=== PATIENT | female | born 1930 | race Caucasian/White ===

== ENCOUNTER 2016-09-20 17:45 | Observation (INO) | payer MEDICARE, OTHER ==
[~2016-09-20 17:45] MED LIST: ATEN-102 PO; CHLO50TA PO; GLYB1TAB50 PO; NITR0.4S SL; PLAV75TA PO; PRAV40TA2 PO; SYNT125T PO
[2016-09-20 17:48] VITALS: BP 188/91; PULSE 93; RESP 20; TEMP 98.1; O2SAT 94
[2016-09-20] MEDS ORDERED: GLYB2.5T3 PO (17:54)
[2016-09-20] MEDS ORDERED: PLAV75TA29 PO (17:54)
[2016-09-20] MEDS ORDERED: SYNT25TA PO (17:54)
[2016-09-20] MEDS ORDERED: VITA400C28 (17:54)
[2016-09-20] MEDS ORDERED: ATEN25TA PO (17:54)
--- NOTE | 2016-09-20 17:56 | PD ---
HPI Chief Complaint: Headache Time Seen by Provider: 17:48 Travel History International Travel<30 days: No Contact w/Intl Traveler<30days: No Traveled to known affect area: No History of Present Illness HPI 86 year old female with history of CAD, 2 stents, brought in by ambulance from home for evaluation of dizziness. The patient states that after returning from [facility] today she felt dizzy/lightheaded, and as though she was going to pass out. She did not actually pass out. Patient lives alone and she became concerned that her symptoms were not improving, so she called 911. Upon arrival to the emergency department the patient is awake and alert and in no acute distress. She complains of generalized weakness/lightheadedness. No chest pain or dyspnea. No abdominal pain. No fevers, chills, cough, or recent illness. PFSH Past Medical History Hx Anticoagulant Therapy: Yes (PLAVIX) Arthritis: Yes Asthma: No Autoimmune Disease: No Blood Disorders: No Anxiety: Yes Depression: No Heart Rhythm Problems: No Cancer: No Cardiac Catheterization: Yes Cardiovascular Problems: Yes ([place], [place]) High Cholesterol: Yes Chemotherapy: No Chest Pain: Yes Congestive Heart Failure: No COPD: No Cerebrovascular Accident: No Coronary Artery Disease: Yes Diabetes: Yes Patient Takes Glucophage: No Diminished Hearing: Yes ([place]) Endocrine: Yes Gastrointestinal Disorders: Yes GERD: No Glaucoma: No Genitourinary: Yes (INCONTINENECE) Headaches: No Hepatitis: No Hiatal Hernia: Yes Hypertension: Yes Immune Disorder: No Implanted Vascular Access Dvce: Yes Kidney Stones: No Musculoskeletal: Yes (kiphosis/arthritis/joint pain/) Neurologic: No Psychiatric: Yes Reproductive: No Respiratory: Yes Immunizations Current: Yes Migraines: No Myocardial Infarction: Yes Radiation Therapy: No Renal Failure: No Seizures: No Sickle Cell Disease: No Sleep Apnea: No Thyroid Disease: Yes Ulcer: No PNEUMOCCOCAL Vaccine (Year): 1 Menopausal: Yes Past Surgical History Abdominal Surgery: Yes (APPENDECTOMY) AICD: No Appendectomy: Yes Arteriovenous Shunt: No Body Medical Devices: STENT 2011 Cardiac Surgery: Yes (STENTS) Cholecystectomy: No Coronary Stent: Yes () Ear Surgery: No Endocrine Surgery: No Eye Surgery: Yes (CATARACTS) Genitourinary Surgery: No Gynecologic Surgery: No Insulin Pump: No Joint Replacement: No Neurologic Surgery: No Oral Surgery: No Pacemaker: No Thoracic Surgery: No Other Surgery: Yes (THYROID) Social History Alcohol Use: No Tobacco Use: No Substance Use: No Allergies-Medications (Allergen,Severity, Reaction): Coded Allergies: Demerol (Verified Allergy, Mild, N/V, 09/20/16) Darvon (Verified Adverse Reaction, Mild, N/V, 09/20/16) *MDRO Multi-Drug Resistant Organism (Verified Adverse Reaction, Unknown, ) MRSA PCR Screen positive 03/21/15. Reported Meds & Prescriptions Reported Meds & Active Scripts Active Reported Vitamin D (Cholecalciferol) 400 Unit Cap Unknown Dose Synthroid (Levothyroxine Sodium) 25 Mcg Tab Unknown Dose PO DAILY Glyburide 2.5 Mg Tab Unknown Dose PO BID Take with meals at the same time each day Plavix (Clopidogrel Bisulfate) 75 Mg Tab Unknown Dose PO DAILY Atenolol 25 Mg Tab Unknown Dose PO BID Review of Systems Except as stated in HPI: all other systems reviewed are Neg Physical Exam Narrative GENERAL: Well-developed, well-nourished, awake, alert, no acute distress. SKIN: Warm and dry. No rash. No pallor. HEAD: Atraumatic. Normocephalic. EYES: Pupils equal, round, 2 mm, reactive to light. EOMI. No nystagmus. No scleral icterus. No injection or drainage. ENT: Mucous membranes pink and moist. Bilateral tympanic members and external auditory canals are normal. NECK: Trachea midline. No JVD. CARDIOVASCULAR: Regular rate and rhythm. No murmur appreciated. RESPIRATORY: No accessory muscle use. Clear to auscultation. Breath sounds equal bilaterally. GASTROINTESTINAL: Abdomen soft, non-tender, nondistended. MUSCULOSKELETAL: No obvious deformities. No clubbing. No cyanosis. No edema. NEUROLOGICAL: Awake and alert. No obvious cranial nerve deficits. Motor grossly within normal limits. Normal speech. No focal deficit. PSYCHIATRIC: Appropriate mood and affect; insight and judgment normal. Data Data Last Documented VS Vital Signs Date Time Temp Pulse Resp B/P Pulse Ox O2 Delivery O2 Flow Rate FiO2 09/20/16 21:15 68 18 185/75 97 Room Air 09/20/16 19:15 97.7 Orders Electrocardiogram (09/20/16 17:53) Complete Blood Count With Diff (09/20/16 17:53) Comprehensive Metabolic Panel (09/20/16 17:53) B-Type Natriuretic Peptide (09/20/16 17:53) Ckmb (Isoenzyme) Profile (09/20/16 17:53) Troponin I (09/20/16 17:53) Act Partial Throm Time (Ptt) (09/20/16 17:53) Prothrombin Time / Inr (Pt) (09/20/16 17:53) Urinalysis - C+S If Indicated (09/20/16 17:53) Chest, Single Ap (09/20/16 17:53) Ecg Monitoring (09/20/16 17:53) Iv Access Insert/Monitor (09/20/16 17:53) Oximetry (09/20/16 17:53) Sodium Chloride 0.9% Flush (Ns Flush) (09/20/16 18:00) Influenzae A/B Antigen (09/20/16 17:53) Cath For Specimen (09/20/16 18:54) Ct Brain W/O Iv Contrast(Rout) (09/20/16 ) Bedside Glucose [place].AC&HS (09/20/16 21:28) ^ Blood Glucose Goal (Criteria (09/20/16 21:28) ^ Hypoglycemia 51 - 69 Mg/Dl (09/20/16 21:28) ^ Hypoglycemia 50 Mg/Dl Or < (09/20/16 21:28) ^ Notify Dr: Other (09/20/16 21:28) Dextrose 50% In [place] (Vial) Inj (D50w (Vi (09/20/16 21:30) Glucagon Inj (Glucagon Inj) (09/20/16 21:30) Insulin Aspart Supplemtl Scale (Novolog (09/21/16 07:00) Atenolol (Tenormin) (09/21/16 09:00) Place In Observation (09/20/16 ) Vital Signs (Adult) Q4H (09/20/16 21:28) Activity Oob With Assistance (09/20/16 21:28) Diet 1800 Ada Cons Carb (09/21/16 Breakfast) Sodium Chlor 0.9% 1000 Ml Inj (Ns 1000 M (09/20/16 21:28) Sodium Chloride 0.9% Flush (Ns Flush) (09/20/16 21:30) Sodium Chloride 0.9% Flush (Ns Flush) (09/21/16 09:00) Ondansetron Inj (Zofran Inj) (09/20/16 21:30) Bisacodyl Supp (Dulcolax Supp) (09/20/16 21:30) Comprehensive Metabolic Panel (09/21/16 06:00) Complete Blood Count With Diff (09/21/16 06:00) Pt Request For Service (09/20/16 21:28) Scd Bilateral/Knee High MILTON.BID (09/20/16 21:28) Yordan Bilateral/Knee High MILTON.QSHIFT (09/20/16 21:28) Acetaminophen (Tylenol) (09/20/16 21:30) Acetamin-Hydrocod 325-5 Mg ([place] 5-325 (09/20/16 21:30) Acetamin-Hydrocod 325-10 Mg ([place] 10-32 (09/20/16 21:30) Labs Laboratory Tests Test 09/20/16 09/20/16 18:00 19:20 White Blood Count 7.2 TH/MM3 Red Blood Count 5.14 MIL/MM3 Hemoglobin 14.4 GM/DL Hematocrit 44.8 % Mean Corpuscular Volume 87.2 FL Mean Corpuscular Hemoglobin 28.1 PG Mean Corpuscular Hemoglobin 32.2 % Concent Red Cell Distribution Width 13.8 % Platelet Count 260 TH/MM3 Mean Platelet Volume 7.6 FL Neutrophils (%) (Auto) 71.3 % Lymphocytes (%) (Auto) 17.1 % Monocytes (%) (Auto) 8.4 % Eosinophils (%) (Auto) 2.2 % Basophils (%) (Auto) 1.0 % Neutrophils # (Auto) 5.1 TH/MM3 Lymphocytes # (Auto) 1.2 TH/MM3 Monocytes # (Auto) 0.6 TH/MM3 Eosinophils # (Auto) 0.2 TH/MM3 Basophils # (Auto) 0.1 TH/MM3 CBC Comment DIFF FINAL Differential Comment Prothrombin Time 11.2 SEC Prothromb Time International 1.0 RATIO Ratio Activated Partial 26.4 SEC Thromboplast Time Sodium Level 140 MEQ/L Potassium Level 3.8 MEQ/L Chloride Level 104 MEQ/L Carbon Dioxide Level 27.7 MEQ/L Anion Gap 8 MEQ/L Blood Urea Nitrogen 14 MG/DL Creatinine 0.80 MG/DL Estimat Glomerular Filtration 68 ML/MIN Rate Random Glucose 177 MG/DL Calcium Level 8.5 MG/DL Total Bilirubin 0.6 MG/DL Aspartate Amino Transf 11 U/L (AST/SGOT) Alanine Aminotransferase 16 U/L (ALT/SGPT) Alkaline Phosphatase 78 U/L Total Creatine Kinase 55 U/L Troponin I LESS THAN 0.02 NG/ML B-Type Natriuretic Peptide 50 PG/ML Total Protein 6.8 GM/DL Albumin 3.4 GM/DL Urine Collection Type CATH Urine Color YELLOW Urine Turbidity CLEAR Urine pH 5.5 Urine Specific [place] 1.028 Urine Protein NEG mg/dL Urine Glucose (UA) 500 mg/dL Urine Ketones NEG mg/dL Urine Occult Blood TRACE Urine Nitrite NEG Urine Bilirubin NEG Urine Leukocyte Esterase NEG Urine RBC 0-3 /hpf Urine Squamous Epithelial 0-5 /hpf Cells Urine Amorphous Sediment SMALL Urine Mucus OCC /lpf Microscopic Urinalysis Comment CULT NOT INDICATED MDM Medical Decision Making Medical Screen Exam Complete: Yes Emergency Medical Condition: Yes Medical Record Reviewed: Yes Interpretation(s) EKG: Sinus, rate 85, indeterminate axis, first-degree AV block, nonspecific anterolateral T-wave changes with T-wave inversions in I and aVL as well as V2, unchanged from prior. Differential Diagnosis Near syncope, dysrhythmia, UTI, intracranial abnormality, electrolyte abnormality Narrative Course Initial vital signs show heart rate 93, blood pressure 188/91, pulse ox 97% on room air, oral temp of 98.1F. CBC is unremarkable. CMP is remarkable for random glucose 177, otherwise unremarkable. BNP is 50. Cardiac enzymes are negative. UA is not suggestive of UTI. Chest x-ray: CONCLUSION: 1. Large herniation of bowel into the lower thorax similar to prior study, likely associated with basilar atelectasis bilaterally, left greater than right. No pneumothorax. 7:00 PM: Patient states she is feeling a lot better and is refusing her CT head. She believes that her symptoms were related to "nerves/stress" as she is upset about something regarding her house. 7:55 PM: After all labs are resulted, the patient was made aware of all findings. She tells me that she still feels lightheaded/dizzy when she sits up. She then tells me that while at [employer] today can fell off the shelf and struck her on the top for head. She did not tell me this upon initial assessment. She does have an area of ecchymosis on the top of her scalp at her hairline. She is on Plavix. I convinced her that she needs a CT of her head, and likely admission if her symptoms are persistent. She is now amenable to CT head. CT head: CONCLUSION: 1. No acute findings. Chronic white matter ischemic changes. Stable remote lacunar infarct right basal ganglia. Patient was made aware of all findings. I attempted to have the patient ambulate while in the emergency Department, however every time she sits up she becomes very symptomatic and lays back down. She tells me that she feels too weak to walk. Again the patient lives on her own. No local family to care for her. She is a fall risk and is not safe to be discharged home. She will be admitted for overnight observation. Case discussed with hospitalist Dr. Avalos who will admit the patient to her service. Diagnosis Primary Impression: Closed head injury Qualified Code: S09.90XA - Closed head injury, initial encounter Additional Impressions: Concussion Qualified Code: S06.0X0A - Concussion, without loss of consciousness, initial encounter Lightheadedness Risk for falls Admitting Information Admitting Physician Requests: Observation Chase Hernandes MD Sep 20, 2016 17:56
[2016-09-20] MEDS ORDERED: SODIUM CHLORIDE 0.9% FLUSH 5 ML FLUSH IVF PRN (18:00)
[2016-09-20 18:10] VITALS: O2SAT 97
[2016-09-20 18:20] LABS: AUTOMATED NEUTROPHIL # 5.1 TH/MM3 (1.8-7.7); BASOPHIL # 0.1 TH/MM3 (0-0.2); EOSINOPHIL # 0.2 TH/MM3 (0-0.4); EOSINOPHIL % 2.2 % (0.0-4.0); HEMATOCRIT 44.8 % (35.0-46.0); HEMO FLAGS DIFF FINAL; LYMPH % 17.1 % (9.0-44.0); LYMPHOCYTE # 1.2 TH/MM3 (1.0-4.8); MEAN CELL VOLUME 87.2 FL (80.0-100.0); MEAN CORPUSCULAR HEMOGLOBIN 28.1 PG (27.0-34.0); MEAN CORPUSCULAR HGB CONC 32.2 % (32.0-36.0); MONO % 8.4 % (0.0-8.0); NEUT % 71.3 % (16.0-70.0); PLATELET COUNT 260 TH/MM3 (150-450); RED BLOOD COUNT 5.14 MIL/MM3 (4.00-5.30); RED CELL DISTRIBUTION WIDTH 13.8 % (11.6-17.2); WHITE BLOOD COUNT 7.2 TH/MM3 (4.0-11.0)
[2016-09-20 18:39] LABS: CHLORIDE 104 MEQ/L (98-107); POTASSIUM 3.8 MEQ/L (3.5-5.1); SODIUM (NA) 140 MEQ/L (136-145)
[2016-09-20 18:44] LABS: BLOOD UREA NITROGEN 14 MG/DL (7-18)
[2016-09-20 18:45] LABS: ANION GAP 8 MEQ/L (5-15); APTT (PATIENT) 26.4 SEC (24.3-30.1); BICARBONATE 27.7 MEQ/L (21.0-32.0); PROTHROMBIN TIME - PATIENT 11.2 SEC (9.8-11.6)
[2016-09-20 18:47] LABS: ALT (GPT) 16 U/L (10-53); AST (GOT) 11 U/L (15-37); GLOMERULAR FILTRATION RATE 68 ML/MIN (>89)
[2016-09-20 18:49] LABS: TOTAL BILIRUBIN ADULT 0.6 MG/DL (0.2-1.0)
[2016-09-20 18:50] LABS: ALKALINE PHOSPHATASE 78 U/L (45-117)
[2016-09-20 18:54] LABS: CREATINE KINASE 55 U/L (26-192)
--- NOTE | 2016-09-20 19:03 | RADHPO ---
EXAM DATE/TIME: 09/20/2016 18:23 [facility] COMPARISON: CT ABDOMEN & PELVIS W CONTRAST, April 01, 2016, 14:39. INDICATIONS : Syncope, dizzy MEDICAL HISTORY : Hypertension. SURGICAL HISTORY : cardiac stents ENCOUNTER: Initial ACUITY: 1 day PAIN SCORE: 0/10 LOCATION: Bilateral chest FINDINGS: Again seen is a very large hiatal hernia containing multiple loops of bowel. Heart size mildly promin ent. There is basilar opacity in the lungs which may represent atelectasis. No significant effusion. No pneumothorax. CONCLUSION: 1. Large herniation of bowel into the lower thorax similar to prior study, likely associated with bas ilar atelectasis bilaterally, left greater than right. No pneumothorax. Charbel Ramírez MD on September 20, 2016 at 19:00 Board Certified Radiologist. This report was verified electronically.
[2016-09-20 19:15] VITALS: BP 183/90; PULSE 73; RESP 18; TEMP 97.7; O2SAT 95
[2016-09-20 19:35] LABS: BLOOD, URINE TRACE (NEG); GLUCOSE,URINE 500 mg/dL (NEG); KETONE, URINE NEG (NEG); NITRITE,URINE NEG (NEG); PH, URINE 5.5 (5.0-8.5)
[2016-09-20 19:44] LABS: METHOD OF COLLECTION CATH; URINE COLOR YELLOW (YELLW/STRAW)
[2016-09-20 19:45] LABS: MUCUS URINE OCC /lpf (OCC); SQUAMOUS EPITHELIAL CELL URINE 0-5 /hpf (0-5)
[2016-09-20 19:46] LABS: RBC, URINE 0-3 /hpf (0-3)
[2016-09-20 19:47] LABS: COMMENT (UR) CULT NOT INDICATED; CULTURE IF INDICATED CULT NOT INDICATED
[2016-09-20 20:15] VITALS: BP 183/92; PULSE 67; RESP 18; O2SAT 97
--- NOTE | 2016-09-20 21:09 | RADHPO ---
EXAM DATE/TIME: 09/20/2016 20:08 [facility] COMPARISON: CT BRAIN W/O CONTRAST, February 06, 2015, 17:30. INDICATIONS : Superior head trauma. RADIATION DOSE: 62.06 CTDIvol (mGy) MEDICAL HISTORY : Myocardial infarction. Hypertension. Diabetes. SURGICAL HISTORY : None. ENCOUNTER: Initial ACUITY: 1 day PAIN SCALE: 7/10 LOCATION: occipital TECHNIQUE: Multiple contiguous axial images were obtained of the head. Using automated exposure control and adj ustment of the mA and/or kV according to patient size, radiation dose was kept as low as reasonably a chievable to obtain optimal diagnostic quality images. FINDINGS: CEREBRUM: The ventricles are normal for age. No evidence of midline shift, mass lesion, hemorrhage or acute in farction. No extra-axial fluid collections are seen. POSTERIOR FOSSA: The cerebellum and brainstem are intact. The 4th ventricle is midline. The cerebellopontine angle i s unremarkable. EXTRACRANIAL: The visualized portion of the orbits is intact. SKULL: The calvaria is intact. No evidence of skull fracture. CONCLUSION: 1. No acute findings. Chronic white matter ischemic changes. Stable remote lacunar infarct right basa l ganglia. Charbel Ramírez MD on September 20, 2016 at 21:05 Board Certified Radiologist. This report was verified electronically.
[2016-09-20 21:15] VITALS: BP 185/75; PULSE 68; RESP 18; O2SAT 97
[2016-09-20] MEDS ORDERED: DEXTROSE 50% IN WATER 50 ML VIAL(D50) IV PUSH PRN (21:30)
[2016-09-20] MEDS ORDERED: ACETAMINOPHEN/HYDROcodone 325 MG/5 MG TAB PO PRN (21:30)
[2016-09-20] MEDS ORDERED: ACETAMINOPHEN/HYDROcodone 325 MG/10 MG TAB PO PRN (21:30)
[2016-09-20] MEDS ORDERED: ONDANSETRON HCL 4 MG/2 ML VIAL IVP PRN (21:30)
[2016-09-20] MEDS ORDERED: ACETAMINOPHEN 325 MG TAB PO PRN (21:30)
[2016-09-20] MEDS ORDERED: BISACODYL 10 MG SUPP PR PRN (21:30)
[2016-09-20] MEDS ORDERED: SODIUM CHLORIDE 0.9% FLUSH 5 ML FLUSH FLUSH PRN (21:30)
[2016-09-20] MEDS ORDERED: GLUCAGON 1 MG/ML VIAL OTHER PRN (21:30)
[2016-09-20] MEDS: SODIUM CHLOR 0.9% 1000 ML INJ 1,000 ML IV SCH (21:53)
[2016-09-20 22:15] VITALS: BP 172/80; PULSE 68; RESP 16; TEMP 97.6; O2SAT 97
[2016-09-21] VITALS: BP_SYST 185; BP_SYST 204; BP_DIAS 85; BP_DIAS 96; PULSE 67; PULSE 69; RESP 18; TEMP 96; TEMP 97.5; O2SAT 94; O2SAT 95
[2016-09-21] MEDS ORDERED: ENALAPRILAT 1.25 MG/ML VIAL IV PRN (01:15)
[2016-09-21] MEDS ORDERED: ENALAPRILAT 2.5 MG/2 ML VIAL IV PUSH ONE (01:30)
[2016-09-21 04:00] VITALS: BP 185/85; PULSE 67; RESP 18; TEMP 97.5; O2SAT 94
[2016-09-21] MEDS: SODIUM CHLOR 0.9% 1000 ML INJ 1,000 ML IV SCH (06:36)
[2016-09-21 06:47] LABS: AUTOMATED NEUTROPHIL # 4.3 TH/MM3 (1.8-7.7); BASOPHIL % 0.7 % (0.0-2.0); EOSINOPHIL # 0.1 TH/MM3 (0-0.4); EOSINOPHIL % 2.2 % (0.0-4.0); HEMATOCRIT 41.6 % (35.0-46.0); HEMO FLAGS DIFF FINAL; LYMPH % 19.2 % (9.0-44.0); LYMPHOCYTE # 1.2 TH/MM3 (1.0-4.8); MEAN CELL VOLUME 86.6 FL (80.0-100.0); MEAN CORPUSCULAR HEMOGLOBIN 28.8 PG (27.0-34.0); MEAN CORPUSCULAR HGB CONC 33.3 % (32.0-36.0); MONO % 8.7 % (0.0-8.0); NEUT % 69.2 % (16.0-70.0); PLATELET COUNT 212 TH/MM3 (150-450); RED CELL DISTRIBUTION WIDTH 13.1 % (11.6-17.2); WHITE BLOOD COUNT 6.1 TH/MM3 (4.0-11.0)
[2016-09-21 06:58] LABS: CHLORIDE 103 MEQ/L (98-107); POTASSIUM 3.7 MEQ/L (3.5-5.1); SODIUM (NA) 140 MEQ/L (136-145)
[2016-09-21] MEDS ORDERED: INSULIN ASPART SUPPLEMENTAL SCALE SQ SCH (07:00)
[2016-09-21 07:06] LABS: ANION GAP 7 MEQ/L (5-15); BICARBONATE 29.6 MEQ/L (21.0-32.0); BLOOD UREA NITROGEN 10 MG/DL (7-18)
[2016-09-21 07:09] LABS: ALT (GPT) 13 U/L (10-53); AST (GOT) 10 U/L (15-37); GLOMERULAR FILTRATION RATE 97 ML/MIN (>89)
[2016-09-21 07:12] LABS: ALKALINE PHOSPHATASE 68 U/L (45-117)
[2016-09-21 08:00] VITALS: BP 158/86; PULSE 69; RESP 18; TEMP 98.1; O2SAT 95
[2016-09-21] MEDS ORDERED: ATENOLOL 25 MG TAB PO SCH (09:00)
[2016-09-21] MEDS ORDERED: SODIUM CHLORIDE 0.9% FLUSH 5 ML FLUSH FLUSH SCH (09:00)
[2016-09-21] MEDS ORDERED: cloNIDine HCL 0.1 MG TAB PO ONE (10:15)
[2016-09-21] MEDS ORDERED: cloNIDine HCL 0.1 MG TAB PO PRN (10:15)
--- NOTE | 2016-09-21 11:18 | EKG ---
Date Performed: 09/20/2016 Time Performed: 18:00:54 PTAGE: 86 years EKG: Sinus rhythm with 1st degree A-V block Anterolateral T wave changes are nonspecific Compared to previous tracing of 04/01/2016, first degree AV block is now present. Abnormal ECG PREVIOUS TRACING : 04/01/2016 13.42 DOCTOR: Prabhu Johnson Interpretating Date/Time 09/21/2016 11:16:06
== END 2016-09-21 11:30 | disposition left against medical advice (07) ==
LOC: PHED 17:45 → PHEDA 21:43 → PH3B 23:46
PROVIDERS: ADMIT Family Medicine; ATTEND Family Medicine
DX: S06.0X0A Concussion without loss of consciousness, initial encounter (principal); R55 Syncope and collapse; I25.10 Atherosclerotic heart disease of native coronary artery without angina pectoris; I10 Essential (primary) hypertension; E11.9 Type 2 diabetes mellitus without complications; I25.2 Old myocardial infarction; E78.00 Pure hypercholesterolemia, unspecified; Z95.5 Presence of coronary angioplasty implant and graft; Z79.84 Long term (current) use of oral hypoglycemic drugs; Z91.81 History of falling
CPT/HCPCS: 70450; 71010; 80053; 81001; 82550; 82948; 83880; 84484; 85025; 85610; 85730; 87804; 93005; 97163; 99285; G0378; G8987; G8988; J7030; P9612

== ENCOUNTER 2016-09-23 16:53 | Emergency (ER) | payer MEDICARE, OTHER ==
[~2016-09-23] VITALS: Ht 160 cm; Wt 82.0 kg
[~2016-09-23 16:53] MED LIST changes: -ATEN-102 PO; +ATEN25TA PO; -CHLO50TA PO; -GLYB1TAB50 PO; +GLYB2.5T3 PO; -NITR0.4S SL; -PLAV75TA PO; +PLAV75TA29 PO; -PRAV40TA2 PO; -SYNT125T PO; +SYNT25TA PO; +VITA400C28
[2016-09-23 16:59] VITALS: BP 161/107; PULSE 108; RESP 18; TEMP 98; O2SAT 95
[2016-09-23 18:40] VITALS: BP 144/96; PULSE 93; RESP 16; O2SAT 95
[2016-09-23 21:00] VITALS: BP 205/93; PULSE 85; RESP 16; O2SAT 96
[2016-09-23] MEDS ORDERED: GLYB2.5T3 PO (21:22)
[2016-09-23] MEDS ORDERED: ISOS30TA3 PO (21:22)
[2016-09-23] MEDS ORDERED: PRAV40TA2 PO (21:22)
[2016-09-23] MEDS ORDERED: PLAV75TA29 PO (21:22)
[2016-09-23] MEDS ORDERED: LISI-519 PO (21:22)
--- NOTE | 2016-09-23 21:34 | PD ---
HPI Chief Complaint: Dizziness Time Seen by Provider: 21:15 Travel History International Travel<30 days: No Contact w/Intl Traveler<30days: No Traveled to known affect area: No History of Present Illness HPI The patient is an 86-year-old female who has a history of coronary artery disease, 2 stents, hypothyroidism who has been dizzy chronically. She does have vertigo. She came in with similar symptoms but didn't pass out completely on the 12th of this month. A workup was unremarkable as far as the blood is concern and the cardiac enzymes were normal. The chest x-ray showed a large herniation of bowel into the lower thorax that was similar to a prior study. The urine was normal and the CT head showed no acute findings. The patient comes in with vertigo but she is not compliant with her medications. She doesn' t know when she last took her atenolol and has not been taking her thyroid medication. PFSH Past Medical History Hx Anticoagulant Therapy: Yes (PLAVIX) Arthritis: Yes Asthma: No Autoimmune Disease: No Blood Disorders: No Anxiety: Yes Depression: No Heart Rhythm Problems: No Cancer: No Cardiac Catheterization: Yes Cardiovascular Problems: Yes ([place], [place]) High Cholesterol: Yes Chemotherapy: No Chest Pain: Yes Congestive Heart Failure: No COPD: No Cerebrovascular Accident: No Coronary Artery Disease: Yes Diabetes: Yes Diminished Hearing: Yes ([place]) Endocrine: Yes Gastrointestinal Disorders: Yes GERD: No Glaucoma: No Genitourinary: Yes (INCONTINENECE) Headaches: No Hepatitis: No Hiatal Hernia: Yes Hypertension: Yes Immune Disorder: No Implanted Vascular Access Dvce: Yes Kidney Stones: No Musculoskeletal: Yes (kiphosis/arthritis/joint pain/) Neurologic: No Psychiatric: Yes Reproductive: No Respiratory: Yes Immunizations Current: Yes Migraines: No Myocardial Infarction: Yes Radiation Therapy: No Renal Failure: No Seizures: No Sickle Cell Disease: No Sleep Apnea: No Thyroid Disease: Yes Ulcer: No PNEUMOCCOCAL Vaccine (Year): 1 Menopausal: Yes Past Surgical History Abdominal Surgery: Yes (APPENDECTOMY) AICD: No Appendectomy: Yes Arteriovenous Shunt: No Body Medical Devices: STENT 2011 Cardiac Surgery: Yes ([place]) Cholecystectomy: No Coronary Stent: Yes () Ear Surgery: No Endocrine Surgery: No Eye Surgery: Yes (CATARACTS) Genitourinary Surgery: No Gynecologic Surgery: No Insulin Pump: No Joint Replacement: No Neurologic Surgery: No Oral Surgery: No Pacemaker: No Thoracic Surgery: No Other Surgery: Yes (THYROID) Social History Alcohol Use: No Tobacco Use: No Substance Use: No Allergies-Medications (Allergen,Severity, Reaction): Coded Allergies: Demerol (Verified Allergy, Mild, N/V, 09/23/16) Darvon (Verified Adverse Reaction, Mild, N/V, 09/23/16) *MDRO Multi-Drug Resistant Organism (Verified Adverse Reaction, Unknown, ) MRSA PCR Screen POSITIVE - 03/21/15 Reported Meds & Prescriptions Reported Meds & Active Scripts Active Reported Lisinopril 5 Mg Tab 5 Mg PO DAILY Glyburide 2.5 Mg Tab 2.5 Mg PO DAILY Take with meals at the same time each day Pravastatin 40 Mg Tab 40 Mg PO DAILY Plavix (Clopidogrel Bisulfate) 75 Mg Tab 75 Mg PO DAILY Isosorbide Mononitrate ER (Isosorbide Mononitrate) 30 Mg Renetta 30 Mg PO DAILY Vitamin D (Cholecalciferol) 400 Unit Cap Unknown Dose Synthroid (Levothyroxine Sodium) 25 Mcg Tab Unknown Dose PO DAILY Atenolol 25 Mg Tab Unknown Dose PO BID Review of Systems Except as stated in HPI: all other systems reviewed are Neg Physical Exam Narrative GENERAL: The patient is alert, oriented 3 in no apparent distress. Her vital signs show blood pressure 161/107 but repeat is 144/96. Oximetry is 95%. Heart rate initially was 108 but repeat shows 93 heart rate. SKIN: Warm and dry. HEAD: Atraumatic. Normocephalic. EYES: Pupils equal and round. No scleral icterus. No injection or drainage. ENT: No nasal bleeding or discharge. Mucous membranes pink and moist. I cannot see any nystagmus when the patient moves about. She apparently has no dizziness at this time. NECK: Trachea midline. No JVD. CARDIOVASCULAR: Atrial fibrillation with slight rapid ventricular response. No murmur appreciated. RESPIRATORY: No accessory muscle use. Clear to auscultation. Breath sounds equal bilaterally. GASTROINTESTINAL: Abdomen soft, non-tender, nondistended. Hepatic and splenic margins not palpable. MUSCULOSKELETAL: No obvious deformities. No clubbing. No cyanosis. No edema. NEUROLOGICAL: Awake and alert. No obvious cranial nerve deficits. Motor grossly within normal limits. Normal speech. PSYCHIATRIC: Appropriate mood and affect; insight and judgment normal. Data Data Last Documented VS Vital Signs Date Time Temp Pulse Resp B/P Pulse Ox O2 Delivery O2 Flow Rate FiO2 09/23/16 18:40 93 16 144/96 95 09/23/16 16:59 98.0 [facility] Medical Decision Making Medical Screen Exam Complete: Yes Emergency Medical Condition: Yes Medical Record Reviewed: Yes Differential Diagnosis Noncompliance to medication, benign positional vertigo, chronic vertigo Narrative Course The patient was seen here on the and a fairly extensive workup revealed normal blood and CT scan. She is noncompliant on her atenolol thyroid medication. The patient needs to take her medications, she states that she will get little boxes where she can put the medicine and an take them on a daily basis. The patient is to follow-up with Dr. [place]. When she follows up with her primary care physician she should take her medications correctly so that he can accurately fine-tune her blood pressure medication. At this time the patient has not taken her medications and does not even know when the last time she took her atenolol was. Diagnosis Primary Impression: Noncompliance with medication regimen Additional Impression: Chronic vertigo Additional Instructions: As we discussed, it is extremely important to take her medications correctly. Your primary care physician cannot accurately fine-tuning your medications unless you are taking them correctly. Follow-up with Dr. [place] as soon as possible. Med/Other Pt SpecificInfo: No Change to Meds Disposition: 01 DISCHARGE HOME Condition: Stable Jaguar Morillo MD Sep 23, 2016 21:34
[2016-09-23 22:15] VITALS: BP 193/100; PULSE 94; RESP 16; O2SAT 97
== END 2016-09-23 22:38 | disposition home or self-care (01) ==
LOC: PHED 16:53
DX: R42 Dizziness and giddiness (principal); E03.9 Hypothyroidism, unspecified; Z91.14 Patient's other noncompliance with medication regimen
CPT/HCPCS: 99283

== ENCOUNTER 2016-09-27 17:25 | Emergency (ER) | payer MEDICARE, OTHER ==
[~2016-09-27] VITALS: Ht 160 cm; Wt 73.9 kg
[~2016-09-27 17:25] MED LIST changes: +ISOS30TA3 PO; +LISI-519 PO; +PRAV40TA2 PO
[2016-09-27 17:45] VITALS: BP 141/74; PULSE 71; RESP 16; TEMP 97.9; O2SAT 95
== END 2016-09-27 19:16 | disposition left against medical advice (07) ==
LOC: PHED 17:25
DX: R42 Dizziness and giddiness (principal)
CPT/HCPCS: 99281

== ENCOUNTER 2016-09-30 17:42 | Emergency (ER) | payer MEDICARE, OTHER ==
[~2016-09-30] VITALS: Ht 162.6 cm; Wt 74.1 kg
[2016-09-30 17:47] VITALS: BP 208/95; PULSE 74; RESP 20; TEMP 97.3; O2SAT 94
--- NOTE | 2016-09-30 18:39 | PD ---
HPI Chief Complaint: Dizziness Time Seen by Provider: 18:39 Travel History International Travel<30 days: No Contact w/Intl Traveler<30days: No Traveled to known affect area: No History of Present Illness HPI 86-year-old female with history of hypertension, diabetes, CAD, stent placement , presents to the emergency department for evaluation of dizziness. Patient states she was at her primary care provider's office this morning and saw the nurse practitioner there. She was told that she had vertigo. She has no history of vertigo. She states that she was told that she may be dehydrated and was advised to come to the emergency department. Patient states on September 19 she was t at the grocery store when a can fell and struck her on the front of her head. She did not lose consciousness but noted significant dizziness. She was seen and evaluated in the emergency department CT imaging was complete and negative. Patient states she has been having the dizziness since that incident. It did not exist prior to it. She states it is mostly with positional changes. Denies any nausea or vomiting. States that she has had mild shortness of breath. No chest pain. No other focal deficits or weakness. She has no other symptoms to report this time. Note patient was also the emergency department 3 days ago for evaluation of the dizziness but felt that it was due to her blood pressure. She states that she felt better and her blood pressure has decreased that she chose to leave. Pt is accompanied by a woman whom she met today. The woman's son cuts the pt's grass and called his mom concerned about the pt. PFSH Past Medical History Arthritis: Yes Asthma: No Autoimmune Disease: No Blood Disorders: No Anxiety: Yes Depression: No Heart Rhythm Problems: No Cancer: No Cardiac Catheterization: Yes Cardiovascular Problems: Yes (2 CARDIAC STENTS, [place] ) High Cholesterol: Yes Chemotherapy: No Chest Pain: Yes Congestive Heart Failure: No COPD: No Cerebrovascular Accident: No Coronary Artery Disease: Yes Diabetes: Yes (TYPE 2) Diminished Hearing: Yes (TRIBAL) Endocrine: Yes Gastrointestinal Disorders: Yes GERD: No Glaucoma: No Genitourinary: Yes (INCONTINENECE) Headaches: No Hepatitis: No Hiatal Hernia: Yes Hypertension: Yes Immune Disorder: No Implanted Vascular Access Dvce: Yes Kidney Stones: No Musculoskeletal: Yes (kiphosis/arthritis/joint pain/) Neurologic: Yes (HEAD INJURY 2016) Psychiatric: Yes Reproductive: No Respiratory: Yes Immunizations Current: Yes Migraines: No Myocardial Infarction: Yes Radiation Therapy: No Renal Failure: No Seizures: No Sickle Cell Disease: No Sleep Apnea: No Thyroid Disease: Yes Ulcer: No PNEUMOCCOCAL Vaccine (Year): 1 Menopausal: Yes : 0 Past Surgical History Abdominal Surgery: Yes (APPENDECTOMY) AICD: No Appendectomy: Yes Arteriovenous Shunt: No Body Medical Devices: STENT 2011 Cardiac Surgery: Yes (STENTS) Cholecystectomy: No Coronary Stent: Yes () Ear Surgery: No Endocrine Surgery: No Eye Surgery: Yes (CATARACTS) Genitourinary Surgery: No Gynecologic Surgery: No Insulin Pump: No Joint Replacement: No Neurologic Surgery: No Oral Surgery: No Pacemaker: No Thoracic Surgery: No Other Surgery: Yes (THYROID) Social History Alcohol Use: No Tobacco Use: No Substance Use: No Allergies-Medications (Allergen,Severity, Reaction): Coded Allergies: Demerol (Verified Allergy, Mild, N/V, 09/30/16) Darvon (Verified Adverse Reaction, Mild, N/V, 09/30/16) *MDRO Multi-Drug Resistant Organism (Verified Adverse Reaction, Unknown, ) MRSA PCR Screen POSITIVE - 03/21/15 Reported Meds & Prescriptions Reported Meds & Active Scripts Active Reported Lisinopril 5 Mg Tab 5 Mg PO DAILY Glyburide 2.5 Mg Tab 2.5 Mg PO DAILY Take with meals at the same time each day Pravastatin 40 Mg Tab 40 Mg PO DAILY Plavix (Clopidogrel Bisulfate) 75 Mg Tab 75 Mg PO DAILY Isosorbide Mononitrate ER (Isosorbide Mononitrate) 30 Mg Renetta 30 Mg PO DAILY Vitamin D (Cholecalciferol) 400 Unit Cap Unknown Dose Synthroid (Levothyroxine Sodium) 25 Mcg Tab Unknown Dose PO DAILY Atenolol 25 Mg Tab Unknown Dose PO BID Review of Systems Except as stated in HPI: all other systems reviewed are Neg Physical Exam Narrative GENERAL: Well-nourished elderly female patient, lying in bed in no acute distress SKIN: Warm and dry. HEAD: Palpable raised centimeter nodule on the superior frontal scalp area Normocephalic. EYES: Pupils equal and round. No scleral icterus. No injection or drainage. EOMI. ENT: No nasal bleeding or discharge. Mucous membranes pink and moist. NECK: Trachea midline. No JVD. CARDIOVASCULAR: Regular rate and rhythm. No murmur appreciated. RESPIRATORY: No accessory muscle use. Diminished to auscultation. Breath sounds equal bilaterally. GASTROINTESTINAL: Abdomen soft, non-tender, nondistended. Hepatic and splenic margins not palpable. MUSCULOSKELETAL: No obvious deformities. No clubbing. No cyanosis. 2+ lower extremity edema. NEUROLOGICAL: Awake and alert. No obvious cranial nerve deficits. Motor grossly within normal limits. Normal speech. Data Data Last Documented VS Vital Signs Date Time Temp Pulse Resp B/P Pulse Ox O2 Delivery O2 Flow Rate FiO2 09/30/16 19:15 75 18 97 Room Air 09/30/16 17:47 97.3 208/95 Orders Electrocardiogram (09/30/16 18:42) Basic Metabolic Panel (Bmp) (09/30/16 18:42) Complete Blood Count With Diff (09/30/16 18:42) Magnesium (Mg) (09/30/16 18:42) B-Type Natriuretic Peptide (09/30/16 18:42) Ckmb (Isoenzyme) Profile (09/30/16 18:42) Troponin I (09/30/16 18:42) Act Partial Throm Time (Ptt) (09/30/16 18:42) Prothrombin Time / Inr (Pt) (09/30/16 18:42) Urinalysis - C+S If Indicated (09/30/16 18:42) Chest, Single Ap (09/30/16 18:42) Ct Brain W/O Iv Contrast(Rout) (09/30/16 18:42) MDM Medical Decision Making Medical Screen Exam Complete: Yes Emergency Medical Condition: Yes Medical Record Reviewed: Yes Differential Diagnosis Electrolyte abnormality versus intracranial hemorrhage versus postconcussive syndrome versus vertigo versus cardiac etiology versus syncope versus near syncope Narrative Course 86-year-old female presents to the emergency department for evaluation. Workup was initiated in triage. Once a medical bed becomes available, patient will be transferred and care assumed by the provider. Condition: Stable Shaniqua Ramirez Sep 30, 2016 18:39
--- NOTE | 2016-09-30 19:12 | RADRPT ---
EXAM DATE/TIME: 09/30/2016 19:00 [facility] COMPARISON: CHEST SINGLE AP, September 20, 2016, 18:23. INDICATIONS : Dizziness for 1 week. MEDICAL HISTORY : Myocardial infarction. Hypertension. Diabetes. SURGICAL HISTORY : None. ENCOUNTER: Initial ACUITY: 1 week PAIN SCORE: 0/10 LOCATION: Bilateral chest FINDINGS: Patchy infiltrates in left mid and lower lung, modestly improved in the interim. Right lung is reason ably clear. No pneumothorax seen. Mild cardiomegaly is stable. There is a large hiatal hernia again noted. CONCLUSION: Left base and mid lung consolidation slightly improved. Sonny Singh MD on September 30, 2016 at 19:10 Board Certified Radiologist. This report was verified electronically.
--- NOTE | 2016-09-30 19:20 | RADRPT ---
EXAM DATE/TIME: 09/30/2016 19:01 [facility] COMPARISON: CT BRAIN W/O CONTRAST, September 20, 2016, 20:08. INDICATIONS : Vertigo RADIATION DOSE: 40.67 CTDIvol (mGy) MEDICAL HISTORY : Cardiovascular disease. Hypertension. Diabetes mellitus type 2. SURGICAL HISTORY : Appendectomy. ENCOUNTER: Initial ACUITY: 1 day PAIN SCALE: 0/10 LOCATION: Bilateral cranial TECHNIQUE: Multiple contiguous axial images were obtained of the head. Using automated exposure control and adj ustment of the mA and/or kV according to patient size, radiation dose was kept as low as reasonably a chievable to obtain optimal diagnostic quality images. FINDINGS: CEREBRUM: The ventricles are normal for age. No evidence of midline shift, mass lesion, hemorrhage or acute in farction. No extra-axial fluid collections are seen. Atrophy and chronic low-attenuation in the kristy ventricular white matter again noted. POSTERIOR FOSSA: The cerebellum and brainstem are intact. The 4th ventricle is midline. The cerebellopontine angle i s unremarkable. EXTRACRANIAL: The visualized portion of the orbits is intact. Visualized paranasal sinuses and mastoid air cells ar e clear. Incidentally seen torus palatini. SKULL: The calvaria is intact. No evidence of skull fracture. CONCLUSION: 1. No acute intracranial abnormality. 2. Atrophy and chronic white matter changes. Sonny Singh MD on September 30, 2016 at 19:17 Board Certified Radiologist. This report was verified electronically.
[2016-09-30 19:29] LABS: AUTOMATED NEUTROPHIL # 5.3 TH/MM3 (1.8-7.7); BASOPHIL # 0.1 TH/MM3 (0-0.2); BASOPHIL % 0.9 % (0.0-2.0); EOSINOPHIL # 0.1 TH/MM3 (0-0.4); EOSINOPHIL % 1.3 % (0.0-4.0); HEMATOCRIT 42.7 % (35.0-46.0); HEMO FLAGS DIFF FINAL; LYMPH % 20.4 % (9.0-44.0); LYMPHOCYTE # 1.6 TH/MM3 (1.0-4.8); MEAN CELL VOLUME 86.2 FL (80.0-100.0); MEAN CORPUSCULAR HEMOGLOBIN 29.8 PG (27.0-34.0); MEAN CORPUSCULAR HGB CONC 34.6 % (32.0-36.0); MONO % 9.4 % (0.0-8.0); PLATELET COUNT 245 TH/MM3 (150-450); RED BLOOD COUNT 4.96 MIL/MM3 (4.00-5.30); RED CELL DISTRIBUTION WIDTH 14.2 % (11.6-17.2); WHITE BLOOD COUNT 7.8 TH/MM3 (4.0-11.0)
[2016-09-30 19:35] VITALS: BP_SYST 216; BP_SYST 220; BP_SYST 231; BP_DIAS 93; BP_DIAS 95
--- NOTE | 2016-09-30 19:40 | PD ---
Physical Exam Date Seen by Provider: Sep 30, 2016 Time Seen by Provider: 19:38 Narrative The patient is a 86-year-old female who was initially evaluated by the mid- level provider, please refer to the history, physical, diagnostic evaluation, and treatment modality plan. Data Data Last Documented VS Vital Signs Date Time Temp Pulse Resp B/P Pulse Ox O2 Delivery O2 Flow Rate FiO2 09/30/16 20:36 195/85 09/30/16 19:15 75 18 97 Room Air 09/30/16 17:47 97.3 Orders Electrocardiogram (09/30/16 18:42) Basic Metabolic Panel (Bmp) (09/30/16 18:42) Complete Blood Count With Diff (09/30/16 18:42) Magnesium (Mg) (09/30/16 18:42) B-Type Natriuretic Peptide (09/30/16 18:42) Ckmb (Isoenzyme) Profile (09/30/16 18:42) Troponin I (09/30/16 18:42) Act Partial Throm Time (Ptt) (09/30/16 18:42) Prothrombin Time / Inr (Pt) (09/30/16 18:42) Urinalysis - C+S If Indicated (09/30/16 18:42) Chest, Single Ap (09/30/16 18:42) Ct Brain W/O Iv Contrast(Rout) (09/30/16 18:42) Orthostatic Vital Signs (09/30/16 19:37) Lisinopril (Prinivil) (09/30/16 20:15) Labs Laboratory Tests Test 09/30/16 19:15 White Blood Count 7.8 TH/MM3 Red Blood Count 4.96 MIL/MM3 Hemoglobin 14.8 GM/DL Hematocrit 42.7 % Mean Corpuscular Volume 86.2 FL Mean Corpuscular Hemoglobin 29.8 PG Mean Corpuscular Hemoglobin 34.6 % Concent Red Cell Distribution Width 14.2 % Platelet Count 245 TH/MM3 Mean Platelet Volume 7.5 FL Neutrophils (%) (Auto) 68.0 % Lymphocytes (%) (Auto) 20.4 % Monocytes (%) (Auto) 9.4 % Eosinophils (%) (Auto) 1.3 % Basophils (%) (Auto) 0.9 % Neutrophils # (Auto) 5.3 TH/MM3 Lymphocytes # (Auto) 1.6 TH/MM3 Monocytes # (Auto) 0.7 TH/MM3 Eosinophils # (Auto) 0.1 TH/MM3 Basophils # (Auto) 0.1 TH/MM3 CBC Comment DIFF FINAL Differential Comment Prothrombin Time 11.6 SEC Prothromb Time International 1.0 RATIO Ratio Activated Partial 26.1 SEC Thromboplast Time Sodium Level 136 MEQ/L Potassium Level 3.7 MEQ/L Chloride Level 100 MEQ/L Carbon Dioxide Level 29.5 MEQ/L Anion Gap 7 MEQ/L Blood Urea Nitrogen 17 MG/DL Creatinine 0.81 MG/DL Estimat Glomerular Filtration 67 ML/MIN Rate Random Glucose 131 MG/DL Calcium Level 9.3 MG/DL Magnesium Level 1.9 MG/DL Total Creatine Kinase 44 U/L Troponin I LESS THAN 0.02 NG/ML B-Type Natriuretic Peptide 185 PG/ML [facility] Medical Record Reviewed: Yes Supervised Visit with JUAN A: Yes Interpretation(s) Last Impressions Head CT 09/30/161841 Signed Impressions: Service Date/Time: Friday, September 30, 2016 19:01 - CONCLUSION: 1. No acute intracranial abnormality. 2. Atrophy and chronic white matter changes. Sonny Singh MD Chest X-Ray 09/30/161841 Signed Impressions: Service Date/Time: Friday, September 30, 2016 19:00 - CONCLUSION: Left base and mid lung consolidation slightly improved. Sonny Singh MD EKG reveals normal sinus rhythm with a rate of 66. First-degree AV block with MS 223 ms. Inverted T waves in lead 1 and aVL. Differential Diagnosis Differential diagnosis includes postconcussive syndrome, concussion, intracranial hemorrhage, cerebellar infarct, vertigo, benign proximal positional vertigo, labyrinthitis, Mnire's disease, orthostatic hypotension, hypertension. Narrative Course I, Dr. Godoy, have reviewed the advance practice practitioner's documentation and am in agreement, met with the patient face to face, made the diagnosis, and the medical decision making was done by me. *My assessment and Findings: The patient is a 86-year-old female who originally was evaluated by the mid-level provider. The patient does note a history of dizziness since can of [place] fell off a shelf at [facility] striking her in the frontal forehead. The patient notes occasional dizziness which she described as "room spinning", worse with positional changes, and intermittent. The patient states she is unable to drive secondary to the dizziness. The patient originally was seen in emergency department earlier this month where she had a CT the brain workup which was unremarkable. She does note her symptoms continue to be intermittent. The patient was evaluated by her primary physicians physician bindery library technical assistant earlier today, and refer to the emergency department for further evaluation. The patient denies any acute weakness or numbness of the upper or lower extremities. The patient's physical examination reveals a nonfocal exam, finger to nose and heel to banuelos are normal, patient is alert and oriented and follows commands without difficulty. CT the brain was repeated, there was no delayed intracranial hemorrhage noted, no acute changes. Laboratory evaluation was ordered by the mid-level provider. Orthostatic vital signs were obtained. The patient was asymptomatic when evaluated at 7:[address] of the brain reveals chronic changes, no acute findings to suggest infarct. The patient sodium level is normal. The patient's blood pressure started to reduce after her oral medication was administered. The patient is able to ambulate around the house and cooking clean for herself. The friend who brought the patient to the hospital, does state that her physician's office ordered home health care and a walker for the patient. We had a discussion regarding admission with PTT evaluation for possible placement in a detention facility or discharged home. The patient would prefer to be discharged home. She is currently asymptomatic. I will prescribe meclizine to see if else with her symptoms, however, patient is advised to follow-up with her primary physician. The friend also states that the physician's office ordered her the physical therapy for vertigo. Diagnosis Primary Impression: Dizziness Patient Instructions: General Instructions Additional Instruction: Medications as directed. Follow-up with physical therapy as prescribed by her doctor and home health care as prescribed by her doctor. Return if symptoms worsen or progress. No driving while symptomatic. Med/Other Pt SpecificInfo: Prescription(s) given Scripts Meclizine 25 Mg Tab25 Mg PO TID PRN (VERTIGO) #15 TAB Ref 0 Prov:Tanvir Godoy MD 09/30/16 Disposition: 01 DISCHARGE HOME Condition: Stable Tanvir Godoy MD Sep 30, 2016 19:40
[2016-09-30 19:45] LABS: APTT (PATIENT) 26.1 SEC (24.3-30.1); PROTHROMBIN TIME - PATIENT 11.6 SEC (9.8-11.6)
[2016-09-30 20:09] LABS: ANION GAP 7 MEQ/L (5-15); BICARBONATE 29.5 MEQ/L (21.0-32.0); BLOOD UREA NITROGEN 17 MG/DL (7-18); CHLORIDE 100 MEQ/L (98-107); GLOMERULAR FILTRATION RATE 67 ML/MIN (>89); MAGNESIUM 1.9 MG/DL (1.5-2.5); POTASSIUM 3.7 MEQ/L (3.5-5.1); SODIUM (NA) 136 MEQ/L (136-145)
[2016-09-30] MEDS ORDERED: LISINOPRIL 5 MG TAB PO ONE (20:15)
[2016-09-30 20:36] VITALS: BP 195/85
[2016-09-30 21:02] LABS: CREATINE KINASE 44 U/L (26-192)
[2016-09-30] MEDS ORDERED: MECL-62 PO (21:29)
[2016-09-30 21:40] LABS: BLOOD, URINE NEG (NEG); COMMENT (UR) CULT NOT INDICATED; CULTURE IF INDICATED CULT NOT INDICATED; GLUCOSE,URINE NEG (NEG); KETONE, URINE 10 mg/dL (NEG); MUCUS URINE FEW /lpf (OCC); NITRITE,URINE NEG (NEG); PH, URINE 5.5 (5.0-8.5); SQUAMOUS EPITHELIAL CELL URINE 2 /hpf (0-5); URINE COLOR YELLOW (YELLW/STRAW)
--- NOTE | 2016-09-30 22:28 | EKG ---
Date Performed: 09/30/2016 Time Performed: 19:41:48 PTAGE: 86 years EKG: Sinus rhythm WITH FIRST DEGREE AV BLOCK ST DEVIATION AND MODERATE T-WAVE ABNORMALITY, CONSIDER LATERAL ISCHEMIA A BNORMAL ECG PREVIOUS TRACING : 09/20/2016 18.00 Compared to prior tracing no significant change DOCTOR: Burak Malave Interpretating Date/Time 09/30/2016 22:27:30
== END 2016-09-30 22:18 | disposition home or self-care (01) ==
LOC: NEPE 17:42
DX: R42 Dizziness and giddiness (principal); I10 Essential (primary) hypertension; I44.0 Atrioventricular block, first degree; I25.10 Atherosclerotic heart disease of native coronary artery without angina pectoris; I25.2 Old myocardial infarction; E11.9 Type 2 diabetes mellitus without complications; R94.31 Abnormal electrocardiogram [ECG] [EKG]; Z79.02 Long term (current) use of antithrombotics/antiplatelets; Z79.84 Long term (current) use of oral hypoglycemic drugs; Z79.899 Other long term (current) drug therapy
CPT/HCPCS: 70450; 71010; 80048; 81001; 82550; 83735; 83880; 84484; 85025; 85610; 85730; 93005

== ENCOUNTER 2016-11-12 12:10 | Inpatient (IN) | payer MEDICARE, OTHER ==
[~2016-11-12] VITALS: Ht 160 cm; Wt 76.7 kg
[2016-11-12] VITALS (11 sets, daily range): BP systolic 134–220; BP diastolic 69–96; PULSE 62–75; RESP 16–20; TEMP 97.3–97.5; O2SAT 92–100
[~2016-11-12 12:10] MED LIST changes: +MECL-62 PO
--- NOTE | 2016-11-12 12:38 | PD ---
HPI Chief Complaint: Injury Time Seen by Provider: 12:37 Travel History International Travel<30 days: No Contact w/Intl Traveler<30days: No Traveled to known affect area: No History of Present Illness HPI 86-year-old female with PMH of CAD, HTN, CHF, DM, hx MRSA presents to the ED for evaluation of left foot pain. Onset yesterday. Patient states that she was walking with her cane, somehow twisted her foot walking on carpet. She complains of pain on the plantar aspect of the foot. She states that she has been very minimally ambulatory since the accident. She treated with 2 Tylenol with no improvement of the pain. PFSH Past Medical History Hx Anticoagulant Therapy: Yes Arthritis: Yes Asthma: No Autoimmune Disease: No Blood Disorders: No Anxiety: Yes Depression: No Heart Rhythm Problems: No Cancer: No Cardiac Catheterization: Yes Cardiovascular Problems: Yes (HTN, CHOL) High Cholesterol: Yes Chemotherapy: No Chest Pain: Yes Congestive Heart Failure: No COPD: No Cerebrovascular Accident: No Coronary Artery Disease: Yes Diabetes: Yes Diminished Hearing: Yes ([place]) Endocrine: Yes Gastrointestinal Disorders: Yes GERD: No Glaucoma: No Genitourinary: Yes (INCONTINENECE) Headaches: No Hepatitis: No Hiatal Hernia: Yes Hypertension: Yes Immune Disorder: No Implanted Vascular Access Dvce: Yes Kidney Stones: No Musculoskeletal: Yes (kiphosis/arthritis/joint pain/) Neurologic: Yes (HEAD INJURY 2016) Psychiatric: Yes Reproductive: No Respiratory: Yes Immunizations Current: Yes Migraines: No Myocardial Infarction: Yes Radiation Therapy: No Renal Failure: No Seizures: No Sickle Cell Disease: No Sleep Apnea: No Thyroid Disease: Yes Ulcer: No PNEUMOCCOCAL Vaccine (Year): 1 ?: Not Menopausal: Yes : 0 Past Surgical History Abdominal Surgery: Yes (APPENDECTOMY) AICD: No Appendectomy: Yes Arteriovenous Shunt: No Body Medical Devices: STENT 2011 Cardiac Surgery: Yes (STENTS) Cholecystectomy: No Coronary Stent: Yes () Ear Surgery: No Endocrine Surgery: No Eye Surgery: Yes (CATARACTS) Genitourinary Surgery: No Gynecologic Surgery: No Insulin Pump: No Joint Replacement: No Neurologic Surgery: No Oral Surgery: No Pacemaker: No Thoracic Surgery: No Other Surgery: Yes (THYROID) Social History Alcohol Use: No Tobacco Use: No Substance Use: No Allergies-Medications (Allergen,Severity, Reaction): Coded Allergies: Demerol (Verified Allergy, Mild, N/V, 11/12/16) Darvon (Verified Adverse Reaction, Mild, N/V, 11/12/16) *MDRO Multi-Drug Resistant Organism (Verified Adverse Reaction, Unknown, ) MRSA PCR Screen POSITIVE - 03/21/15 Reported Meds & Prescriptions Reported Meds & Active Scripts Active Meclizine (Meclizine HCl) 25 Mg Tab 25 Mg PO TID PRN Reported Lisinopril 2.5 Mg Tab 2.5 Mg PO DAILY Atenolol 50 Mg Tab 50 Mg PO BID Glyburide 2.5 Mg Tab 2.5 Mg PO DAILY Take with meals at the same time each day Pravastatin 40 Mg Tab 40 Mg PO DAILY Plavix (Clopidogrel Bisulfate) 75 Mg Tab 75 Mg PO DAILY Isosorbide Mononitrate ER (Isosorbide Mononitrate) 30 Mg Renetta 30 Mg PO DAILY Vitamin D (Cholecalciferol) 400 Unit Cap Unknown Dose Synthroid (Levothyroxine Sodium) 25 Mcg Tab Unknown Dose PO DAILY Review of Systems Except as stated in HPI: all other systems reviewed are Neg Physical Exam Narrative GENERAL: Well-nourished, well-developed hard of hearing white female in no acute distress. SKIN: Focused skin assessment warm/dry. Bruising and erythema of the proximal third of the foot. + visible puncture wound. HEAD: Normocephalic. EYES: No scleral icterus. No injection or drainage. NECK: Supple, trachea midline. No JVD or lymphadenopathy. CARDIOVASCULAR: Regular rate and rhythm without murmurs, gallops, or rubs. RESPIRATORY: Breath sounds equal bilaterally. No accessory muscle use. GASTROINTESTINAL: Abdomen soft, non-tender, nondistended. MUSCULOSKELETAL: No cyanosis, 2+ edema bilaterally. Bilaterally feet are insensate. Focused left lower extremity exam: 2+ radial pulse. Squeeze test negative. No tenderness to palpation of the malleoli, no navicular base of the fifth tenderness. The plantar aspect of the proximal third of the foot is erythematous, warm and tender to palpation. Patient is able to wiggle her toes and flex and extend the ankle. BACK: Nontender without obvious deformity. No CVA tenderness. Data Data Last Documented VS Vital Signs Date Time Temp Pulse Resp B/P Pulse Ox O2 Delivery O2 Flow Rate FiO2 11/12/16 15:07 63 18 196/90 92 Room Air 11/12/16 12:16 97.5 Orders Ankle, Complete ([id number]) (11/12/16 13:01) Foot, Complete ([id number]) (11/12/16 13:01) Ice/Cold Pack (11/12/16 13:01) Complete Blood Count With Diff (11/12/16 13:40) Comprehensive Metabolic Panel (11/12/16 13:40) Coag Profile (11/12/16 13:40) ^ Insert Iv (11/12/16 13:40) Vancomycin Inj (Vancomycin Inj) (11/12/16 14:00) Ciprofloxacin 400 Mg Premix (Cipro 400 M (11/12/16 14:00) Piperacil-Tazo 3.375 Gm Premix (Zosyn 3. (11/12/16 15:45) Admit To Inpatient (11/12/16 ) Vital Signs (Adult) Q4H (11/12/16 15:36) Activity Bed Rest (11/12/16 15:36) Bedside Glucose MILTON.AC&HS (11/12/16 15:36) Intake + Output [place]TON.QSHIFT (11/12/16 15:36) Diet Diabetic (11/12/16 Dinner) Sodium Chlor 0.45% 1000 Ml Inj (1/2 Ns 1 (11/12/16 15:36) Sodium Chloride 0.9% Flush (Ns Flush) (11/12/16 15:45) Sodium Chloride 0.9% Flush (Ns Flush) (11/12/16 21:00) Ondansetron Inj (Zofran Inj) (11/12/16 15:45) Bisacodyl Supp (Dulcolax Supp) (11/12/16 15:45) Docusate Sodium (Colace) (11/12/16 15:45) Magnesium Hydroxide Liq (Milk Of Magnesi (11/12/16 15:45) Sennosides (Senokot) (11/12/16 15:45) Basic Metabolic Panel (Bmp) (11/13/16 06:00) Complete Blood Count With Diff (11/13/16 06:00) Pt Request For Service (11/12/16 15:36) Case Management Consult (11/12/16 15:36) Scd Bilateral/Knee High MILTON.BID (11/12/16 15:36) Naloxone Inj (Narcan Inj) (11/12/16 15:45) Npo After Midnight W/ Po Meds (11/12/16 Dinner) Inpatient Certification (11/12/16 ) Labs Laboratory Tests Test 11/12/16 14:34 White Blood Count 8.4 TH/MM3 Red Blood Count 5.28 MIL/MM3 Hemoglobin 15.1 GM/DL Hematocrit 46.1 % Mean Corpuscular Volume 87.2 FL Mean Corpuscular Hemoglobin 28.5 PG Mean Corpuscular Hemoglobin 32.7 % Concent Red Cell Distribution Width 13.4 % Platelet Count 281 TH/MM3 Mean Platelet Volume 7.3 FL Neutrophils (%) (Auto) 73.8 % Lymphocytes (%) (Auto) 16.5 % Monocytes (%) (Auto) 7.2 % Eosinophils (%) (Auto) 2.0 % Basophils (%) (Auto) 0.5 % Neutrophils # (Auto) 6.2 TH/MM3 Lymphocytes # (Auto) 1.4 TH/MM3 Monocytes # (Auto) 0.6 TH/MM3 Eosinophils # (Auto) 0.2 TH/MM3 Basophils # (Auto) 0.0 TH/MM3 CBC Comment DIFF FINAL Differential Comment Prothrombin Time 11.1 SEC Prothromb Time International 1.0 RATIO Ratio Activated Partial 26.6 SEC Thromboplast Time Sodium Level 140 MEQ/L Potassium Level 4.0 MEQ/L Chloride Level 102 MEQ/L Carbon Dioxide Level 29.3 MEQ/L Anion Gap 9 MEQ/L Blood Urea Nitrogen 12 MG/DL Creatinine 0.72 MG/DL Estimat Glomerular Filtration 77 ML/MIN Rate Random Glucose 126 MG/DL Calcium Level 9.2 MG/DL Total Bilirubin 0.8 MG/DL Aspartate Amino Transf 12 U/L (AST/SGOT) Alanine Aminotransferase 18 U/L (ALT/SGPT) Alkaline Phosphatase 77 U/L Total Protein 7.0 GM/DL Albumin 3.5 GM/DL MDM Medical Decision Making Medical Screen Exam Complete: Yes Emergency Medical Condition: Yes Differential Diagnosis Fracture versus ligament injury versus foreign body versus other Narrative Course 86-year-old female with PMH of CAD, HTN, CHF, DM, hx MRSA presents to the ED for evaluation of left foot pain. Onset yesterday. Patient states that she was walking with her cane, somehow twisted her foot walking on carpet. She complains of pain on the plantar aspect of the foot. She states that she has been very minimally ambulatory since the accident. She states that she has never had a diabetic foot check. Vitals reviewed. Physical exam reveals a hard of hearing white female in no acute distress. Bilaterally feet are insensate. 2+ radial pulse and 2+ edema bilaterally. Left lower extremity exam : Squeeze test negative. No tenderness to palpation of the malleoli, no navicular base of the fifth tenderness. The plantar aspect of the proximal third of the foot is erythematous and tender to palpation. There is a single puncture [place]. Patient is able to wiggle her toes and flex and extend the ankle. X-rays reveal 3 foreign bodies per my read. There is a large sewing needle in the area of interest today. There is a second sewing needle that is broken into pieces in the distal aspect of the foot. Reexamination of the foot reveals no puncture degroot swelling, tenderness to palpation in the areas surrounding this foreign body. IV was established. Basic lab work ordered. Patient was administered IV vancomycin and Cipro. I spoke to the on-call pickers material handlers, Dr. Lema. She requests that the patient be admitted to the medicine service, made nothing by mouth at midnight, plans surgery tomorrow. Call placed to [facility]. I spoke with Dr. Warren who agrees to accept this patient to the medical service. Please see medicine notes for disposition. Diagnosis Primary Impression: Foreign body in left foot with infection Qualified Code: S90.852A - Foreign body in left foot with infection, initial encounter Avani Wu Nov 12, 2016 12:38
[2016-11-12] MEDS ORDERED: LISI2.5T3 PO (12:55)
[2016-11-12] MEDS ORDERED: ATEN50TA PO (12:55)
[2016-11-12] MEDS ORDERED: VANCOMYCIN INJ 1,000 MG in SODIUM CHLOR 0.9% 250 ML INJ 250 ML IV ONE (14:00)
[2016-11-12] MEDS ORDERED: CIPROFLOXACIN 400 MG PREMIX 200 ML IV ONE (14:00)
--- NOTE | 2016-11-12 14:15 | RADHPO ---
EXAM DATE/TIME: 11/12/2016 13:10 [facility] COMPARISON: No previous studies available for comparison. INDICATIONS : Left plantar foot pain while walking at home. Patient states she thinks she twisted it. MEDICAL HISTORY : Cardiovascular disease. Hypertension. Diabetes mellitus type 2. SURGICAL HISTORY : Appendectomy. Cardiac stents. ENCOUNTER: Initial ACUITY: 2 days PAIN SCORE: 9/10 LOCATION: Left plantar foot. FINDINGS: There are multiple radiopaque foreign bodies having appearance suggestive of fragments of the needles . The largest is projected over the dorsal hindfoot and measures 3.7 cm. Smaller metallic densities are seen in the dorsal distal forefoot (12 mm long tip of needle) and plantar distal 1st digit (4 mm proximal needle loop). There is moderate severity hallux valgus without significant degenerative ch anges. A 2nd digit is held in flexion and the middle phalanx of the 2nd digit is not well seen on an y of the 3 views. The remainder of the forefoot osseous structures appear intact. CONCLUSION: There are 3 metallic densities described above, all having appearance characteristic of needle fragme nts. No definite fracture seen, however, the middle phalanx of the 2nd digit is incompletely visuali zed. Jez Parikh MD on November 12, 2016 at 14:11 Board Certified Radiologist. This report was verified electronically.
--- NOTE | 2016-11-12 14:16 | RADHPO ---
EXAM DATE/TIME: 11/12/2016 13:12 [facility] COMPARISON: No previous studies available for comparison. INDICATIONS : Left ankle pain while walking yesterday in home. She thinks she may have twisted it. MEDICAL HISTORY : Cardiovascular disease. Hypertension. Diabetes mellitus type 2. SURGICAL HISTORY : Appendectomy. Cardiac stents. ENCOUNTER: Initial ACUITY: 2 days PAIN SCORE: 9/10 LOCATION: Left ankle FINDINGS: There is mild soft tissue swelling of the medial and lateral aspect of the ankle; lateral ankle swell ing is more prominent than medial. The osseous structures about the ankle are grossly intact. The m ortise is intact. Metallic foreign bodies in the hindfoot and midfoot are described in the foot x-ra y report. CONCLUSION: Osseous structures about the ankle are grossly intact. Diffuse soft tissue swelling, lateral greater than medial. Jez Parikh MD on November 12, 2016 at 14:14 Board Certified Radiologist. This report was verified electronically.
[2016-11-12 14:56] LABS: AUTOMATED NEUTROPHIL # 6.2 TH/MM3 (1.8-7.7); BASOPHIL % 0.5 % (0.0-2.0); EOSINOPHIL # 0.2 TH/MM3 (0-0.4); HEMATOCRIT 46.1 % (35.0-46.0); HEMO FLAGS DIFF FINAL; LYMPH % 16.5 % (9.0-44.0); LYMPHOCYTE # 1.4 TH/MM3 (1.0-4.8); MEAN CELL VOLUME 87.2 FL (80.0-100.0); MEAN CORPUSCULAR HEMOGLOBIN 28.5 PG (27.0-34.0); MEAN CORPUSCULAR HGB CONC 32.7 % (32.0-36.0); MONO % 7.2 % (0.0-8.0); NEUT % 73.8 % (16.0-70.0); PLATELET COUNT 281 TH/MM3 (150-450); RED BLOOD COUNT 5.28 MIL/MM3 (4.00-5.30); RED CELL DISTRIBUTION WIDTH 13.4 % (11.6-17.2); WHITE BLOOD COUNT 8.4 TH/MM3 (4.0-11.0)
[2016-11-12 15:06] LABS: CHLORIDE 102 MEQ/L (98-107); SODIUM (NA) 140 MEQ/L (136-145)
[2016-11-12 15:09] LABS: ANION GAP 9 MEQ/L (5-15); BICARBONATE 29.3 MEQ/L (21.0-32.0); BLOOD UREA NITROGEN 12 MG/DL (7-18)
[2016-11-12 15:11] LABS: APTT (PATIENT) 26.6 SEC (24.3-30.1); PROTHROMBIN TIME - PATIENT 11.1 SEC (9.8-11.6)
[2016-11-12 15:12] LABS: ALT (GPT) 18 U/L (10-53)
[2016-11-12 15:13] LABS: AST (GOT) 12 U/L (15-37); GLOMERULAR FILTRATION RATE 77 ML/MIN (>89)
[2016-11-12 15:14] LABS: TOTAL BILIRUBIN ADULT 0.8 MG/DL (0.2-1.0)
[2016-11-12 15:15] LABS: ALKALINE PHOSPHATASE 77 U/L (45-117)
[2016-11-12] MEDS ORDERED: ONDANSETRON HCL 4 MG/2 ML VIAL IVP PRN (15:45)
[2016-11-12] MEDS ORDERED: SODIUM CHLORIDE 0.9% FLUSH 10 ML FLUSH IV FLUSH PRN (15:45)
[2016-11-12] MEDS ORDERED: MAGNESIUM HYDROXIDE SUSP 30 ML CUP PO PRN (15:45)
[2016-11-12] MEDS ORDERED: SENNOSIDES 8.6 MG TAB PO PRN (15:45)
[2016-11-12] MEDS ORDERED: NALOXONE HCL 0.4 MG/ML AMP IV PRN (15:45)
[2016-11-12] MEDS ORDERED: BISACODYL 10 MG SUPP RECTAL PRN (15:45)
[2016-11-12] MEDS ORDERED: Vancomycin Consult Pharmacy 1 EA OTHER SCH (15:45)
[2016-11-12] MEDS ORDERED: PIPERACIL-TAZO 3.375 GM PREMIX 50 ML IV ONE (15:45)
[2016-11-12] MEDS: INSULIN ASPART SUPPLEMENTAL SCALE SQ SCH (16:12)
[2016-11-12] MEDS: ENALAPRILAT 1.25 MG/ML VIAL IV PUSH PRN (16:40)
[2016-11-12] MEDS: SODIUM CHLOR 0.45% 1000 ML INJ 1,000 ML IV SCH (17:23)
[2016-11-12] MEDS ORDERED: PHARMACY ORDERED LAB ONE (17:30)
[2016-11-12] MEDS ORDERED: QUEtiapine FUMARATE 25 MG TAB PO PRN (18:00)
[2016-11-12] MEDS ORDERED: cloNIDine HCL 0.1 MG TAB PO PRN (18:00)
[2016-11-12] MEDS: SODIUM CHLORIDE 0.9% FLUSH 10 ML FLUSH IV FLUSH SCH (21:00)
[2016-11-13] VITALS (10 sets, daily range): BP systolic 129–205; BP diastolic 65–95; PULSE 60–87; RESP 16–24; TEMP 96.7–97.8; O2SAT 93–97
--- NOTE | 2016-11-13 00:18 | HHI.HP ---
[facility] Service [place] [facility] Primary Care Physician Zayra Montana MD Admission Diagnosis infected foreign body of the left foot. Diagnoses: (1) Foreign body in left foot with infection (2) Diabetes mellitus Chief Complaint: stepped on needles at home/foot pain Travel History International Travel<30 Days: No Contact w/Intl Traveler <30 Da: No Traveled to Known Affected Are: No History of Present Illness Ms. Tee is an 86 year old female with a history of type 2 diabetes mellitus, coronary artery disease, hypothyroidism, and CHF who presented to the ER for evaluation of left foot pain since 11/11/16. She states she thought she had twisted her ankle at home because it hurt to bear weight on it. Upon evaluation in the ER, she was found to have 3 foreign bodies in her left foot: 1 over the dorsal hindfoot measuring 3.7 cm, one in the dorsal distal forefoot 12 mm and plantar distal first digit 4 mm. The plantar surface of the left foot is severely tender to palpation and has areas of erythema where needle fragments were located on x-ray. The patient has been admitted to the hospitalist service for management of her chronic medical condition with consultation with Dr. Lema of podiatry for surgery tomorrow. . Review of Systems Except as stated in HPI: all other systems reviewed are Neg Past Family Social History Past Medical History Coronary artery disease Type 2 diabetes mellitus Hypertension Anxiety Urinary incontinence Hypothyroidism Arthritis Vertigo . Past Surgical History Cardiac stents - 2 years ago - Dr. Kennedy placed stent x 2, Dr. Dawkins placed stent x 1 Appendectomy Cataract surgery . Reported Medications Reported Meds & Active Scripts Active Meclizine (Meclizine HCl) 25 Mg Tab 25 Mg PO TID PRN Reported Lisinopril 2.5 Mg Tab 2.5 Mg PO DAILY Atenolol 50 Mg Tab 50 Mg PO BID Glyburide 2.5 Mg Tab 2.5 Mg PO DAILY Take with meals at the same time each day Pravastatin 40 Mg Tab 40 Mg PO DAILY Plavix (Clopidogrel Bisulfate) 75 Mg Tab 75 Mg PO DAILY Isosorbide Mononitrate ER (Isosorbide Mononitrate) 30 Mg Renetta 30 Mg PO DAILY Vitamin D (Cholecalciferol) 400 Unit Cap Unknown Dose Synthroid (Levothyroxine Sodium) 25 Mcg Tab Unknown Dose PO DAILY . Allergies: Coded Allergies: Demerol (Verified Allergy, Mild, N/V, 11/12/16) Darvon (Verified Adverse Reaction, Mild, N/V, 11/12/16) *MDRO Multi-Drug Resistant Organism (Verified Adverse Reaction, Unknown, ) MRSA PCR Screen POSITIVE - 03/21/15 Active Ordered Medications Current Medications Vancomycin HCl 1000 mg/Sodium Chloride 250 ml @ 250 mls/hr ONCE ONCE IV Last administered on 11/12/16 15:54; Start 11/12/16 at 14:00; Stop 11/12/16 at 14:59; Status DC Ciprofloxacin/ Dextrose 200 ml @ 200 mls/hr ONCE ONCE IV Last administered on 11/12/16 14:54; Start 11/12/16 at 14:00; Stop 11/12/16 at 14:59; Status DC Piperacillin Sod/ Tazobactam Sod 50 ml @ 100 mls/hr ONCE ONCE IV Last administered on 11/12/16 17:23; Start 11/12/16 at 15:45; Stop 11/12/16 at 16:14; Status DC Sodium Chloride (1/2 NS 1000 ml Inj) 1,000 ml @ 75 mls/hr [id number] IV Last administered on 11/12/16 17:23; Start 11/12/16 at 15:36 Sodium Chloride (NS Flush) 2 ml UNSCH PRN IV FLUSH FLUSH AFTER USING IV ACCESS ; Start 11/12/16 at 15:45 Sodium Chloride (NS Flush) 2 ml BID IV FLUSH ; Start 11/12/16 at 21:00 Ondansetron HCl (Zofran Inj) 4 mg Q6H PRN IVP NAUSEA OR VOMITING; Start at 15:45 Bisacodyl (Dulcolax Supp) 10 mg DAILY PRN RECTAL CONSTIPATION; Start 11/12/16 at 15:45 Docusate Sodium (Colace) 100 mg Q12HR PO ; Start 11/12/16 at 21:00 Magnesium Hydroxide (Milk Of Magnesia Liq) 30 ml Q12H PRN PO CONSTIPATION; Start 11/12/16 at 15:45 Sennosides (Senokot) 17.2 mg Q12H PRN PO CONSTIPATION; Start 11/12/16 at 15:45 Naloxone HCl 0.4 mg 0.4 mg UNSCH PRN IV SEE LABEL COMMENTS; Start 11/12/16 at 15 :45 Pharmacy Profile Note 0 ml @ 0 mls/hr UNSCH OTHER ; Start 11/12/16 at 15:45 Piperacillin Sod/ Tazobactam Sod (Zosyn 3.375 Gm Premix) 50 ml @ 100 mls/hr Q6H IV ; Start 11/12/16 at 22:00 Insulin Aspart (NovoLOG SUPPLEMENTAL SCALE) 1 ACHS SLIDING SCALE SQ Last administered on 11/12/16 16:12; Start 11/12/16 at 16:00 Atenolol (Tenormin) 50 mg BID PO ; Start 11/12/16 at 21:00 Isosorbide Mononitrate (Imdur) 30 mg DAILY@07 PO ; Start 11/13/16 at 07:00 Pravastatin Sodium (Pravachol) 40 mg DAILY PO ; Start 11/13/16 at 09:00 Lisinopril (Prinivil) 2.5 mg DAILY PO ; Start 11/13/16 at 09:00 Enalaprilat 1.25 mg 1.25 mg Q6H PRN IV PUSH SBP> OR = 180, DBP> OR = 100 Last administered on 11/12/16 16:40; Start 11/12/16 at 15:45 Vancomycin HCl/ Sodium Chloride (Vancomycin Inj/ NS 250 ml Inj) 262.5 ml @ 250 mls/hr DAILY@11 IV ; Start 11/13/16 at 11:00 Miscellaneous Information SPECIFIC LAB TO BE DRAWN: VANCO TROUGH DATE TO... ONCE ONCE .XX ; Start 11/12/16 at 17:30; Stop 11/12/16 at 17:31; Status DC Clonidine (Catapres) 0.1 mg Q6H PRN PO SBP> OR = 180, DBP> OR = 100 Last administered on 11/12/16 17:59; Start 11/12/16 at 18:00 Quetiapine Fumarate (SEROquel) 50 mg HS PRN PO SLEEP; Start 11/12/16 at 18:00 . Family History Brother with CAD Father with CVA Mother with heart disease . Social History Tobacco: does not smoke . Physical Exam Vital Signs Vital Signs Date Time Temp Pulse Resp B/P Pulse Ox O2 Delivery O2 Flow Rate FiO2 11/12/16 21:37 97.3 64 20 167/80 94 11/12/16 21:09 62 18 97 11/12/16 21:08 62 18 141/74 97 Room Air 11/12/16 19:15 62 18 140/69 97 Room Air 11/12/16 18:36 168/88 11/12/16 17:46 70 200/92 11/12/16 17:34 69 202/95 11/12/16 16:57 75 197/90 11/12/16 16:44 62 Room Air 11/12/16 16:39 63 18 220/96 100 Room Air 11/12/16 15:07 63 18 196/90 92 Room Air 11/12/16 12:44 Room Air 11/12/16 12:16 97.5 63 16 134/80 94 Physical Exam GENERAL: This is an elderly female patient, in no apparent distress. SKIN: No rashes, ecchymoses or lesions. Cool and dry. Left foot with erythema on mid-medial plantar surface - tender to touch. HEAD: Atraumatic. Normocephalic. EYES: No scleral icterus. No injection or drainage. ENT: Nose without bleeding, purulent drainage. NECK: Trachea midline. No JVD or lymphadenopathy. CARDIOVASCULAR: Regular rate and rhythm without murmurs, gallops, or rubs. RESPIRATORY: Mild expiratory wheezing bilaterally. Breath sounds equal bilaterally. No rales or rhonchi. GASTROINTESTINAL: Abdomen soft, non-tender, nondistended. No guarding. MUSCULOSKELETAL: Extremities without clubbing, cyanosis, or edema. No calf tenderness. NEUROLOGICAL: Awake and alert. Motor and sensory grossly within normal limits. Normal speech. . Laboratory Laboratory Tests Test 11/12/16 14:34 White Blood Count 8.4 Red Blood Count 5.28 Hemoglobin 15.1 Hematocrit 46.1 Mean Corpuscular Volume 87.2 Mean Corpuscular Hemoglobin 28.5 Mean Corpuscular Hemoglobin 32.7 Concent Red Cell Distribution Width 13.4 Platelet Count 281 Mean Platelet Volume 7.3 Neutrophils (%) (Auto) 73.8 Lymphocytes (%) (Auto) 16.5 Monocytes (%) (Auto) 7.2 Eosinophils (%) (Auto) 2.0 Basophils (%) (Auto) 0.5 Neutrophils # (Auto) 6.2 Lymphocytes # (Auto) 1.4 Monocytes # (Auto) 0.6 Eosinophils # (Auto) 0.2 Basophils # (Auto) 0.0 CBC Comment DIFF FINAL Differential Comment Prothrombin Time 11.1 Prothromb Time International 1.0 Ratio Activated Partial 26.6 Thromboplast Time Sodium Level 140 Potassium Level 4.0 Chloride Level 102 Carbon Dioxide Level 29.3 Anion Gap 9 Blood Urea Nitrogen 12 Creatinine 0.72 Estimat Glomerular Filtration 77 Rate Random Glucose 126 Calcium Level 9.2 Total Bilirubin 0.8 Aspartate Amino Transf 12 (AST/SGOT) Alanine Aminotransferase 18 (ALT/SGPT) Alkaline Phosphatase 77 Total Protein 7.0 Albumin 3.5 Result Diagram: 11/12/16 1434 11/12/16 1434 Imaging Last Impressions Foot X-Ray 11/12/16 1301 Signed Impressions: Service Date/Time: November 13:10 - CONCLUSION: There are 3 metallic densities described above, all having appearance characteristic of needle fragments. No definite fracture seen, however, the middle phalanx of the 2nd digit is incompletely visualized. Jez Parikh MD Ankle X-Ray 11/12/16 1301 Signed Impressions: Service Date/Time: November 13:12 - CONCLUSION: Osseous structures about the ankle are grossly intact. Diffuse soft tissue swelling, lateral greater than medial. Jez Parikh MD . Assessment and Plan Problem List: (1) Foreign body in left foot with infection ICD Code: S90.852A Status: Acute (2) Diabetes mellitus ICD Code: E11.9 Status: Chronic Assessment and Plan Foreign body in left foot with infection - three metallic fragments seen on x-ray of left foot; one in heel, one in middle of foot, and one in great toe - Podiatry has been consulted - IV vancomycin with pharmacy consult for assistance with therapeutic dosing and monitoring - Zosyn 3.375 g IV every 6 hours - Narco 5/325 mg every 4 hours as needed for pain Type 2 diabetes mellitus - Accu-Cheks before meals and at bedtime with low-dose sliding scale NovoLog coverage - Hypoglycemia protocol - Monitor blood glucose trends and adjust treatment as needed DVT prophylaxis - SCDs Written by Rina Brown, acting as scribe for Dr. Diane on 11/13/16 at 00:22. patient was seen and examined today. 86 y/o female who presented to ER with left foot foreign body. continue antibiotics and pain control. podiatry consulted. . Discussed Condition With ER physician and patient . Physician Certification 2 Midnight Certification Type: Admission for Inpatient Services Order for Inpatient Services The services are ordered in accordance with Medicare regulations or non- Medicare payer requirements, as applicable. In the case of services not specified as inpatient-only, they are appropriately provided as inpatient services in accordance with the 2-midnight benchmark. Estimated LOS (days): 3 days is the estimated time the patient will need to remain in the hospital, assuming treatment plan goals are met and no additional complications. Post-Hospital Plan: Not yet determined Problem Qualifiers (1) Foreign body in left foot with infection: Qualified Code: S90.852A - Foreign body in left foot with infection, initial encounter Rina Brown Nov 13, 2016 00:18 Betina Diane MD Nov 13, 2016 01:11
[2016-11-13] MEDS ORDERED: ACETAMINOPHEN/HYDROcodone 325 MG/5 MG TAB PO PRN (00:30)
[2016-11-13] MEDS ORDERED: RESP: ALBUTEROL 1.25 MG/3 ML NEB (PRN) NEB (00:30)
[2016-11-13] MEDS: DOCUSATE SODIUM 100 MG CAP PO SCH ×3 (01:35→22:11)
[2016-11-13] MEDS: ENALAPRILAT 1.25 MG/ML VIAL IV PUSH PRN (01:35)
[2016-11-13] MEDS: ATENOLOL 50 MG TAB PO SCH ×3 (01:35→22:11)
[2016-11-13] MEDS: INSULIN ASPART SUPPLEMENTAL SCALE SQ SCH ×5 (01:36→21:00)
[2016-11-13] MEDS: PIPERACIL-TAZO 3.375 GM PREMIX 50 ML IV SCH ×5 (01:37→22:11)
[2016-11-13] MEDS: SODIUM CHLOR 0.45% 1000 ML INJ 1,000 ML IV SCH ×2 (01:38→18:16)
[2016-11-13] MEDS: ISOSORBIDE MONONITRATE 30 MG TAB PO SCH (05:33)
[2016-11-13] MEDS: PRAVASTATIN SOD 40 MG TAB PO SCH (08:30)
[2016-11-13] MEDS: SODIUM CHLORIDE 0.9% FLUSH 10 ML FLUSH IV FLUSH SCH ×2 (08:31→22:11)
[2016-11-13] MEDS: LISINOPRIL 5 MG TAB PO SCH (08:31)
[2016-11-13] MEDS ORDERED: GLUCAGON 1 MG/ML VIAL OTHER PRN (08:45)
[2016-11-13] MEDS ORDERED: DEXTROSE 50% IN WATER 50 ML VIAL(D50) IV PUSH PRN (08:45)
[2016-11-13] MEDS ORDERED: VANCOMYCIN INJ 1,250 MG in SODIUM CHLOR 0.9% 250 ML INJ 250 ML IV SCH (11:00)
[2016-11-13 11:25] LABS: AUTOMATED NEUTROPHIL # 5.5 TH/MM3 (1.8-7.7); BASOPHIL # 0.1 TH/MM3 (0-0.2); BASOPHIL % 1.1 % (0.0-2.0); EOSINOPHIL # 0.2 TH/MM3 (0-0.4); EOSINOPHIL % 2.6 % (0.0-4.0); HEMATOCRIT 40.8 % (35.0-46.0); HEMO FLAGS DIFF FINAL; LYMPH % 15.4 % (9.0-44.0); LYMPHOCYTE # 1.2 TH/MM3 (1.0-4.8); MEAN CELL VOLUME 86.1 FL (80.0-100.0); MEAN CORPUSCULAR HEMOGLOBIN 29.2 PG (27.0-34.0); MEAN CORPUSCULAR HGB CONC 33.9 % (32.0-36.0); MONO % 9.5 % (0.0-8.0); NEUT % 71.4 % (16.0-70.0); PLATELET COUNT 234 TH/MM3 (150-450); RED BLOOD COUNT 4.73 MIL/MM3 (4.00-5.30); RED CELL DISTRIBUTION WIDTH 14.2 % (11.6-17.2); WHITE BLOOD COUNT 7.7 TH/MM3 (4.0-11.0)
[2016-11-13 11:53] LABS: BICARBONATE 27.2 MEQ/L (21.0-32.0); POTASSIUM 3.8 MEQ/L (3.5-5.1)
[2016-11-13] MEDS ORDERED: ONDANSETRON HCL 4 MG/2 ML VIAL IV PUSH ONE (12:00)
[2016-11-13] MEDS ORDERED: PROPOFOL 200 MG/20 ML AMP IV ONE (12:00)
[2016-11-13] MEDS ORDERED: PHENYLEPH/NS 1000 MCG/10 ML SYR IV ONE (12:00)
[2016-11-13] MEDS ORDERED: ePHEDrine/NS 25 MG/5 ML SYR IV ONE (12:00)
--- NOTE | 2016-11-13 12:44 | HHI.PR ---
Addendum to Inpatient Note Addendum Reason: Additional Documentation Additional Information Patient is awake alert oriented 3. Nonacute distress. Denies any chest shots of breath, denies pain. Patient admitted for foreign object in the left foot. Patient will go for or later today. Johnnie Patel MD Nov 13, 2016 12:44
--- NOTE | 2016-11-13 13:07 | MB ---
cc: CHRISTY BRUNO DATE OF CONSULTATION: 11/13/2016 CHIEF COMPLAINT Left foot infection with foreign body. HISTORY OF PRESENT ILLNESS Ms. Tee is a 86-year-old female patient who came into the emergency department because she was having pain on the left foot and ankle. She thought perhaps she had twisted it however, upon evaluation in the ER she was noted to have the foreign body in the heel as well as two others in the forefoot and there was cellulitis stemming from the foreign body in the foot. The patient states she does not remember stepping on anything but pain first began on November 11 and she is an avid outsewer so it is not surprised that the foreign body appears to be a sewing needle. The patient states she only has pain with weightbearing. She denies any nausea, vomiting, fever, headaches or chills. PAST MEDICAL HISTORY 1. Diabetes type 2 2. Coronary artery disease 3. Hypothyroidism, 4. Congestive heart failure 5. Anxiety 6. Urinary incontinence. 7. Hypothyroidism 8. Arthritis 9. Vertigo PAST SURGICAL HISTORY: 1. Cardiac stents two the years ago. 2. Appendectomy 3. Cataract surgery. MEDICATIONS Please see list. ALLERGIES DEMEROL DARVON HISTORY OF MRSA. FAMILY HISTORY Noncontributory. SOCIAL HISTORY The patient lives in an assisted living facility, denies any nicotine, tobacco, or drug use. PHYSICAL EXAMINATION: VITAL SIGNS: Temperature is 97.38, pulse 61, respiratory rate 16, blood pressure 153/72, pulse ox 93% O2 on room air. LABORATORY DATA White count 8.4, hemoglobin 15.1, hematocrit 46.1, platelets 281, INR 1.0, sodium 140, potassium 4.0, chloride 102, carbon dioxide 29.3, BUN 12, glucose 126. X-RAYS Ankle x-rays are negative for any fracture dislocation or gross osseous abnormality other than joint space narrowing indicative of osteoarthritis. Foot x-rays show that through the foreign bodies one large medial directly into the calcaneus, One smaller foreign body in the second interspace and one very small foreign body in the plantar aspect of the hallux. No signs of cortical erosion or gas in the soft tissues. PHYSICAL EXAMINATION On physical exam the patient has palpable PT and DP pulses. Cap fill time less than 3 seconds. Gross sensation is diminished but intact. Active range of motion is within normal limits. The right foot is unremarkable other than some mild pitting edema. The left foot, we can see a small possible entry wound of the sewing needle at the plantar aspect of the heel where there is some dry skin and dried blood erythema just started this area and extend to the medial aspect of the distal ankle. There was no entry site wounds for the other two foreign bodies. ASSESSMENT/PLAN 1. Left foot foreign body with cellulitis 2. The patient is n.p.o. and scheduled for surgery today at 03:30 p.m. 3. consent signed. Procedure explained. No guarantees given. 4. The sewing needle in the heel appears acute and the source of infection. The other needle appears to be older in nature and will attempt to remove them in the operating room, but would like to keep surgery minimal so the patient can weight bear as early as possible and we will weigh the risks and benefits intraoperatively. 5. Avoid weightbearing on the left lower extremities the time being. 6. Continue IV antibiotics. 7. Thank you for this consultation. Christy BLUE/cesar /8:19 AM /12:54 PM
[2016-11-13] MEDS ORDERED: BUPIVACAINE HCL PF 0.25% 30 ML VIAL ONE (15:14)
--- NOTE | 2016-11-13 17:27 | RADRPT ---
EXAM DATE/TIME: 11/13/2016 17:02 [facility] COMPARISON: FOOT LEFT COMPLETE ([id number]), November 12, 2016, 13:10. INDICATIONS : Foreign body removal left foot. MEDICAL HISTORY : None. SURGICAL HISTORY : None. ENCOUNTER: Subsequent ACUITY: 1 day PAIN SCORE: Non-responsive. LOCATION: Left Foot FINDINGS: Single frontal view of the left foot reveals interval removal of needle fragments from the hindfoot a nd the forefoot the metatarsal region. I do not see the medial aspect of the distal great toe where a third small fragment is seen on the comparison radiographs. CONCLUSION: Foreign body removal as above Sonny Evans MD on November 13, 2016 at 17:23 Board Certified Radiologist. This report was verified electronically.
[2016-11-14] VITALS: BP 146/78; PULSE 67; RESP 16; TEMP 97.4; O2SAT 91
[2016-11-14 04:00] VITALS: BP 140/69; PULSE 73; RESP 18; TEMP 97.6; O2SAT 93
[2016-11-14] MEDS: PIPERACIL-TAZO 3.375 GM PREMIX 50 ML IV SCH ×2 (04:27→10:00)
[2016-11-14] MEDS: INSULIN ASPART SUPPLEMENTAL SCALE SQ SCH (06:01)
[2016-11-14] MEDS: ISOSORBIDE MONONITRATE 30 MG TAB PO SCH (06:01)
[2016-11-14] MEDS: SODIUM CHLOR 0.45% 1000 ML INJ 1,000 ML IV SCH (06:03)
[2016-11-14 08:00] VITALS: BP 185/89; PULSE 76; RESP 19; TEMP 97.6; O2SAT 95
[2016-11-14 08:08] VITALS: PULSE 75
[2016-11-14] MEDS: SODIUM CHLORIDE 0.9% FLUSH 10 ML FLUSH IV FLUSH SCH (09:00)
[2016-11-14] MEDS: LISINOPRIL 5 MG TAB PO SCH ×2 (09:00→10:10)
[2016-11-14] MEDS: DOCUSATE SODIUM 100 MG CAP PO SCH ×2 (09:00→10:09)
[2016-11-14] MEDS: PRAVASTATIN SOD 40 MG TAB PO SCH ×2 (09:00→10:09)
[2016-11-14] MEDS: ATENOLOL 50 MG TAB PO SCH ×2 (09:00→10:10)
[2016-11-14] MEDS ORDERED: cloNIDine HCL 0.1 MG TAB PO PRN (09:30)
[2016-11-14] MEDS ORDERED: LEVOTHYROXINE SODIUM 25 MCG TAB PO SCH (10:00)
[2016-11-14 10:04] VITALS: BP 162/82
[2016-11-14] MEDS ORDERED: WHEEMIS3 (10:13)
--- NOTE | 2016-11-14 10:17 | HHI.FF ---
Face to Face Verification Diagnosis: (1) Chronic vertigo (2) Foreign body in left foot with infection (3) Risk for falls (4) Coronary artery disease (5) Dizziness (6) Diabetes mellitus Physical Therapy Order: Improve ambulation Home Health Nursing Order: Medical education Nursing assessment with vital signs I have seen patient Cathleen Tee on 11/14/16. My clinical findings support the need for the requested home health care services because: Need for psychosocial assistance High risk of falls I certify that my clinical findings support that this patient is homebound because: Unsteady gait/balance Unsafe to leave home unassisted Unable to use public transportation Johnnie Patel MD Nov 14, 2016 10:16
[2016-11-14 10:50] VITALS: BP 142/82
[2016-11-14] MEDS ORDERED: CEPH500C PO (10:56)
--- NOTE | 2016-11-14 11:05 | HHI.DS ---
Discharge Summary Admission Date Nov 12, 2016 at 15:50 Discharge Date: Nov 14, 2016 Admitting Diagnosis infected foreign body of the left foot. (1) Foreign body in left foot with infection ICD Code: S90.852A Diagnosis: Principal (2) Diabetes mellitus ICD Code: E11.9 Diagnosis: Principal (3) Hypertension ICD Code: I10 Diagnosis: Principal Procedures sp foreign body removal of left foot. Brief History - From Admission Ms. Tee is an 86 year old female with a history of type 2 diabetes mellitus, coronary artery disease, hypothyroidism, and CHF who presented to the ER for evaluation of left foot pain since 11/11/16. She states she thought she had twisted her ankle at home because it hurt to bear weight on it. Upon evaluation in the ER, she was found to have 3 foreign bodies in her left foot: 1 over the dorsal hindfoot measuring 3.7 cm, one in the dorsal distal forefoot 12 mm and plantar distal first digit 4 mm. The plantar surface of the left foot is severely tender to palpation and has areas of erythema where needle fragments were located on x-ray. The patient has been admitted to the hospitalist service for management of her chronic medical condition with consultation with Dr. Lema of podiatry for surgery tomorrow. . CBC/BMP: 11/13/16 1112 11/13/16 1112 Significant Findings Laboratory Tests Test 11/12/16 11/13/16 14:34 11:12 Hematocrit 46.1 % (35.0-46.0) Neutrophils (%) (Auto) 73.8 % 71.4 % (16.0-70.0) (16.0-70.0) Estimat Glomerular Filtration 77 ML/MIN (>89) 68 ML/MIN (>89) Rate Random Glucose 126 MG/DL 141 MG/DL (74-106) (74-106) Aspartate Amino Transf 12 U/L (15-37) (AST/SGOT) Monocytes (%) (Auto) 9.5 % (0.0-8.0) Pt update on day of discharge Patient very agitated wants to leave the hospital. refused to take medications this am. After talking to her she agreed to take medications. BP this am elevated into 160's, repeat after medications systolic 140. Will DC home on 10 days of cephalexin. fu with podiatry. Hospital Course Foreign body in left foot with infection - three metallic fragments seen on x-ray of left foot; one in heel, one in middle of foot, and one in great toe - Podiatry consulted - IV vancomycin with pharmacy consult for assistance with therapeutic dosing and monitoring - Zosyn 3.375 g IV every 6 hours - Narco 5/325 mg every 4 hours as needed for pain Type 2 diabetes mellitus - Accu-Cheks before meals and at bedtime with low-dose sliding scale NovoLog coverage - Hypoglycemia protocol - Monitor blood glucose trends and adjust treatment as needed Uncontrolled HTN - Patient refused to take medications initially and bp very elevated. Bp became controlled after patient took medications. DVT prophylaxis - SCDs Pt Condition on Discharge: Stable Discharge Disposition: Disch w/ Home Health Serv Discharge Time: > 30 minutes Discharge Instructions DIET: Follow Instructions for: Diabetic Diet Activities you can perform: See Additionl Instruction Other Activity Instructions: use walkerfor ambulation Follow up Referrals: PCP Follow-up - 2-3 Days Podiatry with Christy Lema DPM [facility]/ with [facility] New Medications: Cephalexin (Cephalexin) 500 Mg Cap 500 MG PO Q6H Infection #40 Ref 0 CAP Wheelchair (Wheelchair) 1 Mis Mis 1 EA .ROUTE DIRECTED #1 Ref 0 EA Continued Medications: Atenolol (Atenolol) 50 Mg Tab 50 MG PO BID Blood Pressure Management #14 Ref 0 TAB Clopidogrel (Plavix) 75 Mg Tab 75 MG PO DAILY Blood Clot Prevention #30 Ref 0 TAB Glyburide (Glyburide) 2.5 Mg Tab 2.5 MG PO DAILY Take with meals at the same time each day Blood Sugar Management #30 Ref 0 TAB Isosorbide Mononitrate ER (Isosorbide Mononitrate ER) 30 Mg Renetta 30 MG PO DAILY Prevent Chest Pain #30 Ref 0 TAB Lisinopril (Lisinopril) 2.5 Mg Tab 2.5 MG PO DAILY #30 Ref 0 TAB Johnnie Patel MD Nov 14, 2016 11:05
[2016-11-16] MEDS ORDERED: PHARMACY ORDERED LAB ONE (10:45)
--- NOTE | 2016-11-16 13:07 | MP ---
cc: CHRISTY BRUNO DATE OF SURGERY: November 13, [address] Christy Bruno. 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 PREOPERATIVE DIAGNOSIS Left foot retained foreign bodies x3. POSTOPERATIVE DIAGNOSIS Left foot retained foreign bodies x3. PROCEDURES PERFORMED Left foot foreign body excision x3. PATHOLOGY SENT Foreign bodies. ANESTHESIA General. HEMOSTASIS Pneumatic ankle tourniquet at 250 mmHg for 42 minutes. ESTIMATED BLOOD LOSS Less than 5 mL. INJECTABLES 10 ccs of 0.25% Marcaine plain. MATERIALS USED 3-0 Prolene. COMPLICATIONS None. INDICATIONS Ms. Tee is a pleasant 86-year-old female patient who recently developed a cellulitis infection secondary to retained foreign body. She feels she may have stepped on this approximately two days ago. However, based on skin condition and other factors it appears that all three foreign bodies in her foot are chronic, however, the heel foreign body is acutely infected and given her comorbidities and age, felt that it was in her best interest to have it removed as an inpatient. The consent was signed and the procedure was explained. No guarantees were given. PROCEDURE Under mild sedation the patient was brought into the operating room and placed on the operating table in the supine position. Following IV sedation pneumatic ankle tourniquet was placed around the left ankle. The foot was then scrubbed, prepped and draped in the usual aseptic manner. Attention was directed to the plantar aspect of the left heel where using a C-arm triangulation the needle was located as a small incision was created through the skin less than 1 inch in length, deepened through skin and subcutaneous tissue with care being taken to identify and retract any vital neurovascular structures. Once I was through the fat layer the needle was identified and removed from the field in toto. It was intact and this was verified by fluoroscopy. The area was then flushed with copious amounts of sterile saline and closed with 3-0 Prolene. Attention was then directed to the dorsal aspect of the second interspace where fluoroscopy had shown the second piece of foreign body, a small incision was created over the dorsal second interspace, deepened through skin and subcutaneous tissue with care being taken to identify and retract any vital neurovascular structures. With the help of fluoroscopy the foreign body was located and removed. The same procedure was repeated on the medial aspect of the hallux, both sides were flushed with copious amounts of sterile saline. Skin was closed with 3-0 Prolene. 10 ccs of 0.25% Marcaine plain were injected around both incision sites. All incisions were closed with minimal tension. Pneumatic ankle tourniquet was released. There was a prompt hyperemic response to all digits of the left foot. A sterile dressing of Adaptic, 4x4s, cast padding, Joce bandage was applied. The patient tolerated the procedure and the anesthesia well. She will recover in the PACU for a period of time before being discharged back to her room with written and oral instructions. Christy BLUE/JESUS MANUELL /5:22 PM /12:52 PM
== END 2016-11-14 11:54 | disposition home health service (06) | DRG 603 ==
LOC: PHEFT 12:10 → PHEDA 15:50 → N04B 21:30
PROVIDERS: ADMIT Hospitalist; ATTEND Hospitalist
PROC: 0JCR3ZZ Extirpation of Matter from Left Foot Subcutaneous Tissue and Fascia, Percutaneous Approach (ICD-10-PCS; 2016-11-13)
PROC: 0JCR3ZZ Extirpation of Matter from Left Foot Subcutaneous Tissue and Fascia, Percutaneous Approach (ICD-10-PCS; principal; 2016-11-13 16:06)
DX: L03.116 Cellulitis of left lower limb (principal); E11.628 Type 2 diabetes mellitus with other skin complications; I50.9 Heart failure, unspecified; I11.0 Hypertensive heart disease with heart failure; S90.852A Superficial foreign body, left foot, initial encounter; I25.10 Atherosclerotic heart disease of native coronary artery without angina pectoris; E03.9 Hypothyroidism, unspecified; M19.90 Unspecified osteoarthritis, unspecified site; Z95.5 Presence of coronary angioplasty implant and graft; E78.00 Pure hypercholesterolemia, unspecified; I25.2 Old myocardial infarction; Z86.14 Personal history of Methicillin resistant Staphylococcus aureus infection; H91.90 Unspecified hearing loss, unspecified ear; K44.9 Diaphragmatic hernia without obstruction or gangrene; Z79.84 Long term (current) use of oral hypoglycemic drugs; Z79.4 Long term (current) use of insulin; E07.9 Disorder of thyroid, unspecified; F41.9 Anxiety disorder, unspecified; X58.XXXA Exposure to other specified factors, initial encounter; Y93.89 Activity, other specified; R32 Unspecified urinary incontinence; R42 Dizziness and giddiness
CPT/HCPCS: 73610; 73630; 76000; 80048; 80053; 82948; 85025; 85610; 85730; 88300; 88305; 96365; J0744; J1815; J2370; J2405; J2543; J3010; J3370; J7050; L3260

== ENCOUNTER 2017-04-19 07:24 | Inpatient (IN) | payer MEDICARE, OTHER ==
[~2017-04-19] VITALS: Ht 165.1 cm; Wt 70.0 kg
[~2017-04-19 07:24] MED LIST changes: -ATEN25TA PO; +ATEN50TA PO; +CEPH500C PO; -GLYB2.5T3 PO; -LISI-519 PO; +LISI2.5T3 PO; -MECL-62 PO; -PRAV40TA2 PO; -SYNT25TA PO; -VITA400C28; +WHEEMIS3
[2017-04-19 07:29] VITALS: BP 184/92; PULSE 107; RESP 20; TEMP 97.7; O2SAT 94
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
[2017-04-19] MEDS ORDERED: MORPHINE SULFATE 4 MG/ML INJ IV PUSH ONE (07:45)
[2017-04-19] MEDS ORDERED: METF1000 PO (07:47)
[2017-04-19 08:12] LABS: AUTOMATED NEUTROPHIL # 9.7 TH/MM3 (1.8-7.7); BASOPHIL % 0.1 % (0.0-2.0); HEMATOCRIT 47.7 % (35.0-46.0); HEMO FLAGS DIFF FINAL; LYMPH % 4.2 % (9.0-44.0); LYMPHOCYTE # 0.5 TH/MM3 (1.0-4.8); MEAN CELL VOLUME 88.6 FL (80.0-100.0); MEAN CORPUSCULAR HEMOGLOBIN 29.3 PG (27.0-34.0); MEAN CORPUSCULAR HGB CONC 33.1 % (32.0-36.0); MONO % 9.5 % (0.0-8.0); NEUT % 86.2 % (16.0-70.0); PLATELET COUNT 244 TH/MM3 (150-450); RED BLOOD COUNT 5.38 MIL/MM3 (4.00-5.30); RED CELL DISTRIBUTION WIDTH 13.5 % (11.6-17.2); WHITE BLOOD COUNT 11.3 TH/MM3 (4.0-11.0)
[2017-04-19 08:28] LABS: ALKALINE PHOSPHATASE 160 U/L (45-117); CREATINE KINASE 553 U/L (26-192)
[2017-04-19 08:44] LABS: ALT (GPT) 24 U/L (10-53); ANION GAP 10 MEQ/L (5-15); AST (GOT) 31 U/L (15-37); BICARBONATE 27.2 MEQ/L (21.0-32.0); BLOOD UREA NITROGEN 17 MG/DL (7-18); CHLORIDE 98 MEQ/L (98-107); GLOMERULAR FILTRATION RATE 63 ML/MIN (>89); POTASSIUM 3.8 MEQ/L (3.5-5.1); SODIUM (NA) 135 MEQ/L (136-145)
[2017-04-19 08:52] LABS: CKMB 8.2 NG/ML (0.5-3.6)
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
[2017-04-19] MEDS ORDERED: cefTRIAXone INJ 1,000 MG in SODIUM CHLORIDE 0.9% INJ 100 ML IV ONE (10:15)
[2017-04-19] MEDS ORDERED: SODIUM CHLOR 0.9% 1000 ML INJ 1,000 ML IV SCH (10:15)
[2017-04-19] MEDS ORDERED: ONDANSETRON HCL 4 MG/2 ML VIAL IVP PRN (10:45)
[2017-04-19] MEDS ORDERED: MAGNESIUM HYDROXIDE SUSP 30 ML CUP PO PRN (10:45)
[2017-04-19] MEDS: CLOPIDOGREL 75 MG TAB PO SCH (10:45)
[2017-04-19] MEDS ORDERED: GLUCAGON 1 MG/ML VIAL OTHER PRN (10:45)
[2017-04-19] MEDS ORDERED: DEXTROSE 50% IN WATER 50 ML VIAL(D50) IV PRN (10:45)
[2017-04-19] MEDS ORDERED: NALOXONE HCL 0.4 MG/ML AMP IV PRN (10:45)
[2017-04-19] MEDS ORDERED: SODIUM CHLORIDE 0.9% FLUSH 10 ML FLUSH IV FLUSH PRN (10:45)
--- NOTE | 2017-04-19 11:18 | RADRPT ---
EXAM DATE/TIME: 04/19/2017 10:57 [facility] COMPARISON: No previous studies available for comparison. INDICATIONS : Fall, right shoulder pain. MEDICAL HISTORY : None. SURGICAL HISTORY : None. ENCOUNTER: Subsequent ACUITY: 1 day PAIN SCORE: 10/10 LOCATION: Right shoulder FINDINGS: Two view examination of the right shoulder demonstrates a distracted fracture through the surgical ne ck. On the Y-view, the humeral head projects over the glenoid but the articulating surface may be per ched on the inferior aspect of the glenoid itself representing a partial dislocation. CONCLUSION: 1. Distracted fracture through the surgical neck of the humerus. 2. Possible partial dislocation of the humeral head which may be perched on the inferior aspect of th e glenoid. Santos Borrero MD on April 19, 2017 at 11:13 Board Certified Radiologist. This report was verified electronically.
[2017-04-19 11:33] VITALS: BP 176/85; PULSE 88; RESP 20; O2SAT 96
[2017-04-19] MEDS ORDERED: PILL SPLITTER OTHER PRN (11:45)
[2017-04-19 12:00] VITALS: BP 180/97; PULSE 86; RESP 19; TEMP 96.8; O2SAT 97
[2017-04-19] MEDS: ISOSORBIDE MONONITRATE 30 MG TAB PO SCH (12:19)
[2017-04-19] MEDS: ATENOLOL 50 MG TAB PO SCH ×2 (12:20→21:56)
[2017-04-19] MEDS: SODIUM CHLOR 0.9% 1000 ML INJ 1,000 ML IV SCH ×2 (12:20→21:57)
[2017-04-19] MEDS: INSULIN ASPART SUPPLEMENTAL SCALE SQ SCH ×3 (13:16→21:53)
--- NOTE | 2017-04-19 14:28 | RADRPT ---
EXAM DATE/TIME: 04/19/2017 13:56 [facility] COMPARISON: CHEST SINGLE AP, September 30, 2016, 19:00. INDICATIONS : Evaluate for pneumothorax, pneumonia and communicable disease. Pre-op for shoulder surgery. MEDICAL HISTORY : Myocardial infarction. Hypertension. Diabetes. SURGICAL HISTORY : None. ENCOUNTER: Subsequent ACUITY: 1 day PAIN SCORE: Non-responsive. LOCATION: Bilateral chest FINDINGS: Decreased lung volumes with bibasilar airspace disease and volume loss in the left lower lung zone. C ardiac silhouette is enlarged. Pulmonary vascularity is centrally indistinct. Redemonstration of righ t humeral neck fracture. CONCLUSION: 1. Mild bibasilar airspace disease and volume loss most pronounced in the left lower lung zone consis tent with atelectasis. 2. Cardiomegaly with slight positive fluid balance. Yuan Torres MD on April 19, 2017 at 14:24 Board Certified Radiologist. This report was verified electronically.
[2017-04-19] MEDS ORDERED: ENALAPRILAT 2.5 MG/2 ML VIAL IV PUSH PRN (15:15)
--- NOTE | 2017-04-19 15:27 | HHI.PR ---
Objective Objective Results - Vital Signs Date Time Temp Pulse Resp B/P (MAP) Pulse Ox O2 Delivery O2 Flow Rate FiO2 04/19/17 12:00 96.8 86 19 180/97 (124) 97 04/19/17 11:33 88 20 176/85 (115) 96 Room Air 04/19/17 07:29 97.7 107 20 184/92 (122) 94 I/O 04/18/17 04/18/17 04/18/17 04/19/17 04/19/17 04/19/17 07:00 15:00 23:00 07:00 15:00 23:00 Intake Total 1100 ml Balance 1100 ml Intake IV Total 1100 ml Result Diagram: 04/19/1746 04/19/1746 A/P Assessment and Plan [id number], rt. humerous fracture leukocytosis Large hiatal hernia DDD dm2, uncontrolled cardiomegaly D/W Ruth Keys Apr 19, 2017 15:27
[2017-04-19 16:00] VITALS: BP 151/74; PULSE 75; RESP 18; TEMP 97; O2SAT 92
[2017-04-19] MEDS: ACETAMINOPHEN 325 MG TAB PO PRN (18:12)
--- NOTE | 2017-04-19 19:44 | MB ---
cc: CESARIO SARAH M.D. DATE OF CONSULTATION: 04/19/2017 REASON FOR CONSULTATION: For preop clearance for shoulder. HISTORY OF PRESENT ILLNESS Cathleen Tee is a 87-year-old woman admitted with a right humerus fracture. She has known coronary artery disease. She had stent of the distal right coronary artery in 2011. She had stent of an LAD occlusion March 2015. The March 2015 procedure she had a 3.0 x 26 mm Resolute stent and a 3.0 x 12 mm Resolute stent, both postdilated with a 3.25 mm balloon with some residual distal LAD disease. EF at that time was 50%. She has multiple cardiac risk factors. She lives alone. Apparently she gets angina once in awhile, about once a month relieved with nitroglycerin. It has been at least a month since she has had any pain. She did not have any anginal pain with her injuries yesterday. MEDICATIONS Have included: 1. Atenolol 50 b.i.d. 2. Plavix. 3. Imdur 30 mg. 4. Lisinopril 2.5 mg. 5. Metformin. SOCIAL HISTORY She has never smoked in the past. PAST SURGICAL HISTORY Includes: 1. Her stents. 2. Appendectomy. 3. Cataract surgery. ALLERGIES Include: 1. DEMEROL. 2. DARVON. FAMILY HISTORY Family history is positive for heart disease in a brother and mother. SOCIAL HISTORY Nonsmoker. PHYSICAL EXAMINATION GENERAL: Elderly white female, a little bit [id number], able to respond normally in no acute distress. VITAL SIGNS: Blood pressures vary from 184/92 to 176/85. HEENT: Exam unremarkable. NECK: Reveals no JVD. No bruits. A chest x-ray was not checked; an EKG was not checked. LABORATORY FINDINGS laboratory work shows a normal prothrombin time, creatinine is 0.85. CPK MB fraction is normal. Hematocrit is 47.7, white count 11,300. IMPRESSION/PLAN History of known coronary disea. Her anginal symptoms are stable. There is no EKG or chest x-ray. I will order those and followup again tomorrow. However, she appears to be stable at this point for surgery. MD FRANCES Park/OFELIA /12:34 PM /7:02 PM
[2017-04-19 20:29] VITALS: BP 116/59; PULSE 75; RESP 16; TEMP 96.2; O2SAT 92
[2017-04-19] MEDS ORDERED: LISINOPRIL 5 MG TAB PO SCH (21:00)
[2017-04-19] MEDS ORDERED: SODIUM CHLORIDE 0.9% FLUSH 10 ML FLUSH IV FLUSH SCH (21:00)
[2017-04-19] MEDS: DOCUSATE SODIUM 50 MG/SENNA 8.6 MG TAB PO SCH (21:56)
[2017-04-20] VITALS (7 sets, daily range): BP systolic 129–149; BP diastolic 58–73; PULSE 67–82; RESP 16–20; TEMP 96.2–97.8; O2SAT 90–97
[2017-04-20 04:58] LABS: AUTOMATED NEUTROPHIL # 5.9 TH/MM3 (1.8-7.7); BASOPHIL % 0.2 % (0.0-2.0); EOSINOPHIL # 0.1 TH/MM3 (0-0.4); EOSINOPHIL % 0.8 % (0.0-4.0); HEMATOCRIT 37.1 % (35.0-46.0); HEMO FLAGS DIFF FINAL; LYMPH % 17.9 % (9.0-44.0); LYMPHOCYTE # 1.5 TH/MM3 (1.0-4.8); MEAN CELL VOLUME 89.3 FL (80.0-100.0); MEAN CORPUSCULAR HEMOGLOBIN 30.1 PG (27.0-34.0); MEAN CORPUSCULAR HGB CONC 33.7 % (32.0-36.0); MONO % 12.1 % (0.0-8.0); PLATELET COUNT 215 TH/MM3 (150-450); RED BLOOD COUNT 4.16 MIL/MM3 (4.00-5.30); RED CELL DISTRIBUTION WIDTH 13.6 % (11.6-17.2); WHITE BLOOD COUNT 8.5 TH/MM3 (4.0-11.0)
[2017-04-20 05:19] LABS: POTASSIUM 3.5 MEQ/L (3.5-5.1)
[2017-04-20] MEDS: INSULIN ASPART SUPPLEMENTAL SCALE SQ SCH ×4 (06:38→21:00)
[2017-04-20] MEDS: ISOSORBIDE MONONITRATE 30 MG TAB PO SCH (06:42)
[2017-04-20] MEDS ORDERED: SODIUM CHLORID 0.9% 500 ML IV PRN (07:00)
[2017-04-20] MEDS ORDERED: CHLORHEXIDINE GLUCONATE 2 % 1 PACK (2 CLOTHS) TOPICAL PRN (07:00)
[2017-04-20] MEDS ORDERED: POVIDONE IODINE 5% (ANTISEPSIS KIT) 4 APPLICATIONS EACH NARE PRN (07:00)
[2017-04-20] MEDS ORDERED: LACTATED RINGER'S 1000 ML IV PRN (07:00)
[2017-04-20] MEDS ORDERED: VANCOMYCIN 500 MG VIAL ONE (07:36)
[2017-04-20] MEDS ORDERED: ceFAZolin INJ 1,000 MG VIAL ONE (07:36)
[2017-04-20] MEDS ORDERED: GENTAMICIN SULFATE 80 MG/2 ML VIAL ONE (07:37)
--- NOTE | 2017-04-20 07:51 | HHI.PR ---
Addendum to Inpatient Note Addendum Reason: Additional Documentation Additional Information EKG done and is similar to old tracings. CXR no overt CHF. Came by by to see but already left for or. She is cleared by cardiology. I am signed off - please call if further assistance needed. Jacinto Puckett MD Apr 20, 2017 07:51
--- NOTE | 2017-04-20 07:59 | PD.ORT.PN ---
Subjective Subjective Remarks s/p fall at home right shoulder pain Objective Vitals Vital Signs Date Time Temp Pulse Resp B/P (MAP) Pulse Ox O2 Delivery O2 Flow Rate FiO2 04/20/17 04:13 96.2 67 16 131/60 (83) 93 04/20/17 02:53 78 04/20/17 00:45 96.7 70 16 133/63 (86) 92 04/19/17 20:29 96.2 75 16 116/59 (78) 92 04/19/17 16:00 97.0 75 18 151/74 (99) 92 04/19/17 12:00 96.8 86 19 180/97 (124) 97 04/19/17 11:33 88 20 176/85 (115) 96 Room Air I/O 04/19/17 04/19/17 04/19/17 04/20/17 04/20/17 04/20/17 07:00 15:00 23:00 07:00 15:00 23:00 Intake Total 1100 ml 1239 ml 345 ml Balance 1100 ml 1239 ml 345 ml Intake Oral 720 ml IV Total 1100 ml 519 ml 345 ml # Voids 6 3 # Bowel Movements 0 Result Diagram: 04/20/17 0425 04/20/17 0425 Objective Remarks RUE: +swelling and bruising. nvi distally. +sling Assessment & Plan Assessment and Plan 1) Right Proximal Humerus Fx -surgery today -sign consents Anshul Ladd Apr 20, 2017 07:59
[2017-04-20] MEDS: CLOPIDOGREL 75 MG TAB PO SCH (09:00)
[2017-04-20] MEDS ORDERED: HYDR-3288 PO (09:23)
--- NOTE | 2017-04-20 09:25 | PD.OP ---
cc: Andrey Rouse MD Operative Report Date of Surgery: Apr 20, 2017 Preoperative Diagnosis: Displaced right proximal humerus fracture Postoperative Diagnosis: Procedure: Open reduction internal fixation right proximal humerus Anesthesia: Gen. Surgeon: Andrey Rouse Commissioning Manager(s): JANN Basurto PA-C The surgical procedure was assisted by my physician casino assistant manager. My P.A. presence was necessary throughout this case for the manipulation and positioning of the surgical extremity. My P.A. was assisting me throughout the duration of this procedure. The skill set of a physician casino assistant manager was medically necessary to complete this procedure. During the surgical case the surgical services tech was working at the back table and the physician casino assistant manager was directly assisting me. Operation and Findings: Plan of activity : Nonweightbearing right arm, sling and swath at all times, start pendulum exercises in 2 weeks Patient was seen and evaluated preoperatively. Patient was found to have a displaced right proximal humerus fracture. The risks and benefits of surgical and nonsurgical options were discussed in detail and informed consent was obtained for surgery. Patient was brought to the operating room and placed on or table. IV sedation and GETA were administered by anesthesiologist. Antibiotics were given prior to incision. Operative arm and shoulder were prepped with alcohol followed by Hibiclens and draped usual sterile fashion. Timeout procedure was performed. Procedure began with a 5 inch incision over the anterior shoulder. Cephalic vein was identified. A deltopectoral approach was utilized. The fracture was now visualized. Soft tissue was retracted. A #5 FiberWire suture was placed into the rotator rotator cuff and greater tuberosity as well as in the subscapularis tendon.. Attention was now turned to reduction. Gentle traction was applied. The humeral shaft was reduced to the humeral head. Fracture was manipulated to achieve excellent reduction. Multiplanar fluoroscopy confirmed well aligned fracture. Multiple K wires were used to hold provisional fixation. A Synthes proximal humerus plate was selected. Plate was provisionally held in place K wires. 3.5 cortical screws were used to compress plate to bone. Fluoroscopy confirmed appropriate plate placement and fracture reduction. Multiple locking screws were now placed in the humeral head. Screws were predrilled and premeasured for appropriate length. Care was taken not to penetrate the articular surface. Additional screws were placed in the humeral shaft. The FiberWire sutures were passed through the holes of the plate and sutured to the plate for additional stability. Final fluoroscopy revealed well aligned fracture with well-placed hardware. Wound was thoroughly irrigated. Fascia was closed with #1 Vicryl, subcutaneous tissues closed with 3 -0 Vicryl, and skin was closed with iggy. Sterile dressings were applied. Patient was placed into a sling. Patient was awakened and transferred to recovery in stable condition. Needle and sponge counts were correct. Andrey Rouse MD Apr 20, 2017 09:25
[2017-04-20] MEDS ORDERED: diphenhydrAMINE HCL 25 MG CAP PO PRN (09:30)
[2017-04-20] MEDS ORDERED: ACETAMINOPHEN/HYDROcodone 325 MG/7.5 MG TAB PO PRN (09:30)
[2017-04-20] MEDS ORDERED: SODIUM CHLORIDE 0.9% FLUSH 5 ML FLUSH IVF PRN (09:30)
[2017-04-20] MEDS ORDERED: MORPHINE SULFATE 4 MG/ML INJ IV PUSH PRN (09:30)
[2017-04-20] MEDS ORDERED: DO NOT ADM ANY ANTICOAGULANT DRUGS PRN (09:45)
[2017-04-20] MEDS ORDERED: ERGO1CAP30 PO (09:47)
[2017-04-20] MEDS ORDERED: CALCTAB19 PO (09:47)
[2017-04-20] MEDS ORDERED: VITA2000 PO (09:47)
--- NOTE | 2017-04-20 09:47 | HHI.FF ---
Face to Face Verification Diagnosis: (1) Humerus fracture Occupational Therapy Right UE Weight Bearing: Non WB Right UE Range of Motion: No ROM Nursing Dressing Changes: Daily dressing change, 4x4s, Paper tape, Xeroform I have seen patient Cathleen Tee on 04/20/17. My clinical findings support the need for the requested home health care services because: Ltd mobility - disease progression I certify that my clinical findings support that this patient is homebound because: Post-op weakness Anshul Ladd Apr 20, 2017 09:47
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
[2017-04-20] MEDS ORDERED: ERGOCALCIFEROL (VIT D2) 50,000 UNIT CAP PO SCH (10:00)
[2017-04-20] MEDS ORDERED: PHENYLEPH/NS 1000 MCG/10 ML SYR IV ONE (10:04)
[2017-04-20] MEDS ORDERED: ePHEDrine/NS 25 MG/5 ML SYR IV ONE (10:04)
[2017-04-20] MEDS ORDERED: PROPOFOL 200 MG/20 ML AMP IV ONE (10:04)
[2017-04-20] MEDS ORDERED: NEOSTIGMINE 3 MG/3 ML SYR IV ONE (10:04)
[2017-04-20] MEDS ORDERED: ONDANSETRON HCL 4 MG/2 ML VIAL IV PUSH ONE (10:04)
[2017-04-20] MEDS: ATENOLOL 50 MG TAB PO SCH ×2 (11:06→21:00)
[2017-04-20] MEDS: DOCUSATE SODIUM 50 MG/SENNA 8.6 MG TAB PO SCH ×2 (11:06→21:00)
[2017-04-20] MEDS: LISINOPRIL 5 MG TAB PO SCH (11:06)
[2017-04-20] MEDS: POLYETHYLENE GLYCOL 17 GM PKG PO SCH (11:07)
[2017-04-20] MEDS ORDERED: SODIUM CHLOR 0.9% 250 ML INJ 250 ML IV ONE (12:00)
--- NOTE | 2017-04-20 12:47 | RADRPT ---
EXAM DATE/TIME: 04/20/2017 09:12 [facility] COMPARISON: FLUOROSCOPY PORTABLE UP TO 1HR, April 20, 2017, 0:00. INDICATIONS : Right shoulder open reduction internal fixation. MEDICAL HISTORY : Myocardial infarction. Hypertension. Diabetes. SURGICAL HISTORY : None. ENCOUNTER: Subsequent ACUITY: 1 day PAIN SCORE: Non-responsive. LOCATION: Right shoulder FINDINGS: Intraoperative examination demonstrates a side plate and multiple screws across the patient's humeral neck fracture. The fracture fragments are well aligned. CONCLUSION: 1. Good alignment of the patient's fracture post fixation. Mando Pan MD on April 20, 2017 at 12:45 Board Certified Radiologist. This report was verified electronically.
--- NOTE | 2017-04-20 14:01 | HHI.PR ---
Subjective Remarks in bed, agitated, restless, possible delirium rt. arm dressing bulky, clean, dry intact,. afebrile (Ruth Ewing) Objective Objective Results - Vital Signs Date Time Temp Pulse Resp B/P (MAP) Pulse Ox O2 Delivery O2 Flow Rate FiO2 04/20/17 11:03 96.8 82 18 149/73 (98) 90 04/20/17 10:15 97.4 78 16 155/70 (98) 92 Room Air 04/20/17 10:00 78 16 160/71 (100) 92 Room Air 04/20/17 09:49 97.7 91 15 155/71 (99) 94 Room Air 04/20/17 04:13 96.2 67 16 131/60 (83) 93 04/20/17 02:53 78 04/20/17 00:45 96.7 70 16 133/63 (86) 92 04/19/17 20:29 96.2 75 16 116/59 (78) 92 04/19/17 16:00 97.0 75 18 151/74 (99) 92 I/O 04/19/17 04/19/17 04/19/17 04/20/17 04/20/17 04/20/17 07:00 15:00 23:00 07:00 15:00 23:00 Intake Total 1100 ml 1239 ml 345 ml Balance 1100 ml 1239 ml 345 ml Intake Oral 720 ml IV Total 1100 ml 519 ml 345 ml # Voids 6 3 # Bowel Movements 0 (Ruth Ewing) Result Diagram: 04/20/1742404/20/17424 ROS General: Other (unable to obtain ROS) (Ruth Ewing) Physical Exam Physical Exam PHYSICAL EXAMINATION GENERAL: This is a obese elderly female in bed. Agitated HEAD: Normocephalic Facial features appear symmetric. OROPHARYNGEAL: Oropharynx clear NECK: Supple. CARDIAC: Regular rhythm, regular rate, S1 and S2 are heard LUNGS: Clear, No SOB ABDOMEN: round, Soft, nontender, no nausea and vomiting EXTREMITIES: no edema. extremities warm NEUROLOGICAL: Patientmood and affect restless, agitated, SKIN:Warm and moist (Ruth Ewing) A/P Assessment and Plan rt. humerous fracture repaired today,appreciate ortho consult and surgery repair. Cleared from ortho standpoint. Post op Delirium/confusion Mad at everyone and says she is leaving, Knows where she is, but wants to get up, pulled her gown off, anxious, restless, agitated. Discussed medical needs and her safety. leukocytosis monitor labs, post op today, normal range today Large hiatal hernia medical management, no c/p of GERD or reflux DDD chronic, monitor medical management dm2, uncontrolled accucheck AC and hs, meds continued cardiomegaly no acute pain, monitor for any SOB vitals afebrile, trends normal for her. monitor bowel regimen. D/W Dr. Dodge, seen on his behalf D/W nurse Attempted discussion with patient., DC planning, lives alone, concerned for her safety (Ruth Ewing) Assessment and Plan pt seen and examined as above labs reviewed meds reviewed dw pt dw rn dw french folder about plan of care (David Dodge MD) Ruth Ewing Apr 20, 2017 14:01 David Dodge MD Apr 20, 2017 21:20
--- NOTE | 2017-04-20 14:05 | EKG ---
Date Performed: 04/19/2017 Time Performed: 09:37:59 PTAGE: 87 years EKG: SINUS TACHYCARDIA VOLTAGE CRITERIA FOR LVH NONSPECIFIC T-WAVE ABNORMALITY ABNORMAL ECG Comp ared to prior tracing no significant change PREVIOUS TRACING : 09/30/16 DOCTOR: Catina Oneil Interpretating Date/Time 04/20/2017 13:59:27
[2017-04-20] MEDS: CALCIUM/VITAMIN D 250 MG/125 U TAB PO SCH ×2 (14:14→17:40)
[2017-04-20] MEDS: SODIUM CHLOR 0.9% 1000 ML INJ 1,000 ML IV SCH (17:39)
[2017-04-20] MEDS: ceFAZolin 2 GM PREMIX 50 ML IV SCH (17:40)
[2017-04-20] MEDS: ACETAMINOPHEN 325 MG TAB PO PRN (21:57)
[2017-04-20] MEDS: SODIUM CHLORIDE 0.9% FLUSH 5 ML FLUSH IVF SCH (22:00)
[2017-04-21] VITALS: BP 136/63; PULSE 74; RESP 18; TEMP 96.3; O2SAT 96
[2017-04-21] MEDS: ceFAZolin 2 GM PREMIX 50 ML IV SCH ×2 (00:17→09:17)
[2017-04-21 04:00] VITALS: BP 142/65; PULSE 92; RESP 18; TEMP 97.6; O2SAT 93
[2017-04-21] MEDS: ISOSORBIDE MONONITRATE 30 MG TAB PO SCH (05:58)
--- NOTE | 2017-04-21 07:24 | PD.ORT.PN ---
Subjective Subjective Remarks POD 1 s/p ORIF right proximal humerus doing well. pain controlled Objective Vitals Vital Signs Date Time Temp Pulse Resp B/P (MAP) Pulse Ox O2 Delivery O2 Flow Rate FiO2 04/21/17 04:00 97.6 92 18 142/65 (90) 93 04/21/17 00:00 96.3 74 18 136/63 (87) 96 04/20/17 20:00 96.6 79 20 135/65 (88) 97 04/20/17 20:00 96.6 79 20 135/65 (88) 97 04/20/17 16:00 97.8 77 18 129/58 (81) 97 04/20/17 14:28 92 Nasal Cannula 2.00 04/20/17 11:03 96.8 82 18 149/73 (98) 90 04/20/17 10:15 97.4 78 16 155/70 (98) 92 Room Air 04/20/17 10:00 78 16 160/71 (100) 92 Room Air 04/20/17 09:49 97.7 91 15 155/71 (99) 94 Room Air I/O 04/20/17 04/20/17 04/20/17 04/21/17 04/21/17 04/21/17 07:00 15:00 23:00 07:00 15:00 23:00 Intake Total 345 ml 1240 ml 60 ml Balance 345 ml 1240 ml 60 ml Intake Oral 240 ml 60 ml IV Total 345 ml 1000 ml # Voids 3 3 3 # Bowel Movements 0 Result Diagram: 04/20/17 0425 04/20/17 0425 Objective Remarks RUE: + sling. dressing has come off. no apparent drainage. no erythema. NVI distally Assessment & Plan Assessment and Plan 1) Right Proximal Humerus Fx s/p ORIF - POD 1 -NWB -daily dressing changes -sling/swathe at all times -no ROM or PT of right arm -Rx on chart -ortho cleared for DC home with HHC -f/u with Gabriela or [facility] in 2 weeks Anshul Ladd Apr 21, 2017 07:24
[2017-04-21 08:00] VITALS: BP_SYST 111; BP_SYST 146; BP_DIAS 55; BP_DIAS 73; PULSE 61; PULSE 89; RESP 16; RESP 18; TEMP 97.1; TEMP 97.2; O2SAT 93; O2SAT 97
[2017-04-21] MEDS ORDERED: CHOLECALCIFEROL (VIT D3) 1000 UNIT TAB PO SCH (09:00)
[2017-04-21] MEDS: POLYETHYLENE GLYCOL 17 GM PKG PO SCH (09:00)
[2017-04-21] MEDS: ATENOLOL 50 MG TAB PO SCH (09:18)
[2017-04-21] MEDS: LISINOPRIL 5 MG TAB PO SCH (09:18)
[2017-04-21] MEDS: CALCIUM/VITAMIN D 250 MG/125 U TAB PO SCH ×3 (09:18→12:17)
[2017-04-21] MEDS: CLOPIDOGREL 75 MG TAB PO SCH (09:19)
[2017-04-21] MEDS: SODIUM CHLORIDE 0.9% FLUSH 5 ML FLUSH IVF SCH (09:26)
[2017-04-21] MEDS: INSULIN ASPART SUPPLEMENTAL SCALE SQ SCH ×2 (09:31→12:15)
[2017-04-21] MEDS: DOCUSATE SODIUM 50 MG/SENNA 8.6 MG TAB PO SCH (09:32)
--- NOTE | 2017-04-21 10:38 | HHI.PR ---
Subjective Remarks Getting up in chair with assistance from staff Still having some restlessness and agitation. Wants to go home Afebrile Physical therapy eval pending (Ruth Ewing) Objective Objective Results - Vital Signs Date Time Temp Pulse Resp B/P (MAP) Pulse Ox O2 Delivery O2 Flow Rate FiO2 04/21/17 08:00 97.1 89 18 111/55 (73) 93 04/21/17 04:00 97.6 92 18 142/65 (90) 93 04/21/17 00:00 96.3 74 18 136/63 (87) 96 04/20/17 20:00 96.6 79 20 135/65 (88) 97 04/20/17 20:00 96.6 79 20 135/65 (88) 97 04/20/17 16:00 97.8 77 18 129/58 (81) 97 04/20/17 14:28 92 Nasal Cannula 2.00 04/20/17 11:03 96.8 82 18 149/73 (98) 90 I/O 04/20/17 04/20/17 04/20/17 04/21/17 04/21/17 04/21/17 07:00 15:00 23:00 07:00 15:00 23:00 Intake Total 345 ml 1240 ml 60 ml Balance 345 ml 1240 ml 60 ml Intake Oral 240 ml 60 ml IV Total 345 ml 1000 ml # Voids 3 3 3 # Bowel Movements 0 (Ruth Ewing) Result Diagram: 04/20/17 0425 04/20/17 0425 Medications and IVs Administered Medications Medications (Trade) Dose Ordered Sig/Elsy Route PRN Reason Start Time Stop Time Status Last Admin Dose Admin Sodium Chloride 1,000 ml @ 75 mls/hr [id number] IV 04/19/17 10:33 04/20/17 17:39 Acetaminophen (Tylenol) 650 mg Q4H PRN PO TEMP > 100.4 04/19/17 10:45 04/20/17 21:57 Ondansetron HCl (Zofran Inj) 4 mg Q6H PRN IVP NAUSEA OR VOMITING 04/19/17 10:45 04/20/17 11:07 Senna/Docusate Sodium (Alisson-Colace) 1 tab BID PO 04/19/17 21:00 04/21/17 09:32 Atenolol (Tenormin) 50 mg BID PO 04/19/17 10:45 04/21/17 09:18 Clopidogrel Bisulfate (Plavix) 75 mg DAILY PO 04/19/17 10:45 04/21/17 09:19 Isosorbide Mononitrate (Imdur) 30 mg DAILY@0700 PO 04/19/17 10:45 04/21/17 05:58 Lisinopril (Prinivil) 2.5 mg DAILY PO 04/20/17 09:00 04/21/17 09:18 Insulin Aspart (NovoLOG SUPPLEMENTAL SCALE) 1 ACHS SLIDING SCALE SQ 04/19/17 11:00 04/21/17 09:31 Polyethylene Glycol (Miralax) 17 gm DAILY PO 04/20/17 09:00 04/20/17 11:07 IV Flush (NS Flush) 2 ml BID IVF 04/20/17 21:00 04/21/17 09:26 Acetaminophen/ Hydrocodone Bitart (Torreon 7.5-325 Mg) 1 tab Q3H PRN PO PAIN 3<10 04/20/17 09:30 04/20/17 14:01 Calcium/Vitamin D (Oscal-D 250-125) 250 mg TID PO 04/20/17 13:00 04/21/17 09:18 Ergocalciferol (Drisdol) 50,000 units Q7D PO 04/20/17 10:00 04/20/17 11:06 Cholecalciferol (Vitamin D3) 1,000 units DAILY PO 04/21/17 09:00 04/21/17 09:19 (Ruth Ewing) ROS General: Other (questionable review of systems due to her anxiety and mild agitation) Neuro/MS: Other (anxiety mild agitation) (Ruth Ewing) Physical Exam Physical Exam PHYSICAL EXAMINATION GENERAL: This is an elderly female Currently sitting up in the chair, assistance from staff She is restless, anxious, once to go home HEAD: Normocephalic Facial features appear symmetric. OROPHARYNGEAL: Oropharynx clear NECK: Supple. Trachea midline without deviation. CARDIAC: Regular rhythm, regular rate, S1 and S2 are heard. LUNGS: Clear to auscultation bilaterally, no audible rhonchi or wheezing noted ABDOMEN: Round, Soft, nontender, sounds soft, active EXTREMITIES: Right shoulder edema, mild dressing over surgical repair clean dry and intact. Moves hand and fingers right and left arm on command NEUROLOGICAL: Patient mood and affect restless, mild agitation SKIN:Warm and dry (Ruth Ewing) A/P Assessment and Plan rt. humerous fracture repair 9-12,appreciate ortho consult and surgery repair. Cleared from ortho standpoint. Physical therapy eval for her safety and discharge planning Post op Delirium/confusion restlessness mildly improved, but insistent on going home. Questionable safety with her mobility. Physical therapy to evaluate and make recommendations , patient was able to stand alone holding on to chair and table, currently up in chair but does attempt to get up by herself without calling for help . questionable balance. leukocytosis Resolved Large hiatal hernia medical management, no c/p of GERD or reflux DDD chronic, monitor medical management , physical therapy to evaluate dm2, uncontrolled accucheck AC and hs, meds continued, currently blood sugar 142 this morning cardiomegaly no acute pain, monitor for any SOB vitals afebrile, trends normal for her. monitor bowel regimen. D/W Dr. Dodge, seen on his behalf D/W nurse Discussed with patient, questionable her understanding of the current situation and our concern for her safety. States she's going home no matter what Case management consult (Ruth Ewing) Assessment and Plan Patient seen and examined as above Labs reviewed Medications reviewed Discussed with patient about discharge planning. She is adamant to go home only. She doesn't want to go to rehabilitation or nursing facility. manager trade will discuss with her. As I discussed with family caseworker. Discussed with RN Plan of care discussed with GROCERY SPECIALIST Awaiting for PT recommendation (David Dodge MD) Ruth Ewing Apr 21, 2017 10:38 David Dodge MD Apr 21, 2017 13:14
[2017-04-21 12:00] VITALS: BP 110/55; PULSE 107; RESP 20; TEMP 98.7; O2SAT 94
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
--- NOTE | 2017-04-21 16:51 | HHI.FF ---
Face to Face Verification Diagnosis: (1) Risk for falls (2) Hypertension (3) Diabetes mellitus, type II (4) Fx humeral neck Home Health Nursing Order: Wound care and dressing changes Nursing assessment with vital signs I have seen patient Cathleen Tee on 04/21/17. My clinical findings support the need for the requested home health care services because: Limited ability to care for self High risk of falls I certify that my clinical findings support that this patient is homebound because: Post-op weakness Ruth Ewing Apr 21, 2017 16:51
--- NOTE | 2017-04-21 16:54 | PD.AMA ---
Against Medical Advice Note Diagnosis: (1) Fx humeral neck (2) Hypertension (3) Risk for falls (4) Diabetes mellitus, type II Discharge Disposition: Against Medical Advice Pt Condition on Discharge: Fair Recommended Treatment Course Recommended SNF rehab, pt. refused and walked off medical floor AMA Statement Patient Cathleen Tee has decided to leave the hospital against medical advice. This patient has the capacity to refuse care and understands the risks of leaving, including permanent disability and/or , and has had an opportunity to ask questions about her condition. The patient has been informed that she may return for care at any time, and follow up has been arranged/ advised. Recommended further care with rehab facility. Ruth Ewing Apr 21, 2017 16:54
== END 2017-04-21 13:56 | disposition left against medical advice (07) | DRG 494 ==
LOC: NEPC 07:24 → NEDA 10:05 → N07B 12:04
PROVIDERS: ADMIT Specialist; ATTEND Specialist
PROC: 0PSC04Z Reposition Right Humeral Head with Internal Fixation Device, Open Approach (ICD-10-PCS; principal; 2017-04-20 08:01)
DX: S42.211A Unspecified displaced fracture of surgical neck of right humerus, initial encounter for closed fracture (principal); E11.65 Type 2 diabetes mellitus with hyperglycemia; E86.0 Dehydration; M19.90 Unspecified osteoarthritis, unspecified site; M51.36 Other intervertebral disc degeneration, lumbar region; I25.119 Atherosclerotic heart disease of native coronary artery with unspecified angina pectoris; Z95.5 Presence of coronary angioplasty implant and graft; K21.9 Gastro-esophageal reflux disease without esophagitis; K44.9 Diaphragmatic hernia without obstruction or gangrene; R32 Unspecified urinary incontinence; I51.7 Cardiomegaly; I10 Essential (primary) hypertension; I25.2 Old myocardial infarction; E07.9 Disorder of thyroid, unspecified; E78.00 Pure hypercholesterolemia, unspecified; M41.9 Scoliosis, unspecified; M81.0 Age-related osteoporosis without current pathological fracture; W19.XXXA Unspecified fall, initial encounter; Z79.01 Long term (current) use of anticoagulants; Z91.81 History of falling; Y92.009 Unspecified place in unspecified non-institutional (private) residence as the place of occurrence of the external cause; H91.90 Unspecified hearing loss, unspecified ear
CPT/HCPCS: 70450; 71010; 72040; 72072; 72125; 73030; 73060; 73070; 76000; 76937; 80048; 80053; 82550; 82552; 82948; 83605; 85025; 87040; 93005; 96374; C1713; J0690; J0696; J1580; J1815; J2270; J2370; J2405; J2710; J3010; J3370; J7030; J7050

== ENCOUNTER 2017-04-23 20:12 | Inpatient (IN) | payer MEDICARE, OTHER ==
[~2017-04-23] VITALS: Ht 160 cm; Wt 76.1 kg
[~2017-04-23 20:12] MED LIST changes: -CEPH500C PO; +METF1000 PO
[2017-04-23] MEDS ORDERED: IOHEXOL 350 MG/ML 10 ML VIAL (for RAD DIAG) IVCONTRAST ONE (20:13)
[2017-04-23 20:15] VITALS: BP 127/68; PULSE 122; RESP 18; TEMP 98.1
--- NOTE | 2017-04-23 20:31 | PD ---
HPI Chief Complaint: Musculoskeletal Complaint Time Seen by Provider: 20:18 Travel History International Travel<30 days: No Contact w/Intl Traveler<30days: No Traveled to known affect area: No History of Present Illness HPI PATIENT CALLED 911 C/O RIGHT ARM PAIN AND REQUESTED TRANSFER TO REHAB, HOWEVER PATIENT WAS BROUGHT INTO ER FOR FURTHER EVAL, EVERYTHING HAD BEEN DONE AT [facility] [place] HOWEVER, PT REQUESTED EVAC TO BRING TO [facility]... PFSH Past Medical History Hx Anticoagulant Therapy: Yes Arthritis: Yes Asthma: No Autoimmune Disease: No Blood Disorders: No Anxiety: Yes Depression: No Heart Rhythm Problems: No Cancer: No Cardiac Catheterization: Yes Cardiovascular Problems: Yes High Cholesterol: Yes Chemotherapy: No Chest Pain: Yes Congestive Heart Failure: No COPD: No Cerebrovascular Accident: No Coronary Artery Disease: Yes Diabetes: Yes Diminished Hearing: Yes ([place] Endocrine: Yes Gastrointestinal Disorders: Yes GERD: No Glaucoma: No Genitourinary: No Headaches: No Hepatitis: No Hiatal Hernia: Yes (PRESENT HIATAL HERNIA) Hypertension: Yes Immune Disorder: No Implanted Vascular Access Dvce: Yes Kidney Stones: No Musculoskeletal: Yes (JOINT PAIN) Neurologic: Yes Psychiatric: Yes Reproductive: No Respiratory: Yes Immunizations Current: Yes Migraines: No Myocardial Infarction: Yes Radiation Therapy: No Renal Failure: No Seizures: No Sickle Cell Disease: No Sleep Apnea: No Thyroid Disease: Yes (HYPO) Ulcer: No PNEUMOCCOCAL Vaccine (Year): 1 ?: Not Menopausal: Yes : 0 Past Surgical History Abdominal Surgery: Yes (APPY) AICD: No Appendectomy: Yes Arteriovenous Shunt: No Body Medical Devices: STENT 2011 Cardiac Surgery: Yes (STENTS PLACED IN 05/2012) Cholecystectomy: No Coronary Stent: Yes (x1 -05/2012) Ear Surgery: No Endocrine Surgery: Yes (THYROID) Eye Surgery: No Genitourinary Surgery: No Gynecologic Surgery: No Insulin Pump: No Joint Replacement: No Neurologic Surgery: No Oral Surgery: No Pacemaker: No Thoracic Surgery: No Other Surgery: Yes (THYROID) Social History Alcohol Use: No Tobacco Use: No Substance Use: No Allergies-Medications (Allergen,Severity, Reaction): Coded Allergies: meperidine (Unverified Allergy, Mild, N/V, 04/23/17) propoxyphene (Unverified Adverse Reaction, Mild, N/V, 04/23/17) Reported Meds & Prescriptions Reported Meds & Active Scripts Active Reported Metformin (Metformin HCl) 1,000 Mg Tab 1,000 Mg PO DAILY With a meal Lisinopril 2.5 Mg Tab 2.5 Mg PO DAILY Atenolol 50 Mg Tab 50 Mg PO BID Plavix (Clopidogrel Bisulfate) 75 Mg Tab 75 Mg PO DAILY Isosorbide Mononitrate ER (Isosorbide Mononitrate) 30 Mg Renetta 30 Mg PO DAILY Physical Exam Narrative GENERAL: SKIN: Warm and dry. HEAD: Atraumatic. Normocephalic. EYES: Pupils equal and round. No scleral icterus. No injection or drainage. ENT: No nasal bleeding or discharge. Mucous membranes pink and moist. NECK: Trachea midline. No JVD. CARDIOVASCULAR: Regular rate and rhythm. RESPIRATORY: No accessory muscle use. Clear to auscultation. Breath sounds equal bilaterally. GASTROINTESTINAL: Abdomen soft, non-tender, nondistended. Hepatic and splenic margins not palpable. MUSCULOSKELETAL: Extremities without clubbing, cyanosis, or edema. No obvious deformities. UNEQUAL EDEMA TO RUE LIKELY POST SURGICAL FINDING, NVI NEUROLOGICAL: Awake and alert. No obvious cranial nerve deficits. Motor grossly within normal limits. Five out of 5 muscle strength in the arms and legs. Normal speech. PSYCHIATRIC: Appropriate mood and affect; insight and judgment normal. Data Data Last Documented VS Vital Signs Date Time Temp Pulse Resp B/P (MAP) Pulse Ox O2 Delivery O2 Flow Rate FiO2 04/23/17 20:15 122 18 04/23/17 20:15 98.1 127/68 (87) Orders Orders Electrocardiogram (04/23/17 20:18) Complete Blood Count With Diff (04/23/17 20:18) Basic Metabolic Panel (Bmp) (04/23/17 20:18) Troponin I (04/23/17 20:18) B-Type Natriuretic Peptide (04/23/17 20:18) Prothrombin Time / Inr (Pt) (04/23/17 20:18) Act Partial Throm Time (Ptt) (04/23/17 20:18) Arterial Blood Gas (Abg) (04/23/17 20:18) Lipase (04/23/17 20:18) Ct Pulmonary Angiogram (04/23/17 20:18) Us Arm Venous Doppler (04/23/17 20:18) Iohexol 350 Inj (Omnipaque 350 Inj) (04/23/17 20:13) Heparin-D5w 25,000 U/250 Ml (Heparin-D5w (04/23/17 23:00) Cbc No Diff, Includes Plts (04/26/17 06:00) Act Partial Throm Time (Ptt) (04/24/17 05:57) Occult Blood (Hemoccult) Stool (04/23/17 22:57) Labs Laboratory Tests Test 04/23/17 20:37 04/23/17 21:43 Blood Gas Puncture Site LT RADIAL Blood Gas Patient Temperature 98.6 Blood Gas HCO3 26 mmol/L Blood Gas Base Excess 2.7 mmol/L Blood Gas Oxygen Saturation 83 % Arterial Blood pH 7.48 Arterial Blood Partial Pressure CO2 35 mmHG Arterial Blood Partial Pressure O2 49 mmHG Arterial Blood Oxygen Content 14.2 Vol % Arterial Blood Carboxyhemoglobin 2.6 % Arterial Blood Methemoglobin 0.9 % Blood Gas Hemoglobin 12.2 G/DL Oxygen Delivery Device ROOM AIR Blood Gas Inspired Oxygen 21 % White Blood Count 12.0 TH/MM3 Red Blood Count 4.38 MIL/MM3 Hemoglobin 12.6 GM/DL Hematocrit 38.2 % Mean Corpuscular Volume 87.3 FL Mean Corpuscular Hemoglobin 28.8 PG Mean Corpuscular Hemoglobin Concent 33.0 % Red Cell Distribution Width 12.7 % Platelet Count 293 TH/MM3 Mean Platelet Volume 7.3 FL Neutrophils (%) (Auto) 74.5 % Lymphocytes (%) (Auto) 13.7 % Monocytes (%) (Auto) 8.4 % Eosinophils (%) (Auto) 1.0 % Basophils (%) (Auto) 2.4 % Neutrophils # (Auto) 9.0 TH/MM3 Lymphocytes # (Auto) 1.6 TH/MM3 Monocytes # (Auto) 1.0 TH/MM3 Eosinophils # (Auto) 0.1 TH/MM3 Basophils # (Auto) 0.3 TH/MM3 CBC Comment DIFF FINAL Differential Comment Prothrombin Time 11.4 SEC Prothromb Time International Ratio 1.0 RATIO Activated Partial Thromboplast Time 25.4 SEC Blood Urea Nitrogen 21 MG/DL Creatinine 0.77 MG/DL Random Glucose 169 MG/DL Calcium Level 8.8 MG/DL Sodium Level 132 MEQ/L Potassium Level 4.0 MEQ/L Chloride Level 99 MEQ/L Carbon Dioxide Level 25.0 MEQ/L Anion Gap 8 MEQ/L Estimat Glomerular Filtration Rate 71 ML/MIN Troponin I 0.06 NG/ML B-Type Natriuretic Peptide 86 PG/ML Lipase 114 U/L MDM Medical Decision Making Medical Screen Exam Complete: Yes Emergency Medical Condition: No Medical Record Reviewed: Yes Interpretation(s) AFLUTTER WITH MILD TACHY AT 116, NO STEMI PATTERN Differential Diagnosis R/O DVT V POST OP PAIN Narrative Course UPON REVIEW OF CHARTS, PT SIGNED OUT AMA AND PATIENT IS VERY RUDE AND YELLING AT STAFF...HOWEVER, ABLE TO DEESCALATE AND ADVISED PATIENT FOR NEED TO DO FURTHER WORKUP BECAUSE HER PULSE OX WAS LOW...ABG 7.479/35/48.5...PT EKG SHOWS AFLUTTER TYPE OF RHYTHM WITH MILD TACHYCARDIA...TROPONIN MILDLY ELEV .06, AND CT CHEST REVEALED BILATERAL PE, HEPARIN DRIP STARTED AND CALL TO [facility] FOR FURTHER CARE Critical Care Narrative CRITICAL CARE NOTE: With evaluation of the patient, labs, EKG, receipt of radiologic studies, administration of medications, reevaluation the patient and discussion of the patient with the admitting physicians, the total critical care time was [60] minutes. Time to perform other separately billable procedures was not included in the critical care time. Physician Communication Physician Communication D/W CONSTANCE FOR ADMISSION ADVISED ABOUT SOCIAL SERVICE/CASE MANAGEMENT INVOLVEMENT WELL FOR POSSIBLE REHAB PLACEMENT Diagnosis Primary Impression: Bilateral pulmonary embolism Additional Impression: HYPOXEMIA DUE TO PE Admitting Information Admitting Physician Requests: Admit Magdi Dallas MD Apr 23, 2017 20:30
[2017-04-23 20:48] LABS: BLOOD GAS BASE EXCESS 2.7 mmol/L (-2-2); BLOOD GAS CARBOXYHEMOGLOBIN 2.6 % (0-4); BLOOD GAS HCO3 26 mmol/L (22-26); BLOOD GAS METHEMOGLOBIN 0.9 % (0-2); BLOOD GAS O2 HGB SATURATION 83 % (90-100); BLOOD GAS OXYGEN CONTENT 14.2 Vol % (12.0-20.0); BLOOD GAS PCO2 35 mmHG (38-42); BLOOD GAS PO2 49 mmHG (61-120); BLOOD GAS TOTAL HGB 12.2 G/DL (12.0-16.0); CRITICAL VALUE YES; DRAW SITE LT RADIAL; FIO2 21 %; NUMBER OF ARTERIAL PUNCTURES 1; OXYGEN DEVICE ROOM AIR; STAT YES; TEMP CORR TO 98.6; ULNAR PULSE PRESENT
--- NOTE | 2017-04-23 21:30 | RADRPT ---
EXAM DATE/TIME: 04/23/2017 20:59 [facility] COMPARISON: No previous studies available for comparison. INDICATIONS : Right arm swelling. MEDICAL HISTORY : Hypothyroidism. Myocardial infarction. Hypercholesterolemia. Hard of hearing. Head trauma. Coronary a rtery disease. Anticoagulant therapy. Hypertension. Dyspnea. Hiatal hernia. Arthritis. Diabetes. Anx iety. SURGICAL HISTORY : Appendectomy. Cardiac catheterization. Coronary stent. Thyroid surgery. ENCOUNTER: Initial ACUITY: 1 day PAIN SCORE: 10/10 LOCATION: Right arm. FINDINGS: There is spontaneous flow documented in the brachial, basilic, cephalic, axillary, and subclavian vei ns. The vessels are compressible and augmentation response is documented. No filling defects are se en. The flow is phasic with respiration. Direction of flow in the jugular vein is caudal. CONCLUSION: No DVT seen of the right upper extremity. Sonny Singh MD on April 23, 2017 at 21:28 Board Certified Radiologist. This report was verified electronically.
[2017-04-23 21:53] LABS: BASOPHIL # 0.3 TH/MM3 (0-0.2); BASOPHIL % 2.4 % (0.0-2.0); EOSINOPHIL # 0.1 TH/MM3 (0-0.4); HEMATOCRIT 38.2 % (35.0-46.0); LYMPH % 13.7 % (9.0-44.0); LYMPHOCYTE # 1.6 TH/MM3 (1.0-4.8); MEAN CELL VOLUME 87.3 FL (80.0-100.0); MEAN CORPUSCULAR HEMOGLOBIN 28.8 PG (27.0-34.0); MONO % 8.4 % (0.0-8.0); NEUT % 74.5 % (16.0-70.0); PLATELET COUNT 293 TH/MM3 (150-450); RED BLOOD COUNT 4.38 MIL/MM3 (4.00-5.30); RED CELL DISTRIBUTION WIDTH 12.7 % (11.6-17.2)
[2017-04-23] MEDS ORDERED: METFORMIN HOLD POST IV CONTRAST SCH (22:00)
[2017-04-23 22:01] LABS: HEMO FLAGS DIFF FINAL
[2017-04-23 22:05] LABS: APTT (PATIENT) 25.4 SEC (24.3-30.1); PROTHROMBIN TIME - PATIENT 11.4 SEC (9.8-11.6)
--- NOTE | 2017-04-23 22:39 | RADRPT ---
EXAM DATE/TIME: 04/23/2017 22:02 [place] COMPARISON: CT ABDOMEN & PELVIS W/O CONTRAST, January 04, 2014, 18:40. INDICATIONS : Shorness of breath status post shoulder surgey. IV CONTRAST: 74 cc Omnipaque 350 (iohexol) IV RADIATION DOSE: 20.00 CTDIvol (mGy) ; Patient body habitus MEDICAL HISTORY : Hypertension. Diabetes mellitus type 2. Hernia, hiatal.CAD SURGICAL HISTORY : Coronary artery stent. Appendectomy.Right shoulder ENCOUNTER: Initial ACUITY: 1 day PAIN SCALE: Non-responsive LOCATION: chest TECHNIQUE: Volumetric scanning of the chest was performed using a pulmonary embolism protocol MIP images were re constructed. Using automated exposure control and adjustment of the mA and/or kV according to patien t size, radiation dose was kept as low as reasonably achievable to obtain optimal diagnostic quality images. DICOM format image data is available electronically for review and comparison. Follow-up recommendations for detected pulmonary nodules are based at a minimum on nodule size and pa tient risk factors according to Fleischner Society Guidelines. FINDINGS: PULMONARY ARTERIES: Moderate-sized pulmonary arteries involve all lobes of both lungs. No large/central pulmonary embolus . No evidence of right ventricular strain. LUNGS: There is mild atelectasis of the left lung base. PLEURAE: There is no pleural thickening or pleural effusion. MEDIASTINUM: No adenopathy. A very large hiatal hernia again noted containing loops of small and large bowel and m ost of the stomach as well as the pancreas. Coronary artery calcification is noted. MUSCULOSKELETAL: Patient is recently status post screw and plate fixation of a right humeral fracture. There is a flui d collection with small bubbles of gas noted in the right axillary and lateral pectoral region measur ing approximately 5.9 x 7.7 cm in size. CONCLUSION: 1. Bilateral pulmonary emboli. 2. Recent right shoulder surgery. Right axillary/lateral pectoral hematoma/seroma. 3. Large hiatal hernia with intrathoracic stomach, pancreas and loops of small and large bowel not ch anged from 2013. 4. Coronary artery calcification. Sonny Singh MD on April 23, 2017 at 22:32 Board Certified Radiologist. This report was verified electronically.
[2017-04-23] MEDS ORDERED: SODIUM CHLORIDE 0.9% FLUSH 10 ML FLUSH IV FLUSH PRN (23:45)
[2017-04-23] MEDS ORDERED: MAGNESIUM HYDROXIDE SUSP 30 ML CUP PO PRN (23:45)
[2017-04-23] MEDS ORDERED: LACTULOSE SYRUP 20 GM/30 ML CUP PO PRN (23:45)
[2017-04-23] MEDS ORDERED: SENNOSIDES 8.6 MG TAB PO PRN (23:45)
[2017-04-23] MEDS ORDERED: ONDANSETRON HCL 4 MG/2 ML VIAL IVP PRN (23:45)
[2017-04-23] MEDS ORDERED: NALOXONE HCL 0.4 MG/ML AMP IV PUSH PRN (23:45)
[2017-04-24] VITALS (32 sets, daily range): BP systolic 110–183; BP diastolic 54–93; PULSE 72–105; RESP 16–31; TEMP 98.1–99.6; O2SAT 93–97
[2017-04-24] MEDS: HEPARIN-D5W 25,000 U/250 ML 250 ML IV PRN (00:02)
[2017-04-24] MEDS ORDERED: CHLORHEXIDINE GLUCONATE 2 % 1 PACK (2 CLOTHS)(extra cloths) TOPICAL PRN (01:45)
[2017-04-24] MEDS: CHLORHEXIDINE GLUCONATE 2 % 1 PACK (2 CLOTHS)(taper/protocol) TOPICAL SCH (04:00)
[2017-04-24 04:13] LABS: CKMB 4.2 NG/ML (0.5-3.6)
[2017-04-24 05:58] LABS: AUTOMATED NEUTROPHIL # 6.9 TH/MM3 (1.8-7.7); BASOPHIL # 0.1 TH/MM3 (0-0.2); EOSINOPHIL # 0.1 TH/MM3 (0-0.4); EOSINOPHIL % 1.6 % (0.0-4.0); HEMATOCRIT 35.3 % (35.0-46.0); HEMO FLAGS DIFF FINAL; LYMPH % 14.1 % (9.0-44.0); LYMPHOCYTE # 1.3 TH/MM3 (1.0-4.8); MEAN CELL VOLUME 87.4 FL (80.0-100.0); MEAN CORPUSCULAR HEMOGLOBIN 29.2 PG (27.0-34.0); MEAN CORPUSCULAR HGB CONC 33.3 % (32.0-36.0); MONO % 9.7 % (0.0-8.0); NEUT % 73.6 % (16.0-70.0); PLATELET COUNT 286 TH/MM3 (150-450); RED BLOOD COUNT 4.04 MIL/MM3 (4.00-5.30); RED CELL DISTRIBUTION WIDTH 12.9 % (11.6-17.2); WHITE BLOOD COUNT 9.3 TH/MM3 (4.0-11.0)
--- NOTE | 2017-04-24 06:03 | EKG ---
Date Performed: 04/23/2017 Time Performed: 20:31:08 PTAGE: 87 years EKG: Sinus tachycardia LEFT VENTRICULAR HYPERTROPHY AND ST-T CHANGE ABNORMAL ECG Compared to jerad or electrocardiogram, rate has increased and Nonspecific ST and T wave abnormalities are now present PREVIOUS TRACING : 04/19/2017 09.37 DOCTOR: Aftab Resendiz Interpretating Date/Time 04/24/2017 06:01:29
[2017-04-24 06:17] LABS: BICARBONATE 27.1 MEQ/L (21.0-32.0)
[2017-04-24 06:18] LABS: APTT (PATIENT) 65.4 SEC (24.3-30.1)
[2017-04-24] MEDS: ISOSORBIDE MONONITRATE 30 MG TAB PO SCH (06:28)
[2017-04-24] MEDS: BISACODYL 10 MG SUPP RECTAL PRN (06:29)
[2017-04-24] MEDS: SODIUM CHLORIDE 0.9% FLUSH 10 ML FLUSH IV FLUSH SCH ×2 (08:08→21:36)
[2017-04-24] MEDS: ATENOLOL 50 MG TAB PO SCH ×2 (08:08→21:35)
[2017-04-24] MEDS: DOCUSATE SODIUM 50 MG/SENNA 8.6 MG TAB PO SCH ×2 (08:08→21:00)
[2017-04-24] MEDS: LISINOPRIL 5 MG TAB PO SCH (08:08)
[2017-04-24] MEDS ORDERED: metFORMIN HCL 500 MG TAB PO SCH (09:00)
--- NOTE | 2017-04-24 09:04 | EKG ---
Date Performed: 04/24/2017 Time Performed: 08:50:12 PTAGE: 87 years EKG: Sinus rhythm WITH FIRST DEGREE AV BLOCK NONSPECIFIC ST & T-WAVE ABNORMALITY ABNORMAL ECG No significant change fr om prior electrocardiogram. PREVIOUS TRACING : 04/24/2017 03.27 DOCTOR: Aftab Resendiz Interpretating Date/Time 04/24/2017 09:03:11
--- NOTE | 2017-04-24 09:10 | EKG ---
Date Performed: 04/24/2017 Time Performed: 03:27:52 PTAGE: 87 years EKG: Sinus rhythm LEFT VENTRICULAR HYPERTROPHY AND ST-T CHANGE ABNORMAL ECG Compared to prior electrocardiogram, rate has decreased PREVIOUS TRACING : 04/23/2017 20.31 DOCTOR: Aftab Resendiz Interpretating Date/Time 04/24/2017 09:08:00
[2017-04-24] MEDS ORDERED: GLUCAGON 1 MG/ML VIAL OTHER PRN (09:30)
[2017-04-24] MEDS ORDERED: DEXTROSE 50% IN WATER 50 ML VIAL(D50) IV PRN (09:30)
--- NOTE | 2017-04-24 10:04 | MH ---
cc: STEPHEN DODGE DATE OF ADMISSION: 04/23/2017 DATE OF : 1930 REASON FOR ADMISSION Musculoskeletal pain with some shortness of breath and weakness, generalized type. HISTORY OF PRESENT ILLNESS The patient is a 87-year-old female who is known to me from past admission in the [facility]. She was admitted April 18 and . The patient was admitted after a fall with right arm injury. The patient had a right humerus fracture and she had surgery done by Dr. Ochoa open reduction, internal fixation. The patient signed out against medical advice on April 21. She came last night with musculoskeletal pain and some shortness of breath and generalized weakness and no energy. As per patient she was having weakness and low energy and she is having some pain all over her body. She has no other associated symptoms. The patient denies any nausea or vomiting. Has no chest pain, no diaphoresis or palpitations. The patient denies any dizziness. She occasionally has some headaches. Which is usual for her. The patient denies any abdominal pain, diarrhea. The patient has some constipation from past couple of days. She has incontinence of urine which is usual for her. The patient denies any other associated symptoms. The patient came to the ER in [place]. Workup was started and CT angiography was done which shows the patient has bilateral pulmonary emboli. The patient was admitted for further management. Right upper extremity ultrasound was done which shows no DVT. PAST MEDICAL HISTORY 1. Significant for borderline diabetes 2. Coronary artery disease 3. Cardiac distance 4. Gastroesophageal reflux disease. 5. Urinary incontinence. 6. Hypertension. 7. Myocardial infarction in the past. 8. Thyroid disease 9. Arthritis. 10. Anxiety. 11. Degenerative disc disease. 12. Some hard of hearing. 13. Hiatal hernia. 14. Kyphosis PAST HISTORY History of cardiac stent. PAST SURGICAL HISTORY: 1. Appendectomy. 2. Thyroid surgery. ALLERGIES The patient has allergy to MACRODANTIN PROPOXYPHENE And also has a MULTIDRUG RESISTANT ORGANISM IN THE PAST. MEDICATIONS: As per records. 1. Metformin. 2. Atenolol. 3. Plavix 4. Isosorbide ER SOCIAL HISTORY The patient lives alone. As per patient she has a family and friend support and they do assist her. She does not drink, she does not smoke or use any drugs. FAMILY HISTORY Noncontributory. REVIEW OF SYSTEMS As described above otherwise negative for 10 systems. PHYSICAL EXAMINATION IN GENERAL: The patient is alert, oriented x3 well-built, well-nourished lying on bed without any apparent distress. VITAL SIGNS: Vitals show the patient is afebrile, pulse is 98. Respiratory rate 17, blood pressure 140/68, pulse ox of 95% on 3 liters. HEAD, EYES, EARS, NOSE, AND THROAT: Head is atraumatic, normocephalic. Negative conjunctival congestion or icterus. Mouth unremarkable. NECK: Supple. No increased jugular venous distention. Negative lymphadenopathy. Central trachea. CHEST: The chest is clear to auscultation. Good air entry. No adventitious sounds. CARDIOVASCULAR SYSTEM: S1, S2 audible. Unable to hear any S3, gallop. There is a soft systolic murmur. ABDOMEN: Soft, no organomegaly. Positive bowel sounds. MUSCULOSKELETAL/EXTREMITIES: No cyanosis noted. Right upper extremity has swelling and swelling on the right hand as well. Also the patient has right trace pedal edema. NEUROLOGY: Central nervous system, Alert and oriented. Normal facial features, normal speech. Normal power and tone of extremities, the right upper extremities power and tone appropriate after surgery. PSYCHIATRIC: At present appropriate, mood and affect. No anxiety noted at present. LABORATORY INVESTIGATIONS: CTA chest was done which shows bilateral pulmonary emboli Recent right shoulder surgery. Right axillary lateral pectoral hematoma / seroma. Large hiatal hernia with intrathoracic stomach, pancreas and loop of small and large intestine not changed from 2014. Coronary arteries, calcification. Right upper extremity ultrasound was done which showed no DVT seen of the right upper extremity. Labs were done; CBC within normal limits. WBC count was 20 yesterday. BMP is sodium was 132 yesterday and today it is 137, otherwise BUN 21, today it is 16, otherwise the BMP within normal limits. Random glucose 167. Total CK is 276, CK-MB 4.2, troponin first set 0.06, second 0.06. <<6:50>> peptide 86, lipase 114. PT/INR within normal limits. APTT status is 65.4. On April 19, 2010 blood culture was done which showed no growth for 4 days. The EKG today showing sinus rhythm at rate of 76 beats per minute without any acute ST-T wave changes. Previous EKG reviewed seems similar to recent EKG. ASSESSMENT 1. Generalized weakness with low energy. 2. Bilateral pulmonary embolus. 3. Recent fracture of the humerus, status post open reduction, internal fixation. 4. Diabetes mellitus type 2. 5. Degenerative disc disease. 6. History of coronary artery disease with increased troponin nonspecific EKG 7. Large hiatal hernia. 8. Hypertension. 9. A history of anxiety. PLAN 1. The patient has been admitted to the floor. He has been started on heparin. 2. We will get a cardiology consult. 3. Put the patient on Xarelto. 4. A second orthopedic consult. 5. Continue home medications. 6. Sliding scale insulin coverage. Monitor sugar closely. 7. Monitor blood pressure. 8. Discussed with the patient in detail about her condition and further management. 9. At this time she wants to go to rehab facility / shelter facility. 10. We will consult case management. Discussed with RN in detail. Condition guarded. Further recommendation to follow as per patient progress. Stephen Dodge MD JP/cesar /9:05 AM /9:29 AM
[2017-04-24 10:10] LABS: CKMB 3.8 NG/ML (0.5-3.6)
[2017-04-24 12:21] LABS: APTT (PATIENT) 92.3 SEC (24.3-30.1)
[2017-04-24] MEDS: INSULIN ASPART SUPPLEMENTAL SCALE SQ SCH ×3 (12:21→21:35)
--- NOTE | 2017-04-24 16:28 | PD.PSY.CON ---
Provisional Diagnosis Admission Date Apr 23, 2017 at 23:33 [place] I. Adjustment disorder with disturbance of conduct [place] II. Adjustment disorder with disturbance of conduct History of Present Illness Service Psychiatry Consult Requested By Reason for Consult Decision-making capacity Primary Care Physician Unknown HPI The patient is a 87-year-old woman, domiciled alone in [place], , without any previous psychiatric history, no previous psychiatric hospitalizations, no previous suicidal attempts, medical history hypertension, diabetes mellitus, CAD, hypothyroidism, rheumatoid arthritis, who is known to me from past admission in the [facility]. She was admitted April 18 and .The patient was admitted after a fall with right arm injury.The patient had a right humerus fracture and she had surgery done by Dr. Ochoa open reduction, internal fixation. The patient signed out against medical advice on April 21. She came last night with musculoskeletal pain and some shortness of breath and generalized weakness and no energy. As per patient she was having weakness and low energy and she is having some pain all over her body. She has no other associated symptoms. The patient came to the ER in [place]. Workup was started and CT angiography was done which shows the patient has bilateral pulmonary emboli.The patient was admitted for further management. She was consulted to psychiatry for capacity to leave AMA. On psychiatric evaluation patient is calm, cooperative and pleasant. Patient says that she has been feeling okay and she showed surprise of the psychiatric visit. Patient reports good mood, she denies depressive symptoms, she denies anhedonia, she denies hopelessness, she denies helplessness, she denies suicidal and homicidal ideation. She denies visual and auditory hallucinations. He is fully oriented 3, no attention deficit, no fluctuation of consciousness, patient has a conserved abstract thinking, language, repetition, executive function. Patient explained that she has requested to leave the hospital in the past, but not she is want to follow the recommendations. Patient is able to express a good understanding of the reason of her hospitalizations, medical conditions, a good appreciation of them and her choice is to follow medical recommendations at this moment. Patient denies the use of alcohol or illicit drugs. Review of Systems Constitutional: DENIES: Diaphoretic episodes, Fatigue, Fever, Weight gain, Weight loss, Chills, Dizziness, Change in appetite, Night Sweats Endocrine: DENIES: Abnorml menstrual pattern, Heat/cold intolerance, Polydipsia , Polyuria, Polyphagia Eyes: DENIES: Blurred vision, Diplopia, Eye inflammation, Eye pain, Vision loss , Photosensitivity, Double Vision Ears, nose, mouth, throat: DENIES: Tinnitus, Hearing loss, Vertigo, Nasal discharge, Oral lesions, Throat pain, Hoarseness, Ear Pain, Running Nose, Epistaxis, Sinus Pain, Toothache, Odynophagia Respiratory: DENIES: Apneas, Cough, Snoring, Wheezing, Hemoptysis, Sputum production, Shortness of breath Cardiovascular: DENIES: Chest pain, Palpitations, Syncope, Dyspnea on Exertion , PND, Lower Extremity Edema, Orthopnea, Claudication Gastrointestinal: DENIES: Abdominal pain, Black stools, Bloody stools, Constipation, Diarrhea, Nausea, Vomiting, Difficulty Swallowing, Anorexia Musculoskeletal: DENIES: Joint pain, Muscle aches, Stiffness, Joint Swelling, Back pain, Neck pain Integumentary: DENIES: Abnormal pigmentation, Pruritus, Rash, Nail changes, Breast masses, Breast skin changes, Nipple discharge Hematologic/lymphatic: DENIES: Bruising, Lymphadenopathy Immunologic/allergic: DENIES: Eczema, Urticaria Neurologic: DENIES: Abnormal gait, Headache, Localized weakness, Paresthesias, Seizures, Speech Problems, Tremor, Poor Balance Past Family Social History Coded Allergies: meperidine (Unverified Allergy, Mild, N/V, 04/23/17) propoxyphene (Unverified Adverse Reaction, Mild, N/V, 04/23/17) Reported Medications Metformin (Metformin) 1,000 Mg Tab, 1000 MG PO DAILY for Blood Sugar Management , #30 TAB 0 Refills With a meal 04/19/17 Lisinopril (Lisinopril) 2.5 Mg Tab, 2.5 MG PO DAILY, #30 TAB 0 Refills 11/12/16 Atenolol (Atenolol) 50 Mg Tab, 50 MG PO BID for Blood Pressure Management, #14 TAB 0 Refills 11/12/16 Clopidogrel (Plavix) 75 Mg Tab, 75 MG PO DAILY for Blood Clot Prevention, #30 TAB 0 Refills 09/23/16 Isosorbide Mononitrate ER (Isosorbide Mononitrate ER) 30 Mg Renetta, 30 MG PO DAILY for Prevent Chest Pain, #30 TAB 0 Refills 09/23/16 Discontinued Scripts Wheelchair (Wheelchair) 1 Mis Mis, 1 EA .ROUTE DIRECTED, #1 EA 0 Refills Prov:Johnnie Patel MD 11/14/16 Cephalexin (Cephalexin) 500 Mg Cap, 500 MG PO Q6H for Infection, #40 CAP 0 Refills Prov:Johnnie Patel MD 11/14/16 Current Medications Medications (Trade) Dose Ordered Sig/Elsy Route Start Time Stop Time Status Last Admin Heparin Sodium/ Dextrose 250 ml @ 14.76 mls/ hr TITRATE PRN IV 04/23/17 23:00 04/24/17 00:02 (NS Flush) 2 ml UNSCH PRN IV FLUSH 04/23/17 23:45 (NS Flush) 2 ml BID IV FLUSH 04/24/17 09:00 (Tylenol) 650 mg Q4H PRN PO 04/23/17 23:45 (Zofran Inj) 4 mg Q6H PRN IVP 04/23/17 23:45 (Narcan Inj) 0.4 mg UNSCH PRN IV PUSH 04/23/17 23:45 (Alisson-Colace) 1 tab BID PO 04/24/17 09:00 04/24/17 08:08 (Milk Of Magnesia Liq) 30 ml Q12H PRN PO 04/23/17 23:45 (Senokot) 17.2 mg Q12H PRN PO 04/23/17 23:45 (Dulcolax Supp) 10 mg DAILY PRN RECTAL 04/23/17 23:45 04/24/17 06:29 (Lactulose Liq) 30 ml DAILY PRN PO 04/23/17 23:45 04/24/17 01:54 (Tenormin) 50 mg BID PO 04/24/17 09:00 04/24/17 08:08 (Imdur) 30 mg DAILY@0700 PO 04/24/17 07:00 04/24/17 06:28 (Glucophage) 1,000 mg DAILY PO 04/24/17 09:00 Future hold (Prinivil) 2.5 mg DAILY PO 04/24/17 09:00 04/24/17 08:08 Miscellaneous Information Patient in critical care unit? Ass... Q361D .XX 04/24/17 01:45 04/24/17 01:45 (Chlorhexidine 2% Cloth) 3 pack DAILY@04 TOPICAL 04/24/17 04:00 04/28/17 04:01 (Chlorhexidine 2% Cloth) 3 pack UNSCH PRN TOPICAL 04/24/17 01:45 04/29/17 01:37 (D50w (Vial) Inj) 50 ml UNSCH PRN IV 04/24/17 09:30 (Glucagon Inj) 1 mg UNSCH PRN OTHER 04/24/17 09:30 (NovoLOG SUPPLEMENTAL SCALE) 1 ACHS SLIDING SCALE SQ 04/24/17 12:00 04/24/17 12:21 Miscellaneous Information HOLD METFORMIN FOR... Q24H .XX 04/23/17 22:00 04/26/17 21:59 Family History Patient denies family psychiatric history Social History Patient was born and raised in [facility], she has been living in [facility], she lives alone in [place], she is , her highest level of education is 11th grade Patient's Strengths (min. 2) Verbal communication Physical Exam No tremors, no EPS, no withdrawal, no stiffness, no skin abnormalities, Vital Signs Vital Signs Date Time Temp Pulse Resp B/P (MAP) Pulse Ox O2 Delivery O2 Flow Rate FiO2 04/24/17 15:01 84 31 147/71 (96) 96 04/24/17 12:00 98.1 04/24/17 08:46 Nasal Cannula 3.00 I/O 04/24/17 04/24/17 04/25/17 08:00 16:00 00:00 Intake Total 165 ml Balance 165 ml Lab Results Test 04/23/17 20:37 04/23/17 21:43 04/24/17 01:30 04/24/17 03:20 Blood Gas Puncture Site LT RADIAL Blood Gas Patient Temperature 98.6 Blood Gas HCO3 26 mmol/L Blood Gas Base Excess 2.7 mmol/L Blood Gas Oxygen Saturation 83 % Arterial Blood pH 7.48 Arterial Blood Partial Pressure CO2 35 mmHG Arterial Blood Partial Pressure O2 49 mmHG Arterial Blood Oxygen Content 14.2 Vol % Arterial Blood Carboxyhemoglobin 2.6 % Arterial Blood Methemoglobin 0.9 % Blood Gas Hemoglobin 12.2 G/DL Oxygen Delivery Device ROOM AIR Blood Gas Inspired Oxygen 21 % White Blood Count 12.0 TH/MM3 Red Blood Count 4.38 MIL/MM3 Hemoglobin 12.6 GM/DL Hematocrit 38.2 % Mean Corpuscular Volume 87.3 FL Mean Corpuscular Hemoglobin 28.8 PG Mean Corpuscular Hemoglobin Concent 33.0 % Red Cell Distribution Width 12.7 % Platelet Count 293 TH/MM3 Mean Platelet Volume 7.3 FL Neutrophils (%) (Auto) 74.5 % Lymphocytes (%) (Auto) 13.7 % Monocytes (%) (Auto) 8.4 % Eosinophils (%) (Auto) 1.0 % Basophils (%) (Auto) 2.4 % Neutrophils # (Auto) 9.0 TH/MM3 Lymphocytes # (Auto) 1.6 TH/MM3 Monocytes # (Auto) 1.0 TH/MM3 Eosinophils # (Auto) 0.1 TH/MM3 Basophils # (Auto) 0.3 TH/MM3 CBC Comment DIFF FINAL Differential Comment Prothrombin Time 11.4 SEC Prothromb Time International Ratio 1.0 RATIO Activated Partial Thromboplast Time 25.4 SEC Blood Urea Nitrogen 21 MG/DL Creatinine 0.77 MG/DL Random Glucose 169 MG/DL Calcium Level 8.8 MG/DL Sodium Level 132 MEQ/L Potassium Level 4.0 MEQ/L Chloride Level 99 MEQ/L Carbon Dioxide Level 25.0 MEQ/L Anion Gap 8 MEQ/L Estimat Glomerular Filtration Rate 71 ML/MIN Troponin I 0.06 NG/ML 0.06 NG/ML B-Type Natriuretic Peptide 86 PG/ML Lipase 114 U/L Nasal Screen MRSA (PCR) MRSA NOT DETECTED Total Creatine Kinase 276 U/L Creatine Kinase MB 4.2 NG/ML Creatine Kinase MB % 1.5 % Test 04/24/17 05:47 04/24/17 08:54 04/24/17 11:46 White Blood Count 9.3 TH/MM3 Red Blood Count 4.04 MIL/MM3 Hemoglobin 11.8 GM/DL Hematocrit 35.3 % Mean Corpuscular Volume 87.4 FL Mean Corpuscular Hemoglobin 29.2 PG Mean Corpuscular Hemoglobin Concent 33.3 % Red Cell Distribution Width 12.9 % Platelet Count 286 TH/MM3 Mean Platelet Volume 7.4 FL Neutrophils (%) (Auto) 73.6 % Lymphocytes (%) (Auto) 14.1 % Monocytes (%) (Auto) 9.7 % Eosinophils (%) (Auto) 1.6 % Basophils (%) (Auto) 1.0 % Neutrophils # (Auto) 6.9 TH/MM3 Lymphocytes # (Auto) 1.3 TH/MM3 Monocytes # (Auto) 0.9 TH/MM3 Eosinophils # (Auto) 0.1 TH/MM3 Basophils # (Auto) 0.1 TH/MM3 CBC Comment DIFF FINAL Differential Comment Activated Partial Thromboplast Time 65.4 SEC 92.3 SEC Blood Urea Nitrogen 16 MG/DL Creatinine 0.65 MG/DL Random Glucose 167 MG/DL Calcium Level 8.7 MG/DL Sodium Level 137 MEQ/L Potassium Level 4.0 MEQ/L Chloride Level 102 MEQ/L Carbon Dioxide Level 27.1 MEQ/L Anion Gap 8 MEQ/L Estimat Glomerular Filtration Rate 86 ML/MIN Total Creatine Kinase 210 U/L Creatine Kinase MB 3.8 NG/ML Creatine Kinase MB % 1.8 % Troponin I 0.04 NG/ML Mental Status Examination Appearance woman, age appearing, [facility], good hygiene, she is calm, cooperative and pleasant Speech: Unremarkable Orientation: x3 Memory: Unremarkable Thought Process: Logical Thought Content: Unremarkable Hallucination Type: None Suicidal Ideation: No Previous Suicide Attempts: No Homicidal Ideation: No Previous Homicide Attempts: No Judgment: WNL Affect: Good Motor Activity: Normal gait Assessment & Plan Problem List: (1) Adjustment disorder with disturbance of conduct ICD Codes: F43.24 - Adjustment disorder with disturbance of conduct Assessment & Plan: Patient was seen for psychiatric follow-up session today, patient is calm, cooperative and pleasant. Patient is logical, coherent and relevant. Oriented 3. No attention deficit, no fluctuation of consciousness, no gross cognitive impairment present. She denies depressive symptoms, she denies anxiety, she denies perceptual disturbances, she denies suicidal and homicidal ideation. Nurse in charge reports some episodes of hostility and irritability that seems to be part of patient's character. Patient is able to verbalize a very good understanding of the reason of her hospitalization, to list her medical conditions, expressed an appreciation of what medical conditions means in her life and the importance of following recommendations and be compliant with medications. Patient reports that she would like to continue the medical recommendation at this moment. She is not requesting to leave AMA at this moment. However, I do not see in this evaluation any psychiatric contraindication for the patient to take her medical decisions. Extensive support, motivation and psychoeducation provided. No psychotropics recommended at this moment. Consult appreciated. Assessment & Plan Estimated LOS: days Mikey Hodges MD Apr 24, 2017 16:28
[2017-04-24 20:14] LABS: APTT (PATIENT) 66.3 SEC (24.3-30.1)
[2017-04-25] VITALS (26 sets, daily range): BP systolic 92–183; BP diastolic 43–82; PULSE 64–78; RESP 17–33; TEMP 98.4–99.1; O2SAT 93–96
[2017-04-25] MEDS ORDERED: MORPHINE SULFATE 4 MG/ML INJ IV SCH (00:15)
[2017-04-25 02:48] LABS: APTT (PATIENT) 67.9 SEC (24.3-30.1)
[2017-04-25] MEDS: CHLORHEXIDINE GLUCONATE 2 % 1 PACK (2 CLOTHS)(taper/protocol) TOPICAL SCH (04:00)
[2017-04-25 05:58] LABS: MEAN CELL VOLUME 87.4 FL (80.0-100.0); MEAN CORPUSCULAR HEMOGLOBIN 28.5 PG (27.0-34.0); MEAN CORPUSCULAR HGB CONC 32.6 % (32.0-36.0); PLATELET COUNT 291 TH/MM3 (150-450); RED CELL DISTRIBUTION WIDTH 12.7 % (11.6-17.2); REVIEW FLAG FINAL; WHITE BLOOD COUNT 10.9 TH/MM3 (4.0-11.0)
[2017-04-25 06:05] LABS: POTASSIUM 3.9 MEQ/L (3.5-5.1)
[2017-04-25 06:09] LABS: APTT (PATIENT) 84.2 SEC (24.3-30.1); BICARBONATE 28.1 MEQ/L (21.0-32.0)
[2017-04-25] MEDS: ISOSORBIDE MONONITRATE 30 MG TAB PO SCH (07:23)
[2017-04-25] MEDS: INSULIN ASPART SUPPLEMENTAL SCALE SQ SCH ×4 (07:44→21:00)
[2017-04-25] MEDS ORDERED: PANTOPRAZOLE SODIUM 40 MG VIAL IV PUSH SCH (09:00)
[2017-04-25] MEDS: DOCUSATE SODIUM 50 MG/SENNA 8.6 MG TAB PO SCH ×2 (09:00→22:40)
[2017-04-25] MEDS: SODIUM CHLORIDE 0.9% FLUSH 10 ML FLUSH IV FLUSH SCH ×2 (09:00→22:42)
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
[2017-04-25] MEDS: ATENOLOL 50 MG TAB PO SCH ×2 (09:14→22:40)
[2017-04-25] MEDS: LISINOPRIL 5 MG TAB PO SCH (09:14)
[2017-04-25] MEDS: ASPIRIN EC 81 MG TABEC PO SCH (09:15)
[2017-04-25] MEDS ORDERED: PILL SPLITTER OTHER PRN (09:15)
--- NOTE | 2017-04-25 09:16 | RADRPT ---
EXAM DATE/TIME: 04/25/2017 08:29 [facility] COMPARISON: No previous studies available for comparison. INDICATIONS : Abdomen pain, distention MEDICAL HISTORY : Myocardial infarction. Hypertension SURGICAL HISTORY : Right shoulder ENCOUNTER: Subsequent ACUITY: 1 day PAIN SCORE: 9/10 LOCATION: Bilateral abdomen FINDINGS: Examination of the abdomen demonstrates a normal bowel gas pattern. No free air is identified. No o rganomegaly is evident. Contrast is seen within a distended urinary bladder. There is degenerative ch mark in the lower thoracic and lumbar spine. CONCLUSION: No evidence of obstruction. Sonny Tang MD on April 25, 2017 at 9:13 Board Certified Radiologist. This report was verified electronically.
[2017-04-25 13:17] LABS: APTT (PATIENT) 59.7 SEC (24.3-30.1)
[2017-04-25] MEDS: ACETAMINOPHEN 325 MG TAB PO PRN (16:32)
[2017-04-25] MEDS: HEPARIN-D5W 25,000 U/250 ML 250 ML IV PRN (16:34)
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
[2017-04-25 20:00] LABS: APTT (PATIENT) 53.2 SEC (24.3-30.1)
--- NOTE | 2017-04-25 20:30 | HHI.PR ---
Subjective Remarks Denies cp/sob Denies fevers/chills vital signs stable Objective Vitals Vital Signs Date Time Temp Pulse Resp B/P (MAP) Pulse Ox O2 Delivery O2 Flow Rate FiO2 04/25/17 18:00 66 21 106/57 (73) 04/25/17 18:00 66 04/25/17 17:00 72 24 143/79 (100) 04/25/17 16:00 98.4 68 24 135/64 (87) 93 04/25/17 16:00 68 04/25/17 15:00 74 23 127/59 (81) 04/25/17 14:30 92 Room Air 04/25/17 14:00 70 04/25/17 14:00 70 27 143/75 (97) 04/25/17 13:00 68 23 122/64 (83) 04/25/17 12:00 74 04/25/17 12:00 74 33 144/82 (102) 04/25/17 11:00 68 27 122/63 (82) 04/25/17 10:00 76 04/25/17 10:00 76 22 128/62 (84) 04/25/17 09:00 72 23 141/69 (93) 04/25/17 08:27 96 Nasal Cannula 3.00 04/25/17 08:00 77 04/25/17 08:00 99.1 68 18 147/71 (96) 96 04/25/17 08:00 94 Nasal Cannula 2.00 04/25/17 07:00 70 18 183/82 (115) 04/25/17 06:00 70 18 183/82 (115) 04/25/17 06:00 72 04/25/17 05:00 70 04/25/17 05:00 74 18 168/78 (108) 04/25/17 04:00 72 04/25/17 04:00 98.6 70 17 168/82 (110) 04/25/17 03:00 64 04/25/17 03:00 70 18 167/80 (109) 04/25/17 02:00 68 04/25/17 02:00 66 20 136/69 (91) 04/25/17 01:00 68 18 151/69 (96) 04/25/17 00:00 72 04/25/17 00:00 68 18 142/73 (96) 04/24/17 23:00 72 20 173/82 (112) 04/24/17 22:00 82 04/24/17 22:00 74 28 179/93 (121) 04/24/17 21:38 Nasal Cannula 3.00 04/24/17 21:00 84 23 168/91 (116) I/O 04/24/17 04/24/17 04/24/17 04/25/17 04/25/17 04/25/17 07:00 15:00 23:00 07:00 15:00 23:00 Intake Total 75 ml 90 ml 648 ml 50 ml 730 ml Balance 75 ml 90 ml 648 ml 50 ml 730 ml Intake Oral 60 ml 520 ml 50 ml 480 ml IV Total 15 ml 90 ml 128 ml 250 ml # Voids 1 6 2 2 # Bowel Movements 0 5 1 Result Diagram: 04/25/17 0549 04/25/17 0549 Imaging Last Impressions Abdomen X-Ray 04/25/17 0000 Signed Impressions: Service Date/Time: Tuesday, April 25, 2017 08:29 - CONCLUSION: No evidence of obstruction. Sonny Tang MD Upper Extremity Ultrasound 04/23/172017 Signed Impressions: Service Date/Time: Sunday, April 23, 2017 20:59 - CONCLUSION: No DVT seen of the right upper extremity. Sonny Singh MD CT Angiography 04/23/172017 Signed Impressions: Service Date/Time: Sunday, April 23, 2017 22:02 - CONCLUSION: 1. Bilateral pulmonary emboli. 2. Recent right shoulder surgery. Right axillary/lateral pectoral hematoma/seroma. 3. Large hiatal hernia with intrathoracic stomach, pancreas and loops of small and large bowel not changed from 2014. 4. Coronary artery calcification. Sonyn Singh MD Objective Remarks AAO 3 Clear lungs bilaterally S1-S2 present with regular rate and rhythm, no murmurs or gallops Abdomen is soft, nontender, nondistended. No edema in lower extremities Left upper extremity seems to be edematous Procedures None Medications and IVs Current Medications Medications (Trade) Dose Ordered Sig/Elsy Route Start Time Stop Time Status Last Admin Heparin Sodium/ Dextrose 250 ml @ 14.76 mls/ hr TITRATE PRN IV 04/23/17 23:00 04/25/17 16:34 (NS Flush) 2 ml UNSCH PRN IV FLUSH 04/23/17 23:45 (NS Flush) 2 ml BID IV FLUSH 04/24/17 09:00 04/24/17 21:36 (Tylenol) 650 mg Q4H PRN PO 04/23/17 23:45 04/25/17 16:32 (Zofran Inj) 4 mg Q6H PRN IVP 04/23/17 23:45 (Narcan Inj) 0.4 mg UNSCH PRN IV PUSH 04/23/17 23:45 (Alisson-Colace) 1 tab BID PO 04/24/17 09:00 04/24/17 08:08 (Milk Of Magnesia Liq) 30 ml Q12H PRN PO 04/23/17 23:45 (Senokot) 17.2 mg Q12H PRN PO 04/23/17 23:45 (Dulcolax Supp) 10 mg DAILY PRN RECTAL 04/23/17 23:45 04/24/17 06:29 (Lactulose Liq) 30 ml DAILY PRN PO 04/23/17 23:45 04/24/17 01:54 (Tenormin) 50 mg BID PO 04/24/17 09:00 04/25/17 09:14 (Imdur) 30 mg DAILY@0700 PO 04/24/17 07:00 04/25/17 07:23 (Glucophage) 1,000 mg DAILY PO 04/24/17 09:00 Future hold (Prinivil) 2.5 mg DAILY PO 04/24/17 09:00 04/25/17 09:14 Miscellaneous Information Patient in critical care unit? Ass... Q361D .XX 04/24/17 01:45 04/24/17 01:45 (Chlorhexidine 2% Cloth) 3 pack DAILY@04 TOPICAL 04/24/17 04:00 04/28/17 04:01 (Chlorhexidine 2% Cloth) 3 pack UNSCH PRN TOPICAL 04/24/17 01:45 04/29/17 01:37 (D50w (Vial) Inj) 50 ml UNSCH PRN IV 04/24/17 09:30 (Glucagon Inj) 1 mg UNSCH PRN OTHER 04/24/17 09:30 (NovoLOG SUPPLEMENTAL SCALE) 1 ACHS SLIDING SCALE SQ 04/24/17 12:00 04/25/17 16:41 Miscellaneous Information HOLD METFORMIN FOR... Q24H .XX 04/23/17 22:00 04/26/17 21:59 (Morphine Inj) 4 mg Q4H PRN IV 04/25/17 07:00 (Ecotrin Ec) 81 mg DAILY PO 04/25/17 09:00 04/25/17 09:15 (Pill Splitter) 1 ea UNSCH PRN OTHER 04/25/17 09:15 (Protonix) 40 mg DAILY PO 04/26/17 09:00 A/P Problem List: (1) Bilateral pulmonary embolism ICD Code: I26.99 - Other pulmonary embolism without acute cor pulmonale Plan: The patient was admitted to the intensive care unit and started on heparin drip. I will positioned the patient from heparin drip to Xarelto (2) Generalized weakness ICD Code: R53.1 - Weakness Plan: I will order a physical therapy evaluation. (3) Diabetes mellitus, type II ICD Code: E11.9 - Type 2 diabetes mellitus without complications Status: Chronic Plan: Blood sugars seem to be stable. Continue SSI with insulin NovoLog and continue to monitor Accu-Cheks. (4) CAD (coronary artery disease) ICD Code: I25.10 - Atherosclerotic heart disease of [place] coronary artery without angina pectoris Status: Chronic Plan: Procedure cardiology consultation. The patient had an elevated troponin which peaked at 8.2. The patient denies any chest pain Cardiology has been consulted and recommended discontinuation of Plavix and starting the patient on aspirin. I will transition the patient to Xarelto in a.m. Continue aspirin (5) Hypertension ICD Code: I10 - Hypertension Status: Chronic Plan: Blood pressure seems to be stable. The patient currently is on atenolol and lisinopril which I will continue. (6) Anxiety ICD Code: F41.9 - Anxiety disorder, unspecified Status: Chronic Plan: Seems to be stable at this moment. Continue to monitor (7) Adjustment disorder with disturbance of conduct ICD Code: F43.24 - Adjustment disorder with disturbance of conduct Status: Acute Plan: Patient evaluated by psychiatry and is able to take medical decisions as per the psychiatrist evaluation. No psychotropic medications indicated at this time. (8) Abdominal pain ICD Code: R10.9 - Unspecified abdominal pain Plan: GI consulted. The patient has improved substantially and is almost gone. Discharge neurology recommended to the patient to have an EGD or colonoscopy workup however the patient refused. Assessment and Plan DVT prophylaxis: On heparin drip. Discharge Planning Possible discharge in a.m. Pending transition to Xarelto and PT evaluation. Problem Qualifiers (1) Diabetes mellitus, type II: Qualified Codes: E11.9 - Type 2 diabetes mellitus without complications (2) CAD (coronary artery disease): Qualified Codes: I25.10 - Atherosclerotic heart disease of [place] coronary artery without angina pectoris (3) Hypertension: Qualified Codes: I10 - Essential (primary) hypertension Johnnie Patel MD Apr 25, 2017 20:30
[2017-04-26] VITALS (21 sets, daily range): BP systolic 111–168; BP diastolic 60–78; PULSE 60–77; RESP 16–28; TEMP 96.3–98.6; O2SAT 94–96
[2017-04-26] MEDS: CHLORHEXIDINE GLUCONATE 2 % 1 PACK (2 CLOTHS)(taper/protocol) TOPICAL SCH (04:00)
[2017-04-26] MEDS: ACETAMINOPHEN 325 MG TAB PO PRN (05:17)
[2017-04-26] MEDS: ISOSORBIDE MONONITRATE 30 MG TAB PO SCH (05:17)
[2017-04-26 05:59] LABS: APTT (PATIENT) 51.9 SEC (24.3-30.1)
[2017-04-26] MEDS ORDERED: DIATRIZOATE MEGLUM/DIATRIZOATE SOD 9 ML CUP PO ONE (06:15)
[2017-04-26] MEDS: INSULIN ASPART SUPPLEMENTAL SCALE SQ SCH ×4 (08:00→21:04)
[2017-04-26] MEDS: SODIUM CHLORIDE 0.9% FLUSH 10 ML FLUSH IV FLUSH SCH ×2 (08:42→21:03)
[2017-04-26] MEDS: LISINOPRIL 5 MG TAB PO SCH (08:42)
[2017-04-26] MEDS: ASPIRIN EC 81 MG TABEC PO SCH (08:42)
[2017-04-26] MEDS: metFORMIN HCL 500 MG TAB PO SCH (08:43)
[2017-04-26] MEDS: DOCUSATE SODIUM 50 MG/SENNA 8.6 MG TAB PO SCH ×2 (08:43→21:03)
[2017-04-26] MEDS: RIVAROXABAN 15 MG TAB PO SCH ×2 (08:43→21:03)
[2017-04-26] MEDS: PANTOPRAZOLE SOD 40 MG DELAYED RELEASE TAB PO SCH (08:43)
[2017-04-26] MEDS: ATENOLOL 50 MG TAB PO SCH ×2 (08:43→21:03)
[2017-04-26 09:32] LABS: HEMATOCRIT 34.3 % (35.0-46.0); MEAN CELL VOLUME 87.7 FL (80.0-100.0); MEAN CORPUSCULAR HEMOGLOBIN 29.3 PG (27.0-34.0); MEAN CORPUSCULAR HGB CONC 33.4 % (32.0-36.0); PLATELET COUNT 253 TH/MM3 (150-450); RED BLOOD COUNT 3.92 MIL/MM3 (4.00-5.30); RED CELL DISTRIBUTION WIDTH 13.3 % (11.6-17.2); REVIEW FLAG FINAL; WHITE BLOOD COUNT 13.5 TH/MM3 (4.0-11.0)
[2017-04-26] MEDS ORDERED: IOHEXOL 350 MG/ML 10 ML VIAL (for RAD DIAG) IVCONTRAST ONE (11:19)
--- NOTE | 2017-04-26 11:42 | RADRPT ---
EXAM DATE/TIME: 04/26/2017 11:01 [facility] COMPARISON: CT PULMONARY ANGIOGRAM, April 23, 2017, 22:02. CT ABDOMEN & PELVIS W CONTRAST, April 01, 2016, 14:39. INDICATIONS : Bilateral upper quadrant pain. IV CONTRAST: 75 cc Omnipaque 350 (iohexol) IV ORAL CONTRAST: Prescribed oral contrast ingested. RADIATION DOSE: 21.06 CTDIvol (mGy) MEDICAL HISTORY : Cardiovascular disease. Hypertension. Hernia, hiatal.Diabetes. SURGICAL HISTORY : Appendectomy. Coronary artery stent. ENCOUNTER: Initial ACUITY: 1 day PAIN SCALE: 7/10 LOCATION: Bilateral upper quadrant TECHNIQUE: Volumetric scanning of the abdomen and pelvis was performed. Using automated exposure control and ad justment of the mA and/or kV according to patient size, radiation dose was kept as low as reasonably achievable to obtain optimal diagnostic quality images. DICOM format image data is available electro nically for review and comparison. FINDINGS: Examination quality is degraded by respiratory motion artifact. LOWER LUNGS: There is trace pleural fluid bilaterally with compressive atelectasis in the left lower lobe secondar y to the large hernia. LIVER: Homogeneous density without lesion. There is no dilation of the biliary tree. No calcified gallston es. SPLEEN: Normal size without lesion. PANCREAS: No acute finding is identified. However, the pancreas extends into the large hiatal hernia. KIDNEYS: There is no mass, stone or hydronephrosis. ADRENAL GLANDS: Within normal limits. VASCULAR: There is no aortic aneurysm. There is severe atherosclerotic disease. BOWEL/MESENTERY: The stomach is completely located within the posterior mediastinum within the large hernia. The stoma ch is rotated on its axis. The large hernia also contains small bowel, transverse colon, and pancreas . There are no signs of obstruction. Mild sigmoid diverticulosis is present. ABDOMINAL WALL: Within normal limits. RETROPERITONEUM: There is no lymphadenopathy. BLADDER: The urinary bladder is very distended. No mass is seen. REPRODUCTIVE: There is a stable coarse calcification in the right uterine fundus. INGUINAL: There is no lymphadenopathy or hernia. MUSCULOSKELETAL: There are degenerative changes of the lumbar spine with a right lumbar scoliosis. Inflammatory change s are present in the right axilla and are only partially visualized. CONCLUSION: 1. Stable large hernia containing the entire stomach, portions of the small bowel, and transverse col on along with the pancreas. The stomach is rotated on its axis. There are no signs of obstruction. 2. Trace bilateral pleural effusions with chronic left lower lobe compressive atelectasis secondary t o the large hernia. 3. Persistent inflammatory changes and soft tissue air in the right axillary region. This area is onl y partially visualized and was better documented on the chest CT from 3 days ago. Sonny Flores MD on April 26, 2017 at 11:30 Board Certified Radiologist. This report was verified electronically.
[2017-04-26] MEDS: MORPHINE SULFATE 4 MG/ML INJ IV PRN (12:30)
[2017-04-26] MEDS: BISACODYL 10 MG SUPP RECTAL PRN (14:13)
--- NOTE | 2017-04-26 15:54 | HHI.PR ---
Subjective Remarks Patient c/o back pain denies cp/sob vital signs stable afebrile Objective Vitals Vital Signs Date Time Temp Pulse Resp B/P (MAP) Pulse Ox O2 Delivery O2 Flow Rate FiO2 04/26/17 15:00 60 19 150/75 (100) 95 04/26/17 14:00 64 04/26/17 14:00 64 22 155/76 (102) 96 04/26/17 13:00 64 22 96 04/26/17 12:00 97.9 64 20 149/78 (101) 95 04/26/17 12:00 63 04/26/17 11:00 64 22 134/67 (89) 04/26/17 10:00 62 20 134/67 (89) 04/26/17 10:00 77 04/26/17 09:00 62 24 146/73 (97) 04/26/17 08:00 64 22 148/74 (98) 04/26/17 08:00 64 04/26/17 07:00 92 Room Air 04/26/17 07:00 97.7 64 22 146/71 (96) 04/26/17 06:00 66 04/26/17 06:00 66 27 138/70 (92) 04/26/17 05:00 98.6 70 25 148/71 (96) 04/26/17 04:00 68 04/26/17 04:00 68 22 140/62 (88) 04/26/17 04:00 68 04/26/17 04:00 68 22 140/62 (88) 04/26/17 03:00 68 21 128/61 (83) 04/26/17 03:00 68 04/26/17 03:00 68 21 128/61 (83) 04/26/17 02:00 76 04/26/17 02:00 76 27 151/70 (97) 04/26/17 01:00 68 04/26/17 01:00 68 21 119/63 (81) 04/26/17 00:56 66 16 04/26/17 00:00 74 04/26/17 00:00 98.4 74 17 111/60 (77) 04/25/17 23:19 94 21 04/25/17 23:00 68 21 92/43 (59) 04/25/17 23:00 68 04/25/17 22:00 70 04/25/17 22:00 70 22 103/47 (65) 04/25/17 21:00 78 30 126/65 (85) 04/25/17 21:00 78 04/25/17 20:00 70 04/25/17 20:00 70 19 110/57 (74) 04/25/17 19:00 98.6 64 18 134/52 (79) 04/25/17 19:00 93 Nasal Cannula 2.00 04/25/17 18:00 66 21 106/57 (73) 04/25/17 18:00 66 04/25/17 17:00 72 24 143/79 (100) 04/25/17 16:00 98.4 68 24 135/64 (87) 93 04/25/17 16:00 68 I/O 04/25/17 04/25/17 04/25/17 04/26/17 04/26/17 04/26/17 07:00 15:00 23:00 07:00 15:00 23:00 Intake Total 50 ml 730 ml Balance 50 ml 730 ml Intake Oral 50 ml 480 ml IV Total 250 ml # Voids 2 2 1 # Bowel Movements 1 Result Diagram: 04/26/17 0900 04/25/17 0549 Imaging Last Impressions Abdomen/Pelvis CT 04/25/17 0000 Signed Impressions: Service Date/Time: Wednesday, April 26, 2017 11:01 - CONCLUSION: 1. Stable large hernia containing the entire stomach, portions of the small bowel, and transverse colon along with the pancreas. The stomach is rotated on its axis. There are no signs of obstruction. 2. Trace bilateral pleural effusions with chronic left lower lobe compressive atelectasis secondary to the large hernia. 3. Persistent inflammatory changes and soft tissue air in the right axillary region. This area is only partially visualized and was better documented on the chest CT from 3 days ago. Sonny Flores MD Abdomen X-Ray 04/25/17 0000 Signed Impressions: Service Date/Time: Tuesday, April 25, 2017 08:29 - CONCLUSION: No evidence of obstruction. Sonny Tang MD Upper Extremity Ultrasound 04/23/17 2018 Signed Impressions: Service Date/Time: Sunday, April 23, 2017 20:59 - CONCLUSION: No DVT seen of the right upper extremity. Sonny Singh MD CT Angiography 04/23/172017 Signed Impressions: Service Date/Time: Sunday, April 23, 2017 22:02 - CONCLUSION: 1. Bilateral pulmonary emboli. 2. Recent right shoulder surgery. Right axillary/lateral pectoral hematoma/seroma. 3. Large hiatal hernia with intrathoracic stomach, pancreas and loops of small and large bowel not changed from 2014. 4. Coronary artery calcification. Sonny Singh MD Objective Remarks AAO 3 Clear lungs bilaterally S1-S2 present with regular rate and rhythm, no murmurs or gallops Abdomen is soft, nontender, nondistended. No edema in lower extremities Left upper extremity seems to be edematous Procedures None Medications and IVs Current Medications Medications (Trade) Dose Ordered Sig/Elsy Route Start Time Stop Time Status Last Admin (NS Flush) 2 ml UNSCH PRN IV FLUSH 04/23/17 23:45 (NS Flush) 2 ml BID IV FLUSH 04/24/17 09:00 04/25/17 22:42 (Tylenol) 650 mg Q4H PRN PO 04/23/17 23:45 04/26/17 05:17 (Zofran Inj) 4 mg Q6H PRN IVP 04/23/17 23:45 (Narcan Inj) 0.4 mg UNSCH PRN IV PUSH 04/23/17 23:45 (Alisson-Colace) 1 tab BID PO 04/24/17 09:00 04/26/17 08:43 (Milk Of Magnesia Liq) 30 ml Q12H PRN PO 04/23/17 23:45 (Senokot) 17.2 mg Q12H PRN PO 04/23/17 23:45 (Dulcolax Supp) 10 mg DAILY PRN RECTAL 04/23/17 23:45 04/26/17 14:13 (Lactulose Liq) 30 ml DAILY PRN PO 04/23/17 23:45 04/24/17 01:54 (Tenormin) 50 mg BID PO 04/24/17 09:00 04/26/17 08:43 (Imdur) 30 mg DAILY@0700 PO 04/24/17 07:00 04/26/17 05:17 (Prinivil) 2.5 mg DAILY PO 04/24/17 09:00 04/26/17 08:42 Miscellaneous Information Patient in critical care unit? Ass... Q361D .XX 04/24/17 01:45 04/24/17 01:45 (Chlorhexidine 2% Cloth) 3 pack DAILY@04 TOPICAL 04/24/17 04:00 04/28/17 04:01 04/26/17 04:00 (Chlorhexidine 2% Cloth) 3 pack UNSCH PRN TOPICAL 04/24/17 01:45 04/29/17 01:37 (D50w (Vial) Inj) 50 ml UNSCH PRN IV 04/24/17 09:30 (Glucagon Inj) 1 mg UNSCH PRN OTHER 04/24/17 09:30 (NovoLOG SUPPLEMENTAL SCALE) 1 ACHS SLIDING SCALE SQ 04/24/17 12:00 04/25/17 21:00 Miscellaneous Information HOLD METFORMIN FOR... Q24H .XX 04/23/17 22:00 04/26/17 21:59 (Morphine Inj) 4 mg Q4H PRN IV 04/25/17 07:00 04/26/17 12:30 (Ecotrin Ec) 81 mg DAILY PO 04/25/17 09:00 04/26/17 08:42 (Pill Splitter) 1 ea UNSCH PRN OTHER 04/25/17 09:15 (Protonix) 40 mg DAILY PO 04/26/17 09:00 04/26/17 08:43 (Xarelto) 15 mg BID PO 04/26/17 09:00 04/26/17 08:43 (Glucophage) 1,000 mg DAILY PO 04/26/17 09:00 A/P Problem List: (1) Bilateral pulmonary embolism ICD Code: I26.99 - Other pulmonary embolism without acute cor pulmonale Plan: The patient was admitted to the intensive care unit and started on heparin drip. Initially treated with IV heparin, the patient remained hemodynamically stable, monitor on telemetry without events per Transition to oral Xarelto which has been started today. (2) Generalized weakness ICD Code: R53.1 - Weakness Plan: Physical therapy evaluation pending (3) Diabetes mellitus, type II ICD Code: E11.9 - Type 2 diabetes mellitus without complications Status: Chronic Plan: Blood sugars seem to be stable. Continue SSI with insulin NovoLog and continue to monitor Accu-Cheks. (4) CAD (coronary artery disease) ICD Code: I25.10 - Atherosclerotic heart disease of [place] coronary artery without angina pectoris Status: Chronic Plan: Appreciate cardiology consultation. The patient had an elevated troponin which peaked at 8.2. The patient denies any chest pain Cardiology has been consulted and recommended discontinuation of Plavix and starting the patient on aspirin. Continue Xarelto - heparin discontinued Continue aspirin (5) Hypertension ICD Code: I10 - Hypertension Status: Chronic Plan: Operation stable. Continue lisinopril and atenolol. (6) Anxiety ICD Code: F41.9 - Anxiety disorder, unspecified Status: Chronic Plan: Seems to be stable at this moment. Continue to monitor (7) Adjustment disorder with disturbance of conduct ICD Code: F43.24 - Adjustment disorder with disturbance of conduct Status: Acute Plan: Patient evaluated by psychiatry and is able to take medical decisions as per the psychiatrist evaluation. No psychotropic medications indicated at this time. (8) Abdominal pain ICD Code: R10.9 - Unspecified abdominal pain Plan: GI consulted. The patient has improved substantially and is almost gone. Discharge neurology recommended to the patient to have an EGD or colonoscopy workup however the patient refused. Assessment and Plan DVT prophylaxis: On heparin drip. Discharge Planning Dc pending PT evaluation. Problem Qualifiers (1) Diabetes mellitus, type II: Qualified Codes: E11.9 - Type 2 diabetes mellitus without complications (2) CAD (coronary artery disease): Qualified Codes: I25.10 - Atherosclerotic heart disease of [place] coronary artery without angina pectoris (3) Hypertension: Qualified Codes: I10 - Essential (primary) hypertension Johnnie Patel MD Apr 26, 2017 15:54
--- NOTE | 2017-04-26 18:45 | HHI.GIFU ---
Subjective Remarks patient is laying in bed, seems to be comfortable, but still having some abdominal discomfort, no nausea or vomiting Objective Vitals I&O Vital Signs Date Time Temp Pulse Resp B/P (MAP) Pulse Ox O2 Delivery O2 Flow Rate FiO2 04/26/17 18:00 68 28 95 04/26/17 18:00 64 04/26/17 17:00 66 25 154/69 (97) 95 04/26/17 16:00 62 04/26/17 16:00 64 24 168/78 (108) 96 04/26/17 15:00 60 19 150/75 (100) 95 04/26/17 14:00 64 04/26/17 14:00 64 22 155/76 (102) 96 04/26/17 13:00 64 22 96 04/26/17 12:00 97.9 64 20 149/78 (101) 95 04/26/17 12:00 63 04/26/17 11:00 64 22 134/67 (89) 04/26/17 10:00 62 20 134/67 (89) 04/26/17 10:00 77 04/26/17 09:00 62 24 146/73 (97) 04/26/17 08:00 64 22 148/74 (98) 04/26/17 08:00 64 04/26/17 08:00 94 21 04/26/17 07:00 92 Room Air 04/26/17 07:00 97.7 64 22 146/71 (96) 04/26/17 06:00 66 04/26/17 06:00 66 27 138/70 (92) 04/26/17 05:00 98.6 70 25 148/71 (96) 04/26/17 04:00 68 04/26/17 04:00 68 22 140/62 (88) 04/26/17 04:00 68 04/26/17 04:00 68 22 140/62 (88) 04/26/17 03:00 68 21 128/61 (83) 04/26/17 03:00 68 04/26/17 03:00 68 21 128/61 (83) 04/26/17 02:00 76 04/26/17 02:00 76 27 151/70 (97) 04/26/17 01:00 68 04/26/17 01:00 68 21 119/63 (81) 04/26/17 00:56 66 16 04/26/17 00:00 74 04/26/17 00:00 98.4 74 17 111/60 (77) 04/25/17 23:19 94 21 04/25/17 23:00 68 21 92/43 (59) 04/25/17 23:00 68 04/25/17 22:00 70 04/25/17 22:00 70 22 103/47 (65) 04/25/17 21:00 78 30 126/65 (85) 04/25/17 21:00 78 04/25/17 20:00 70 04/25/17 20:00 70 19 110/57 (74) 04/25/17 19:00 98.6 64 18 134/52 (79) 04/25/17 19:00 93 Nasal Cannula 2.00 I/O 04/25/17 04/25/17 04/25/17 04/26/17 04/26/17 04/26/17 07:00 15:00 23:00 07:00 15:00 23:00 Intake Total 50 ml 730 ml 500 ml Balance 50 ml 730 ml 500 ml Intake Oral 50 ml 480 ml 500 ml IV Total 250 ml # Voids 2 2 1 4 # Bowel Movements 1 0 Laboratory Laboratory Tests Test 04/25/17 19:15 04/26/17 04:50 04/26/17 09:00 Activated Partial Thromboplast Time 53.2 51.9 White Blood Count 13.5 Red Blood Count 3.92 Hemoglobin 11.4 Hematocrit 34.3 Mean Corpuscular Volume 87.7 Mean Corpuscular Hemoglobin 29.3 Mean Corpuscular Hemoglobin Concent 33.4 Red Cell Distribution Width 13.3 Platelet Count 253 Mean Platelet Volume 8.0 Physical Exam HEENT: Pupils round and reactive to light; normocephalic; atraumatic; no jaundice. Throat is clear. NECK: Neck is supple, no JVD, no lymphadenopathy. CHEST: Chest is clear to auscultation and percussion. CARDIAC: Regular rate and rhythm with no murmur gallop or rubs. ABDOMEN: Soft, nondistended, large abdominal wall hernia with moderate tenderness; no hepatosplenomegaly; bowel sounds are present in all four quadrants. EXTREMITIES: No clubbing, cyanosis, or edema. SKIN: Normal; no rash; no jaundice. 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 Assessment and Plan Plan ASSESSMENT: Abdominal pain, LUQ with mild abdominal distention. KUB today was negative for bowel obstruction. Has had multiple bowel movements over the past 2 days. Tolerating diet. No N/V. Does have hiatal hernia and chronic back pain. 04/26/2017 patient seems to be slightly better, CT scan showed very large hernia with multiple organisms inside the hernia sac and rotation in the stomach PLAN: We will ask for surgical opinion to see if the patient should be treated conservatively versus surgery especially with the rotation of the stomach that may induce some angina - NAYANA - PO PPI - Monitor labs - Supportive care - Patient declines EGD or Colonoscopy workup Akua Lobo MD Apr 26, 2017 18:45
[2017-04-27] VITALS: BP 117/67; PULSE 64; RESP 18; TEMP 96.6; O2SAT 97
[2017-04-27] MEDS: CHLORHEXIDINE GLUCONATE 2 % 1 PACK (2 CLOTHS)(taper/protocol) TOPICAL SCH (03:47)
[2017-04-27 04:00] VITALS: BP 129/68; PULSE 67; RESP 18; TEMP 97.9; O2SAT 97
[2017-04-27] MEDS: ISOSORBIDE MONONITRATE 30 MG TAB PO SCH (06:03)
[2017-04-27] MEDS: MORPHINE SULFATE 4 MG/ML INJ IV PRN (06:12)
[2017-04-27 07:12] LABS: APTT (PATIENT) 32.1 SEC (24.3-30.1)
--- NOTE | 2017-04-27 07:52 | HHI.GIFU ---
Subjective Remarks Patient was transferred from the ICU, doing well, laying in bed comfortably, no abdominal pain Objective Vitals I&O Vital Signs Date Time Temp Pulse Resp B/P (MAP) Pulse Ox O2 Delivery O2 Flow Rate FiO2 04/27/17 04:00 97.9 67 18 129/68 (88) 97 04/27/17 00:00 96.6 64 18 117/67 (84) 97 04/26/17 20:00 96.3 69 18 121/69 (86) 95 04/26/17 20:00 95 Nasal Cannula 2.00 04/26/17 20:00 65 04/26/17 19:00 95 Nasal Cannula 2.00 04/26/17 18:00 68 28 95 04/26/17 18:00 64 04/26/17 17:00 66 25 154/69 (97) 95 04/26/17 16:00 62 04/26/17 16:00 64 24 168/78 (108) 96 04/26/17 15:00 60 19 150/75 (100) 95 04/26/17 14:00 64 04/26/17 14:00 64 22 155/76 (102) 96 04/26/17 13:00 64 22 96 04/26/17 12:00 97.9 64 20 149/78 (101) 95 04/26/17 12:00 63 04/26/17 11:00 64 22 134/67 (89) 04/26/17 10:00 62 20 134/67 (89) 04/26/17 10:00 77 04/26/17 09:00 62 24 146/73 (97) 04/26/17 08:00 64 22 148/74 (98) 04/26/17 08:00 64 04/26/17 08:00 94 21 I/O 04/26/17 04/26/17 04/26/17 04/27/17 04/27/17 04/27/17 07:00 15:00 23:00 07:00 15:00 23:00 Intake Total 500 ml Balance 500 ml Intake Oral 500 ml # Voids 1 4 1 # Bowel Movements 0 1 Laboratory Laboratory Tests Test 04/26/17 09:00 04/27/17 06:25 White Blood Count 13.5 Red Blood Count 3.92 Hemoglobin 11.4 Hematocrit 34.3 Mean Corpuscular Volume 87.7 Mean Corpuscular Hemoglobin 29.3 Mean Corpuscular Hemoglobin Concent 33.4 Red Cell Distribution Width 13.3 Platelet Count 253 Mean Platelet Volume 8.0 Activated Partial Thromboplast Time 32.1 Physical Exam HEENT: Pupils round and reactive to light; normocephalic; atraumatic; no jaundice. Throat is clear. NECK: Neck is supple, no JVD, no lymphadenopathy. CHEST: Chest is clear to auscultation and percussion. CARDIAC: Regular rate and rhythm with no murmur gallop or rubs. ABDOMEN: Soft, nondistended, large abdominal wall hernia with no tenderness; no hepatosplenomegaly; bowel sounds are present in all four quadrants. EXTREMITIES: No clubbing, cyanosis, or edema. SKIN: Normal; no rash; no jaundice. 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 Assessment and Plan Plan ASSESSMENT: Abdominal pain, LUQ with mild abdominal distention. KUB today was negative for bowel obstruction. Has had multiple bowel movements over the past 2 days. Tolerating diet. No N/V. Does have hiatal hernia and chronic back pain. 04/26/2017 patient seems to be slightly better, CT scan showed very large hernia with multiple organisms inside the hernia sac and rotation in the stomach 04/26/2017 doing better today, no abdominal pain, tolerating diet PLAN: We will ask for surgical opinion to see if the patient should be treated conservatively versus surgery especially with the rotation of the stomach that may induce some angina - NAYANA - PO PPI - Monitor labs - Supportive care - Patient declines EGD or Colonoscopy workup We will follow up as needed Akua Lobo MD Apr 27, 2017 07:52
[2017-04-27 08:00] VITALS: O2SAT 97
[2017-04-27] MEDS: LISINOPRIL 5 MG TAB PO SCH (08:56)
[2017-04-27] MEDS: PANTOPRAZOLE SOD 40 MG DELAYED RELEASE TAB PO SCH (08:59)
[2017-04-27] MEDS: RIVAROXABAN 15 MG TAB PO SCH (08:59)
[2017-04-27] MEDS: ATENOLOL 50 MG TAB PO SCH (08:59)
[2017-04-27] MEDS: ASPIRIN EC 81 MG TABEC PO SCH (08:59)
[2017-04-27] MEDS: metFORMIN HCL 500 MG TAB PO SCH (08:59)
[2017-04-27] MEDS: DOCUSATE SODIUM 50 MG/SENNA 8.6 MG TAB PO SCH (08:59)
[2017-04-27] MEDS: SODIUM CHLORIDE 0.9% FLUSH 10 ML FLUSH IV FLUSH SCH (09:00)
[2017-04-27 09:23] VITALS: BP 103/64; PULSE 64; RESP 16; TEMP 96.6; O2SAT 97
--- NOTE | 2017-04-27 09:40 | MB ---
cc: NATALIO LOBO,VIOLET Rogers M.D. DATE OF CONSULTATION 04/26/2017 REASON FOR CONSULTATION Large hiatal hernia. There are some typos or misunderstanding in some notes that say abdominal wall hernia, she has no abdominal wall hernia, but she does have a very large hiatal hernia. BRIEF HISTORY This is a very pleasant 87-year-old woman with multiple medical issues, cardiac stents, recent fall with humerus fracture and surgery. She has got a huge chronic hiatal hernia. She has got severe osteoarthritis. She has constipation, chronic recurrent back and abdominal discomfort related to her arthritis and constipation. She suffered from now a pulmonary emboli after a recent fall and humerus surgery. A CT scan does demonstrate severe osteoarthritis in her spine, as well as a chronic long-term large hiatal hernia containing her stomach, small bowel and pancreas. The patient is able to eat and drink although her appetite is not great. She does not have any history of acid reflux type symptoms or regurgitation of undigested foods. She does have chronic constipation, but moved her bowels yesterday which gave her some relief from her abdominal discomfort. She has no upper GI study that has been performed, but again she does not have a history suggestive of gastric outlet obstruction or gastric volvulus. Dr. Lobo's note indicated that she is not interested in pursuing upper endoscopy or colonoscopy and she comments to me that she is not interested in surgical treatment of her hiatal hernia. Documentation in chart for her history as I am obtaining it because although she is a very nice lady who appears oriented, she just tells stories and goes on and on and really does not answer direct questions well at all. 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 PREVIOUS MEDICAL PROBLEMS 1. Borderline diabetes 2. Coronary artery disease 3. Heart stent placement 4. Hiatal hernia 5. Urinary incontinence 6. Hypertension 7. Thyroid disease 8. Arthritis 9. Anxiety 10. Severe degenerative disk disease 11. Loss of hearing 12. Hiatal hernia 13. Kyphosis PAST SURGICAL HISTORY Previous surgeries include: 1. Appendectomy 1. Thyroid surgery ROUTINE MEDICATIONS Include: 1. Metformin 2. Atenolol 3. Plavix and Isosorbide. Her Plavix has been stopped. She is now on Xarelto and baby aspirin. SOCIAL HISTORY She lives alone. Her brother is a retired builder, Robert Pierre, [place]. She has been more than once in the past. She is now , believe twice. She denies alcohol or tobacco abuse and denies any drug use. REVIEW OF SYSTEMS As per HPI. PHYSICAL EXAM Her physical exam shows an elderly woman sitting up in her bed pleasant and cooperative with the exam. VITAL SIGNS: Temperature 97.9, pulse 67, respiratory rate 18, blood pressure 129/68, O2 sat 97% on two liters nasal cannula. She was in an isolation type room where I had to wear a gown and gloves. There was no stethoscope available in the room to do auscultation. HEAD, EYES, EARS, NOSE, AND THROAT: Her dentition appeared intact. Her pupils appeared round. Her sclerae were anicteric. NECK: Her neck was thin and supple without adenopathy. SHOULDER: She has a dressing over her right anterior shoulder presumably from recent humerus fracture surgery. She had a fair amount of bruising in a postoperative swelling. Her right upper extremity was swollen all way down into her hand. ABDOMEN: Her abdomen was soft and nondistended. She has a healed right lower quadrant paramedian scar from appendectomy. There were no hernias were palpable. She had some mild discomfort in the lower abdomen consistent with her history of constipation. EXTREMITIES: Her extremities again had some chronic sun exposure changes, mild edema except for the significant edema in the right upper extremity. NEUROLOGIC: She had equal strong bilateral morning show host strength though and other than being [id number], no gross motor or sensory deficits. LABORATORY DATA White count was 13.5, hemoglobin was 11.4, her PTT is 32.1. Potassium is 3.9, creatinine 0.6. A urinalysis has not been obtained. IMAGING STUDIES CT scan does demonstrate a large hiatal hernia. She had a very distended bladder on the CT scan. Plane film of the abdomen was negative. CT angio demonstrated bilateral pulmonary emboli, the recent right shoulder surgery with right axillary pectoral hematoma and seroma again and coronary artery calcification. Again, the large hiatal hernia was present. There was no DVT in the right upper extremity. ASSESSMENT This is an 87-year-old woman with a large chronic hiatal hernia that I have been asked to see in consideration for surgical treatment. I do not believe her hiatal hernia is contributing to any of her complaints. Her back pain is easily explained by her severe osteoarthritis and degenerative disk disease in her spine. Her abdominal discomfort is easily explained by her constipation problems. She may also have some urinary tract infection. I believe the primary care doctors are looking into that. She is a high operative risk certainly in the face of recent pulmonary emboli. I would advise against any surgical treatment. She should manage this large hiatal hernia with frequent smaller meals, grazing with small amounts of food and liquid at a time to stay hydrated and have adequate nutrition. I will sign off of this case at this time. Should anything change that would require repeat surgical intervention, please call me [phone]. MD YEFRI Schaefer/AFUA /8:50 AM /9:23 AM JIM
[2017-04-27] MEDS: INSULIN ASPART SUPPLEMENTAL SCALE SQ SCH ×3 (09:43→17:00)
[2017-04-27 11:37] LABS: AUTOMATED NEUTROPHIL # 11.6 TH/MM3 (1.8-7.7); BASOPHIL # 0.1 TH/MM3 (0-0.2); BASOPHIL % 0.6 % (0.0-2.0); EOSINOPHIL # 0.3 TH/MM3 (0-0.4); EOSINOPHIL % 2.3 % (0.0-4.0); HEMATOCRIT 32.4 % (35.0-46.0); LYMPH % 8.5 % (9.0-44.0); LYMPHOCYTE # 1.2 TH/MM3 (1.0-4.8); MEAN CELL VOLUME 88.4 FL (80.0-100.0); MEAN CORPUSCULAR HEMOGLOBIN 29.8 PG (27.0-34.0); MEAN CORPUSCULAR HGB CONC 33.7 % (32.0-36.0); MONO % 9.2 % (0.0-8.0); NEUT % 79.4 % (16.0-70.0); PLATELET COUNT 288 TH/MM3 (150-450); RED BLOOD COUNT 3.66 MIL/MM3 (4.00-5.30); RED CELL DISTRIBUTION WIDTH 13.1 % (11.6-17.2); WHITE BLOOD COUNT 14.5 TH/MM3 (4.0-11.0)
[2017-04-27 11:38] LABS: HEMO FLAGS DIFF FINAL
[2017-04-27 15:05] VITALS: BP 102/51; PULSE 63; RESP 15; TEMP 98; O2SAT 97
[2017-04-27 15:28] VITALS: PULSE 61
--- NOTE | 2017-04-27 17:15 | HHI.PR ---
Subjective Remarks deferred entry - patient seen at 18:10 Patient is very upset threatning to leave AMA denies cp/sob denies fevers or chills Objective Vitals Vital Signs Date Time Temp Pulse Resp B/P (MAP) Pulse Ox O2 Delivery O2 Flow Rate FiO2 04/27/17 15:30 97 Nasal Cannula 2.00 04/27/17 15:28 61 04/27/17 15:05 98.0 63 15 102/51 (68) 97 04/27/17 09:23 96.6 64 16 103/64 (77) 97 04/27/17 04:00 97.9 67 18 129/68 (88) 97 04/27/17 00:00 96.6 64 18 117/67 (84) 97 04/26/17 20:00 96.3 69 18 121/69 (86) 95 04/26/17 20:00 95 Nasal Cannula 2.00 04/26/17 20:00 65 04/26/17 19:00 95 Nasal Cannula 2.00 04/26/17 18:00 68 28 95 04/26/17 18:00 64 I/O 04/26/17 04/26/17 04/26/17 04/27/17 04/27/17 04/27/17 07:00 15:00 23:00 07:00 15:00 23:00 Intake Total 500 ml 100 ml Balance 500 ml 100 ml Intake Oral 500 ml 100 ml # Voids 1 4 1 # Bowel Movements 0 1 Result Diagram: 04/27/17 1130 04/25/17 0549 Imaging Last Impressions Abdomen/Pelvis CT 04/25/17 0000 Signed Impressions: Service Date/Time: Wednesday, April 26, 2017 11:01 - CONCLUSION: 1. Stable large hernia containing the entire stomach, portions of the small bowel, and transverse colon along with the pancreas. The stomach is rotated on its axis. There are no signs of obstruction. 2. Trace bilateral pleural effusions with chronic left lower lobe compressive atelectasis secondary to the large hernia. 3. Persistent inflammatory changes and soft tissue air in the right axillary region. This area is only partially visualized and was better documented on the chest CT from 3 days ago. Sonny Flores MD Abdomen X-Ray 04/25/17 0000 Signed Impressions: Service Date/Time: Tuesday, April 25, 2017 08:29 - CONCLUSION: No evidence of obstruction. Sonny Tang MD Upper Extremity Ultrasound 04/23/172017 Signed Impressions: Service Date/Time: Sunday, April 23, 2017 20:59 - CONCLUSION: No DVT seen of the right upper extremity. Sonny Singh MD CT Angiography 04/23/172017 Signed Impressions: Service Date/Time: Sunday, April 23, 2017 22:02 - CONCLUSION: 1. Bilateral pulmonary emboli. 2. Recent right shoulder surgery. Right axillary/lateral pectoral hematoma/seroma. 3. Large hiatal hernia with intrathoracic stomach, pancreas and loops of small and large bowel not changed from 2014. 4. Coronary artery calcification. Sonny Singh MD Objective Remarks AAO 3 Clear lungs bilaterally S1-S2 present with regular rate and rhythm, no murmurs or gallops Abdomen is soft, nontender, nondistended. No edema in lower extremities Left upper extremity seems to be edematous Procedures None Medications and IVs Current Medications Medications (Trade) Dose Ordered Sig/Elsy Route Start Time Stop Time Status Last Admin (NS Flush) 2 ml UNSCH PRN IV FLUSH 04/23/17 23:45 (NS Flush) 2 ml BID IV FLUSH 04/24/17 09:00 04/27/17 09:00 (Tylenol) 650 mg Q4H PRN PO 04/23/17 23:45 04/26/17 05:17 (Zofran Inj) 4 mg Q6H PRN IVP 04/23/17 23:45 (Narcan Inj) 0.4 mg UNSCH PRN IV PUSH 04/23/17 23:45 (Alisson-Colace) 1 tab BID PO 04/24/17 09:00 04/27/17 08:59 (Milk Of Magnesia Liq) 30 ml Q12H PRN PO 04/23/17 23:45 (Senokot) 17.2 mg Q12H PRN PO 04/23/17 23:45 (Dulcolax Supp) 10 mg DAILY PRN RECTAL 04/23/17 23:45 04/26/17 14:13 (Lactulose Liq) 30 ml DAILY PRN PO 04/23/17 23:45 04/24/17 01:54 (Tenormin) 50 mg BID PO 04/24/17 09:00 04/27/17 08:59 (Imdur) 30 mg DAILY@0700 PO 04/24/17 07:00 04/27/17 06:03 (Prinivil) 2.5 mg DAILY PO 04/24/17 09:00 04/26/17 08:42 Miscellaneous Information Patient in critical care unit? Ass... Q361D .XX 04/24/17 01:45 04/24/17 01:45 (Chlorhexidine 2% Cloth) 3 pack DAILY@04 TOPICAL 04/24/17 04:00 04/28/17 04:01 04/26/17 04:00 (Chlorhexidine 2% Cloth) 3 pack UNSCH PRN TOPICAL 04/24/17 01:45 04/29/17 01:37 (D50w (Vial) Inj) 50 ml UNSCH PRN IV 04/24/17 09:30 (Glucagon Inj) 1 mg UNSCH PRN OTHER 04/24/17 09:30 (NovoLOG SUPPLEMENTAL SCALE) 1 ACHS SLIDING SCALE SQ 04/24/17 12:00 04/27/17 13:11 (Morphine Inj) 4 mg Q4H PRN IV 04/25/17 07:00 04/27/17 06:12 (Ecotrin Ec) 81 mg DAILY PO 04/25/17 09:00 04/27/17 08:59 (Pill Splitter) 1 ea UNSCH PRN OTHER 04/25/17 09:15 (Protonix) 40 mg DAILY PO 04/26/17 09:00 04/27/17 08:59 (Xarelto) 15 mg BID PO 04/26/17 09:00 04/27/17 08:59 (Glucophage) 1,000 mg DAILY PO 04/26/17 09:00 04/27/17 08:59 A/P Problem List: (1) Bilateral pulmonary embolism ICD Code: I26.99 - Other pulmonary embolism without acute cor pulmonale Plan: The patient was admitted to the intensive care unit and started on heparin drip. Initially treated with IV heparin, the patient remained hemodynamically stable, monitor on telemetry without events per 04/27 continue Xarelto (2) Generalized weakness ICD Code: R53.1 - Weakness Plan: Physical therapy evaluation appreciated (3) Diabetes mellitus, type II ICD Code: E11.9 - Type 2 diabetes mellitus without complications Status: Chronic Plan: Blood sugars seem to be stable. Continue SSI with insulin NovoLog and continue to monitor Accu-Cheks. (4) CAD (coronary artery disease) ICD Code: I25.10 - Atherosclerotic heart disease of [place] coronary artery without angina pectoris Status: Chronic Plan: Appreciate cardiology consultation. The patient had an elevated troponin which peaked at 8.2. The patient denies any chest pain Cardiology has been consulted and recommended discontinuation of Plavix and starting the patient on aspirin. Continue Xarelto - heparin discontinued Continue aspirin (5) Hypertension ICD Code: I10 - Hypertension Status: Chronic Plan: Blood pressure stable. Continue lisinopril and atenolol. (6) Anxiety ICD Code: F41.9 - Anxiety disorder, unspecified Status: Chronic Plan: Seems to be stable at this moment. Continue to monitor (7) Adjustment disorder with disturbance of conduct ICD Code: F43.24 - Adjustment disorder with disturbance of conduct Status: Acute Plan: Patient evaluated by psychiatry and is able to make medical decisions as per the psychiatrist evaluation. No psychotropic medications indicated at this time. (8) Abdominal pain ICD Code: R10.9 - Unspecified abdominal pain Plan: GI consulted. The patient has improved substantially and is almost gone. Discharge neurology recommended to the patient to have an EGD or colonoscopy workup however the patient refused. (9) Leukocytosis ICD Code: D72.829 - Elevated white blood cell count, unspecified Plan: WBC trending up, urinalysis ordered however patient unwilling to be catheterized and she's not providing a urine sample. Assessment and Plan DVT prophylaxis: On heparin drip. Discharge Planning Dc pending PT evaluation. Problem Qualifiers (1) Diabetes mellitus, type II: Qualified Codes: E11.9 - Type 2 diabetes mellitus without complications (2) CAD (coronary artery disease): Qualified Codes: I25.10 - Atherosclerotic heart disease of [place] coronary artery without angina pectoris (3) Hypertension: Qualified Codes: I10 - Essential (primary) hypertension (4) Leukocytosis: Qualified Codes: D72.829 - Elevated white blood cell count, unspecified Johnnie Patel MD Apr 27, 2017 17:15
--- NOTE | 2017-04-27 19:15 | HHI.DS ---
Discharge Summary Admission Date Apr 23, 2017 at 23:49 Discharge Date: Apr 27, 2017 Admitting Diagnosis HYPOXEMIA DUE TO BILATERAL PE, ELEVATED TROPONIN (1) Bilateral pulmonary embolism ICD Code: I26.99 - Other pulmonary embolism without acute cor pulmonale (2) Generalized weakness ICD Code: R53.1 - Weakness (3) Diabetes mellitus, type II ICD Code: E11.9 - Type 2 diabetes mellitus without complications Status: Chronic (4) CAD (coronary artery disease) ICD Code: I25.10 - Atherosclerotic heart disease of [place] coronary artery without angina pectoris Status: Chronic (5) Hypertension ICD Code: I10 - Hypertension Status: Chronic (6) Anxiety ICD Code: F41.9 - Anxiety disorder, unspecified Status: Chronic (7) Adjustment disorder with disturbance of conduct ICD Code: F43.24 - Adjustment disorder with disturbance of conduct Status: Acute (8) Abdominal pain ICD Code: R10.9 - Unspecified abdominal pain (9) Leukocytosis ICD Code: D72.829 - Elevated white blood cell count, unspecified Procedures None CBC/BMP: 04/27/17 1130 04/25/17 0549 Significant Findings Laboratory Tests Test 04/24/17 19:47 04/25/17 02:15 04/25/17 05:49 04/25/17 12:55 Activated Partial Thromboplast Time 66.3 SEC (24.3-30.1) 67.9 SEC (24.3-30.1) 84.2 SEC (24.3-30.1) 59.7 SEC (24.3-30.1) Hemoglobin 11.4 GM/DL (11.6-15.3) Random Glucose 166 MG/DL (74-106) Test 04/25/17 19:15 04/26/17 04:50 04/26/17 09:00 04/27/17 06:25 Activated Partial Thromboplast Time 53.2 SEC (24.3-30.1) 51.9 SEC (24.3-30.1) 32.1 SEC (24.3-30.1) White Blood Count 13.5 TH/MM3 (4.0-11.0) Red Blood Count 3.92 MIL/MM3 (4.00-5.30) Hemoglobin 11.4 GM/DL (11.6-15.3) Hematocrit 34.3 % (35.0-46.0) Test 04/27/17 11:30 White Blood Count 14.5 TH/MM3 (4.0-11.0) Red Blood Count 3.66 MIL/MM3 (4.00-5.30) Hemoglobin 10.9 GM/DL (11.6-15.3) Hematocrit 32.4 % (35.0-46.0) Neutrophils (%) (Auto) 79.4 % (16.0-70.0) Lymphocytes (%) (Auto) 8.5 % (9.0-44.0) Monocytes (%) (Auto) 9.2 % (0.0-8.0) Neutrophils # (Auto) 11.6 TH/MM3 (1.8-7.7) Monocytes # (Auto) 1.3 TH/MM3 (0-0.9) PE at Discharge AAO 3 Clear lungs bilaterally S1-S2 present with regular rate and rhythm, no murmurs or gallops Abdomen is soft, nontender, nondistended. No edema in lower extremities Left upper extremity seems to be edematous Discharge Disposition: Discharge Home (Left Against Medical Advise) Discharge Instructions DIET: Follow Instructions for: As Tolerated, No Restrictions Other Activity Instructions: oob with assistance Johnnie Patel MD Apr 27, 2017 19:15
--- NOTE | 2017-04-27 19:21 | PD.AMA ---
Against Medical Advice Note Discharge Disposition: Against Medical Advice Pt Condition on Discharge: Guarded Recommended Treatment Course The patient was admitted with a diagnosis of bilateral pulmonary embolism to the intensive care unit. This started on a heparin drip which was later transitioned Xarelto which she seemed to be tolerating well. However WBC started trending up. Urinalysis ordered. Recommended discharge plan was to SNF. The patient was recommended to stay, however she left even before I I could write her prescriptions. AMA Statement Patient Cathleen Tee has decided to leave the hospital against medical advice. This patient has the capacity to refuse care and understands the risks of leaving, including permanent disability and/or , and has had an opportunity to ask questions about her condition. The patient has been informed that she may return for care at any time, and follow up has been advised. Johnnie Patel MD Apr 27, 2017 19:21
[2017-04-28] MEDS ORDERED: LIPI10TA PO (19:14)
[2017-04-28] MEDS ORDERED: ASPI-99 PO (19:17)
== END 2017-04-27 18:30 | disposition left against medical advice (07) | DRG 176 ==
LOC: PHEFT 20:12 → PHEDA 23:33 → OBSVTOIN 23:49 → PHICU 04-24 01:00 → PH5A 04-26 20:35
PROVIDERS: ADMIT Hospitalist; ATTEND Hospitalist
DX: I26.99 Other pulmonary embolism without acute cor pulmonale (principal); N17.9 Acute kidney failure, unspecified; E11.9 Type 2 diabetes mellitus without complications; N39.0 Urinary tract infection, site not specified; I10 Essential (primary) hypertension; D72.829 Elevated white blood cell count, unspecified; J98.11 Atelectasis; M96.842 Postprocedural seroma of a musculoskeletal structure following a musculoskeletal system procedure; F41.9 Anxiety disorder, unspecified; R09.02 Hypoxemia; E78.00 Pure hypercholesterolemia, unspecified; I25.10 Atherosclerotic heart disease of native coronary artery without angina pectoris; H91.90 Unspecified hearing loss, unspecified ear; K44.9 Diaphragmatic hernia without obstruction or gangrene; I25.2 Old myocardial infarction; E03.9 Hypothyroidism, unspecified; Z95.5 Presence of coronary angioplasty implant and graft; R32 Unspecified urinary incontinence; M40.209 Unspecified kyphosis, site unspecified; S42.301D Unspecified fracture of shaft of humerus, right arm, subsequent encounter for fracture with routine healing; Z91.19 Patient's noncompliance with other medical treatment and regimen; R51 Headache; K59.09 Other constipation; M54.5 Low back pain; R10.12 Left upper quadrant pain; G89.29 Other chronic pain; M47.9 Spondylosis, unspecified; Y83.9 Surgical procedure, unspecified as the cause of abnormal reaction of the patient, or of later complication, without mention of misadventure at the time of the procedure; Y92.009 Unspecified place in unspecified non-institutional (private) residence as the place of occurrence of the external cause; R53.1 Weakness; R74.8 Abnormal levels of other serum enzymes; F43.24 Adjustment disorder with disturbance of conduct; Z53.20 Procedure and treatment not carried out because of patient's decision for unspecified reasons; M19.90 Unspecified osteoarthritis, unspecified site; K21.9 Gastro-esophageal reflux disease without esophagitis; R62.7 Adult failure to thrive; R33.9 Retention of urine, unspecified; Z91.14 Patient's other noncompliance with medication regimen
CPT/HCPCS: 36600; 71275; 74000; 74177; 80048; 82550; 82552; 82805; 82948; 83690; 83880; 84484; 85025; 85027; 85610; 85730; 87641; 93005; 93971; C9113; J1644; J1815; J2270; Q9963; Q9967

== ENCOUNTER 2017-04-27 21:28 | Inpatient (IN) | payer MEDICARE, OTHER ==
[~2017-04-27] VITALS: Ht 172.7 cm; Wt 75.0 kg
[~2017-04-27 21:28] MED LIST changes: -WHEEMIS3
[2017-04-27 21:38] VITALS: BP 126/65; PULSE 74; RESP 24; TEMP 98.1; O2SAT 94
[2017-04-27] MEDS ORDERED: SODIUM CHLORIDE 0.9% FLUSH 10 ML FLUSH IV FLUSH PRN ×2 (22:00→23:45)
[2017-04-27 22:05] VITALS: BP 126/65; PULSE 70; RESP 20; O2SAT 96
[2017-04-27 22:05] LABS: AUTOMATED NEUTROPHIL # 11.6 TH/MM3 (1.8-7.7); BASOPHIL % 0.3 % (0.0-2.0); EOSINOPHIL # 0.3 TH/MM3 (0-0.4); EOSINOPHIL % 2.1 % (0.0-4.0); HEMATOCRIT 36.4 % (35.0-46.0); LYMPH % 8.2 % (9.0-44.0); LYMPHOCYTE # 1.2 TH/MM3 (1.0-4.8); MEAN CELL VOLUME 89.5 FL (80.0-100.0); MEAN CORPUSCULAR HEMOGLOBIN 29.6 PG (27.0-34.0); MEAN CORPUSCULAR HGB CONC 33.1 % (32.0-36.0); MONO % 8.6 % (0.0-8.0); NEUT % 80.8 % (16.0-70.0); PLATELET COUNT 310 TH/MM3 (150-450); RED BLOOD COUNT 4.06 MIL/MM3 (4.00-5.30); WHITE BLOOD COUNT 14.3 TH/MM3 (4.0-11.0)
[2017-04-27 22:14] LABS: APTT (PATIENT) 38.4 SEC (24.3-30.1); INTERNATIONAL NORMALIZED RATIO 1.4 RATIO; PROTHROMBIN TIME - PATIENT 15.5 SEC (9.8-11.6)
[2017-04-27 22:19] LABS: HEMO FLAGS AUTO DIFF
[2017-04-27 22:32] LABS: ALT (GPT) 29 U/L (10-53); ANION GAP 9 MEQ/L (5-15); AST (GOT) 51 U/L (15-37); BLOOD UREA NITROGEN 44 MG/DL (7-18); CHLORIDE 93 MEQ/L (98-107); GLOMERULAR FILTRATION RATE 28 ML/MIN (>89); SODIUM (NA) 129 MEQ/L (136-145)
[2017-04-27 22:33] LABS: POTASSIUM 4.9 MEQ/L (3.5-5.1)
[2017-04-27 22:44] LABS: ALKALINE PHOSPHATASE 106 U/L (45-117); CREATINE KINASE 232 U/L (26-192); TOTAL BILIRUBIN ADULT 1.5 MG/DL (0.2-1.0)
--- NOTE | 2017-04-27 22:48 | PD ---
HPI Chief Complaint: Psychiatric Symptoms Time Seen by Provider: 21:50 Travel History International Travel<30 days: No Contact w/Intl Traveler<30days: No Traveled to known affect area: No History of Present Illness HPI 87-year-old female brought in under [place] act after her neighbor called police and they found her home in poor living conditions. The patient lives alone. She was seen on 04/19/17 in the emergency department after sustaining a proximal humerus fracture from a fall. This was operated on by Dr. Ochoa. She return to the emergency department on 02/20/17 and was admitted to the medical service for hypoxemia due to bilateral pulmonary embolisms. Patient was started on heparin, then started on Xarelto. She apparently left AMA because she no longer wanted to stay in the hospital. She tells me she has been compliant with all of her medications. She denies any physical complaints other than persistent pain in her right arm. No chest pain or dyspnea. PFSH Past Medical History Hx Anticoagulant Therapy: Yes Arthritis: Yes Asthma: No Autoimmune Disease: No Blood Disorders: No Anxiety: Yes Depression: No Heart Rhythm Problems: No Cancer: No Cardiac Catheterization: Yes Cardiovascular Problems: Yes (stents 2011) High Cholesterol: Yes Chemotherapy: No Chest Pain: Yes Congestive Heart Failure: No COPD: No Cerebrovascular Accident: No Coronary Artery Disease: Yes Diabetes: Yes Patient Takes Glucophage: Yes Diminished Hearing: Yes (BIG SANDY) Endocrine: Yes Gastrointestinal Disorders: Yes GERD: No Glaucoma: No Genitourinary: No Headaches: No Hepatitis: No Hiatal Hernia: Yes (PRESENT HIATAL HERNIA) Hypertension: Yes Immune Disorder: No Implanted Vascular Access Dvce: Yes Kidney Stones: No Musculoskeletal: Yes (JOINT PAIN) Neurologic: Yes Psychiatric: Yes Reproductive: No Respiratory: Yes Immunizations Current: Yes Migraines: No Myocardial Infarction: Yes Radiation Therapy: No Renal Failure: No Seizures: No Sickle Cell Disease: No Sleep Apnea: No Thyroid Disease: Yes (HYPO) Ulcer: No Tetanus Vaccination: < 5 Years Influenza Vaccination: Yes PNEUMOCCOCAL Vaccine (Year): 1 Menopausal: Yes : 0 Past Surgical History Abdominal Surgery: Yes (APPY) AICD: No Appendectomy: Yes Arteriovenous Shunt: No Body Medical Devices: STENT 2011. R shoulder pins? Cardiac Surgery: Yes (STENTS PLACED IN 05/2012) Cholecystectomy: No Coronary Stent: Yes (x1 -05/2012) Ear Surgery: No Endocrine Surgery: Yes (THYROID) Eye Surgery: No Genitourinary Surgery: No Gynecologic Surgery: No Insulin Pump: No Joint Replacement: No Neurologic Surgery: No Oral Surgery: Yes (implants) Pacemaker: No Thoracic Surgery: No Other Surgery: Yes (THYROID) Social History Alcohol Use: No Tobacco Use: No Substance Use: No Allergies-Medications (Allergen,Severity, Reaction): Coded Allergies: meperidine (Unverified Allergy, Mild, N/V, 04/27/17) propoxyphene (Unverified Adverse Reaction, Mild, N/V, 04/27/17) Reported Meds & Prescriptions Reported Meds & Active Scripts Active Reported Metformin (Metformin HCl) 1,000 Mg Tab 1,000 Mg PO DAILY With a meal Lisinopril 2.5 Mg Tab 2.5 Mg PO DAILY Atenolol 50 Mg Tab 50 Mg PO BID Plavix (Clopidogrel Bisulfate) 75 Mg Tab 75 Mg PO DAILY Isosorbide Mononitrate ER (Isosorbide Mononitrate) 30 Mg Renetta 30 Mg PO DAILY Review of Systems Except as stated in HPI: all other systems reviewed are Neg Physical Exam Narrative GENERAL: Well-developed, well-nourished, awake, alert, no apparent distress. SKIN: Focused skin assessment warm/dry. Diffuse ecchymosis to right upper extremity with diffuse edema, all compartments in the right upper extremity are supple. Right lateral/proximal shoulder/arm with surgical wound with iggy in place without warmth or erythema, no purulent drainage. HEAD: Atraumatic. Normocephalic. EYES: Pupils equal and round. No scleral icterus. No injection or drainage. ENT: Mucous membranes pink and moist. NECK: Trachea midline. No JVD. CARDIOVASCULAR: Regular rate and rhythm. Bilateral distal radial pulses are brisk and equal. RESPIRATORY: No accessory muscle use. Clear to auscultation. Breath sounds equal bilaterally. GASTROINTESTINAL: Abdomen soft, non-tender, nondistended. Hepatic and splenic margins not palpable. MUSCULOSKELETAL: Significant edema to the right upper extremity with skin exam as above. All compartments in the right upper extremity are supple. NEUROLOGICAL: Awake and alert. No obvious cranial nerve deficits. Motor grossly within normal limits. Normal speech. PSYCHIATRIC: Appropriate mood and affect; insight and judgment normal. Data Data Last Documented VS Vital Signs Date Time Temp Pulse Resp B/P (MAP) Pulse Ox O2 Delivery O2 Flow Rate FiO2 04/27/17 22:05 70 20 126/65 (85) 96 Nasal Cannula 2.00 04/27/17 21:38 98.1 Orders Orders Complete Blood Count With Diff (04/27/17 21:54) Comprehensive Metabolic Panel (04/27/17 21:54) Prothrombin Time / Inr (Pt) (04/27/17 21:54) Act Partial Throm Time (Ptt) (04/27/17 21:54) Urinalysis - C+S If Indicated (04/27/17 21:54) Iv Access Insert/Monitor (04/27/17 21:54) Ecg Monitoring (04/27/17 21:54) Oximetry (04/27/17 21:54) Sodium Chloride 0.9% Flush (Ns Flush) (04/27/17 22:00) Creatine Kinase (Cpk) (04/27/17 21:54) Cath For Specimen (04/27/17 21:54) CKMB (04/27/17 21:50) CKMB% (04/27/17 21:50) Sodium Chlor 0.9% 1000 Ml Inj (Ns 1000 M (04/27/17 22:50) Admit Order (Ed Use Only) (04/27/17 22:55) Labs Laboratory Tests Test 04/27/17 21:50 White Blood Count 14.3 TH/MM3 Red Blood Count 4.06 MIL/MM3 Hemoglobin 12.0 GM/DL Hematocrit 36.4 % Mean Corpuscular Volume 89.5 FL Mean Corpuscular Hemoglobin 29.6 PG Mean Corpuscular Hemoglobin Concent 33.1 % Red Cell Distribution Width 14.0 % Platelet Count 310 TH/MM3 Mean Platelet Volume 7.3 FL Neutrophils (%) (Auto) 80.8 % Lymphocytes (%) (Auto) 8.2 % Monocytes (%) (Auto) 8.6 % Eosinophils (%) (Auto) 2.1 % Basophils (%) (Auto) 0.3 % Neutrophils # (Auto) 11.6 TH/MM3 Lymphocytes # (Auto) 1.2 TH/MM3 Monocytes # (Auto) 1.2 TH/MM3 Eosinophils # (Auto) 0.3 TH/MM3 Basophils # (Auto) 0.0 TH/MM3 CBC Comment AUTO DIFF Differential Comment AUTO DIFF CONFIRMED Prothrombin Time 15.5 SEC Prothromb Time International Ratio 1.4 RATIO Activated Partial Thromboplast Time 38.4 SEC Blood Urea Nitrogen 44 MG/DL Creatinine 1.73 MG/DL Random Glucose 170 MG/DL Total Protein 6.8 GM/DL Albumin 2.8 GM/DL Calcium Level 9.0 MG/DL Alkaline Phosphatase 106 U/L Aspartate Amino Transf (AST/SGOT) 51 U/L Alanine Aminotransferase (ALT/SGPT) 29 U/L Total Bilirubin 1.5 MG/DL Sodium Level 129 MEQ/L Potassium Level 4.9 MEQ/L Chloride Level 93 MEQ/L Carbon Dioxide Level 27.0 MEQ/L Anion Gap 9 MEQ/L Estimat Glomerular Filtration Rate 28 ML/MIN Total Creatine Kinase 232 U/L Creatine Kinase MB 5.2 NG/ML Creatine Kinase MB % 2.2 % MDM Medical Decision Making Medical Screen Exam Complete: Yes Emergency Medical Condition: Yes Medical Record Reviewed: Yes Differential Diagnosis Failure to thrive, inability to care for self, metabolic abnormality Narrative Course Vital signs reviewed. CBC shows WBC 14.3, hemoglobin 12, hematocrit 36.4, platelets 310, neutrophils 80.8%. CMP is remarkable for sodium 129, chloride 93, BUN 44, creatinine 1.7, GFR 28 which is worse than her baseline. INR is 1.4. Patient has acute renal insufficiency likely secondary to poor oral intake. Apparently her home is a mess and is uninhabitable. Patient will be admitted to the medical service for further treatment of her acute renal sufficiency with IV fluids as well as case management/psychiatry evaluation. Case discussed with [facility] hospitalist RAHEEM High. The patient will be admitted to their service under Dr. Miller. UA pending at time of admission. UA is suggestive of UTI. The patient was given a dose of IV Rocephin. Diagnosis Primary Impression: Failure to thrive in adult Additional Impressions: Acute renal insufficiency Alteration in self-care ability UTI (urinary tract infection) Qualified Codes: N39.0 - Urinary tract infection, site not specified; R31.9 - Hematuria, unspecified Chase Hernandes MD Apr 27, 2017 22:48
[2017-04-27] MEDS ORDERED: SODIUM CHLOR 0.9% 1000 ML INJ 1,000 ML IV SCH (22:50)
[2017-04-27 23:00] VITALS: BP 112/62; PULSE 72; RESP 20; O2SAT 100
[2017-04-27 23:03] LABS: CKMB 5.2 NG/ML (0.5-3.6)
[2017-04-27 23:04] LABS: SCAN/DIFF AUTO DIFF CONFIRMED
[2017-04-27 23:34] LABS: BACTERIA, URINE OCC /hpf; BLOOD, URINE MOD (NEG); COMMENT (UR) CULTURE INDICATED; CULTURE IF INDICATED CULTURE INDICATED; GLUCOSE,URINE TRACE mg/dL (NEG); KETONE, URINE NEG (NEG); NITRITE,URINE NEG (NEG); SQUAMOUS EPITHELIAL CELL URINE 6 /hpf (0-5); TRANSITIONAL EPI CELLS, URINE 4 /hpf; URINE COLOR RED (YELLW/STRAW)
[2017-04-27] MEDS: SODIUM CHLOR 0.9% 1000 ML INJ 1,000 ML IV SCH (23:39)
[2017-04-27] MEDS ORDERED: BISACODYL 10 MG SUPP RECTAL PRN (23:45)
[2017-04-27] MEDS ORDERED: NYSTATIN 100,000 U/GM PWD 15 GM BTL TOPICAL ONE (23:45)
[2017-04-27] MEDS ORDERED: ONDANSETRON HCL 4 MG/2 ML VIAL IVP PRN (23:45)
[2017-04-27] MEDS ORDERED: GLUCAGON 1 MG/ML VIAL OTHER PRN (23:45)
[2017-04-27] MEDS ORDERED: ACETAMINOPHEN/HYDROcodone 325 MG/7.5 MG TAB PO PRN (23:45)
[2017-04-27] MEDS ORDERED: MAGNESIUM HYDROXIDE SUSP 30 ML CUP PO PRN (23:45)
[2017-04-27] MEDS ORDERED: DEXTROSE 50% IN WATER 50 ML VIAL(D50) IV PUSH PRN (23:45)
[2017-04-27] MEDS ORDERED: ACETAMINOPHEN 325 MG TAB PO PRN (23:45)
[2017-04-27] MEDS ORDERED: LACTULOSE SYRUP 20 GM/30 ML CUP PO PRN (23:45)
[2017-04-27] MEDS ORDERED: SENNOSIDES 8.6 MG TAB PO PRN (23:45)
[2017-04-27] MEDS ORDERED: NALOXONE HCL 0.4 MG/ML AMP IV PUSH PRN (23:45)
[2017-04-28] VITALS (8 sets, daily range): BP systolic 106–135; BP diastolic 53–69; PULSE 62–81; RESP 17–20; TEMP 95.7–98.1; O2SAT 95–100
[2017-04-28] MEDS ORDERED: cefTRIAXone INJ 1,000 MG in SODIUM CHLORIDE 0.9% INJ 100 ML IV ONE ×2
[2017-04-28] MEDS: ACETAMINOPHEN/HYDROcodone 325 MG/5 MG TAB PO PRN (00:02)
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
[2017-04-28] MEDS: ISOSORBIDE MONONITRATE 30 MG TAB PO SCH ×2 (06:20→07:07)
[2017-04-28 07:32] LABS: BICARBONATE 26.9 MEQ/L (21.0-32.0); POTASSIUM 4.4 MEQ/L (3.5-5.1)
[2017-04-28 07:51] LABS: AUTOMATED NEUTROPHIL # 6.6 TH/MM3 (1.8-7.7); BASOPHIL % 0.4 % (0.0-2.0); EOSINOPHIL # 0.4 TH/MM3 (0-0.4); HEMATOCRIT 28.4 % (35.0-46.0); HEMO FLAGS DIFF FINAL; LYMPH % 15.8 % (9.0-44.0); LYMPHOCYTE # 1.5 TH/MM3 (1.0-4.8); MEAN CELL VOLUME 90.1 FL (80.0-100.0); MEAN CORPUSCULAR HEMOGLOBIN 30.7 PG (27.0-34.0); MEAN CORPUSCULAR HGB CONC 34.1 % (32.0-36.0); MONO % 11.5 % (0.0-8.0); NEUT % 68.3 % (16.0-70.0); PLATELET COUNT 233 TH/MM3 (150-450); RED BLOOD COUNT 3.15 MIL/MM3 (4.00-5.30); RED CELL DISTRIBUTION WIDTH 13.8 % (11.6-17.2); WHITE BLOOD COUNT 9.7 TH/MM3 (4.0-11.0)
[2017-04-28] MEDS: INSULIN ASPART SUPPLEMENTAL SCALE SQ SCH ×4 (08:00→23:03)
[2017-04-28] MEDS: ATENOLOL 50 MG TAB PO SCH ×2 (09:00→21:43)
[2017-04-28] MEDS: SODIUM CHLORIDE 0.9% FLUSH 10 ML FLUSH IV FLUSH SCH ×2 (09:00→21:50)
[2017-04-28] MEDS: ASPIRIN EC 81 MG TABEC PO SCH (09:34)
[2017-04-28] MEDS: RIVAROXABAN 15 MG TAB PO SCH (09:34)
[2017-04-28] MEDS: cefTRIAXone INJ 1,000 MG in SODIUM CHLORIDE 0.9% INJ 100 ML IV SCH (09:34)
[2017-04-28] MEDS: ATORVASTATIN 10 MG TAB PO SCH (09:34)
[2017-04-28] MEDS: SODIUM CHLOR 0.9% 1000 ML INJ 1,000 ML IV SCH ×2 (09:35→21:51)
--- NOTE | 2017-04-28 09:48 | HHI.PR ---
Subjective Subjective Remarks Hard of hearing Asking how is she going to be able to take care for herself at home. Has a sister who is 89 years old and a brother who is in the [place] area who is not able to help her out. Has no other family. Discussed with patient about going to rehabilitation facility, states that she is willing to do it but only for a week Patient then stated that we cannot make her stay in the hospital if she doesn't want to stay Complaining of right shoulder pain and difficulty moving No other complaints Review of Systems Constitutional Constitutional Remarks 12 point review of systems difficult to obtain Vitals/Results Intake & Output 04/28/17 04/28/17 04/29/17 15:00 23:00 07:00 Intake Total 120 ml Balance 120 ml Intake Oral 120 ml Vital Signs Vital Signs Date Time Temp Pulse Resp B/P (MAP) Pulse Ox O2 Delivery O2 Flow Rate FiO2 04/28/17 07:53 97.8 71 17 106/53 (70) 96 04/28/17 01:30 96.0 79 17 115/55 (75) 95 04/28/17 01:20 95 Nasal Cannula 2.00 04/28/17 00:37 62 20 100 Nasal Cannula 2.00 04/27/17 23:00 72 20 112/62 (79) 100 Nasal Cannula 2.00 04/27/17 22:05 70 20 126/65 (85) 96 Nasal Cannula 2.00 04/27/17 21:41 73 22 04/27/17 21:38 98.1 74 24 126/65 (85) 94 CBC/BMP: 04/28/17 0620 04/28/17 0620 Lab Results Laboratory Tests Test 04/27/17 21:50 04/27/17 23:15 04/28/17 06:20 White Blood Count 14.3 TH/MM3 9.7 TH/MM3 Red Blood Count 4.06 MIL/MM3 3.15 MIL/MM3 Hemoglobin 12.0 GM/DL 9.7 GM/DL Hematocrit 36.4 % 28.4 % Mean Corpuscular Volume 89.5 FL 90.1 FL Mean Corpuscular Hemoglobin 29.6 PG 30.7 PG Mean Corpuscular Hemoglobin Concent 33.1 % 34.1 % Red Cell Distribution Width 14.0 % 13.8 % Platelet Count 310 TH/MM3 233 TH/MM3 Mean Platelet Volume 7.3 FL 7.7 FL Neutrophils (%) (Auto) 80.8 % 68.3 % Lymphocytes (%) (Auto) 8.2 % 15.8 % Monocytes (%) (Auto) 8.6 % 11.5 % Eosinophils (%) (Auto) 2.1 % 4.0 % Basophils (%) (Auto) 0.3 % 0.4 % Neutrophils # (Auto) 11.6 TH/MM3 6.6 TH/MM3 Lymphocytes # (Auto) 1.2 TH/MM3 1.5 TH/MM3 Monocytes # (Auto) 1.2 TH/MM3 1.1 TH/MM3 Eosinophils # (Auto) 0.3 TH/MM3 0.4 TH/MM3 Basophils # (Auto) 0.0 TH/MM3 0.0 TH/MM3 CBC Comment AUTO DIFF DIFF FINAL Differential Comment AUTO DIFF CONFIRMED Prothrombin Time 15.5 SEC Prothromb Time International Ratio 1.4 RATIO Activated Partial Thromboplast Time 38.4 SEC Blood Urea Nitrogen 44 MG/DL 41 MG/DL Creatinine 1.73 MG/DL 1.20 MG/DL Random Glucose 170 MG/DL 140 MG/DL Total Protein 6.8 GM/DL Albumin 2.8 GM/DL Calcium Level 9.0 MG/DL 8.0 MG/DL Alkaline Phosphatase 106 U/L Aspartate Amino Transf (AST/SGOT) 51 U/L Alanine Aminotransferase (ALT/SGPT) 29 U/L Total Bilirubin 1.5 MG/DL Sodium Level 129 MEQ/L 136 MEQ/L Potassium Level 4.9 MEQ/L 4.4 MEQ/L Chloride Level 93 MEQ/L 101 MEQ/L Carbon Dioxide Level 27.0 MEQ/L 26.9 MEQ/L Anion Gap 9 MEQ/L 8 MEQ/L Estimat Glomerular Filtration Rate 28 ML/MIN 42 ML/MIN Total Creatine Kinase 232 U/L Creatine Kinase MB 5.2 NG/ML Creatine Kinase MB % 2.2 % Urine Color RED Urine Turbidity CLOUDY Urine pH 5.0 Urine Specific [place] 1.024 Urine Protein 30 mg/dL Urine Glucose (UA) TRACE mg/dL Urine Ketones NEG mg/dL Urine Occult Blood MOD Urine Nitrite NEG Urine Bilirubin NEG Urine Urobilinogen LESS THAN 2.0 MG/DL Urine Leukocyte Esterase LARGE Urine RBC /hpf Urine WBC /hpf Urine WBC Clumps FEW Urine Squamous Epithelial Cells 6 /hpf Urine Transitional Epithelial Cells 4 /hpf Urine Amorphous Sediment RARE Urine Bacteria OCC /hpf Microscopic Urinalysis Comment CULTURE INDICATED Microbiology Microbiology 04/27/17 Urine Culture, Received Pending Physical Exam General General Appearance: Well Developed, No Acute Distress, Comfortable Eyes Eye Exam: Pupils Equal, Pupils Reactive Ears & Nose Ears & Nose Exam: Nasal Mucosa [place] Throat Throat Exam: Oral Mucosa [place] & Moist Neck Neck Exam: Neck Supple, Trachea Midline Pulmonary Resp Exam: Breath Sounds Equal, Decreased Bases Cardiology CV Exam: Regular Gastrointestinal/Abdomen GI Exam: Soft, Non-Tender, Bowel Sounds Present, Non-Distended Musculoskeletal MS Remarks Right shoulder with dressing intact, difficulty with range of motion. Has increased pain with movement Right arm swelling Dependent edema Integumentary Skin Exam: Warm, Intact Extremeties Extremities Exam: Pedal Pulses Palpable Extremeties Remarks Right arm edema, 2+ Bilateral lower extremity edema, trace Neurologic Neuro Exam: Alert, Awake, Speech Clear, Bowling Ball Molder Equal Neuro Remarks Very hard of hearing VTE Prophylaxis VTE Remarks Xarelto Assessment/Plan Problem List: (1) AMNA (acute kidney injury) ICD Codes: N17.9 - Acute kidney failure, unspecified Status: Acute (2) Urinary retention ICD Codes: R33.9 - Retention of urine, unspecified Status: Acute (3) UTI (urinary tract infection) ICD Codes: N39.0 - Urinary tract infection, site not specified Status: Acute (4) Bilateral pulmonary embolism ICD Codes: I26.99 - Other pulmonary embolism without acute cor pulmonale Status: Chronic (5) CAD (coronary artery disease) ICD Codes: I25.10 - Atherosclerotic heart disease of [place] coronary artery without angina pectoris Status: Chronic (6) Generalized weakness ICD Codes: R53.1 - Weakness Status: Acute (7) Failure to thrive in adult ICD Codes: R62.7 - Adult failure to thrive Status: Acute (8) Alteration in self-care ability ICD Codes: R53.81 - Other malaise Status: Acute (9) Hypothyroid ICD Codes: E03.9 - Hypothyroidism, unspecified Status: Acute (10) Diabetes mellitus, type II ICD Codes: E11.9 - Type 2 diabetes mellitus without complications Status: Chronic (11) Fx humeral neck ICD Codes: S42.213A - Unspecified displaced fracture of surgical neck of unspecified humerus, initial encounter for closed fracture Status: Resolved (12) Hypertension ICD Codes: I10 - Hypertension Status: Chronic Assessment/Plan Continue with Luna catheter Continue with antibiotics and follow cultures Continue with cautious hydration Renal function has improved Case management consultation for discharge planning, patient needs rehabilitation placement. She is agreeable at this time however she has signed out AMA at least 3 times in the last month. States that she's willing to go for only 1 month Patient was evaluated for psychiatry during prior admission and felt to be competent to make healthcare decisions She has poor social support Patient would likely benefit from assisted living after rehabilitation placement Continue with home medications, baby aspirin, statin, Atenolol Continue with Xarelto for DVT prophylaxis Continue with Accu-Cheks before meals and at bedtime and insulin therapy as needed Possible discharge in 1-2 days Discussed with RN Discussed with Dr. Chu Discussed with case management Discussed with patient This patient was seen by myself and Dr. Dr. Chu, this note is written on his behalf Problem Qualifiers (1) UTI (urinary tract infection): Qualified Codes: N39.0 - Urinary tract infection, site not specified; R31.9 - Hematuria, unspecified (2) CAD (coronary artery disease): Qualified Codes: I25.10 - Atherosclerotic heart disease of [place] coronary artery without angina pectoris (3) Diabetes mellitus, type II: Qualified Codes: E11.8 - Type 2 diabetes mellitus with unspecified complications (4) Fx humeral neck: (5) Hypertension: Qualified Codes: I10 - Essential (primary) hypertension Ruby Philip Apr 28, 2017 09:48
[2017-04-28] MEDS ORDERED: LIPI10TA PO (19:14)
[2017-04-28] MEDS ORDERED: ASPI-99 PO (19:17)
--- NOTE | 2017-04-28 19:17 | HHI.DCPOC ---
Discharge Care Plan Diagnosis: (1) AMNA (acute kidney injury) (2) Urinary retention (3) Alteration in self-care ability Your Health Problems Are: Anxiety Difficulty with ADL Goals to Promote Your Health * To prevent worsening of your condition and complications * To maintain your health at the optimal level Directions to Meet Your Goals Take your medications as prescribed Follow your dietary instruction Follow activity as directed Keep your appointments as scheduled Take your immunizations and boosters as scheduled If your symptoms worsen call your PCP, if no PCP go to Urgent Care Center or Emergency Room Smoking is Dangerous to Your Health. Avoid second hand smoke Call the 24-hour hour crisis hotline for domestic abuse at Ruby Philip. ROOM SERVICE CLERK Apr 28, 2017 19:17
[2017-04-29 02:02] VITALS: BP 136/63; PULSE 67; RESP 18; TEMP 96.7; O2SAT 96
[2017-04-29] MEDS: ACETAMINOPHEN/HYDROcodone 325 MG/5 MG TAB PO PRN (05:09)
[2017-04-29] MEDS: ISOSORBIDE MONONITRATE 30 MG TAB PO SCH (05:10)
[2017-04-29] MEDS: INSULIN ASPART SUPPLEMENTAL SCALE SQ SCH ×3 (05:14→17:00)
[2017-04-29 05:35] LABS: AUTOMATED NEUTROPHIL # 7.2 TH/MM3 (1.8-7.7); BASOPHIL # 0.1 TH/MM3 (0-0.2); BASOPHIL % 0.8 % (0.0-2.0); EOSINOPHIL # 0.4 TH/MM3 (0-0.4); EOSINOPHIL % 4.4 % (0.0-4.0); HEMATOCRIT 31.4 % (35.0-46.0); LYMPH % 11.6 % (9.0-44.0); LYMPHOCYTE # 1.1 TH/MM3 (1.0-4.8); MEAN CELL VOLUME 91.2 FL (80.0-100.0); MEAN CORPUSCULAR HEMOGLOBIN 30.5 PG (27.0-34.0); MEAN CORPUSCULAR HGB CONC 33.4 % (32.0-36.0); MONO % 9.9 % (0.0-8.0); NEUT % 73.3 % (16.0-70.0); PLATELET COUNT 264 TH/MM3 (150-450); RED BLOOD COUNT 3.44 MIL/MM3 (4.00-5.30); RED CELL DISTRIBUTION WIDTH 14.2 % (11.6-17.2); WHITE BLOOD COUNT 9.9 TH/MM3 (4.0-11.0)
[2017-04-29 05:41] LABS: HEMO FLAGS AUTO DIFF
[2017-04-29 06:23] LABS: BICARBONATE 24.8 MEQ/L (21.0-32.0); POTASSIUM 4.5 MEQ/L (3.5-5.1)
[2017-04-29 07:39] LABS: BANDS 4 % (0-6); BASOPHILS 1 % (0-2); MYELOCYTES 2 % (0-0); NEUTROPHIL # MANUAL DIFF 8.5 TH/MM3 (1.8-7.7); OVALOCYTES 1+ (NORMAL); PLATELET ESTIMATE SMEAR NORMAL (NORMAL); PLATELET MORPHOLOGY NORMAL (NORMAL); POLYS (SEG NEUTROPHILS) 80 % (16-70); SCAN/DIFF FINAL DIFF MANUAL; WBC DIFF SAMPLE 100
[2017-04-29 08:00] VITALS: BP 138/66; PULSE 75; RESP 17; TEMP 99.8; O2SAT 91
[2017-04-29] MEDS: SODIUM CHLORIDE 0.9% FLUSH 10 ML FLUSH IV FLUSH SCH (08:21)
[2017-04-29] MEDS: RIVAROXABAN 15 MG TAB PO SCH (08:21)
[2017-04-29] MEDS: cefTRIAXone INJ 1,000 MG in SODIUM CHLORIDE 0.9% INJ 100 ML IV SCH (08:21)
[2017-04-29] MEDS: ATORVASTATIN 10 MG TAB PO SCH (08:21)
[2017-04-29] MEDS: ASPIRIN EC 81 MG TABEC PO SCH (08:21)
[2017-04-29] MEDS: ATENOLOL 50 MG TAB PO SCH (08:23)
[2017-04-29 10:13] VITALS: O2SAT 93
--- NOTE | 2017-04-29 11:26 | HHI.PR ---
Subjective Subjective Remarks sitting up in chair argumentative Initially fighting when I tried to explain my role again discussed need for rehab, after discussion, she is agreeable states she can't use right arm no cp no sob Review of Systems Constitutional Constitutional Remarks 12 point review of systems difficult to obtain Vitals/Results Vital Signs Vital Signs Date Time Temp Pulse Resp B/P (MAP) Pulse Ox O2 Delivery O2 Flow Rate FiO2 04/29/17 10:13 93 Nasal Cannula 21 04/29/17 08:15 Nasal Cannula 2.00 04/29/17 08:00 99.8 75 17 138/66 (90) 91 04/29/17 02:02 96.7 67 18 136/63 (87) 96 04/28/17 21:17 97 Nasal Cannula 2.00 04/28/17 20:30 77 04/28/17 20:00 95.7 75 18 135/63 (87) 97 04/28/17 16:00 98.1 74 20 111/55 (73) 96 04/28/17 12:00 97.5 81 20 124/69 (87) 95 CBC/BMP: 04/29/17 0519 04/29/17 0519 Lab Results Laboratory Tests Test 04/29/17 05:19 White Blood Count 9.9 TH/MM3 Red Blood Count 3.44 MIL/MM3 Hemoglobin 10.5 GM/DL Hematocrit 31.4 % Mean Corpuscular Volume 91.2 FL Mean Corpuscular Hemoglobin 30.5 PG Mean Corpuscular Hemoglobin Concent 33.4 % Red Cell Distribution Width 14.2 % Platelet Count 264 TH/MM3 Mean Platelet Volume 7.1 FL Neutrophils (%) (Auto) 73.3 % Lymphocytes (%) (Auto) 11.6 % Monocytes (%) (Auto) 9.9 % Eosinophils (%) (Auto) 4.4 % Basophils (%) (Auto) 0.8 % Neutrophils # (Auto) 7.2 TH/MM3 Lymphocytes # (Auto) 1.1 TH/MM3 Monocytes # (Auto) 1.0 TH/MM3 Eosinophils # (Auto) 0.4 TH/MM3 Basophils # (Auto) 0.1 TH/MM3 CBC Comment AUTO DIFF Differential Total Cells Counted 100 Neutrophils % (Manual) 80 % Band Neutrophils % 4 % Lymphocytes % 8 % Monocytes % 5 % Basophils % 1 % Neutrophils # (Manual) 8.5 TH/MM3 Myelocytes 2 % Differential Comment FINAL DIFF MANUAL Platelet Estimate NORMAL Platelet Morphology Comment NORMAL Ovalocytes 1+ Blood Urea Nitrogen 24 MG/DL Creatinine 0.71 MG/DL Random Glucose 124 MG/DL Calcium Level 8.0 MG/DL Sodium Level 136 MEQ/L Potassium Level 4.5 MEQ/L Chloride Level 106 MEQ/L Carbon Dioxide Level 24.8 MEQ/L Anion Gap 5 MEQ/L Estimat Glomerular Filtration Rate 78 ML/MIN Physical Exam General General Appearance: Well Developed, No Acute Distress, Comfortable Eyes Eye Exam: Pupils Equal, Pupils Reactive Ears & Nose Ears & Nose Exam: Nasal Mucosa [place] Throat Throat Exam: Oral Mucosa [place] & Moist Neck Neck Exam: Neck Supple, Trachea Midline Pulmonary Resp Exam: Breath Sounds Equal, Decreased Bases Cardiology CV Exam: Regular Gastrointestinal/Abdomen GI Exam: Soft, Non-Tender, Bowel Sounds Present, Non-Distended Genitourinary Remarks ROLDAN Musculoskeletal MS Remarks Right shoulder with dressing intact, difficulty with range of motion. Has increased pain with movement Right arm swelling Dependent edema Integumentary Skin Exam: Warm, Intact Extremeties Extremities Exam: Pedal Pulses Palpable Extremeties Remarks Right arm edema, 2+ Bilateral lower extremity edema, trace Neurologic Neuro Exam: Alert, Awake, Speech Clear, Duplicator Punch Operator Equal Neuro Remarks Very hard of hearing VTE Prophylaxis VTE Remarks Xarelto Assessment/Plan Problem List: (1) AMNA (acute kidney injury) ICD Codes: N17.9 - Acute kidney failure, unspecified Status: Acute (2) Urinary retention ICD Codes: R33.9 - Retention of urine, unspecified Status: Acute (3) UTI (urinary tract infection) ICD Codes: N39.0 - Urinary tract infection, site not specified Status: Acute (4) Bilateral pulmonary embolism ICD Codes: I26.99 - Other pulmonary embolism without acute cor pulmonale Status: Chronic (5) CAD (coronary artery disease) ICD Codes: I25.10 - Atherosclerotic heart disease of [place] coronary artery without angina pectoris Status: Chronic (6) Generalized weakness ICD Codes: R53.1 - Weakness Status: Acute (7) Failure to thrive in adult ICD Codes: R62.7 - Adult failure to thrive Status: Acute (8) Alteration in self-care ability ICD Codes: R53.81 - Other malaise Status: Chronic (9) Hypothyroid ICD Codes: E03.9 - Hypothyroidism, unspecified Status: Acute (10) Diabetes mellitus, type II ICD Codes: E11.9 - Type 2 diabetes mellitus without complications Status: Chronic (11) Fx humeral neck ICD Codes: S42.213A - Unspecified displaced fracture of surgical neck of unspecified humerus, initial encounter for closed fracture Status: Resolved (12) Hypertension ICD Codes: I10 - Hypertension Status: Chronic Assessment/Plan Continue with [place] catheter, can do bladder training at SNF Continue with antibiotics and follow cultures-+ GNR, sens. pending Continue with cautious hydration Renal function has improved, back to normal. Case management consultation for discharge planning, patient needs rehabilitation placement. She is agreeable at this time however she has signed out AMA at least 3 times in the last month. States that she's willing to go for only 1 week Patient was evaluated for psychiatry during prior admission and felt to be competent to make healthcare decisions She has poor social support Patient would likely benefit from assisted living after rehabilitation placement Continue with home medications, baby aspirin, statin, Atenolol Continue with Xarelto for PE---will increase to 15 mg po bid as her renal function is back to normal. Needs to continue on this dosage x 21 until then jul. to 20 mg PO daily x 3 months Continue with Xarelto for DVT prophylaxis Continue with Accu-Cheks before meals and at bedtime and insulin therapy as needed Per CM accepted at SNF Plan to dc to SNF today F/U ortho next week F/U cardiology F/U PCP Diet-heart healthy Activity-as tolerated Discussed with RN Discussed with Dr. Chu Discussed with case management Discussed with patient This patient was seen by myself and Dr. Dr. Chu, this note is written on his behalf Problem Qualifiers (1) UTI (urinary tract infection): Qualified Codes: N39.0 - Urinary tract infection, site not specified; R31.9 - Hematuria, unspecified (2) CAD (coronary artery disease): Qualified Codes: I25.10 - Atherosclerotic heart disease of [place] coronary artery without angina pectoris (3) Diabetes mellitus, type II: Qualified Codes: E11.8 - Type 2 diabetes mellitus with unspecified complications (4) Fx humeral neck: (5) Hypertension: Qualified Codes: I10 - Essential (primary) hypertension Ruby Philip Apr 29, 2017 11:26
[2017-04-29] MEDS ORDERED: XARE20TA PO (11:34)
[2017-04-29] MEDS ORDERED: XARE15TA PO (11:34)
[2017-04-29] MEDS ORDERED: CEFU1TAB20 PO (11:35)
[2017-04-29 12:00] VITALS: BP 128/63; PULSE 63; RESP 14; TEMP 96; O2SAT 97
[2017-04-29] MEDS ORDERED: HYDR-3516 PO (12:14)
[2017-04-29 16:00] VITALS: BP 146/66; PULSE 66; RESP 15; TEMP 95.4; O2SAT 94
[2017-04-29] MEDS: SODIUM CHLOR 0.9% 1000 ML INJ 1,000 ML IV SCH (16:08)
[2017-04-29] MEDS ORDERED: HYDR-3580 PO (17:12)
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
[2017-04-29] MEDS ORDERED: RIVAROXABAN 15 MG TAB PO SCH (21:00)
== END 2017-04-29 17:51 | DRG 682 ==
LOC: NEPD 21:28 → NEDA 22:56 → N07A 04-28 01:20
PROVIDERS: ADMIT Specialist; ATTEND Specialist
DX: N17.9 Acute kidney failure, unspecified (principal); I26.99 Other pulmonary embolism without acute cor pulmonale; N39.0 Urinary tract infection, site not specified; S42.213A Unspecified displaced fracture of surgical neck of unspecified humerus, initial encounter for closed fracture; E11.9 Type 2 diabetes mellitus without complications; M19.90 Unspecified osteoarthritis, unspecified site; K44.9 Diaphragmatic hernia without obstruction or gangrene; K21.9 Gastro-esophageal reflux disease without esophagitis; I25.10 Atherosclerotic heart disease of native coronary artery without angina pectoris; I10 Essential (primary) hypertension; H91.90 Unspecified hearing loss, unspecified ear; E03.9 Hypothyroidism, unspecified; W19.XXXA Unspecified fall, initial encounter; Y92.9 Unspecified place or not applicable; I25.2 Old myocardial infarction; R62.7 Adult failure to thrive; M40.209 Unspecified kyphosis, site unspecified; R33.9 Retention of urine, unspecified; R53.1 Weakness; F41.9 Anxiety disorder, unspecified; Z91.14 Patient's other noncompliance with medication regimen; Z95.5 Presence of coronary angioplasty implant and graft
CPT/HCPCS: 80048; 80053; 81001; 82550; 82552; 82948; 85007; 85025; 85027; 85610; 85730; 87077; 87086; 87186; J0696; J1815; J2405; J7030

== ENCOUNTER 2017-05-07 10:51 | Emergency (ER) | payer MEDICARE, OTHER ==
[~2017-05-07] VITALS: Ht 162.6 cm; Wt 78.0 kg
[~2017-05-07 10:51] MED LIST changes: +ASPI-99 PO; +CEFU1TAB20 PO; +HYDR-3516 PO; +HYDR-3580 PO; +LIPI10TA PO; -PLAV75TA29 PO; +XARE15TA PO; +XARE20TA PO
[2017-05-07 11:41] VITALS: BP 139/67; PULSE 91; RESP 20; TEMP 98; O2SAT 94
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
[2017-05-07 11:46] VITALS: BP 139/67; PULSE 89; RESP 20; TEMP 98; O2SAT 97
--- NOTE | 2017-05-07 12:09 | RADRPT ---
EXAM DATE/TIME: 05/07/2017 11:42 [facility] COMPARISON: US ARM RIGHT VENOUS DOPPLER, April 23, 2017, 20:59. INDICATIONS : Right arm edema. MEDICAL HISTORY : Hypothyroidism. Myocardial infarction. Hypercholesterolemia. Macular degenerative disease. Head traum a. Coronary artery disease. HTN. Chest pain. Dyspnea. Hiatal hernia. Arthritis. Osteoporosis. Kyphosi s. Diabetes. Anxiety. Anticoagulant therapy, Plavix. MRSA. SURGICAL HISTORY : Coronary artery stent. Appendectomy. Cardiac cath. Right shoulder. Thyroid surgery. ENCOUNTER: Subsequent ACUITY: 3 weeks PAIN SCORE: 7/10 LOCATION: Right arm. FINDINGS: There is spontaneous flow documented in the brachial, basilic, cephalic, axillary, and subclavian vei ns. The vessels are compressible and augmentation response is documented. No filling defects are se en. The flow is phasic with respiration. Direction of flow in the jugular vein is caudal. CONCLUSION: Negative for deep venous thrombosis. Jose Pan MD FACR on May 07, 2017 at 12:07 Board Certified Radiologist. This report was verified electronically.
[2017-05-07 12:31] LABS: AUTOMATED NEUTROPHIL # 10.1 TH/MM3 (1.8-7.7); BASOPHIL % 0.3 % (0.0-2.0); EOSINOPHIL % 0.3 % (0.0-4.0); HEMATOCRIT 35.8 % (35.0-46.0); HEMO FLAGS DIFF FINAL; LYMPHOCYTE # 0.8 TH/MM3 (1.0-4.8); MEAN CELL VOLUME 90.5 FL (80.0-100.0); MEAN CORPUSCULAR HEMOGLOBIN 29.6 PG (27.0-34.0); MEAN CORPUSCULAR HGB CONC 32.7 % (32.0-36.0); MONO % 8.4 % (0.0-8.0); PLATELET COUNT 359 TH/MM3 (150-450); RED BLOOD COUNT 3.96 MIL/MM3 (4.00-5.30)
[2017-05-07 12:40] LABS: BACTERIA, URINE MOD /hpf; BLOOD, URINE MOD (NEG); GLUCOSE,URINE NEG (NEG); KETONE, URINE NEG (NEG); NITRITE,URINE NEG (NEG); SQUAMOUS EPITHELIAL CELL URINE 1 /hpf (0-5); TRANSITIONAL EPI CELLS, URINE <1 /hpf; URINE COLOR YELLOW (YELLW/STRAW)
[2017-05-07 12:41] LABS: COMMENT (UR) CULTURE INDICATED; CULTURE IF INDICATED CULTURE INDICATED
[2017-05-07 12:52] LABS: ALKALINE PHOSPHATASE 184 U/L (45-117); ALT (GPT) 18 U/L (10-53); TOTAL BILIRUBIN ADULT 1.2 MG/DL (0.2-1.0)
[2017-05-07] MEDS ORDERED: cefTRIAXone INJ 1,000 MG in SODIUM CHLORIDE 0.9% INJ 100 ML IV ONE (13:00)
--- NOTE | 2017-05-07 13:00 | PD ---
History of Present Illness Chief Complaint: Psychiatric Symptoms Time Seen by Provider: 13:00 Travel History International Travel<30 Days: No Contact w/Intl Traveler<30days: No Known affected area: No Legal Status Legal Status: Kalyn Act History of Present Illness: 87-year-old female Kalyn acted by law enforcement for unclear reasons. Patient does not want further workup on her shoulder after a minor fall. She is interested in receiving treatment for urinary tract infection. She has no suicidal or homicidal ideation, plan or intent. Her cognition is intact and she has no psychotic symptoms. She would like to go home and this physician does not feel she is incompetent or in need of psychiatric treatment at this time. PFSH Past Medical History Hx Anticoagulant Therapy: Yes Arthritis: Yes Asthma: No Autoimmune Disease: No Blood Disorders: No Anxiety: Yes Depression: No Heart Rhythm Problems: No Cancer: No Cardiac Catheterization: Yes Cardiovascular Problems: Yes (cad, anticoagulant therapy) High Cholesterol: Yes Chemotherapy: No Chest Pain: Yes Congestive Heart Failure: No COPD: No Cerebrovascular Accident: No Coronary Artery Disease: Yes Diabetes: Yes Diminished Hearing: Yes [place]) Endocrine: Yes Gastrointestinal Disorders: Yes GERD: No Glaucoma: No Genitourinary: Yes (urinary frequency) Headaches: No Hepatitis: No Hiatal Hernia: Yes Hypertension: Yes Immune Disorder: No Implanted Vascular Access Dvce: Yes Kidney Stones: No Musculoskeletal: Yes (joint pain) Neurologic: Yes Psychiatric: Yes Reproductive: No Respiratory: Yes Immunizations Current: Yes Migraines: No Myocardial Infarction: Yes Radiation Therapy: No Renal Failure: No Seizures: No Sickle Cell Disease: No Sleep Apnea: No Thyroid Disease: Yes (hypothyroidism) Ulcer: No PNEUMOCCOCAL Vaccine (Year): 1 ?: Not Menopausal: Yes : 0 Past Surgical History Abdominal Surgery: Yes (appendectomy) AICD: No Appendectomy: Yes Arteriovenous Shunt: No Body Medical Devices: STENT 2011. R shoulder pins? Cardiac Surgery: Yes (stent 05/2012, cardiac catheterization) Cholecystectomy: No Coronary Stent: Yes (x1 -05/2012) Ear Surgery: No Endocrine Surgery: Yes (thyroid) Eye Surgery: No Genitourinary Surgery: No Gynecologic Surgery: No Insulin Pump: No Joint Replacement: No Neurologic Surgery: No Oral Surgery: Yes (implants) Pacemaker: No Thoracic Surgery: No Other Surgery: Yes (THYROID) Psychiatric History Psychiatric History Hx Psychiatric Treatment: NO History of Inpatient Treatment: No Guns or firearms in home: No Social History Hx Alcohol Use: No Hx Tobacco Use: No Hx Substance Use: No Hx of Substance Use Treatment: No Allergies-Medications (Allergen,Severity, Reaction): Coded Allergies: meperidine (Unverified Allergy, Mild, N/V, 05/07/17) propoxyphene (Unverified Adverse Reaction, Mild, N/V, 05/07/17) Reported Meds & Prescriptions Reported Meds & Active Scripts Active Hydrocodone-Acetaminophen 7.5-325 mg Tab 1 Tab PO Q4H PRN MDD 4 30 Days Hydrocodone-Acetaminophen 5-325 mg Tab 1 Tab PO Q4H PRN Cefuroxime (Cefuroxime Axetil) 500 Mg Tab 500 Mg PO BID 5 Days Xarelto (Rivaroxaban) 20 Mg Tab 20 Mg PO DAILY 30 Days START MAY 19, 2017 Xarelto (Rivaroxaban) 15 Mg Tab 15 Mg PO BID CONTINUE ON XARELTO 15 MG PO BID UNTIL MAY 18 Adult Aspirin EC Low Strength (Aspirin) 81 Mg Tabec 81 Mg PO DAILY Lipitor (Atorvastatin Calcium) 10 Mg Tab 10 Mg PO DAILY Reported Metformin (Metformin HCl) 1,000 Mg Tab 1,000 Mg PO DAILY With a meal Lisinopril 2.5 Mg Tab 2.5 Mg PO DAILY Atenolol 50 Mg Tab 50 Mg PO BID Isosorbide Mononitrate ER (Isosorbide Mononitrate) 30 Mg Renetta 30 Mg PO DAILY Review of Systems Except as stated in HPI: all other systems reviewed are Neg Exam Alert: Yes [place]: Person, Place, Date, Situation Mood: Calm Affect: Appropriate Speech: Clear, Logical Eye Contact: Normal Memory Intact: Immediate, Recent, Remote Insight/Judgement Adequate MDM Medical Decision Making Medical Record Reviewed: Yes Assessment/Plan Patient interviewed at bedside and medical record reviewed. Case discussed with nurse, Bhumika. In this physician's opinion, the patient is not Mccain act able and she certainly does not have suicidal or homicidal ideation, plan or intent. Her cognition is intact and she presents with no psychotic symptoms. She would like to be going home and she can receive whatever treatment she needs on an outpatient basis. Orders Orders Complete Blood Count With Diff (05/07/17 11:28) Comprehensive Metabolic Panel (05/07/17 11:28) Urinalysis - C+S If Indicated (05/07/17 11:28) Cath For Specimen (05/07/17 11:28) Psych Screen (05/07/17 11:28) Drug Screen, Random Urine (05/07/17 11:28) Us Arm Venous Doppler (05/07/17 11:28) Urine Culture (05/07/17 12:10) Ceftriaxone Inj (Rocephin Inj) (05/07/17 13:00) Results Vital Signs Date Time Temp Pulse Resp B/P (MAP) Pulse Ox O2 Delivery O2 Flow Rate FiO2 05/07/17 11:46 98.0 89 20 139/67 (91) 97 05/07/17 11:41 98.0 91 20 139/67 (91) 94 Room Air Laboratory Tests Test 05/07/17 12:10 White Blood Count 12.0 Red Blood Count 3.96 Hemoglobin 11.7 Hematocrit 35.8 Mean Corpuscular Volume 90.5 Mean Corpuscular Hemoglobin 29.6 Mean Corpuscular Hemoglobin Concent 32.7 Red Cell Distribution Width 15.0 Platelet Count 359 Mean Platelet Volume 7.4 Neutrophils (%) (Auto) 84.0 Lymphocytes (%) (Auto) 7.0 Monocytes (%) (Auto) 8.4 Eosinophils (%) (Auto) 0.3 Basophils (%) (Auto) 0.3 Neutrophils # (Auto) 10.1 Lymphocytes # (Auto) 0.8 Monocytes # (Auto) 1.0 Eosinophils # (Auto) 0.0 Basophils # (Auto) 0.0 CBC Comment DIFF FINAL Differential Comment Urine Color YELLOW Urine Turbidity CLOUDY Urine pH 6.0 Urine Specific [place] 1.015 Urine Protein 30 Urine Glucose (UA) NEG Urine Ketones NEG Urine Occult Blood MOD Urine Nitrite NEG Urine Bilirubin NEG Urine Urobilinogen LESS THAN 2.0 Urine Leukocyte Esterase LARGE Urine RBC 27 Urine WBC Urine WBC Clumps MANY Urine Squamous Epithelial Cells 1 Urine Transitional Epithelial Cells <1 Urine Bacteria MOD Microscopic Urinalysis Comment CULTURE INDICATED Total Protein 6.3 Alkaline Phosphatase 184 Alanine Aminotransferase (ALT/SGPT) 18 Total Bilirubin 1.2 Urine Opiates Screen NEG Urine Barbiturates Screen NEG Urine Amphetamines Screen NEG Urine Benzodiazepines Screen NEG Urine Cocaine Screen NEG Urine Cannabinoids Screen NEG Date/Time Source Procedure Growth Status 05/07/17 12:10 Urine Clean Catch Urine Culture Pending Received Diagnosis Primary Impression: Adjustment disorder with mixed disturbance of emotions and conduct Mick Jackson MD May 07, 2017 13:00
[2017-05-07 13:02] LABS: ANION GAP 5 MEQ/L (5-15); AST (GOT) 27 U/L (15-37); BICARBONATE 28.7 MEQ/L (21.0-32.0); BLOOD UREA NITROGEN 17 MG/DL (7-18); CHLORIDE 100 MEQ/L (98-107); GLOMERULAR FILTRATION RATE 66 ML/MIN (>89); SODIUM (NA) 134 MEQ/L (136-145)
[2017-05-07 13:09] LABS: POTASSIUM 4.3 MEQ/L (3.5-5.1)
[2017-05-07] MEDS ORDERED: CEPH-460 PO (13:22)
[2017-05-07] MEDS ORDERED: LISI10TA3 PO (14:27)
[2017-05-07] MEDS ORDERED: METF500T PO (14:27)
--- NOTE | 2017-05-07 18:08 | HHI.FF ---
Face to Face Verification Diagnosis: (1) Fall Home Health Nursing Order: Medical education I have seen patient Cathleen Tee on 05/07/17. My clinical findings support the need for the requested home health care services because: Ltd mobility - disease progression Limited ability to care for self I certify that my clinical findings support that this patient is homebound because: Unsteady gait/balance Debo Fletcher MD May 07, 2017 18:08
[2017-05-07 18:47] VITALS: BP 157/70; PULSE 88; RESP 16; TEMP 98; O2SAT 96
[2017-05-07 20:45] VITALS: BP 145/68
== END 2017-05-07 20:40 | disposition home or self-care (01) ==
LOC: NEPE 10:51
DX: N39.0 Urinary tract infection, site not specified (principal); B96.5 Pseudomonas (aeruginosa) (mallei) (pseudomallei) as the cause of diseases classified elsewhere; B95.2 Enterococcus as the cause of diseases classified elsewhere; M79.89 Other specified soft tissue disorders; M19.90 Unspecified osteoarthritis, unspecified site; F43.25 Adjustment disorder with mixed disturbance of emotions and conduct; W19.XXXA Unspecified fall, initial encounter; I25.10 Atherosclerotic heart disease of native coronary artery without angina pectoris; I10 Essential (primary) hypertension; E78.00 Pure hypercholesterolemia, unspecified; E11.9 Type 2 diabetes mellitus without complications; I25.2 Old myocardial infarction; E03.9 Hypothyroidism, unspecified; Z95.5 Presence of coronary angioplasty implant and graft; Z79.01 Long term (current) use of anticoagulants; Z79.84 Long term (current) use of oral hypoglycemic drugs; Z91.81 History of falling; R62.7 Adult failure to thrive; Z79.82 Long term (current) use of aspirin; Z79.899 Other long term (current) drug therapy
CPT/HCPCS: 80053; 80307; 81001; 85025; 87077; 87086; 87186; 93971; 96365; 99285; J0696; P9612

== ENCOUNTER 2017-05-07 21:23 | Emergency (ER) | payer MEDICARE, OTHER ==
[~2017-05-07 21:23] MED LIST changes: +CEPH-460 PO; +LISI10TA3 PO; +METF500T PO
[2017-05-08 00:35] VITALS: BP 175/80; PULSE 90; RESP 20; TEMP 97.9; O2SAT 96
--- NOTE | 2017-05-08 03:03 | PD ---
HPI Chief Complaint: Medical Clearance Time Seen by Provider: 23:35 Travel History International Travel<30 days: No Contact w/Intl Traveler<30days: No Traveled to known affect area: No History of Present Illness HPI The 87 year-old woman, multiple medical problems, and in the hospital with failure to thrive falls, on warfarin, was just seen for bizarre behavior after she left AMA from a senior living. She was seen by psychiatry several times in the past couple weeks. The Mccain act was lifted. We arranged for transport back home. Her son was supposed to come over and unlocked the door. He apparently did not. Per protocol she was brought back to the emergency department. They also considered sending her back to the senior living because she left AMA today apparently would not take her back. History Past Medical History Narrative Medical Diabetes CAD GERD Urinary incontinence hypertension HI Hypothyroidism Arthritis Anxiety Degenerative disc disease Heart of hearing Kyphosis Large hiatal hernia Recent right humeral fractures were PE afterwards PNEUMOCCOCAL Vaccine (Year): 1 Menopausal: Yes : 0 Social History Alcohol Use: No Tobacco Use: No Allergies-Medications (Allergen,Severity, Reaction): Coded Allergies: meperidine (Verified Allergy, Mild, N/V, 05/07/17) propoxyphene (Verified Adverse Reaction, Mild, N/V, 05/07/17) Reported Meds & Prescriptions Reported Meds & Active Scripts Active Keflex (Cephalexin) 500 Mg Cap 500 Mg PO Q12H 10 Days Hydrocodone-Acetaminophen 7.5-325 mg Tab 1 Tab PO Q4H PRN MDD 4 30 Days Xarelto (Rivaroxaban) 20 Mg Tab 20 Mg PO DAILY 30 Days START MAY 19, 2017 Xarelto (Rivaroxaban) 15 Mg Tab 15 Mg PO BID CONTINUE ON XARELTO 15 MG PO BID UNTIL MAY 18 Adult Aspirin EC Low Strength (Aspirin) 81 Mg Tabec 81 Mg PO DAILY Lipitor (Atorvastatin Calcium) 10 Mg Tab 10 Mg PO DAILY Reported Metformin (Metformin HCl) 500 Mg Tab 500 Mg PO DAILY With a meal Lisinopril 10 Mg Tab 10 Mg PO BID Atenolol 50 Mg Tab 50 Mg PO DAILY Review of Systems Except as stated in HPI: all other systems reviewed are Neg Physical Exam Narrative GENERAL: 87 year-old woman, lying in bed, no acute distress. SKIN: Warm and dry. CARDIOVASCULAR: Warm and well perfused. RESPIRATORY: Normal rate and effort. MUSCULOSKELETAL: No gross deformities. NEUROLOGICAL: Awake and alert. No gross deficits. Data Data Last Documented VS Vital Signs Date Time Temp Pulse Resp B/P (MAP) Pulse Ox O2 Delivery O2 Flow Rate FiO2 05/08/17 00:35 97.9 90 20 175/80 (111) 96 Room Air MDM Medical Decision Making Medical Screen Exam Complete: Yes Emergency Medical Condition: Yes Differential Diagnosis Generalized weakness, debility, dementia, other Narrative Course Medical decision making This 87 year-old woman who brought back to the ED after discharge to home fell through his bit as her son never unlocked the door apparently. She seems unsafe at home however she seems to have capacity and refuses to stay in the hospital or nursing facility. This complicates or discharge. It sounds like her son does not want her to be at home either from my discussion with the nurse who had her earlier. There is no case management right now. What case management try to place her back into a residential facility in the a.. Jeronimo Lazar MD May 08, 2017 03:03
== END 2017-05-08 11:03 | disposition home or self-care (01) ==
LOC: NEDAMB 21:23 → NEPD 05-08 11:03
DX: Z02.89 Encounter for other administrative examinations (principal); R62.7 Adult failure to thrive; Z91.81 History of falling; E11.9 Type 2 diabetes mellitus without complications; I25.10 Atherosclerotic heart disease of native coronary artery without angina pectoris; I10 Essential (primary) hypertension; E03.9 Hypothyroidism, unspecified; M19.90 Unspecified osteoarthritis, unspecified site; Z79.84 Long term (current) use of oral hypoglycemic drugs; Z79.82 Long term (current) use of aspirin; Z79.01 Long term (current) use of anticoagulants; Z79.899 Other long term (current) drug therapy
CPT/HCPCS: 99283

== ENCOUNTER 2017-05-17 23:01 | Inpatient (IN) | payer MEDICARE, OTHER ==
[~2017-05-17] VITALS: Ht 160 cm; Wt 77.0 kg
[~2017-05-17 23:01] MED LIST changes: -CEFU1TAB20 PO; -HYDR-3516 PO; -ISOS30TA3 PO; -LISI2.5T3 PO; -METF1000 PO
[2017-05-17 23:16] VITALS: BP 209/95; PULSE 113; RESP 18; TEMP 99.3; O2SAT 96
[2017-05-18] VITALS (9 sets, daily range): BP systolic 113–147; BP diastolic 54–65; PULSE 77–101; RESP 16–24; TEMP 97.8–98.5; O2SAT 91–96
[2017-05-18] MEDS ORDERED: SODIUM CHLOR 0.9% 1000 ML INJ 1,000 ML IV SCH (02:10)
[2017-05-18] MEDS ORDERED: SODIUM CHLORIDE 0.9% FLUSH 5 ML FLUSH IV FLUSH PRN (02:15)
--- NOTE | 2017-05-18 02:46 | RADRPT ---
EXAM DATE/TIME: 05/18/2017 02:15 [facility] COMPARISON: CT PULMONARY ANGIOGRAM, April 23, 2017, 22:02. CHEST SINGLE AP, April 19, 2017, 13:56. INDICATIONS : Syncopal episode. MEDICAL HISTORY : Myocardial infarction. Hypertension Diabetes mellitus type II. SURGICAL HISTORY : Coronary artery stent. ENCOUNTER: Initial ACUITY: 1 day PAIN SCORE: 0/10 LOCATION: Bilateral chest FINDINGS: Massive hiatal hernia and diaphragmatic eventration account for abnormal cardiomediastinal contours. Vascular congestion and interstitial prominence is similar to prior. CONCLUSION: No significant change Sonny Evans MD on May 18, 2017 at 2:30 Board Certified Radiologist. This report was verified electronically.
[2017-05-18 02:50] LABS: BASOPHIL # 0.2 TH/MM3 (0-0.2); BASOPHIL % 1.3 % (0.0-2.0); EOSINOPHIL % 0.2 % (0.0-4.0); HEMATOCRIT 42.6 % (35.0-46.0); HEMO FLAGS DIFF FINAL; LYMPH % 1.7 % (9.0-44.0); LYMPHOCYTE # 0.2 TH/MM3 (1.0-4.8); MEAN CELL VOLUME 89.2 FL (80.0-100.0); MEAN CORPUSCULAR HEMOGLOBIN 28.5 PG (27.0-34.0); MEAN CORPUSCULAR HGB CONC 31.9 % (32.0-36.0); NEUT % 93.8 % (16.0-70.0); PLATELET COUNT 285 TH/MM3 (150-450); RED BLOOD COUNT 4.77 MIL/MM3 (4.00-5.30); RED CELL DISTRIBUTION WIDTH 15.1 % (11.6-17.2); WHITE BLOOD COUNT 13.9 TH/MM3 (4.0-11.0)
[2017-05-18 03:02] LABS: APTT (PATIENT) 24.2 SEC (24.3-30.1); INTERNATIONAL NORMALIZED RATIO 1.1 RATIO; PROTHROMBIN TIME - PATIENT 12.2 SEC (9.8-11.6)
[2017-05-18 03:19] LABS: ALKALINE PHOSPHATASE 170 U/L (45-117); ALT (GPT) 15 U/L (10-53); TOTAL BILIRUBIN ADULT 0.9 MG/DL (0.2-1.0)
[2017-05-18 03:23] LABS: ANION GAP 12 MEQ/L (5-15); AST (GOT) 15 U/L (15-37); BICARBONATE 24.8 MEQ/L (21.0-32.0); BLOOD UREA NITROGEN 15 MG/DL (7-18); CHLORIDE 101 MEQ/L (98-107); CREATINE KINASE 35 U/L (26-192); GLOMERULAR FILTRATION RATE 68 ML/MIN (>89); POTASSIUM 3.6 MEQ/L (3.5-5.1); SODIUM (NA) 138 MEQ/L (136-145)
[2017-05-18] MEDS ORDERED: MAGNESIUM HYDROXIDE SUSP 30 ML CUP PO PRN (04:15)
[2017-05-18] MEDS ORDERED: LACTULOSE SYRUP 20 GM/30 ML CUP PO PRN (04:15)
[2017-05-18] MEDS ORDERED: SENNOSIDES 8.6 MG TAB PO PRN (04:15)
[2017-05-18] MEDS ORDERED: SODIUM CHLORIDE 0.9% FLUSH 10 ML FLUSH IV FLUSH PRN (04:15)
[2017-05-18] MEDS ORDERED: ONDANSETRON HCL 4 MG/2 ML VIAL IVP PRN (04:15)
[2017-05-18] MEDS ORDERED: NALOXONE HCL 0.4 MG/ML AMP IV PUSH PRN (04:15)
[2017-05-18] MEDS ORDERED: ACETAMINOPHEN 325 MG TAB PO PRN (04:15)
[2017-05-18] MEDS ORDERED: BISACODYL 10 MG SUPP RECTAL PRN (04:15)
[2017-05-18] MEDS ORDERED: CIPROFLOXACIN 400 MG PREMIX 200 ML IV ONE (04:30)
[2017-05-18] MEDS ORDERED: SODIUM CHLORIDE 0.9% FLUSH 10 ML FLUSH IVF PRN (04:30)
[2017-05-18 04:38] LABS: BACTERIA, URINE MOD /hpf; BLOOD, URINE SMALL (NEG); COMMENT (UR) CATH-CULTURE IND; CULTURE IF INDICATED CATH CULTURE IND; GLUCOSE,URINE 150 mg/dL (NEG); KETONE, URINE 10 mg/dL (NEG); NITRITE,URINE POS (NEG); PH, URINE 5.5 (5.0-8.5); SQUAMOUS EPITHELIAL CELL URINE <1 /hpf (0-5); URINE COLOR YELLOW (YELLW/STRAW)
[2017-05-18] MEDS: CIPROFLOXACIN 500 MG TAB PO SCH ×3 (05:01→20:39)
[2017-05-18] MEDS: SODIUM CHLOR 0.9% 1000 ML INJ 1,000 ML IV SCH ×2 (05:01→19:49)
--- NOTE | 2017-05-18 05:05 | PD ---
HPI Chief Complaint: Back/ Neck Pain or Injury Time Seen by Provider: 02:10 Travel History International Travel<30 days: No Contact w/Intl Traveler<30days: No Traveled to known affect area: No History of Present Illness HPI 87-year-old female presents to the emergency department for generalized weakness back pain intermittent urinary retention and incontinence no recent injury or fall since the initial fall 04/13/17 with shoulder fracture. Patient has been admitted several times (04/19/17, 04/23/17, 04/27/17) and seen in the emergency department several times(05/07/17, 05/07/17) for generalized weakness acute kidney injury inability to care for self and failure to thrive. 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 Patient complains of back pain flank pain denies pelvic pain or lower extremity pain other than chronic pretibial erythema she states is related to chronic anticoagulation. Patient states this is not a new finding. Patient denies fever chills. Patient denies chest pain or shortness of breath. Recent history /diagnosis of ulnar embolism for which patient is prescribed Xarelto. Patient reportedly been taking medication as prescribed. Patient is unable to identify exacerbating or alleviating factors other than pain with attempted range of motion of lower back. PFSH Past Medical History Narrative Medical PE, Xarelto, CAD, [place], cardiac catheterization with stent, vasculitis, hypertension, high cholesterol, diabetes, hypothyroidism, appendectomy thyroidectomy; no alcohol use no substance use tobacco use; nursing notes reviewed Hx Anticoagulant Therapy: Yes Arthritis: Yes Asthma: No Autoimmune Disease: No Blood Disorders: No Anxiety: Yes Depression: No Heart Rhythm Problems: No Cancer: No Cardiac Catheterization: Yes (stent 05/2012, cardiac catheterization) Cardiovascular Problems: Yes (cad, anticoagulant therapy) High Cholesterol: Yes Chemotherapy: No Chest Pain: Yes Congestive Heart Failure: No COPD: No Cerebrovascular Accident: No Coronary Artery Disease: Yes Diabetes: Yes Patient Takes Glucophage: No Diminished Hearing: Yes ([place]) Endocrine: Yes Gastrointestinal Disorders: Yes GERD: No Glaucoma: No Genitourinary: Yes (urinary frequency) Headaches: No Hepatitis: No Hiatal Hernia: Yes Heparin Induced Thrombocytopen: No Hypertension: Yes Immune Disorder: No Implanted Vascular Access Dvce: Yes Kidney Stones: No Musculoskeletal: Yes (joint pain) Neurologic: Yes Psychiatric: Yes Reproductive: No Respiratory: Yes Immunizations Current: Yes Migraines: No Myocardial Infarction: Yes Radiation Therapy: No Renal Failure: No Seizures: No Sickle Cell Disease: No Sleep Apnea: No Thyroid Disease: Yes (hypothyroidism) Ulcer: No PNEUMOCCOCAL Vaccine (Year): 1 Menopausal: Yes : 0 Past Surgical History Abdominal Surgery: Yes AICD: No Appendectomy: Yes Arteriovenous Shunt: No Body Medical Devices: STENT 2011. R shoulder pins? Cardiac Surgery: Yes (stent 05/2012, cardiac catheterization) Cholecystectomy: No Coronary Stent: Yes (x1 -05/2012) Ear Surgery: No Endocrine Surgery: Yes (thyroid) Eye Surgery: No Genitourinary Surgery: No Gynecologic Surgery: No Insulin Pump: No Joint Replacement: No Neurologic Surgery: No Oral Surgery: Yes (implants) Pacemaker: No Thoracic Surgery: No Other Surgery: Yes (THYROID) Social History Alcohol Use: No Tobacco Use: No Substance Use: No Allergies-Medications (Allergen,Severity, Reaction): Coded Allergies: meperidine (Verified Allergy, Mild, N/V, 05/17/17) propoxyphene (Verified Adverse Reaction, Mild, N/V, 05/17/17) Reported Meds & Prescriptions Reported Meds & Active Scripts Active Xarelto (Rivaroxaban) 20 Mg Tab 20 Mg PO DAILY 30 Days START MAY 19, 2017 Xarelto (Rivaroxaban) 15 Mg Tab 15 Mg PO BID CONTINUE ON XARELTO 15 MG PO BID UNTIL MAY 18 Adult Aspirin EC Low Strength (Aspirin) 81 Mg Tabec 81 Mg PO DAILY Lipitor (Atorvastatin Calcium) 10 Mg Tab 10 Mg PO DAILY Reported Metformin (Metformin HCl) 500 Mg Tab 500 Mg PO DAILY With a meal Lisinopril 10 Mg Tab 10 Mg PO BID Atenolol 50 Mg Tab 50 Mg PO DAILY Review of Systems Except as stated in HPI: all other systems reviewed are Neg General / Constitutional: No: Fever, Chills Eyes: No: Visual changes HENT: No: Headaches, Congestion Cardiovascular: No: Chest Pain or Discomfort, Palpitations, Diaphoresis Respiratory: No: Shortness of Breath Gastrointestinal: Positive: Diarrhea, No: Nausea, Vomiting, Abdominal Pain Genitourinary: Positive: Urgency, Frequency, Dysuria, Incontinence Musculoskeletal: Positive: Myalgias, Arthralgias, Limited ROM (low back pain), Pain (low back pain), No: Weakness Skin: Positive Other (pretibial dermatitis), No Rash Neurologic: Positive: Weakness Psychiatric: No: Anxiety Hematologic/Lymphatic: No: Easy Bruising Physical Exam Narrative GENERAL: Well-developed well-nourished female that intermittently tells the staff to leave her alone and tell her why she has back pain and why she has a UTI SKIN: Warm and dry. Bilateral lower extremity pretibial erythema with intact vesicles without petechia HEAD: Normocephalic. EYES: No scleral icterus. No injection or drainage. NECK: Supple, trachea midline. No JVD or lymphadenopathy. CARDIOVASCULAR: Regular rate and rhythm without murmurs, gallops, or rubs. RESPIRATORY: Breath sounds equal bilaterally. No accessory muscle use. GASTROINTESTINAL: Abdomen soft, non-tender, nondistended. MUSCULOSKELETAL: No cyanosis, or edema. BACK: Nontender to direct palpation along the cervical and thoracic and lumbar spine without obvious deformity. No CVA tenderness. Data Data Last Documented VS Vital Signs Date Time Temp Pulse Resp B/P (MAP) Pulse Ox O2 Delivery O2 Flow Rate FiO2 05/17/17 23:16 99.3 113 18 209/95 (133) 96 Orders Orders Electrocardiogram (05/18/17 02:10) Ammonia (05/18/17 02:10) Complete Blood Count With Diff (05/18/17 02:10) Comprehensive Metabolic Panel (05/18/17 02:10) Creatine Kinase (Cpk) (05/18/17 02:10) Prothrombin Time / Inr (Pt) (05/18/17 02:10) Act Partial Throm Time (Ptt) (05/18/17 02:10) Troponin I (05/18/17 02:10) Thyroid Stimulating Hormone (05/18/17 02:10) Urinalysis - C+S If Indicated (05/18/17 02:10) Blood Culture (05/18/17 02:10) Chest, Single Ap (05/18/17 02:10) Blood Glucose (05/18/17 02:10) Ecg Monitoring (05/18/17 02:10) Iv Access Insert/Monitor (05/18/17 02:10) Oximetry (05/18/17 02:10) Sodium Chloride 0.9% Flush (Ns Flush) (05/18/17 02:15) Sodium Chlor 0.9% 1000 Ml Inj (Ns 1000 M (05/18/17 02:10) Cath For Specimen (05/18/17 02:10) Ct Abd/Pel W Iv Contrast(Rout) (05/18/17 ) Lactic Acid (05/18/17 04:05) Place In Observation (05/18/17 ) Vital Signs (Adult) Q4H (05/18/17 04:09) Activity Oob With Assistance (05/18/17 04:09) Diet 1800 Ada Cons Carb (05/18/17 Breakfast) Sodium Chlor 0.9% 1000 Ml Inj (Ns 1000 M (05/18/17 04:09) Sodium Chloride 0.9% Flush (Ns Flush) (05/18/17 04:15) Sodium Chloride 0.9% Flush (Ns Flush) (05/18/17 09:00) Acetaminophen (Tylenol) (05/18/17 04:15) Ondansetron Inj (Zofran Inj) (05/18/17 04:15) Resp Oxygen Siddhartha C Titrat 1-4 L (05/18/17 ) Pt Request For Service (05/18/17 04:09) Case Management Consult (05/18/17 04:09) Scd Bilateral/Knee High [place].BID (05/18/17 04:09) Naloxone Inj (Narcan Inj) (05/18/17 04:15) Magnesium Hydroxide Liq (Milk Of Magnesi (05/18/17 04:15) Sennosides (Senokot) (05/18/17 04:15) Bisacodyl Supp (Dulcolax Supp) (05/18/17 04:15) Lactulose Liq (Lactulose Liq) (05/18/17 04:15) Ciprofloxacin (Cipro) (05/18/17 04:15) Admit Order (Ed Use Only) (05/18/17 ) ^ Saline Lock (05/18/17 04:16) Resp Oxygen Siddhartha C Titrat 1-4 L (05/18/17 ) Notify Dr: Other (05/18/17 04:16) Sodium Chloride 0.9% Flush (Ns Flush) (05/18/17 09:00) Sodium Chloride 0.9% Flush (Ns Flush) (05/18/17 04:30) Ciprofloxacin 400 Mg Premix (Cipro 400 M (05/18/17 04:30) Labs Laboratory Tests Test 05/18/17 02:30 05/18/17 02:35 White Blood Count 13.9 TH/MM3 Red Blood Count 4.77 MIL/MM3 Hemoglobin 13.6 GM/DL Hematocrit 42.6 % Mean Corpuscular Volume 89.2 FL Mean Corpuscular Hemoglobin 28.5 PG Mean Corpuscular Hemoglobin Concent 31.9 % Red Cell Distribution Width 15.1 % Platelet Count 285 TH/MM3 Mean Platelet Volume 7.7 FL Neutrophils (%) (Auto) 93.8 % Lymphocytes (%) (Auto) 1.7 % Monocytes (%) (Auto) 3.0 % Eosinophils (%) (Auto) 0.2 % Basophils (%) (Auto) 1.3 % Neutrophils # (Auto) 13.0 TH/MM3 Lymphocytes # (Auto) 0.2 TH/MM3 Monocytes # (Auto) 0.4 TH/MM3 Eosinophils # (Auto) 0.0 TH/MM3 Basophils # (Auto) 0.2 TH/MM3 CBC Comment DIFF FINAL Differential Comment Prothrombin Time 12.2 SEC Prothromb Time International Ratio 1.1 RATIO Activated Partial Thromboplast Time 24.2 SEC Blood Urea Nitrogen 15 MG/DL Creatinine 0.80 MG/DL Random Glucose 186 MG/DL Total Protein 6.6 GM/DL Albumin 3.2 GM/DL Calcium Level 8.7 MG/DL Alkaline Phosphatase 170 U/L Aspartate Amino Transf (AST/SGOT) 15 U/L Alanine Aminotransferase (ALT/SGPT) 15 U/L Total Bilirubin 0.9 MG/DL Sodium Level 138 MEQ/L Potassium Level 3.6 MEQ/L Chloride Level 101 MEQ/L Carbon Dioxide Level 24.8 MEQ/L Anion Gap 12 MEQ/L Estimat Glomerular Filtration Rate 68 ML/MIN Ammonia 16 MCMOL/L Total Creatine Kinase 35 U/L Troponin I LESS THAN 0.02 NG/ML Thyroid Stimulating Hormone 3rd Gen 1.640 uIU/ML MDM Medical Decision Making Medical Screen Exam Complete: Yes Emergency Medical Condition: Yes Interpretation(s) CBC & BMP Diagram 05/18/17 02:30 05/18/17 02:35 Total Protein 6.6, Albumin 3.2 L, Calcium Level 8.7, Alkaline Phosphatase 170 H , Aspartate Amino Transf (AST/SGOT) 15, Alanine Aminotransferase (ALT/SGPT) 15, Total Bilirubin 0.9 Vital Signs Date Time Temp Pulse Resp B/P (MAP) Pulse Ox O2 Delivery O2 Flow Rate FiO2 05/17/17 23:16 99.3 113 18 209/95 (133) 96 CT abd/pel w/ contarst: CONCLUSION: Stable exam appearance. No acute abdominal or pelvic CT findings. Sonny Evans MD on May 18, 2017 at 6:27 Board Certified Radiologist. This report was verified electronically. Differential Diagnosis Generalized weakness, failure to thrive, kidney failure, electronic disturbance , UTI, sepsis, pneumonia, medication noncompliance, anemia Narrative Course Patient delivered to the emergency department by EMS transport; placed on cardiac rehabilitation program director and pulse oximetry; specimens collected and sent for resulting Urinalysis ordered; mini catheter ordered CBC with automated differential shows leukocytosis 13,000 with left shift 91% neutrophils; lactic acid was not elevated at 1.5 Metabolic panel values are grossly within normal range Troponin I is less than 0.02, not elevated total CK is within normal range @ 4:45 AM 1500 ml uop; urinary catheter inserted; specimen sent for UA w/ C&S Urinalysis is abnormal with positive nitrites positive leukocyte Estrace many wbc's and clumped WBCs and bacteria specimen sent for culture and sensitivity review of medical records indicates that urinalysis 04/27 and 05/07 pseudomonas and VRE enterococcus As well as treating patient with ciprofloxacin patient ordered x 1 dose zyvox Sepsis Criteria SIRS Criteria (2 or more): Heart rate over 90, WBC > 79789, < 4000 or > 10% bands Sepsis Criteria (SIRS+source): Infect source susp/known (urine) Physician Communication Physician Communication discussed with Lino High --admit OBS to [facility] service Diagnosis Primary Impression: Generalized weakness Additional Impressions: SIRS (systemic inflammatory response syndrome) UTI (urinary tract infection) Sepsis Admitting Information Admitting Physician Requests: Observation Estephania Parker MD May 18, 2017 05:05
[2017-05-18] MEDS ORDERED: LINEZOLID 600 MG PREMIX 300 ML IV ONE (05:15)
[2017-05-18] MEDS ORDERED: IOHEXOL 350 MG/ML 10 ML VIAL (for RAD DIAG) IVCONTRAST ONE (06:27)
--- NOTE | 2017-05-18 06:37 | RADRPT ---
EXAM DATE/TIME: 05/18/2017 06:11 [place] COMPARISON: CT ABDOMEN & PELVIS W CONTRAST, April 26, 2017, 11:01. INDICATIONS : Back pain. IV CONTRAST: 95 cc Omnipaque 350 (iohexol) IV ORAL CONTRAST: No oral contrast ingested. RADIATION DOSE: 11.64 CTDIvol (mGy) MEDICAL HISTORY : Cardiovascular disease. Hypertension. Hernia, hiatal.Diabetes. Coronary artery disease. SURGICAL HISTORY : Appendectomy. ENCOUNTER: Initial ACUITY: 1 day PAIN SCALE: 4/10 LOCATION: Bilateral flank TECHNIQUE: Volumetric scanning of the abdomen and pelvis was performed. Using automated exposure control and ad justment of the mA and/or kV according to patient size, radiation dose was kept as low as reasonably achievable to obtain optimal diagnostic quality images. DICOM format image data is available electro nically for review and comparison. FINDINGS: LOWER LUNGS: Massive hiatal and left posterior diaphragmatic hernia again noted containing the entire stomach, tra nsverse colon and splenic flexure as well as multiple small bowel loops. LIVER: Homogeneous density without lesion. There is no dilation of the biliary tree. No calcified gallston es. SPLEEN: Normal size without lesion. PANCREAS: Within normal limits. KIDNEYS: Normal in size and shape. There is no mass, stone or hydronephrosis. ADRENAL GLANDS: Within normal limits. VASCULAR: There is no aortic aneurysm. BOWEL/MESENTERY: See above. No dilated bowel loops. No abnormal wall thickening or focal inflammatory changes. ABDOMINAL WALL: Within normal limits. RETROPERITONEUM: There is no lymphadenopathy. BLADDER: Decompressed with Luna catheter. REPRODUCTIVE: Calcifications within uterine fibroids. No pelvic mass or free fluid. INGUINAL: There is no lymphadenopathy or hernia. MUSCULOSKELETAL: Stable CONCLUSION: Stable exam appearance. No acute abdominal or pelvic CT findings. Sonny Evans MD on May 18, 2017 at 6:27 Board Certified Radiologist. This report was verified electronically.
--- NOTE | 2017-05-18 08:31 | HHI.FF ---
Face to Face Verification Diagnosis: (1) Generalized weakness (2) UTI (urinary tract infection) Physical Therapy Order: Evaluate and Treat Home Health Nursing Order: Medical education Signs/symptoms of disease process Nursing assessment with vital signs Sports Equipment Racker Order: To Evaluate: Living conditions/environment, Support services Order: To Provide: Long range planning, Community services I have seen patient Cathleen Tee on 05/18/17. My clinical findings support the need for the requested home health care services because: Ltd mobility - disease progression Deconditioned w/ increased weakness Need for psychosocial assistance I certify that my clinical findings support that this patient is homebound because: Unsteady gait/balance Unsafe to leave home unassisted Need for psychosocial assistance Ruby Philip May 18, 2017 08:31
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
[2017-05-18] MEDS: SODIUM CHLORIDE 0.9% FLUSH 10 ML FLUSH IV FLUSH SCH ×2 (09:00→20:33)
[2017-05-18] MEDS ORDERED: SODIUM CHLORIDE 0.9% FLUSH 10 ML FLUSH IV FLUSH SCH (09:00)
--- NOTE | 2017-05-18 10:07 | EKG ---
Date Performed: 05/17/2017 Time Performed: 23:15:46 PTAGE: 87 years EKG: SINUS TACHYCARDIA LEFT VENTRICULAR HYPERTROPHY AND ST-T CHANGE ABNORMAL ECG PREVIOUS TRACING : 04/24/2017 08.50 Compared to prior tracing no significant change DOCTOR: Prabhu Johnson Interpretating Date/Time 05/18/2017 10:05:38
[2017-05-18] MEDS ORDERED: GLUCAGON 1 MG/ML VIAL OTHER PRN (10:45)
[2017-05-18] MEDS ORDERED: DEXTROSE 50% IN WATER 50 ML VIAL(D50) IV PUSH PRN (10:45)
[2017-05-18] MEDS: metFORMIN HCL 500 MG TAB PO SCH (10:56)
[2017-05-18] MEDS: ASPIRIN EC 81 MG TABEC PO SCH (10:56)
[2017-05-18] MEDS: ATENOLOL 50 MG TAB PO SCH (10:56)
[2017-05-18] MEDS: LISINOPRIL 10 MG TAB PO SCH ×2 (10:57→20:39)
[2017-05-18] MEDS: ATORVASTATIN 10 MG TAB PO SCH (10:58)
[2017-05-18] MEDS: RIVAROXABAN 15 MG TAB PO SCH ×2 (12:39→20:39)
[2017-05-18] MEDS: INSULIN ASPART SUPPLEMENTAL SCALE SQ SCH ×3 (12:39→20:50)
[2017-05-19 03:37] VITALS: BP 113/57; PULSE 81; RESP 18; TEMP 98.7; O2SAT 92
[2017-05-19 07:39] VITALS: BP 126/60; PULSE 80; RESP 21; TEMP 97.9; O2SAT 94
[2017-05-19] MEDS: INSULIN ASPART SUPPLEMENTAL SCALE SQ SCH ×4 (08:00→21:00)
[2017-05-19] MEDS ORDERED: FUROSEMIDE 20 MG/2 ML VIAL IV PUSH ONE (08:00)
[2017-05-19] MEDS: SODIUM CHLORIDE 0.9% FLUSH 10 ML FLUSH IV FLUSH SCH ×2 (09:00→21:00)
[2017-05-19] MEDS: ASPIRIN EC 81 MG TABEC PO SCH (09:55)
[2017-05-19] MEDS: metFORMIN HCL 500 MG TAB PO SCH (09:55)
[2017-05-19] MEDS: ATORVASTATIN 10 MG TAB PO SCH (09:55)
[2017-05-19] MEDS: CIPROFLOXACIN 500 MG TAB PO SCH ×2 (09:56→21:37)
[2017-05-19] MEDS: LISINOPRIL 10 MG TAB PO SCH ×2 (09:56→21:37)
[2017-05-19] MEDS: RIVAROXABAN 20 MG TAB PO SCH (09:56)
[2017-05-19] MEDS: ATENOLOL 50 MG TAB PO SCH (09:56)
[2017-05-19] MEDS ORDERED: INFLUENZA VIRUS VACCINE (QUADRIVALENT) 0.5 ML SYR IM ONE (10:00)
[2017-05-19 12:00] VITALS: BP 109/55; PULSE 77; RESP 18; TEMP 99.1; O2SAT 96
--- NOTE | 2017-05-19 15:44 | HHI.PR ---
Subjective Remarks History patient she has a diarrhea a few times No other complaint Review of system for 10 point system otherwise unremarkable Objective Objective Results - Vital Signs Date Time Temp Pulse Resp B/P (MAP) Pulse Ox O2 Delivery O2 Flow Rate FiO2 05/19/17 12:00 99.1 77 18 109/55 (73) 96 05/19/17 07:39 97.9 80 21 126/60 (82) 94 05/19/17 03:37 98.7 81 18 113/57 (75) 92 05/18/17 23:13 97.8 78 18 113/54 (73) 94 05/18/17 20:13 94 05/18/17 20:08 98.0 86 18 118/56 (76) 91 05/18/17 15:55 98.0 77 24 116/58 (77) 94 I/O 05/18/17 05/18/17 05/18/17 05/19/17 05/19/17 05/19/17 06:59 14:59 22:59 06:59 14:59 22:59 Intake Total 200 ml 450 ml Output Total 600 ml Balance 200 ml 450 ml -600 ml Intake Oral 150 ml IV Total 200 ml 300 ml Output Urine Total 600 ml Result Diagram: 05/18/17 0230 05/18/17 0235 Imaging Last Impressions Chest X-Ray 05/18/17 0210 Signed Impressions: Service Date/Time: Thursday, May 18, 2017 02:15 - CONCLUSION: No significant change Sonny Evans MD Abdomen/Pelvis CT 05/18/17 0000 Signed Impressions: Service Date/Time: Thursday, May 18, 2017 06:11 - CONCLUSION: Stable exam appearance. No acute abdominal or pelvic CT findings. Sonny Evans MD Other Results Date/Time Source Procedure Growth Status 05/18/17 02:35 Blood Peripheral Aerobic Blood Culture - Preliminary NO GROWTH IN 1 DAY Resulted 05/18/17 02:35 Blood Peripheral Anaerobic Blood Culture - Preliminary NO GROWTH IN 1 DAY Resulted 05/18/17 04:20 Urine Catheterized Urine Urine Culture - Preliminary Pseudomonas Species Resulted Physical Exam Physical Exam GENERAL: This is a well-nourished, well-developed patient, in no apparent distress. SKIN: Skin fragile, bruises legs. Skin to legs erythematous, bruised. HEAD: Atraumatic. Normocephalic. No temporal or scalp tenderness. EYES: Pupils equal round and reactive. Extraocular motions intact. No scleral icterus. No injection or drainage. ENT: Airway patent. NECK: Trachea midline. No JVD or lymphadenopathy. Supple, nontender, no meningeal signs. CARDIOVASCULAR: Regular rate and rhythm without murmurs, gallops, or rubs. RESPIRATORY: Diminished at bases GASTROINTESTINAL: Abdomen soft, non-tender, nondistended. No hepato-splenomegaly , or palpable masses. No guarding. MUSCULOSKELETAL: Right shoulder with limited ROM, able to lift forearm 20-30 degrees. No other joint abnormality. Bilat legs with 2+ edema, weeping, pedal pulses 2+. NEUROLOGICAL: Awake, oriented x 3. No focal deficits. [facility] A/P Assessment and Plan (1) UTI (urinary tract infection) ICD Codes: N39.0 - Urinary tract infection, site not specified Status: Acute (2) Generalized weakness ICD Codes: R53.1 - Weakness Status: Chronic (3) Back pain ICD Codes: M54.9 - Dorsalgia, unspecified Status: Chronic (4) Noncompliance with medication regimen ICD Codes: Z91.14 - Patient's other noncompliance with medication regimen Status: Chronic (5) Coronary artery disease ICD Codes: I25.10 - Atherosclerosis of coronary artery Status: Chronic (6) Hypothyroid ICD Codes: E03.9 - Hypothyroidism, unspecified Status: Chronic (7) Diabetes mellitus, type II ICD Codes: E11.9 - Type 2 diabetes mellitus without complications Status: Chronic (8) Hypertension ICD Codes: I10 - Hypertension Status: Chronic (9) Urinary retention ICD Codes: R33.9 - Retention of urine, unspecified Status: Acute (10) Anxiety ICD Codes: F41.9 - Anxiety disorder, unspecified Status: Chronic (11) CHF (congestive heart failure) ICD Codes: I50.9 - CHF (congestive heart failure) Status: Chronic (12) Bilateral pulmonary embolism ICD Codes: I26.99 - Other pulmonary embolism without acute cor pulmonale Status: Chronic (13) Peripheral edema ICD Codes: R60.9 - Edema, unspecified Status: Chronic (14) SIRS (systemic inflammatory response syndrome) ICD Codes: R65.10 - Systemic inflammatory response syndrome (SIRS) of non- infectious origin without acute organ dysfunction Status: Acute Plan 87-year-old elderly female with multiple admissions, noncompliant behavior. Presented to the emergency room complaining of back pain and generalized weakness. History of recurrent UTI, urinary retention. Urinary retention, recurrent UTI. Culture from May 07, 2017 positive for VRE and pseudomonas aeruginosa SIRS, low grade fever, tachycardia, presence of UTI -Culture reviewed. Blood culture showing Acinetobacter species and urine culture showing Pseudomonas species. -Continue with Cipro, start Zosyn plan for ID consult -Continue to follow urine culture -Continue with Luna catheter, keep for now Generalized weakness, back pain Physical debility Recent fall with right humeral fracture underwent ORIF. -Physical therapy evaluation -Case management consultation for discharge planning Coronary artery disease Chronic congestive heart failure Hypertension-initially uncontrolled, now improved -Continue with medical management Recent diagnosis of bilateral pulmonary emboli -Continue with Xarelto 15 mg by mouth twice a day, and tomorrow patient to start 20 mg daily. Needs to continue for at least the next 3 months. Peripheral edema -Elevate legs as needed Type 2 diabetes -Accu-Cheks before meals and at bedtime with insulin therapy Noncompliance, patient adamant that she doesn't want to go to rehabilitation facility. Patient is debilitated, is not able to care for herself at home and has limited social support. Patient is competent to make healthcare decisions -Consult case management for home health snf medications reviewed, initiated as indicated Continue with Xarelto for DVT prophylaxis Plan of care has been discussed with the patient and registered nurse. Further management of the patient will be dependent on the hospital course Patient admitted with Sirs and has positive blood culture and urine culture warrants inpatient admission for further management. To prevent sepsis and shock. Likely be here 3-6 days David Dodge MD May 19, 2017 15:44
[2017-05-19] MEDS: SODIUM CHLOR 0.9% 1000 ML INJ 1,000 ML IV SCH (15:49)
[2017-05-19] MEDS: CEFEPIME INJ 1,000 MG in SODIUM CHLORIDE 0.9% INJ 100 ML IV SCH (18:11)
[2017-05-19 20:02] VITALS: BP 139/61; PULSE 80; RESP 19; TEMP 98.3; O2SAT 95
[2017-05-20 00:04] VITALS: BP 146/66; PULSE 76; RESP 18; TEMP 96.6; O2SAT 96
[2017-05-20] MEDS: CEFEPIME INJ 1,000 MG in SODIUM CHLORIDE 0.9% INJ 100 ML IV SCH ×2 (04:44→17:31)
[2017-05-20] MEDS: CIPROFLOXACIN 500 MG TAB PO SCH ×2 (07:34→21:00)
[2017-05-20] MEDS: ATORVASTATIN 10 MG TAB PO SCH (07:34)
[2017-05-20] MEDS: LISINOPRIL 10 MG TAB PO SCH ×2 (07:34→21:00)
[2017-05-20] MEDS: metFORMIN HCL 500 MG TAB PO SCH (07:34)
[2017-05-20 07:35] LABS: HEMATOCRIT 34.1 % (35.0-46.0); MEAN CELL VOLUME 87.5 FL (80.0-100.0); MEAN CORPUSCULAR HEMOGLOBIN 29.1 PG (27.0-34.0); MEAN CORPUSCULAR HGB CONC 33.3 % (32.0-36.0); PLATELET COUNT 199 TH/MM3 (150-450); REVIEW FLAG FINAL; WHITE BLOOD COUNT 10.2 TH/MM3 (4.0-11.0)
[2017-05-20] MEDS: ATENOLOL 50 MG TAB PO SCH (07:35)
[2017-05-20] MEDS: SODIUM CHLORIDE 0.9% FLUSH 10 ML FLUSH IV FLUSH SCH ×2 (07:35→23:01)
[2017-05-20] MEDS: INSULIN ASPART SUPPLEMENTAL SCALE SQ SCH ×4 (07:35→23:12)
[2017-05-20] MEDS: ASPIRIN EC 81 MG TABEC PO SCH (07:35)
[2017-05-20] MEDS: RIVAROXABAN 20 MG TAB PO SCH (07:35)
[2017-05-20 08:00] VITALS: BP 115/64; PULSE 82; RESP 16; TEMP 97.8; O2SAT 95
[2017-05-20 08:04] LABS: POTASSIUM 3.2 MEQ/L (3.5-5.1)
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
[2017-05-20] MEDS: SODIUM CHLOR 0.9% 1000 ML INJ 1,000 ML IV SCH (11:42)
[2017-05-20 12:00] VITALS: BP 124/61; PULSE 78; RESP 16; TEMP 97.4; O2SAT 96
[2017-05-20 16:00] VITALS: BP 123/60; PULSE 86; RESP 16; TEMP 98.5; O2SAT 95
[2017-05-20 20:00] VITALS: BP 129/59; PULSE 98; RESP 19; TEMP 97.6; O2SAT 94
[2017-05-20 20:49] VITALS: O2SAT 95
[2017-05-20] MEDS ORDERED: POTASSIUM CHLORIDE 20 MEQ CONTROLLED RELEASE TAB PO ONE (21:45)
--- NOTE | 2017-05-20 21:46 | HHI.PR ---
Subjective Remarks no diarhoea askinng when she can go home offering no complaint Review of system for 10 point system otherwise unremarkable Objective Objective Results - Vital Signs Date Time Temp Pulse Resp B/P (MAP) Pulse Ox O2 Delivery O2 Flow Rate FiO2 05/20/17 20:49 95 05/20/17 16:00 98.5 86 16 123/60 (81) 95 05/20/17 12:00 97.4 78 16 124/61 (82) 96 05/20/17 08:00 97.8 82 16 115/64 (81) 95 05/20/17 00:04 96.6 76 18 146/66 (92) 96 I/O 05/19/17 05/19/17 05/19/17 05/20/17 05/20/17 05/20/17 07:00 15:00 23:00 07:00 15:00 23:00 Intake Total 1300 ml 580 ml 600 ml Output Total 700 ml 280 ml 600 ml Balance 600 ml 300 ml 0 ml Intake Oral 700 ml 480 ml 600 ml IV Total 600 ml 100 ml Output Urine Total 700 ml 280 ml 600 ml # Bowel Movements 3 1 3 Result Diagram: 05/20/17 0704 05/20/17 0704 Imaging Last Impressions Chest X-Ray 05/18/17 0210 Signed Impressions: Service Date/Time: Thursday, May 18, 2017 02:15 - CONCLUSION: No significant change Sonny Evans MD Abdomen/Pelvis CT 05/18/17 0000 Signed Impressions: Service Date/Time: Thursday, May 18, 2017 06:11 - CONCLUSION: Stable exam appearance. No acute abdominal or pelvic CT findings. Sonny Evans MD Other Results Laboratory Tests Test 05/20/17 07:04 White Blood Count 10.2 Red Blood Count 3.90 Hemoglobin 11.4 Hematocrit 34.1 Mean Corpuscular Volume 87.5 Mean Corpuscular Hemoglobin 29.1 Mean Corpuscular Hemoglobin Concent 33.3 Red Cell Distribution Width 15.0 Platelet Count 199 Mean Platelet Volume 7.7 Blood Urea Nitrogen 18 Creatinine 0.49 Random Glucose 149 Calcium Level 8.1 Sodium Level 137 Potassium Level 3.2 Chloride Level 103 Carbon Dioxide Level 27.0 Anion Gap 7 Estimat Glomerular Filtration Rate 119 Date/Time Source Procedure Growth Status 05/18/17 02:35 Blood Peripheral Aerobic Blood Culture - Preliminary NO GROWTH IN 2 DAYS Resulted 05/18/17 02:35 Blood Peripheral Anaerobic Blood Culture - Preliminary NO GROWTH IN 2 DAYS Resulted 05/18/17 04:20 Urine Catheterized Urine Urine Culture - Final Pseudomonas Aeruginosa Complete Physical Exam Physical Exam GENERAL: This is a well-nourished, well-developed patient, in no apparent distress. SKIN: Skin fragile, bruises legs. Skin to legs erythematous, bruised. HEAD: Atraumatic. Normocephalic. No temporal or scalp tenderness. EYES: Pupils equal round and reactive. Extraocular motions intact. No scleral icterus. No injection or drainage. ENT: Airway patent. NECK: Trachea midline. No JVD or lymphadenopathy. Supple, nontender, no meningeal signs. CARDIOVASCULAR: Regular rate and rhythm without murmurs, gallops, or rubs. RESPIRATORY: Diminished at bases GASTROINTESTINAL: Abdomen soft, non-tender, nondistended. No hepato-splenomegaly , or palpable masses. No guarding. MUSCULOSKELETAL: Right shoulder with limited ROM, able to lift forearm 20-30 degrees. No other joint abnormality. Bilat legs with 2+ edema, weeping, pedal pulses 2+. NEUROLOGICAL: Awake, oriented x 3. No focal deficits. [place]. A/P Assessment and Plan (1) UTI (urinary tract infection) ICD Codes: N39.0 - Urinary tract infection, site not specified Status: Acute (2) Generalized weakness ICD Codes: R53.1 - Weakness Status: Chronic (3) Back pain ICD Codes: M54.9 - Dorsalgia, unspecified Status: Chronic (4) Noncompliance with medication regimen ICD Codes: Z91.14 - Patient's other noncompliance with medication regimen Status: Chronic (5) Coronary artery disease ICD Codes: I25.10 - Atherosclerosis of coronary artery Status: Chronic (6) Hypothyroid ICD Codes: E03.9 - Hypothyroidism, unspecified Status: Chronic (7) Diabetes mellitus, type II ICD Codes: E11.9 - Type 2 diabetes mellitus without complications Status: Chronic (8) Hypertension ICD Codes: I10 - Hypertension Status: Chronic (9) Urinary retention ICD Codes: R33.9 - Retention of urine, unspecified Status: Acute (10) Anxiety ICD Codes: F41.9 - Anxiety disorder, unspecified Status: Chronic (11) CHF (congestive heart failure) ICD Codes: I50.9 - CHF (congestive heart failure) Status: Chronic (12) Bilateral pulmonary embolism ICD Codes: I26.99 - Other pulmonary embolism without acute cor pulmonale Status: Chronic (13) Peripheral edema ICD Codes: R60.9 - Edema, unspecified Status: Chronic (14) SIRS (systemic inflammatory response syndrome) ICD Codes: R65.10 - Systemic inflammatory response syndrome (SIRS) of non- infectious origin without acute organ dysfunction Status: Acute Plan 87-year-old elderly female with multiple admissions, noncompliant behavior. Presented to the emergency room complaining of back pain and generalized weakness. History of recurrent UTI, urinary retention. Urinary retention, recurrent UTI. Culture from May 07, 2017 positive for VRE and pseudomonas aeruginosa SIRS, low grade fever, tachycardia, presence of UTI -Culture reviewed. Blood culture showing Acinetobacter species and urine culture showing Pseudomonas species. -Continue per ID ,sreekanth consult -Continue to follow urine culture -Continue with Luna catheter, keep for now Generalized weakness, back pain Physical debility Recent fall with right humeral fracture underwent ORIF. -Physical therapy evaluation -Case management consultation for discharge planning Coronary artery disease Chronic congestive heart failure Hypertension-initially uncontrolled, now improved -Continue with medical management Recent diagnosis of bilateral pulmonary emboli -Continue with Xarelto 15 mg by mouth twice a day, and tomorrow patient to start 20 mg daily. Needs to continue for at least the next 3 months. Peripheral edema -Elevate legs as needed Type 2 diabetes -Accu-Cheks before meals and at bedtime with insulin therapy Noncompliance, patient adamant that she doesn't want to go to rehabilitation facility. Patient is debilitated, is not able to care for herself at home and has limited social support. Patient is competent to make healthcare decisions -Consult case management for home health snf medications reviewed, initiated as indicated Continue with Xarelto for DVT prophylaxis Plan of care has been discussed with the patient and registered nurse. Further management of the patient will be dependent on the hospital course David Dodge MD May 20, 2017 21:46
[2017-05-20] MEDS ORDERED: POTASSIUM CHLOR 20 MEQ PREMIX 100 ML IV ONE (23:30)
[2017-05-21] VITALS: BP 121/60; PULSE 81; RESP 17; TEMP 97.2; O2SAT 94
[2017-05-21] MEDS: CEFEPIME INJ 1,000 MG in SODIUM CHLORIDE 0.9% INJ 100 ML IV SCH (06:30)
[2017-05-21 07:38] LABS: HEMATOCRIT 34.2 % (35.0-46.0); MEAN CELL VOLUME 87.3 FL (80.0-100.0); MEAN CORPUSCULAR HEMOGLOBIN 28.6 PG (27.0-34.0); MEAN CORPUSCULAR HGB CONC 32.8 % (32.0-36.0); PLATELET COUNT 227 TH/MM3 (150-450); RED BLOOD COUNT 3.91 MIL/MM3 (4.00-5.30); RED CELL DISTRIBUTION WIDTH 14.7 % (11.6-17.2); REVIEW FLAG FINAL; WHITE BLOOD COUNT 5.9 TH/MM3 (4.0-11.0)
[2017-05-21] MEDS: INSULIN ASPART SUPPLEMENTAL SCALE SQ SCH ×4 (07:39→21:00)
[2017-05-21] MEDS: SODIUM CHLORIDE 0.9% FLUSH 10 ML FLUSH IV FLUSH SCH ×2 (07:40→21:40)
[2017-05-21] MEDS: metFORMIN HCL 500 MG TAB PO SCH (07:42)
[2017-05-21] MEDS: ATORVASTATIN 10 MG TAB PO SCH (07:42)
[2017-05-21] MEDS: ASPIRIN EC 81 MG TABEC PO SCH (07:42)
[2017-05-21] MEDS: RIVAROXABAN 20 MG TAB PO SCH (07:42)
[2017-05-21] MEDS: CIPROFLOXACIN 500 MG TAB PO SCH (07:42)
[2017-05-21] MEDS: ATENOLOL 50 MG TAB PO SCH (07:43)
[2017-05-21] MEDS: LISINOPRIL 10 MG TAB PO SCH ×2 (07:43→21:00)
[2017-05-21] MEDS: SODIUM CHLOR 0.9% 1000 ML INJ 1,000 ML IV SCH (07:43)
[2017-05-21 08:00] VITALS: BP 132/80; PULSE 89; RESP 18; TEMP 98.9; O2SAT 92
[2017-05-21 08:38] LABS: BICARBONATE 24.3 MEQ/L (21.0-32.0); POTASSIUM 3.8 MEQ/L (3.5-5.1)
[2017-05-21 12:00] VITALS: BP 124/60; PULSE 73; RESP 16; TEMP 97.9; O2SAT 93
[2017-05-21 14:17] VITALS: O2SAT 94
--- NOTE | 2017-05-21 14:43 | HHI.IDPN ---
Subjective Subjective Remarks doing good afebrile c/o new RLE swelling, pain Antibiotics cefepime Allergies: Coded Allergies: meperidine (Verified Allergy, Mild, N/V, 05/17/17) propoxyphene (Verified Adverse Reaction, Mild, N/V, 05/17/17) Objective . Vital Signs Date Time Temp Pulse Resp B/P (MAP) Pulse Ox O2 Delivery O2 Flow Rate FiO2 05/21/17 14:17 94 21 05/21/17 12:00 97.9 73 16 124/60 (81) 93 05/21/17 08:00 98.9 89 18 132/80 (97) 92 05/21/17 00:00 97.2 81 17 121/60 (80) 94 05/20/17 20:49 95 05/20/17 20:00 97.6 98 19 129/59 (82) 94 05/20/17 16:00 98.5 86 16 123/60 (81) 95 . Laboratory Tests Test 05/20/17 07:04 05/21/17 07:03 White Blood Count 10.2 TH/MM3 5.9 TH/MM3 Red Blood Count 3.90 MIL/MM3 3.91 MIL/MM3 Hemoglobin 11.4 GM/DL 11.2 GM/DL Hematocrit 34.1 % 34.2 % Mean Corpuscular Volume 87.5 FL 87.3 FL Mean Corpuscular Hemoglobin 29.1 PG 28.6 PG Mean Corpuscular Hemoglobin Concent 33.3 % 32.8 % Red Cell Distribution Width 15.0 % 14.7 % Platelet Count 199 TH/MM3 227 TH/MM3 Mean Platelet Volume 7.7 FL 7.5 FL Laboratory Tests Test 05/20/17 07:04 05/21/17 07:03 Blood Urea Nitrogen 18 MG/DL 12 MG/DL Creatinine 0.49 MG/DL 0.43 MG/DL Random Glucose 149 MG/DL 135 MG/DL Calcium Level 8.1 MG/DL 8.2 MG/DL Sodium Level 137 MEQ/L 137 MEQ/L Potassium Level 3.2 MEQ/L 3.8 MEQ/L Chloride Level 103 MEQ/L 105 MEQ/L Carbon Dioxide Level 27.0 MEQ/L 24.3 MEQ/L Anion Gap 7 MEQ/L 8 MEQ/L Estimat Glomerular Filtration Rate 119 ML/MIN 139 ML/MIN Imaging Last Impressions Chest X-Ray 05/18/17 0210 Signed Impressions: Service Date/Time: Thursday, May 18, 2017 02:15 - CONCLUSION: No significant change Sonny Evans MD Abdomen/Pelvis CT 05/18/17 0000 Signed Impressions: Service Date/Time: Thursday, May 18, 2017 06:11 - CONCLUSION: Stable exam appearance. No acute abdominal or pelvic CT findings. Sonny Evans MD Physical Exam CONSTITUTIONAL/GENERAL: This is an adequately nourished patient, in no apparent distress. TUBES/LINES/DRAINS: SKIN: No jaundice, rashes, or lesions. Not diaphoretic. CARDIOVASCULAR: Regular rate and rhythm without murmurs, gallops, or rubs. No JVD. Peripheral pulses symmetric. RESPIRATORY/CHEST: Symmetric, unlabored respirations. Clear to auscultation. Breath sounds equal bilaterally. No wheezes, rales, or rhonchi. GASTROINTESTINAL: Abdomen soft, non-tender, nondistended. No hepato-splenomegaly , or palpable masses. No guarding. Bowel sounds present. GENITOURINARY: Without palpable bladder distension. Luna catheter in place with clear yellow urine MUSCULOSKELETAL: Extremities without clubbing, cyanosis, + chronic appearing LLE edema. RLE is swollent, red and tender today LYMPHATICS: No palpable cervical or supraclavicular adenopathy. NEUROLOGICAL: Awake and alert. Motor and sensory grossly within normal limits. Follows commands. Clear speech. Moves all extremities. PSYCHIATRIC: Calm and cooperative. More pleasant today Assessment & Plan Remarks Acinetobacter bactermeia - source? - most likely urinary, though her BLE excoriations can be a source as well UTI, PSAE in acute urinary retention settings Pt is non compiant , hostile to staff, habitually leaves AMA dc cefepime cont cipro, increasse dosing to 750 bid - anticipate d/c on oral cipro or levaqiuine cancell 2 D echo unless more + blood clx U/S of RLE to r/o DVT dw Dr Dar Mayberry,Ciarra Hernandez MD May 21, 2017 14:43
--- NOTE | 2017-05-21 15:48 | HHI.PR ---
Subjective Remarks Patient did walk some with nurse as per patient no diarhoea asking when she can go home offering no complaint Review of system for 10 point system otherwise unremarkable Objective Objective Results - Vital Signs Date Time Temp Pulse Resp B/P (MAP) Pulse Ox O2 Delivery O2 Flow Rate FiO2 05/21/17 14:17 94 21 05/21/17 12:00 97.9 73 16 124/60 (81) 93 05/21/17 08:00 98.9 89 18 132/80 (97) 92 05/21/17 00:00 97.2 81 17 121/60 (80) 94 05/20/17 20:49 95 05/20/17 20:00 97.6 98 19 129/59 (82) 94 05/20/17 16:00 98.5 86 16 123/60 (81) 95 I/O 05/20/17 05/20/17 05/20/17 05/21/17 05/21/17 05/21/17 06:59 14:59 22:59 06:59 14:59 22:59 Intake Total 580 ml 600 ml 440 ml Output Total 280 ml 600 ml Balance 300 ml 0 ml 440 ml Intake Oral 480 ml 600 ml 240 ml IV Total 100 ml 200 ml Output Urine Total 280 ml 600 ml # Voids 2 # Bowel Movements 1 3 Result Diagram: 05/21/17 0703 05/21/17 0703 Imaging Last Impressions Chest X-Ray 05/18/17 0210 Signed Impressions: Service Date/Time: Thursday, May 18, 2017 02:15 - CONCLUSION: No significant change Sonny Evans MD Abdomen/Pelvis CT 05/18/17 0000 Signed Impressions: Service Date/Time: Thursday, May 18, 2017 06:11 - CONCLUSION: Stable exam appearance. No acute abdominal or pelvic CT findings. Sonny Evans MD Other Results Laboratory Tests Test 05/21/17 07:03 White Blood Count 5.9 Red Blood Count 3.91 Hemoglobin 11.2 Hematocrit 34.2 Mean Corpuscular Volume 87.3 Mean Corpuscular Hemoglobin 28.6 Mean Corpuscular Hemoglobin Concent 32.8 Red Cell Distribution Width 14.7 Platelet Count 227 Mean Platelet Volume 7.5 Blood Urea Nitrogen 12 Creatinine 0.43 Random Glucose 135 Calcium Level 8.2 Sodium Level 137 Potassium Level 3.8 Chloride Level 105 Carbon Dioxide Level 24.3 Anion Gap 8 Estimat Glomerular Filtration Rate 139 Date/Time Source Procedure Growth Status 05/18/17 02:35 Blood Peripheral Aerobic Blood Culture - Preliminary NO GROWTH IN 3 DAYS Resulted 05/18/17 02:35 Blood Peripheral Anaerobic Blood Culture - Preliminary NO GROWTH IN 3 DAYS Resulted 05/18/17 04:20 Urine Catheterized Urine Urine Culture - Final Pseudomonas Aeruginosa Complete Physical Exam Physical Exam GENERAL: This is a well-nourished, well-developed patient, in no apparent distress. SKIN: Skin fragile, bruises legs. Skin to legs erythematous, bruised. HEAD: Atraumatic. Normocephalic. No temporal or scalp tenderness. EYES: Pupils equal round and reactive. Extraocular motions intact. No scleral icterus. No injection or drainage. ENT: Airway patent. NECK: Trachea midline. No JVD or lymphadenopathy. Supple, nontender, no meningeal signs. CARDIOVASCULAR: Regular rate and rhythm without murmurs, gallops, or rubs. RESPIRATORY: Diminished at bases GASTROINTESTINAL: Abdomen soft, non-tender, nondistended. No hepato-splenomegaly , or palpable masses. No guarding. MUSCULOSKELETAL: Right shoulder with limited ROM, able to lift forearm 20-30 degrees. No other joint abnormality. Bilat legs with 2+ edema, weeping, pedal pulses 2+. NEUROLOGICAL: Awake, oriented x 3. No focal deficits. [place]. A/P Assessment and Plan (1) UTI (urinary tract infection) ICD Codes: N39.0 - Urinary tract infection, site not specified Status: Acute (2) Generalized weakness ICD Codes: R53.1 - Weakness Status: Chronic (3) Back pain ICD Codes: M54.9 - Dorsalgia, unspecified Status: Chronic (4) Noncompliance with medication regimen ICD Codes: Z91.14 - Patient's other noncompliance with medication regimen Status: Chronic (5) Coronary artery disease ICD Codes: I25.10 - Atherosclerosis of coronary artery Status: Chronic (6) Hypothyroid ICD Codes: E03.9 - Hypothyroidism, unspecified Status: Chronic (7) Diabetes mellitus, type II ICD Codes: E11.9 - Type 2 diabetes mellitus without complications Status: Chronic (8) Hypertension ICD Codes: I10 - Hypertension Status: Chronic (9) Urinary retention ICD Codes: R33.9 - Retention of urine, unspecified Status: Acute (10) Anxiety ICD Codes: F41.9 - Anxiety disorder, unspecified Status: Chronic (11) CHF (congestive heart failure) ICD Codes: I50.9 - CHF (congestive heart failure) Status: Chronic (12) Bilateral pulmonary embolism ICD Codes: I26.99 - Other pulmonary embolism without acute cor pulmonale Status: Chronic (13) Peripheral edema ICD Codes: R60.9 - Edema, unspecified Status: Chronic (14) SIRS (systemic inflammatory response syndrome) ICD Codes: R65.10 - Systemic inflammatory response syndrome (SIRS) of non- infectious origin without acute organ dysfunction Status: Acute Plan 87-year-old elderly female with multiple admissions, noncompliant behavior. Presented to the emergency room complaining of back pain and generalized weakness. History of recurrent UTI, urinary retention. Urinary retention, recurrent UTI. Culture from May 07, 2017 positive for VRE and pseudomonas aeruginosa SIRS, low grade fever, tachycardia, presence of UTI -Culture reviewed. Blood culture showing Acinetobacter species and urine culture showing Pseudomonas species. Sensitivity reviewed -Continue per ID ,sreekanth consult and input. Discussed with her on phone. Antibiotic changed to by mouth -Continue with Luna catheter, keep for now Generalized weakness, back pain Physical debility Recent fall with right humeral fracture underwent ORIF. -Physical therapy evaluation -Case management consultation for discharge planning Coronary artery disease Chronic congestive heart failure Hypertension-initially uncontrolled, now improved -Continue with medical management Recent diagnosis of bilateral pulmonary emboli -Continue with Xarelto 15 mg by mouth twice a day, and tomorrow patient to start 20 mg daily. Needs to continue for at least the next 3 months. Peripheral edema -Elevate legs as needed. Ultrasound Type 2 diabetes -Accu-Cheks before meals and at bedtime with insulin therapy Noncompliance, patient adamant that she doesn't want to go to rehabilitation facility. Patient is debilitated, is not able to care for herself at home and has limited social support. Patient is competent to make healthcare decisions -Consult case management for home health custodial medications reviewed, initiated as indicated Continue with Xarelto for DVT prophylaxis Plan of care has been discussed with the patient and registered nurse. Further management of the patient will be dependent on the hospital course David Dodge MD May 21, 2017 15:48
[2017-05-21 16:00] VITALS: BP 130/65; PULSE 78; RESP 16; TEMP 98.1; O2SAT 95
[2017-05-21 20:00] VITALS: BP 138/78; PULSE 72; RESP 18; TEMP 96.5; O2SAT 95
--- NOTE | 2017-05-21 20:13 | RADRPT ---
EXAM DATE/TIME: 05/21/2017 19:10 [facility] COMPARISON: No previous studies available for comparison. INDICATIONS : Right leg swelling. MEDICAL HISTORY : Hypothyroidism. Hypercholesterolemia. Macular degenerative disease. Head trauma. Anticoagulant th erapy. Coronary artery disease. Chest pain. Dyspnea. Hiatal hernia. Incontinence. Arthritis. Osteopor osis. Anxiety. Diabetes. MRSA. SURGICAL HISTORY : Appendectomy. Teeth implants. Cardiac stents. Cardiac catheterization. Right shoulder surgery. Rig ht cataract surgery. ENCOUNTER: Initial ACUITY: 1 day PAIN SCORE: 3/10 LOCATION: Right leg. TECHNIQUE: Venous ultrasound of the leg was performed from the inguinal ligament to the proximal calf. Real-angel e, color Doppler and spectral tracing, compression and augmentation techniques were used. FINDINGS: There is normal compressibility of the deep venous system from the inguinal region to the proximal ca lf. No echogenic clot is seen in the lumen of the common femoral, femoral, popliteal, and posterior tibial veins. There is a normal response of the venous system to proximal and distal augmentation an d respiration. CONCLUSION: No DVT. Sonny Tang MD on May 21, 2017 at 20:11 Board Certified Radiologist. This report was verified electronically.
[2017-05-21] MEDS: CIPROFLOXACIN 750 MG TAB PO SCH (21:00)
[2017-05-22] VITALS: BP 124/76; PULSE 71; RESP 17; TEMP 96.8; O2SAT 96
[2017-05-22] MEDS: SODIUM CHLOR 0.9% 1000 ML INJ 1,000 ML IV SCH ×2 (01:16→04:30)
--- NOTE | 2017-05-22 07:55 | HHI.PR ---
Addendum to Inpatient Note Additional Information US neg for DVT Pt's symptoms likely 2/2 cellulitis' will start vancomycin when ready to dc will switch to clinda or Keflex+ doxy dw Ciarra Brock MD May 22, 2017 07:55
[2017-05-22 08:00] VITALS: BP 197/79; PULSE 84; RESP 17; TEMP 97.4; O2SAT 93
[2017-05-22] MEDS ORDERED: Vancomycin Consult Pharmacy 1 EA OTHER SCH (08:00)
[2017-05-22] MEDS: LISINOPRIL 10 MG TAB PO SCH ×2 (08:12→21:26)
[2017-05-22] MEDS: CIPROFLOXACIN 750 MG TAB PO SCH ×2 (08:12→21:26)
[2017-05-22] MEDS: ASPIRIN EC 81 MG TABEC PO SCH (08:12)
[2017-05-22] MEDS: metFORMIN HCL 500 MG TAB PO SCH (08:12)
[2017-05-22] MEDS: ATENOLOL 50 MG TAB PO SCH (08:12)
[2017-05-22] MEDS: RIVAROXABAN 20 MG TAB PO SCH (08:13)
[2017-05-22] MEDS: ATORVASTATIN 10 MG TAB PO SCH (08:13)
[2017-05-22] MEDS: INSULIN ASPART SUPPLEMENTAL SCALE SQ SCH ×4 (08:23→21:26)
[2017-05-22] MEDS: SODIUM CHLORIDE 0.9% FLUSH 10 ML FLUSH IV FLUSH SCH ×2 (09:00→21:00)
[2017-05-22 09:24] VITALS: O2SAT 96
--- NOTE | 2017-05-22 09:31 | HHI.PR ---
Subjective Remarks Patient did walk some with nurse as per patient no diarhoea asking when she can go home. She wants to go home tomorrow offering no complaint Review of system for 10 point system otherwise unremarkable Objective Objective Results - Vital Signs Date Time Temp Pulse Resp B/P (MAP) Pulse Ox O2 Delivery O2 Flow Rate FiO2 05/22/17 08:00 97.4 84 17 197/79 (118) 93 05/22/17 00:00 96.8 71 17 124/76 (92) 96 05/21/17 20:00 96.5 72 18 138/78 (98) 95 05/21/17 16:00 98.1 78 16 130/65 (86) 95 05/21/17 14: 94 21 05/21/17 12:00 97.9 73 16 124/60 (81) 93 I/O 05/21/17 05/21/17 05/21/17 05/22/17 05/22/17 05/22/17 07:00 15:00 23:00 07:00 15:00 23:00 Intake Total 440 ml 1000 ml 840 ml Output Total 1300 ml 400 ml Balance 440 ml -300 ml 440 ml Intake Oral 240 ml 600 ml 240 ml IV Total 200 ml 400 ml 600 ml Output Urine Total 1300 ml 400 ml # Voids 2 # Bowel Movements 0 Result Diagram: 05/21/1703 05/21/17 0703 Imaging Last Impressions Chest X-Ray 05/18/17 0210 Signed Impressions: Service Date/Time: Thursday, May 18, 2017 02:15 - CONCLUSION: No significant change Sonny Evans MD Abdomen/Pelvis CT 05/18/17 0000 Signed Impressions: Service Date/Time: Thursday, May 18, 2017 06:11 - CONCLUSION: Stable exam appearance. No acute abdominal or pelvic CT findings. Sonny Evans MD Other Results Date/Time Source Procedure Growth Status 05/18/17 02:35 Blood Peripheral Aerobic Blood Culture - Preliminary NO GROWTH IN 3 DAYS Resulted 05/18/17 02:35 Blood Peripheral Anaerobic Blood Culture - Preliminary NO GROWTH IN 3 DAYS Resulted 05/18/17 04:20 Urine Catheterized Urine Urine Culture - Final Pseudomonas Aeruginosa Complete Physical Exam Physical Exam GENERAL: This is a well-nourished, well-developed patient, in no apparent distress. SKIN: Skin fragile, bruises legs. Skin to legs erythematous, bruised. HEAD: Atraumatic. Normocephalic. No temporal or scalp tenderness. EYES: Pupils equal round and reactive. Extraocular motions intact. No scleral icterus. No injection or drainage. ENT: Airway patent. NECK: Trachea midline. No JVD or lymphadenopathy. Supple, nontender, no meningeal signs. CARDIOVASCULAR: Regular rate and rhythm without murmurs, gallops, or rubs. RESPIRATORY: Diminished at bases GASTROINTESTINAL: Abdomen soft, non-tender, nondistended. No hepato-splenomegaly , or palpable masses. No guarding. MUSCULOSKELETAL: Right shoulder with limited ROM, able to lift forearm 20-30 degrees. No other joint abnormality. Bilat legs with 2+ edema, weeping, pedal pulses 2+. NEUROLOGICAL: Awake, oriented x 3. No focal deficits. [place]. A/P Assessment and Plan (1) UTI (urinary tract infection) ICD Codes: N39.0 - Urinary tract infection, site not specified Status: Acute (2) Generalized weakness ICD Codes: R53.1 - Weakness Status: Chronic (3) Back pain ICD Codes: M54.9 - Dorsalgia, unspecified Status: Chronic (4) Noncompliance with medication regimen ICD Codes: Z91.14 - Patient's other noncompliance with medication regimen Status: Chronic (5) Coronary artery disease ICD Codes: I25.10 - Atherosclerosis of coronary artery Status: Chronic (6) Hypothyroid ICD Codes: E03.9 - Hypothyroidism, unspecified Status: Chronic (7) Diabetes mellitus, type II ICD Codes: E11.9 - Type 2 diabetes mellitus without complications Status: Chronic (8) Hypertension ICD Codes: I10 - Hypertension Status: Chronic (9) Urinary retention ICD Codes: R33.9 - Retention of urine, unspecified Status: Acute (10) Anxiety ICD Codes: F41.9 - Anxiety disorder, unspecified Status: Chronic (11) CHF (congestive heart failure) ICD Codes: I50.9 - CHF (congestive heart failure) Status: Chronic (12) Bilateral pulmonary embolism ICD Codes: I26.99 - Other pulmonary embolism without acute cor pulmonale Status: Chronic (13) Peripheral edema ICD Codes: R60.9 - Edema, unspecified Status: Chronic (14) SIRS (systemic inflammatory response syndrome) ICD Codes: R65.10 - Systemic inflammatory response syndrome (SIRS) of non- infectious origin without acute organ dysfunction Status: Acute Plan 87-year-old elderly female with multiple admissions, noncompliant behavior. Presented to the emergency room complaining of back pain and generalized weakness. History of recurrent UTI, urinary retention. Urinary retention, recurrent UTI. Culture from May 07, 2017 positive for VRE and pseudomonas aeruginosa SIRS, low grade fever, tachycardia, presence of UTI -Culture reviewed. Blood culture showing Acinetobacter species and urine culture showing Pseudomonas species. Sensitivity reviewed -Continue per ID ,sreekanth consult and input. Discussed with her on phone. Antibiotic changed to by mouth -Continue with Luna catheter, keep for now. Patient don't like it at all -Cellulitis of lower extremity. Vanco has been started. Discussed with ID if patient will go home and give her clindamycin. Generalized weakness, back pain Physical debility Recent fall with right humeral fracture underwent ORIF. -Physical therapy evaluation -Case management consultation for discharge planning Coronary artery disease Chronic congestive heart failure Hypertension-initially uncontrolled, now improved -Continue with medical management Recent diagnosis of bilateral pulmonary emboli -Continue with Xarelto 15 mg by mouth twice a day, and tomorrow patient to start 20 mg daily. Needs to continue for at least the next 3 months. Peripheral edema -Elevate legs as needed. Ultrasound Type 2 diabetes -Accu-Cheks before meals and at bedtime with insulin therapy Noncompliance, patient adamant that she doesn't want to go to rehabilitation facility. Patient is debilitated, is not able to care for herself at home and has limited social support. Patient is competent to make healthcare decisions -Consult case management for home health care discussed with patient again about need for hospitalization. As per patient she will go home today tomorrow anyway. Home medications reviewed, initiated as indicated Continue with Xarelto for DVT prophylaxis Plan of care has been discussed with the patient and registered nurse. Further management of the patient will be dependent on the hospital course David Dodge MD May 22, 2017 09:31
[2017-05-22 12:00] VITALS: BP 184/77; PULSE 63; RESP 17; TEMP 97.5; O2SAT 97
[2017-05-22] MEDS: VANCOMYCIN 1,000 MG/NS 250 ML IV SCH ×2 (12:11)
[2017-05-22 16:00] VITALS: BP 184/80; PULSE 73; RESP 17; TEMP 96.9; O2SAT 95
[2017-05-22 20:00] VITALS: BP 188/79; PULSE 84; RESP 24; TEMP 97.7; O2SAT 94
[2017-05-23] VITALS: BP 192/88; PULSE 67; RESP 22; TEMP 97.8; O2SAT 95
[2017-05-23] MEDS: SODIUM CHLOR 0.9% 1000 ML INJ 1,000 ML IV SCH ×2 (01:30→21:01)
[2017-05-23 04:00] VITALS: BP 190/86; PULSE 82; RESP 22; TEMP 97.3; O2SAT 93
[2017-05-23] MEDS ORDERED: PHARMACY ORDERED LAB ONE (05:45)
[2017-05-23] MEDS: ENALAPRILAT 1.25 MG/ML VIAL IV PUSH PRN ×2 (05:47→16:48)
[2017-05-23] MEDS: VANCOMYCIN 1,000 MG/NS 250 ML IV SCH ×2 (05:48)
[2017-05-23 08:00] VITALS: BP 190/91; PULSE 79; RESP 18; TEMP 95.3; O2SAT 95
[2017-05-23] MEDS: INSULIN ASPART SUPPLEMENTAL SCALE SQ SCH ×4 (08:00→21:00)
[2017-05-23] MEDS: LISINOPRIL 10 MG TAB PO SCH ×2 (08:07→21:01)
[2017-05-23] MEDS: ATENOLOL 50 MG TAB PO SCH (08:07)
[2017-05-23] MEDS: RIVAROXABAN 20 MG TAB PO SCH (08:08)
[2017-05-23] MEDS: metFORMIN HCL 500 MG TAB PO SCH (08:09)
[2017-05-23] MEDS: CIPROFLOXACIN 750 MG TAB PO SCH ×2 (08:10→21:01)
[2017-05-23] MEDS: ASPIRIN EC 81 MG TABEC PO SCH (08:10)
[2017-05-23] MEDS: ATORVASTATIN 10 MG TAB PO SCH (08:10)
[2017-05-23] MEDS: SODIUM CHLORIDE 0.9% FLUSH 10 ML FLUSH IV FLUSH SCH ×2 (09:00→21:01)
[2017-05-23 12:00] VITALS: BP 141/66; PULSE 60; RESP 18; TEMP 96.8; O2SAT 96
--- NOTE | 2017-05-23 13:24 | HHI.PR ---
Subjective Remarks Patient is feeling weak and tired no energy at present did walk some with nurse as per patient no diarhoea no nausea wants to rest offering no complaint Review of system for 10 point system otherwise unremarkable Objective Objective Results - Vital Signs Date Time Temp Pulse Resp B/P (MAP) Pulse Ox O2 Delivery O2 Flow Rate FiO2 05/23/17 12:00 96.8 60 18 141/66 (91) 96 05/23/17 08:00 95.3 79 18 190/91 (124) 95 05/23/17 04:00 97.3 82 22 190/86 (120) 93 05/23/17 00:00 97.8 67 22 192/88 (122) 95 05/22/17 20:00 97.7 84 24 188/79 (115) 94 05/22/17 18:37 21 05/22/17 16:00 96.9 73 17 184/80 (114) 95 I/O 05/22/17 05/22/17 05/22/17 05/23/17 05/23/17 05/23/17 07:00 15:00 23:00 07:00 15:00 23:00 Intake Total 840 ml 480 ml 1240 ml 250 ml Output Total 400 ml 1525 ml 2800 ml Balance 440 ml -1045 ml -1560 ml 250 ml Intake Oral 240 ml 480 ml 240 ml IV Total 600 ml 1000 ml 250 ml Output Urine Total 400 ml 1525 ml 2800 ml # Bowel Movements 1 1 Result Diagram: 05/21/17 0703 05/21/17 0703 Imaging Last Impressions Chest X-Ray 05/18/17 0210 Signed Impressions: Service Date/Time: Thursday, May 18, 2017 02:15 - CONCLUSION: No significant change Sonny Evans MD Abdomen/Pelvis CT 05/18/17 0000 Signed Impressions: Service Date/Time: Thursday, May 18, 2017 06:11 - CONCLUSION: Stable exam appearance. No acute abdominal or pelvic CT findings. Sonny Evans MD Other Results Laboratory Tests Test 05/23/17 05:40 Random Vancomycin Level 4.0 Date/Time Source Procedure Growth Status 05/18/17 02:35 Blood Peripheral Aerobic Blood Culture - Final NO GROWTH IN 5 DAYS Complete 05/18/17 02:35 Blood Peripheral Anaerobic Blood Culture - Final NO GROWTH IN 5 DAYS Complete 05/18/17 04:20 Urine Catheterized Urine Urine Culture - Final Pseudomonas Aeruginosa Complete Physical Exam Physical Exam GENERAL: This is a well-nourished, well-developed patient, in no apparent distress. weak looking SKIN: Skin fragile, bruises legs. Skin to legs erythematous, bruised. HEAD: Atraumatic. Normocephalic. No temporal or scalp tenderness. EYES: Pupils equal round and reactive. Extraocular motions intact. No scleral icterus. No injection or drainage. ENT: Airway patent. NECK: Trachea midline. No JVD or lymphadenopathy. Supple, nontender, no meningeal signs. CARDIOVASCULAR: Regular rate and rhythm without murmurs, gallops, or rubs. RESPIRATORY: Diminished at bases GASTROINTESTINAL: Abdomen soft, non-tender, nondistended. No hepato-splenomegaly , or palpable masses. No guarding. MUSCULOSKELETAL: Right shoulder with limited ROM, able to lift forearm 20-30 degrees. No other joint abnormality. Bilat legs with 2+ edema, weeping, pedal pulses 2+. NEUROLOGICAL: Awake, oriented x 3. No focal deficits. [place]. A/P Assessment and Plan (1) UTI (urinary tract infection) ICD Codes: N39.0 - Urinary tract infection, site not specified Status: Acute (2) Generalized weakness ICD Codes: R53.1 - Weakness Status: Chronic (3) Back pain ICD Codes: M54.9 - Dorsalgia, unspecified Status: Chronic (4) Noncompliance with medication regimen ICD Codes: Z91.14 - Patient's other noncompliance with medication regimen Status: Chronic (5) Coronary artery disease ICD Codes: I25.10 - Atherosclerosis of coronary artery Status: Chronic (6) Hypothyroid ICD Codes: E03.9 - Hypothyroidism, unspecified Status: Chronic (7) Diabetes mellitus, type II ICD Codes: E11.9 - Type 2 diabetes mellitus without complications Status: Chronic (8) Hypertension ICD Codes: I10 - Hypertension Status: Chronic (9) Urinary retention ICD Codes: R33.9 - Retention of urine, unspecified Status: Acute (10) Anxiety ICD Codes: F41.9 - Anxiety disorder, unspecified Status: Chronic (11) CHF (congestive heart failure) ICD Codes: I50.9 - CHF (congestive heart failure) Status: Chronic (12) Bilateral pulmonary embolism ICD Codes: I26.99 - Other pulmonary embolism without acute cor pulmonale Status: Chronic (13) Peripheral edema ICD Codes: R60.9 - Edema, unspecified Status: Chronic (14) SIRS (systemic inflammatory response syndrome) ICD Codes: R65.10 - Systemic inflammatory response syndrome (SIRS) of non- infectious origin without acute organ dysfunction Status: Acute Plan 87-year-old elderly female with multiple admissions, noncompliant behavior. Presented to the emergency room complaining of back pain and generalized weakness. History of recurrent UTI, urinary retention. Urinary retention, recurrent UTI. Culture from May 07, 2017 positive for VRE and pseudomonas aeruginosa SIRS, low grade fever, tachycardia, presence of UTI -Culture reviewed. Blood culture showing Acinetobacter species and urine culture showing Pseudomonas species. Sensitivity reviewed -Continue per ID ,sreekanth consult and input. Antibiotic changed to by mouth -Continue with Luna catheter, keep for now. Patient don't like it at all -Cellulitis of lower extremity. Clement has been now on clindamycin. will monitor in clindamycin if stable will dc home tomorrow Generalized weakness, back pain Physical debility Recent fall with right humeral fracture underwent ORIF. -Physical therapy evaluation -Case management consultation for discharge planning Coronary artery disease Chronic congestive heart failure Hypertension-initially uncontrolled, now improved -Continue with medical management Recent diagnosis of bilateral pulmonary emboli -Continue with Xarelto 15 mg by mouth twice a day, and tomorrow patient to start 20 mg daily. Needs to continue for at least the next 3 months. Peripheral edema -Elevate legs as needed. Ultrasound Type 2 diabetes -Accu-Cheks before meals and at bedtime with insulin therapy Noncompliance, patient adamant that she doesn't want to go to rehabilitation facility. Patient is debilitated, is not able to care for herself at home and has limited social support. Patient is competent to make healthcare decisions -Consult case management for home health care discussed with patient again about need for hospitalization. As per patient she will go home today tomorrow anyway. Home medications reviewed, initiated as indicated Continue with Xarelto for DVT prophylaxis Plan of care has been discussed with the patient and registered nurse. Further management of the patient will be dependent on the hospital course dw David Condon MD May 23, 2017 13:24
[2017-05-23] MEDS: CLINDAMYCIN 150 MG CAP PO SCH ×2 (13:37→17:02)
[2017-05-23 16:00] VITALS: BP 197/88; PULSE 69; RESP 18; TEMP 96.8; O2SAT 93
[2017-05-23 20:00] VITALS: BP 166/79; PULSE 88; RESP 17; TEMP 96.4; O2SAT 98
[2017-05-24 01:12] VITALS: BP 158/77; PULSE 72; RESP 17; TEMP 97.9; O2SAT 94
[2017-05-24 04:00] VITALS: BP 166/79; PULSE 88; RESP 18; TEMP 96; O2SAT 98
[2017-05-24] MEDS: CLINDAMYCIN 150 MG CAP PO SCH ×2 (05:56)
[2017-05-24 07:50] LABS: AUTOMATED NEUTROPHIL # 5.3 TH/MM3 (1.8-7.7); BASOPHIL # 0.1 TH/MM3 (0-0.2); BASOPHIL % 0.8 % (0.0-2.0); EOSINOPHIL # 0.2 TH/MM3 (0-0.4); EOSINOPHIL % 2.8 % (0.0-4.0); HEMATOCRIT 37.3 % (35.0-46.0); HEMO FLAGS DIFF FINAL; LYMPH % 15.7 % (9.0-44.0); LYMPHOCYTE # 1.2 TH/MM3 (1.0-4.8); MEAN CELL VOLUME 86.3 FL (80.0-100.0); MEAN CORPUSCULAR HEMOGLOBIN 28.6 PG (27.0-34.0); MEAN CORPUSCULAR HGB CONC 33.1 % (32.0-36.0); MONO % 9.4 % (0.0-8.0); NEUT % 71.3 % (16.0-70.0); PLATELET COUNT 316 TH/MM3 (150-450); RED BLOOD COUNT 4.32 MIL/MM3 (4.00-5.30); RED CELL DISTRIBUTION WIDTH 14.7 % (11.6-17.2); WHITE BLOOD COUNT 7.5 TH/MM3 (4.0-11.0)
--- NOTE | 2017-05-24 07:54 | HHI.PR ---
Subjective Remarks Patient is feeling weak and tired no energy at present did walk some with nurse as per patient no diarhoea no nausea wants to rest offering no complaint Review of system for 10 point system otherwise unremarkable Objective Objective Results - Vital Signs Date Time Temp Pulse Resp B/P (MAP) Pulse Ox O2 Delivery O2 Flow Rate FiO2 05/24/17 04:00 96.0 88 18 166/79 (108) 98 05/24/17 01:12 97.9 72 17 158/77 (104) 94 05/23/17 20:00 96.4 88 17 166/79 (108) 98 05/23/17 16:00 96.8 69 18 197/88 (124) 93 05/23/17 12:00 96.8 60 18 141/66 (91) 96 05/23/17 08:00 95.3 79 18 190/91 (124) 95 I/O 05/23/17 05/23/17 05/23/17 05/24/17 05/24/17 05/24/17 07:00 15:00 23:00 07:00 15:00 23:00 Intake Total 1240 ml 250 ml 1960 ml 1440 ml Output Total 2800 ml 1950 ml 1880 ml Balance -1560 ml 250 ml 10 ml -440 ml Intake Oral 240 ml 960 ml 840 ml IV Total 1000 ml 250 ml 1000 ml 600 ml Output Urine Total 2800 ml 1950 ml 1880 ml # Bowel Movements 1 0 0 Result Diagram: 05/21/17 0703 05/21/17 0703 Imaging Last Impressions Chest X-Ray 05/18/17 0210 Signed Impressions: Service Date/Time: Thursday, May 18, 2017 02:15 - CONCLUSION: No significant change Sonny Evans MD Abdomen/Pelvis CT 05/18/17 0000 Signed Impressions: Service Date/Time: Thursday, May 18, 2017 06:11 - CONCLUSION: Stable exam appearance. No acute abdominal or pelvic CT findings. Sonny Evans MD Other Results Laboratory Tests Test 05/24/17 06:49 White Blood Count 7.5 Red Blood Count 4.32 Hemoglobin 12.3 Hematocrit 37.3 Mean Corpuscular Volume 86.3 Mean Corpuscular Hemoglobin 28.6 Mean Corpuscular Hemoglobin Concent 33.1 Red Cell Distribution Width 14.7 Platelet Count 316 Mean Platelet Volume 7.2 Neutrophils (%) (Auto) 71.3 Lymphocytes (%) (Auto) 15.7 Monocytes (%) (Auto) 9.4 Eosinophils (%) (Auto) 2.8 Basophils (%) (Auto) 0.8 Neutrophils # (Auto) 5.3 Lymphocytes # (Auto) 1.2 Monocytes # (Auto) 0.7 Eosinophils # (Auto) 0.2 Basophils # (Auto) 0.1 CBC Comment DIFF FINAL Differential Comment Date/Time Source Procedure Growth Status 05/18/17 02:35 Blood Peripheral Aerobic Blood Culture - Final NO GROWTH IN 5 DAYS Complete 05/18/17 02:35 Blood Peripheral Anaerobic Blood Culture - Final NO GROWTH IN 5 DAYS Complete 05/18/17 04:20 Urine Catheterized Urine Urine Culture - Final Pseudomonas Aeruginosa Complete Physical Exam Physical Exam GENERAL: This is a well-nourished, well-developed patient, in no apparent distress. weak looking SKIN: Skin fragile, bruises legs. Skin to legs erythematous, bruised. HEAD: Atraumatic. Normocephalic. No temporal or scalp tenderness. EYES: Pupils equal round and reactive. Extraocular motions intact. No scleral icterus. No injection or drainage. ENT: Airway patent. NECK: Trachea midline. No JVD or lymphadenopathy. Supple, nontender, no meningeal signs. CARDIOVASCULAR: Regular rate and rhythm without murmurs, gallops, or rubs. RESPIRATORY: Diminished at bases GASTROINTESTINAL: Abdomen soft, non-tender, nondistended. No hepato-splenomegaly , or palpable masses. No guarding. MUSCULOSKELETAL: Right shoulder with limited ROM, able to lift forearm 20-30 degrees. No other joint abnormality. Bilat legs with 2+ edema, weeping, pedal pulses 2+. NEUROLOGICAL: Awake, oriented x 3. No focal deficits. [place]. A/P Assessment and Plan (1) UTI (urinary tract infection) ICD Codes: N39.0 - Urinary tract infection, site not specified Status: Acute (2) Generalized weakness ICD Codes: R53.1 - Weakness Status: Chronic (3) Back pain ICD Codes: M54.9 - Dorsalgia, unspecified Status: Chronic (4) Noncompliance with medication regimen ICD Codes: Z91.14 - Patient's other noncompliance with medication regimen Status: Chronic (5) Coronary artery disease ICD Codes: I25.10 - Atherosclerosis of coronary artery Status: Chronic (6) Hypothyroid ICD Codes: E03.9 - Hypothyroidism, unspecified Status: Chronic (7) Diabetes mellitus, type II ICD Codes: E11.9 - Type 2 diabetes mellitus without complications Status: Chronic (8) Hypertension ICD Codes: I10 - Hypertension Status: Chronic (9) Urinary retention ICD Codes: R33.9 - Retention of urine, unspecified Status: Acute (10) Anxiety ICD Codes: F41.9 - Anxiety disorder, unspecified Status: Chronic (11) CHF (congestive heart failure) ICD Codes: I50.9 - CHF (congestive heart failure) Status: Chronic (12) Bilateral pulmonary embolism ICD Codes: I26.99 - Other pulmonary embolism without acute cor pulmonale Status: Chronic (13) Peripheral edema ICD Codes: R60.9 - Edema, unspecified Status: Chronic (14) SIRS (systemic inflammatory response syndrome) ICD Codes: R65.10 - Systemic inflammatory response syndrome (SIRS) of non- infectious origin without acute organ dysfunction Status: Acute Plan 87-year-old elderly female with multiple admissions, noncompliant behavior. Presented to the emergency room complaining of back pain and generalized weakness. History of recurrent UTI, urinary retention. Urinary retention, recurrent UTI. Culture from May 07, 2017 positive for VRE and pseudomonas aeruginosa SIRS, low grade fever, tachycardia, presence of UTI -Culture reviewed. Blood culture showing Acinetobacter species and urine culture showing Pseudomonas species. Sensitivity reviewed -Continue per ID ,sreekanth consult and input. Antibiotic changed to by mouth -Continue with Luna catheter, keep for now. Patient don't like it at all -Cellulitis of lower extremity. Clement has been now on clindamycin. will monitor in clindamycin as stable will dc home today Generalized weakness, back pain, better Physical debility, improving Recent fall with right humeral fracture underwent ORIF. -Physical therapy evaluation -Case management consultation for discharge planning. pt as tiff wants to go home today and only home not to any facility. Otherwise she will will sign out AMA Coronary artery disease Chronic congestive heart failure Hypertension-initially uncontrolled, now improved -Continue with medical management Recent diagnosis of bilateral pulmonary emboli -Continue with Xarelto 15 mg by mouth twice a day, and tomorrow patient to start 20 mg daily. Needs to continue for at least the next 3 months. Peripheral edema -Elevate legs as needed. Ultrasound Type 2 diabetes -Accu-Cheks before meals and at bedtime with insulin therapy Noncompliance, patient adamant that she doesn't want to go to rehabilitation facility. As per pt she has friends who are going to help her. Patient is competent to make healthcare decisions -Consult case management for home health care discussed with patient again about need for hospitalization. As per patient she will go home today today anyway. Home medications reviewed, initiated as indicated Continue with Xarelto for DVT prophylaxis Plan of care has been discussed with the patient and registered nurse. dc home today dw pt in detail about medications, compliance and followups she understood very well and voiced her understanding David Dodge MD May 24, 2017 07:54
[2017-05-24] MEDS: SODIUM CHLORIDE 0.9% FLUSH 10 ML FLUSH IV FLUSH SCH (07:55)
[2017-05-24] MEDS: INSULIN ASPART SUPPLEMENTAL SCALE SQ SCH (07:55)
[2017-05-24 08:00] VITALS: BP 172/78; PULSE 77; RESP 19; TEMP 96.9; O2SAT 95
[2017-05-24] MEDS ORDERED: CIPR750T2 PO (08:01)
[2017-05-24] MEDS ORDERED: CLIN150 PO (08:01)
[2017-05-24] MEDS ORDERED: LISI10TA3 PO (08:01)
[2017-05-24 08:09] LABS: BICARBONATE 28.3 MEQ/L (21.0-32.0); POTASSIUM 3.6 MEQ/L (3.5-5.1)
[2017-05-24] MEDS: metFORMIN HCL 500 MG TAB PO SCH ×2 (08:18→08:20)
[2017-05-24] MEDS: ATENOLOL 50 MG TAB PO SCH (08:18)
[2017-05-24] MEDS: ASPIRIN EC 81 MG TABEC PO SCH (08:18)
[2017-05-24] MEDS: RIVAROXABAN 20 MG TAB PO SCH (08:18)
[2017-05-24] MEDS: LISINOPRIL 10 MG TAB PO SCH (08:18)
[2017-05-24] MEDS: ATORVASTATIN 10 MG TAB PO SCH (08:18)
[2017-05-24] MEDS: CIPROFLOXACIN 750 MG TAB PO SCH ×2 (08:18→08:20)
== END 2017-05-24 10:45 | disposition home health service (06) | DRG 690 ==
LOC: NEPC 23:01 → NEDA 05-18 04:18 → NEPHCDU 05-18 06:37 → OBSVTOIN 05-19 15:55 → N07A 05-19 22:42
PROVIDERS: ADMIT Specialist; ATTEND Specialist
DX: N39.0 Urinary tract infection, site not specified (principal); R78.81 Bacteremia; L03.115 Cellulitis of right lower limb; B96.5 Pseudomonas (aeruginosa) (mallei) (pseudomallei) as the cause of diseases classified elsewhere; I50.9 Heart failure, unspecified; I11.0 Hypertensive heart disease with heart failure; E11.9 Type 2 diabetes mellitus without complications; B96.89 Other specified bacterial agents as the cause of diseases classified elsewhere; E89.0 Postprocedural hypothyroidism; L03.116 Cellulitis of left lower limb; F41.9 Anxiety disorder, unspecified; I25.10 Atherosclerotic heart disease of native coronary artery without angina pectoris; R33.9 Retention of urine, unspecified; R53.1 Weakness; M54.9 Dorsalgia, unspecified; R60.0 Localized edema; E78.00 Pure hypercholesterolemia, unspecified; S42.301D Unspecified fracture of shaft of humerus, right arm, subsequent encounter for fracture with routine healing; Z86.711 Personal history of pulmonary embolism; Z87.440 Personal history of urinary (tract) infections; Z91.14 Patient's other noncompliance with medication regimen; Z91.19 Patient's noncompliance with other medical treatment and regimen; Z95.5 Presence of coronary angioplasty implant and graft; Z79.84 Long term (current) use of oral hypoglycemic drugs; Z79.02 Long term (current) use of antithrombotics/antiplatelets; Z23 Encounter for immunization
CPT/HCPCS: 71010; 74177; 76937; 80048; 80053; 80202; 81001; 82140; 82550; 82948; 83605; 84443; 84484; 85025; 85027; 85610; 85730; 87040; 87077; 87086; 87186; 87205; 90686; 93005; 93971; 96361; 96372; 96374; 96376; G0378; G8987-GO; G8987-GP; G8988-GO; G8988-GP; J0692; J0744; J1815; J1940; J2020; J3370; J3480; J7030; J7050; Q2038; Q9967

== ENCOUNTER 2017-05-25 15:12 | Inpatient (IN) | payer OTHER, MEDICARE ==
[~2017-05-25] VITALS: Ht 160 cm; Wt 79.1 kg
[~2017-05-25 15:12] MED LIST changes: -CEPH-460 PO; +CIPR750T2 PO; +CLIN150 PO; -HYDR-3580 PO; -XARE15TA PO
[2017-05-25 16:08] VITALS: BP 152/70; PULSE 77; RESP 16; TEMP 98; O2SAT 95
[2017-05-25 16:12] VITALS: BP 152/70; PULSE 77; RESP 16; O2SAT 95
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
[2017-05-25 20:29] VITALS: BP 191/87; PULSE 88; RESP 17; TEMP 98.1; O2SAT 94
[2017-05-25] MEDS ORDERED: LISINOPRIL 10 MG TAB PO ONE (20:30)
[2017-05-25] MEDS ORDERED: ATENOLOL 50 MG TAB PO ONE (20:30)
[2017-05-25 23:01] VITALS: BP 144/64
[2017-05-26] VITALS (7 sets, daily range): BP systolic 152–205; BP diastolic 74–100; PULSE 63–90; RESP 12–20; TEMP 98.1–98.3; O2SAT 96–98
[2017-05-26] MEDS ORDERED: LORazepam 2 MG/ML VIAL IM PRN ×2 (11:15→17:15)
[2017-05-26] MEDS ORDERED: LORazepam 1 MG TAB PO PRN ×2 (11:15→17:15)
[2017-05-26] MEDS ORDERED: MAGNESIUM HYDROXIDE SUSP 30 ML CUP PO PRN (11:15)
[2017-05-26] MEDS ORDERED: ACETAMINOPHEN 325 MG TAB PO PRN (11:15)
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
[2017-05-26] MEDS ORDERED: DEXTROSE 50% IN WATER 50 ML VIAL(D50) IV PUSH PRN (15:00)
[2017-05-26] MEDS: CLINDAMYCIN 150 MG CAP PO SCH ×2 (15:00→20:52)
[2017-05-26] MEDS ORDERED: CLINDAMYCIN 150 MG CAP PO SCH (15:00)
[2017-05-26] MEDS: CIPROFLOXACIN 750 MG TAB PO SCH ×2 (15:00→20:51)
[2017-05-26] MEDS ORDERED: GLUCAGON 1 MG/ML VIAL OTHER PRN (15:00)
[2017-05-26] MEDS: LISINOPRIL 10 MG TAB PO SCH (15:00)
[2017-05-26] MEDS: INSULIN ASPART SUPPLEMENTAL SCALE SQ SCH ×2 (15:58→21:50)
[2017-05-26] MEDS ORDERED: CIPROFLOXACIN 750 MG TAB PO SCH (21:00)
[2017-05-27] MEDS: diphenhydrAMINE HCL 25 MG CAP PO PRN ×2 (03:24→20:32)
[2017-05-27] MEDS: CLINDAMYCIN 150 MG CAP PO SCH ×5 (03:24→20:31)
[2017-05-27 06:52] VITALS: BP 159/67; PULSE 81; RESP 16; TEMP 97.7; O2SAT 95
[2017-05-27] MEDS: INSULIN ASPART SUPPLEMENTAL SCALE SQ SCH ×4 (08:00→20:31)
[2017-05-27] MEDS: ASPIRIN EC 81 MG TABEC PO SCH (08:58)
[2017-05-27] MEDS: ATENOLOL 50 MG TAB PO SCH (08:58)
[2017-05-27] MEDS: ATORVASTATIN 10 MG TAB PO SCH (08:58)
[2017-05-27] MEDS: LISINOPRIL 10 MG TAB PO SCH (08:58)
[2017-05-27] MEDS: CIPROFLOXACIN 750 MG TAB PO SCH ×3 (08:58→20:32)
[2017-05-27] MEDS: metFORMIN HCL 500 MG TAB PO SCH (08:59)
[2017-05-27] MEDS: RIVAROXABAN 20 MG TAB PO SCH (08:59)
[2017-05-27] MEDS ORDERED: LISINOPRIL 10 MG TAB PO SCH (09:00)
[2017-05-27] MEDS ORDERED: GLUCAGON 1 MG/ML VIAL OTHER PRN (10:30)
[2017-05-27] MEDS ORDERED: DEXTROSE 50% IN WATER 50 ML VIAL(D50) IV PUSH PRN (10:30)
--- NOTE | 2017-05-27 11:21 | MB ---
cc: STEPHEN DODGE DATE OF CONSULTATION 05/27/2017 DATE OF [address] Cabrera CONSULTING DOCTOR Dr. Stephen Dodge REASON FOR CONSULTATION Assist in medical management. HISTORY OF PRESENT ILLNESS The patient is an 87-year-old female with a significant past medical history of diabetes, CAD, gastroesophageal reflux disease, urinary incontinence, multiple urinary tract infection in the past and noncompliance. The patient also has a history of hypothyroidism, anxiety, DDD, [id number], kyphosis, large hiatal hernia and UTI. The patient was recently discharged from the hospital because of UTI and SIRS on admission. She was admitted and found out to have a urinary tract infection and she was last seen by infectious disease doctor and put on appropriate antibiotic and discharged on appropriate antibiotic. She was brought to the ER again under a Mccain for refusal or inability to care for self. DCF documentation found feces and cat in her home. The patient became agitated in the ER and refused to allow examination or blood workup. She wanted to leave the ER even though she was unsteady in the ER. At present, the patient is sitting on a chair without any apparent distress. She is demanding physical therapy and she is alert and oriented. She denies any other problem. The only thing is she needs physical therapy and she should have it while she is in the hospital. She denies any headache, dizziness, nausea, vomiting, chest pain, diaphoresis, palpitations, cough, fever, chills, abdominal pain. The patient denies any fever or chills. With this weakness, she needs some physical therapy and she knows about that. PAST MEDICAL HISTORY As described above. MEDICATIONS Reviewed, please see MAR. ALLERGIES The patient has allergy to MEPERIDINE AND PROPOXYPHENE. REVIEW OF SYSTEMS As described above, otherwise negative for 10 systems. SOCIAL HISTORY The patient does not smoke, drink or do any drugs. She lives alone. FAMILY HISTORY Noncontributory PHYSICAL EXAMINATION The patient is alert and oriented lying on a chair without any apparent distress and demands physical therapy. VITAL SIGNS: The patient is afebrile, pulse is 18, respiratory rate is 16, blood pressure was 159/97, pulse ox is 95% on room air. HEENT: Head is normocephalic. Eyes are negative. Conjunctivae no congestion or icterus. Mouth unremarkable. NECK: Supple. No increased in JVD. Negative thyromegaly. Central trachea. CHEST: Clear to auscultation. CARDIOVASCULAR: S1 and S2 audible. Unable to hear any S3 gallop. GI: Abdomen soft, nontender, no organomegaly. Positive bowel sounds. MUSCULOSKELETAL: Extremities have no cyanosis or pedal edema. No cyanosis noted. SKIN: Warm and dry. PSYCH: At present, he just seems slightly anxious and demanding physical therapy. MUSCULOSKELETAL: The patient has a right shoulder limited range of motion. Lower extremity has positive edema which is chronic. LABORATORY DATA CBC within normal limits from May 24. BMP in the normal limits from May 24. ASSESSMENT 1. Psychiatric problem. 2. Noncompliance, the patient has signed out against medical advice multiple times in the past. 3. Recent UTI on antibiotic. 4. Generalized weakness secondary to being in the hospital, Deconditioned, needs physical therapy. 5. History of CAD. 6. Diabetes 7. Hypertension 8. Chronic peripheral edema 9. Recent diagnosis of bilateral PE on Xarelto. RECOMMENDATIONS 1. Physical therapy. 2. Accu-Chek's with sliding scale. 3. Continue home medication as indicated including Xarelto. 4. Antibiotic as she was taking on discharge, complete course. 5. Psychiatric medication and management as per psychiatrist. 6. Discussed with the patient. 7. Discussed with RN. 8. The patient belongs to Dr. Lyons who is now followed by [facility], so we will transfer the patient to [facility]. 9. Discussed with Jessica HULL about this and [facility] will follow from tomorrow. Stephen Dodge MD JP/AFUA /10:30 AM /10:59 AM
--- NOTE | 2017-05-27 11:21 | MB ---
cc: STEPHEN DODGE DATE OF CONSULTATION 05/27/2017 DATE OF [address] Cabrera CONSULTING DOCTOR Dr. Stephen Dodge REASON FOR CONSULTATION Assist in medical management. HISTORY OF PRESENT ILLNESS The patient is an 87-year-old female with a significant past medical history of diabetes, CAD, gastroesophageal reflux disease, urinary incontinence, multiple urinary tract infection in the past and noncompliance. The patient also has a history of hypothyroidism, anxiety, DDD, [id number], kyphosis, large hiatal hernia and UTI. The patient was recently discharged from the hospital because of UTI and SIRS on admission. She was admitted and found out to have a urinary tract infection and she was last seen by infectious disease doctor and put on appropriate antibiotic and discharged on appropriate antibiotic. She was brought to the ER again under a Mccain for refusal or inability to care for self. DCF documentation found feces and cat in her home. The patient became agitated in the ER and refused to allow examination or blood workup. She wanted to leave the ER even though she was unsteady in the ER. At present, the patient is sitting on a chair without any apparent distress. She is demanding physical therapy and she is alert and oriented. She denies any other problem. The only thing is she needs physical therapy and she should have it while she is in the hospital. She denies any headache, dizziness, nausea, vomiting, chest pain, diaphoresis, palpitations, cough, fever, chills, abdominal pain. The patient denies any fever or chills. With this weakness, she needs some physical therapy and she knows about that. PAST MEDICAL HISTORY As described above. MEDICATIONS Reviewed, please see MAR. ALLERGIES The patient has allergy to MEPERIDINE AND PROPOXYPHENE. REVIEW OF SYSTEMS As described above, otherwise negative for 10 systems. SOCIAL HISTORY The patient does not smoke, drink or do any drugs. She lives alone. FAMILY HISTORY Noncontributory PHYSICAL EXAMINATION The patient is alert and oriented lying on a chair without any apparent distress and demands physical therapy. VITAL SIGNS: The patient is afebrile, pulse is 18, respiratory rate is 16, blood pressure was 159/97, pulse ox is 95% on room air. HEENT: Head is normocephalic. Eyes are negative. Conjunctivae no congestion or icterus. Mouth unremarkable. NECK: Supple. No increased in JVD. Negative thyromegaly. Central trachea. CHEST: Clear to auscultation. CARDIOVASCULAR: S1 and S2 audible. Unable to hear any S3 gallop. GI: Abdomen soft, nontender, no organomegaly. Positive bowel sounds. MUSCULOSKELETAL: Extremities have no cyanosis or pedal edema. No cyanosis noted. SKIN: Warm and dry. PSYCH: At present, he just seems slightly anxious and demanding physical therapy. MUSCULOSKELETAL: The patient has a right shoulder limited range of motion. Lower extremity has positive edema which is chronic. LABORATORY DATA CBC within normal limits from May 24. BMP in the normal limits from May 24. ASSESSMENT 1. Psychiatric problem. 2. Noncompliance, the patient has signed out against medical advice multiple times in the past. 3. Recent UTI on antibiotic. 4. Generalized weakness secondary to being in the hospital, Deconditioned, needs physical therapy. 5. History of CAD. 6. Diabetes 7. Hypertension 8. Chronic peripheral edema 9. Recent diagnosis of bilateral PE on Xarelto. RECOMMENDATIONS 1. Physical therapy. 2. Accu-Chek's with sliding scale. 3. Continue home medication as indicated including Xarelto. 4. Antibiotic as she was taking on discharge, complete course. 5. Psychiatric medication and management as per psychiatrist. 6. Discussed with the patient. 7. Discussed with RN. 8. The patient belongs to Dr. Lyons who is now followed by [facility], so we will transfer the patient to [facility]. 9. Discussed with Jessica HULL about this and [facility] will follow from tomorrow. Stephen Dodge MD JP/AFUA /10:30 AM /10:59 AM
--- NOTE | 2017-05-27 11:21 | MB ---
cc: STEPHEN DODGE DATE OF CONSULTATION 05/27/2017 DATE OF [address] Cabrera CONSULTING DOCTOR Dr. Stephen Dodge REASON FOR CONSULTATION Assist in medical management. HISTORY OF PRESENT ILLNESS The patient is an 87-year-old female with a significant past medical history of diabetes, CAD, gastroesophageal reflux disease, urinary incontinence, multiple urinary tract infection in the past and noncompliance. The patient also has a history of hypothyroidism, anxiety, DDD, [id number], kyphosis, large hiatal hernia and UTI. The patient was recently discharged from the hospital because of UTI and SIRS on admission. She was admitted and found out to have a urinary tract infection and she was last seen by infectious disease doctor and put on appropriate antibiotic and discharged on appropriate antibiotic. She was brought to the ER again under a Mccain for refusal or inability to care for self. DCF documentation found feces and cat in her home. The patient became agitated in the ER and refused to allow examination or blood workup. She wanted to leave the ER even though she was unsteady in the ER. At present, the patient is sitting on a chair without any apparent distress. She is demanding physical therapy and she is alert and oriented. She denies any other problem. The only thing is she needs physical therapy and she should have it while she is in the hospital. She denies any headache, dizziness, nausea, vomiting, chest pain, diaphoresis, palpitations, cough, fever, chills, abdominal pain. The patient denies any fever or chills. With this weakness, she needs some physical therapy and she knows about that. PAST MEDICAL HISTORY As described above. MEDICATIONS Reviewed, please see MAR. ALLERGIES The patient has allergy to MEPERIDINE AND PROPOXYPHENE. REVIEW OF SYSTEMS As described above, otherwise negative for 10 systems. SOCIAL HISTORY The patient does not smoke, drink or do any drugs. She lives alone. FAMILY HISTORY Noncontributory PHYSICAL EXAMINATION The patient is alert and oriented lying on a chair without any apparent distress and demands physical therapy. VITAL SIGNS: The patient is afebrile, pulse is 18, respiratory rate is 16, blood pressure was 159/97, pulse ox is 95% on room air. HEENT: Head is normocephalic. Eyes are negative. Conjunctivae no congestion or icterus. Mouth unremarkable. NECK: Supple. No increased in JVD. Negative thyromegaly. Central trachea. CHEST: Clear to auscultation. CARDIOVASCULAR: S1 and S2 audible. Unable to hear any S3 gallop. GI: Abdomen soft, nontender, no organomegaly. Positive bowel sounds. MUSCULOSKELETAL: Extremities have no cyanosis or pedal edema. No cyanosis noted. SKIN: Warm and dry. PSYCH: At present, he just seems slightly anxious and demanding physical therapy. MUSCULOSKELETAL: The patient has a right shoulder limited range of motion. Lower extremity has positive edema which is chronic. LABORATORY DATA CBC within normal limits from May 24. BMP in the normal limits from May 24. ASSESSMENT 1. Psychiatric problem. 2. Noncompliance, the patient has signed out against medical advice multiple times in the past. 3. Recent UTI on antibiotic. 4. Generalized weakness secondary to being in the hospital, Deconditioned, needs physical therapy. 5. History of CAD. 6. Diabetes 7. Hypertension 8. Chronic peripheral edema 9. Recent diagnosis of bilateral PE on Xarelto. RECOMMENDATIONS 1. Physical therapy. 2. Accu-Chek's with sliding scale. 3. Continue home medication as indicated including Xarelto. 4. Antibiotic as she was taking on discharge, complete course. 5. Psychiatric medication and management as per psychiatrist. 6. Discussed with the patient. 7. Discussed with RN. 8. The patient belongs to Dr. Lyons who is now followed by [facility], so we will transfer the patient to [facility]. 9. Discussed with Jessica HULL about this and [facility] will follow from tomorrow. Stephen Dodge MD JP/AFUA /10:30 AM /10:59 AM
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
[2017-05-27 18:18] VITALS: BP 130/76; PULSE 73; RESP 18; TEMP 97.6; O2SAT 95
[2017-05-28] MEDS: CLINDAMYCIN 150 MG CAP PO SCH ×4 (04:12→21:00)
[2017-05-28 07:04] VITALS: BP 166/71; PULSE 74; RESP 17; TEMP 97.6; O2SAT 96
[2017-05-28] MEDS: INSULIN ASPART SUPPLEMENTAL SCALE SQ SCH ×4 (08:00→21:00)
[2017-05-28 09:53] LABS: AUTOMATED NEUTROPHIL # 6.1 TH/MM3 (1.8-7.7); BASOPHIL # 0.1 TH/MM3 (0-0.2); BASOPHIL % 0.9 % (0.0-2.0); EOSINOPHIL # 0.2 TH/MM3 (0-0.4); EOSINOPHIL % 2.3 % (0.0-4.0); HEMATOCRIT 38.5 % (35.0-46.0); HEMOGLOBIN 12.8 GM/DL (11.6-15.3); LYMPH % 14.7 % (9.0-44.0); LYMPHOCYTE # 1.2 TH/MM3 (1.0-4.8); MEAN CELL VOLUME 85.8 FL (80.0-100.0); MEAN CORPUSCULAR HEMOGLOBIN 28.5 PG (27.0-34.0); MEAN CORPUSCULAR HGB CONC 33.2 % (32.0-36.0); MEAN PLATELET VOLUME 7.6 FL (7.0-11.0); MONO % 6.2 % (0.0-8.0); MONOCYTE # 0.5 TH/MM3 (0-0.9); NEUT % 75.9 % (16.0-70.0); PLATELET COUNT 404 TH/MM3 (150-450); RED BLOOD COUNT 4.49 MIL/MM3 (4.00-5.30); RED CELL DISTRIBUTION WIDTH 15.4 % (11.6-17.2); WHITE BLOOD COUNT 8.1 TH/MM3 (4.0-11.0)
[2017-05-28 10:22] LABS: ALBUMIN 2.9 GM/DL (3.4-5.0); AST (GOT) 14 U/L (15-37); BICARBONATE 29.4 MEQ/L (21.0-32.0); BLOOD UREA NITROGEN 11 MG/DL (7-18); CALCIUM 9.3 MG/DL (8.5-10.1); CHLORIDE 99 MEQ/L (98-107); CHOLESTEROL 149 MG/DL (120-200); CREATININE 0.57 MG/DL (0.50-1.00); GLOMERULAR FILTRATION RATE 100 ML/MIN (>89); GLUCOSE,RANDOM 203 MG/DL (74-106); SODIUM (NA) 135 MEQ/L (136-145)
[2017-05-28 10:23] LABS: TRIGLYCERIDES 77 MG/DL (42-150)
[2017-05-28] MEDS: ATENOLOL 50 MG TAB PO SCH (10:50)
[2017-05-28] MEDS: CIPROFLOXACIN 750 MG TAB PO SCH ×2 (10:50→21:00)
[2017-05-28] MEDS: LISINOPRIL 10 MG TAB PO SCH (10:50)
[2017-05-28] MEDS: RIVAROXABAN 20 MG TAB PO SCH (10:50)
[2017-05-28] MEDS: ASPIRIN EC 81 MG TABEC PO SCH (10:50)
[2017-05-28 10:51] LABS: ALKALINE PHOSPHATASE 177 U/L (45-117); ALT (GPT) 19 U/L (10-53); CHOLESTEROL/ HDL RATIO 2.37 RATIO; HDL CHOLESTEROL 62.8 MG/DL (40.0-60.0); LDL CHOLESTEROL 71 MG/DL (0-99); TOTAL BILIRUBIN ADULT 0.7 MG/DL (0.2-1.0); TOTAL PROTEIN 6.3 GM/DL (6.4-8.2)
[2017-05-28] MEDS: ATORVASTATIN 10 MG TAB PO SCH (10:51)
[2017-05-28] MEDS: metFORMIN HCL 500 MG TAB PO SCH (10:51)
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
[2017-05-28 15:40] LABS: HEMOGLOBIN A1C 6.5 % (4.3-6.0)
[2017-05-28] MEDS: ALUMINUM/MAGNESIUM/SIMETH 30 ML CUP PO PRN (16:07)
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
--- NOTE | 2017-05-28 16:42 | HHI.PYPN ---
Subjective Chief Complaint: confusion irritability inability to care for self aggressive behaviors Remarks Patient seen in day room with nurse Jaret, chart reviewed, patient compliant medications. Patient to somewhat irritable and feisty with me. States she is ready now to go to her "rehabilitation" facility. For now continue treatment as we attempt to find appropriate placement Review of Systems Except as stated in HPI: all other systems reviewed are Neg Mental Status Examination Appearance: Dirty, Disheveled Consciousness: Alert Orientation: x4 Motor Activity: Abnormal gait Speech: Unremarkable Language: Adequate Fund of Knowledge: Adequate Attention and Concentration: Adequate Memory: Unremarkable Mood: Angry, Oppositional, Irritable Affect: Other (increase range and intensity) Thought Process & Associations: Intact Thought Content: Appropriate Hallucination Type: None Delusion Type: None Suicidal Ideation: No Suicidal Plan: No Suicidal Intention: No Homicidal Ideation: No Homicidal Plan: No Homicidal Intention: No Insight: Poor Judgment: Impulsive Results Labs Test 05/28/17 08:08 White Blood Count 8.1 TH/MM3 Red Blood Count 4.49 MIL/MM3 Hemoglobin 12.8 GM/DL Hematocrit 38.5 % Mean Corpuscular Volume 85.8 FL Mean Corpuscular Hemoglobin 28.5 PG Mean Corpuscular Hemoglobin Concent 33.2 % Red Cell Distribution Width 15.4 % Platelet Count 404 TH/MM3 Mean Platelet Volume 7.6 FL Neutrophils (%) (Auto) 75.9 % Lymphocytes (%) (Auto) 14.7 % Monocytes (%) (Auto) 6.2 % Eosinophils (%) (Auto) 2.3 % Basophils (%) (Auto) 0.9 % Neutrophils # (Auto) 6.1 TH/MM3 Lymphocytes # (Auto) 1.2 TH/MM3 Monocytes # (Auto) 0.5 TH/MM3 Eosinophils # (Auto) 0.2 TH/MM3 Basophils # (Auto) 0.1 TH/MM3 CBC Comment DIFF FINAL Differential Comment Blood Urea Nitrogen 11 MG/DL Creatinine 0.57 MG/DL Random Glucose 203 MG/DL Total Protein 6.3 GM/DL Albumin 2.9 GM/DL Calcium Level 9.3 MG/DL Alkaline Phosphatase 177 U/L Aspartate Amino Transf (AST/SGOT) 14 U/L Alanine Aminotransferase (ALT/SGPT) 19 U/L Total Bilirubin 0.7 MG/DL Sodium Level 135 MEQ/L Potassium Level 3.7 MEQ/L Chloride Level 99 MEQ/L Carbon Dioxide Level 29.4 MEQ/L Anion Gap 7 MEQ/L Estimat Glomerular Filtration Rate 100 ML/MIN Hemoglobin A1c 6.5 % Triglycerides Level 77 MG/DL Cholesterol Level 149 MG/DL LDL Cholesterol 71 MG/DL HDL Cholesterol 62.8 MG/DL Cholesterol/HDL Ratio 2.37 RATIO Vitamin B12 Level 346 PG/ML 25-Hydroxy Vitamin D Total 9.6 ng/ML Thyroid Stimulating Hormone 3rd Gen 2.820 uIU/ML Vitals/IOs Vital Signs Date Time Temp Pulse Resp B/P (MAP) Pulse Ox O2 Delivery O2 Flow Rate FiO2 05/28/17 07:04 97.6 74 17 166/71 (102) 96 05/26/17 13:19 Room Air Intake and Output 05/28/17 05/28/17 05/29/17 08:00 16:00 00:00 Intake Total 720 ml Balance 720 ml Assessment & Plan Problem List: (1) Adjustment disorder with mixed disturbance of emotions and conduct ICD Codes: F43.25 - Adjustment disorder with mixed disturbance of emotions and conduct Assessment & Plan Estimated LOS: days patient somewhat irritable labile and feisty, says she's ready to go to a "rehabilitation" facility. Justification for Cont. Inpt. At the present time patient decompensate placed in a lower level of care Discharge Planning Continue to work of finding appropriate placement Request HC Surrog/Guard Advoc?: Yes Sonny Cabrera MD May 28, 2017 16:42
[2017-05-28] MEDS: POTASSIUM CHLORIDE 20 MEQ CONTROLLED RELEASE TAB PO SCH (17:45)
[2017-05-28] MEDS: FUROSEMIDE 40 MG TAB PO SCH (17:45)
[2017-05-28] MEDS ORDERED: ERGOCALCIFEROL (VIT D2) 50,000 UNIT CAP PO SCH (18:00)
[2017-05-29] MEDS: CLINDAMYCIN 150 MG CAP PO SCH ×5 (03:00→20:48)
[2017-05-29 06:49] VITALS: BP 157/83; PULSE 90; RESP 15; TEMP 98.2; O2SAT 94
[2017-05-29] MEDS: INSULIN ASPART SUPPLEMENTAL SCALE SQ SCH ×4 (08:00→20:49)
[2017-05-29] MEDS: metFORMIN HCL 500 MG TAB PO SCH ×2 (09:00→10:54)
[2017-05-29] MEDS: CIPROFLOXACIN 750 MG TAB PO SCH ×2 (09:00→20:48)
[2017-05-29] MEDS: POTASSIUM CHLORIDE 20 MEQ CONTROLLED RELEASE TAB PO SCH (09:00)
[2017-05-29] MEDS: FUROSEMIDE 40 MG TAB PO SCH (09:00)
[2017-05-29] MEDS: ATORVASTATIN 10 MG TAB PO SCH (10:55)
[2017-05-29] MEDS: RIVAROXABAN 20 MG TAB PO SCH (10:56)
[2017-05-29] MEDS: ASPIRIN EC 81 MG TABEC PO SCH (10:56)
[2017-05-29] MEDS: ATENOLOL 50 MG TAB PO SCH (10:56)
[2017-05-29] MEDS: LISINOPRIL 10 MG TAB PO SCH (10:57)
[2017-05-29 12:29] LABS: BICARBONATE 28.3 MEQ/L (21.0-32.0); CALCIUM 8.9 MG/DL (8.5-10.1); CREATININE 0.67 MG/DL (0.50-1.00)
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
[2017-05-29 16:00] VITALS: BP 125/61; PULSE 90; RESP 18; TEMP 97.5; O2SAT 95
[2017-05-29] MEDS: diphenhydrAMINE HCL 25 MG CAP PO PRN (20:48)
[2017-05-30] MEDS: CLINDAMYCIN 150 MG CAP PO SCH ×5 (03:00→21:52)
[2017-05-30 06:00] VITALS: BP 141/70; PULSE 75; RESP 16; TEMP 97.5; O2SAT 95
[2017-05-30] MEDS: INSULIN ASPART SUPPLEMENTAL SCALE SQ SCH ×4 (07:46→21:53)
[2017-05-30] MEDS: RIVAROXABAN 20 MG TAB PO SCH (09:00)
[2017-05-30] MEDS: POTASSIUM CHLORIDE 20 MEQ CONTROLLED RELEASE TAB PO SCH (09:00)
[2017-05-30] MEDS: ATENOLOL 50 MG TAB PO SCH (09:00)
[2017-05-30] MEDS: FUROSEMIDE 40 MG TAB PO SCH (09:00)
[2017-05-30] MEDS: LISINOPRIL 10 MG TAB PO SCH (09:00)
[2017-05-30] MEDS: metFORMIN HCL 500 MG TAB PO SCH (09:00)
[2017-05-30] MEDS: CIPROFLOXACIN 750 MG TAB PO SCH ×2 (09:00→21:52)
[2017-05-30] MEDS: ASPIRIN EC 81 MG TABEC PO SCH (09:00)
[2017-05-30] MEDS: ATORVASTATIN 10 MG TAB PO SCH (09:00)
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
--- NOTE | 2017-05-30 13:12 | HHI.PYPN ---
Subjective Chief Complaint: confusion irritability inability to care for self aggressive behaviors Remarks Pt seen and discussed with staff. She initially refused medication but was compliant with RN encouragement. She remains irritable. Yesterday she threw her spoon but has not been physically aggressive today. No SI/HI Mental Status Examination Appearance: Appropriate Consciousness: Alert Orientation: Person, Place, Date/Time Motor Activity: Abnormal gait Speech: Unremarkable Language: Adequate Fund of Knowledge: Adequate Attention and Concentration: Adequate Memory: Impaired Mood: Irritable Affect: Anxious Thought Process & Associations: Intact Thought Content: Appropriate Hallucination Type: None Delusion Type: None Suicidal Ideation: No Suicidal Plan: No Suicidal Intention: No Homicidal Ideation: No Homicidal Plan: No Homicidal Intention: No Insight: Poor Judgment: Impulsive Results Vitals/IOs Vital Signs Date Time Temp Pulse Resp B/P (MAP) Pulse Ox O2 Delivery O2 Flow Rate FiO2 05/30/17 06:00 97.5 75 16 141/70 (93) 95 05/26/17 13:19 Room Air Intake and Output 05/30/17 05/30/17 05/31/17 08:00 16:00 00:00 Intake Total 360 ml 240 ml Balance 360 ml 240 ml Assessment & Plan Problem List: (1) Adjustment disorder with mixed disturbance of emotions and conduct ICD Codes: F43.25 - Adjustment disorder with mixed disturbance of emotions and conduct Assessment & Plan Continue current tx plan.Estimated LOS: days Justification for Cont. Inpt. risk of decompensation Request HC Surrog/Guard Advoc?: Yes Sujey Pierre MD May 30, 2017 13:12
[2017-05-30 17:40] VITALS: BP 138/64; PULSE 68; RESP 16; TEMP 97.5
[2017-05-31] MEDS: CLINDAMYCIN 150 MG CAP PO SCH ×5 (02:32→20:55)
[2017-05-31] MEDS: ALUMINUM/MAGNESIUM/SIMETH 30 ML CUP PO PRN (03:12)
[2017-05-31 05:56] VITALS: BP 136/64; PULSE 87; RESP 16; TEMP 98; O2SAT 93
[2017-05-31] MEDS: INSULIN ASPART SUPPLEMENTAL SCALE SQ SCH ×4 (08:00→21:54)
[2017-05-31] MEDS: CHOLECALCIFEROL (VIT D3) 5000 UNIT CAP PO SCH (09:00)
[2017-05-31] MEDS: FUROSEMIDE 40 MG TAB PO SCH (09:00)
[2017-05-31 09:11] LABS: ALBUMIN 2.8 GM/DL (3.4-5.0); AST (GOT) 20 U/L (15-37); BICARBONATE 27.2 MEQ/L (21.0-32.0); BLOOD UREA NITROGEN 19 MG/DL (7-18); CALCIUM 9.2 MG/DL (8.5-10.1); CHLORIDE 98 MEQ/L (98-107); CREATININE 0.75 MG/DL (0.50-1.00); GLOMERULAR FILTRATION RATE 73 ML/MIN (>89); GLUCOSE,RANDOM 152 MG/DL (74-106); SODIUM (NA) 134 MEQ/L (136-145)
[2017-05-31 09:14] LABS: ALKALINE PHOSPHATASE 168 U/L (45-117); ALT (GPT) 17 U/L (10-53); PHOSPHORUS 3.8 MG/DL (2.5-4.9); TOTAL BILIRUBIN ADULT 0.6 MG/DL (0.2-1.0); TOTAL PROTEIN 6.1 GM/DL (6.4-8.2)
[2017-05-31] MEDS: ASPIRIN EC 81 MG TABEC PO SCH (09:26)
[2017-05-31] MEDS: ATENOLOL 50 MG TAB PO SCH (09:26)
[2017-05-31] MEDS: LISINOPRIL 10 MG TAB PO SCH (09:27)
[2017-05-31] MEDS: POTASSIUM CHLORIDE 20 MEQ CONTROLLED RELEASE TAB PO SCH (09:28)
[2017-05-31] MEDS: CIPROFLOXACIN 750 MG TAB PO SCH (09:28)
[2017-05-31] MEDS: metFORMIN HCL 500 MG TAB PO SCH (09:28)
[2017-05-31] MEDS: RIVAROXABAN 20 MG TAB PO SCH (09:28)
[2017-05-31] MEDS: ATORVASTATIN 10 MG TAB PO SCH (09:28)
--- NOTE | 2017-05-31 12:24 | HHI.PYPN ---
Subjective Chief Complaint: confusion irritability inability to care for self aggressive behaviors Remarks Patient seen in day room with nurse Jaret, patient alert fairly well oriented, chart review, compliant medications, she also continues somewhat feisty. Complains of some difficulty still with her right arm. We'll get x-ray of the right shoulder to engage peeling. Still some significant peripheral edema one of medicine service check and monitor that. Review of Systems Except as stated in HPI: all other systems reviewed are Neg Mental Status Examination Appearance: Appropriate Consciousness: Alert Orientation: Person, Place, Date/Time Motor Activity: Abnormal gait Speech: Unremarkable Language: Adequate Fund of Knowledge: Adequate Attention and Concentration: Adequate Memory: Impaired Mood: Irritable Affect: Anxious Thought Process & Associations: Intact Thought Content: Appropriate Hallucination Type: None Delusion Type: None Suicidal Ideation: No Suicidal Plan: No Suicidal Intention: No Homicidal Ideation: No Homicidal Plan: No Homicidal Intention: No Insight: Poor Judgment: Impulsive Results Labs Test 05/31/17 07:38 Blood Urea Nitrogen 19 MG/DL Creatinine 0.75 MG/DL Random Glucose 152 MG/DL Total Protein 6.1 GM/DL Albumin 2.8 GM/DL Calcium Level 9.2 MG/DL Phosphorus Level 3.8 MG/DL Magnesium Level 2.0 MG/DL Alkaline Phosphatase 168 U/L Aspartate Amino Transf (AST/SGOT) 20 U/L Alanine Aminotransferase (ALT/SGPT) 17 U/L Total Bilirubin 0.6 MG/DL Sodium Level 134 MEQ/L Potassium Level 4.4 MEQ/L Chloride Level 98 MEQ/L Carbon Dioxide Level 27.2 MEQ/L Anion Gap 9 MEQ/L Estimat Glomerular Filtration Rate 73 ML/MIN Vitals/IOs Vital Signs Date Time Temp Pulse Resp B/P (MAP) Pulse Ox O2 Delivery O2 Flow Rate FiO2 05/31/17 05:56 98.0 87 16 136/64 (88) 93 Intake and Output 05/31/17 05/31/17 06/01/17 08:00 16:00 00:00 Intake Total 600 ml Balance 600 ml Assessment & Plan Problem List: (1) Adjustment disorder with mixed disturbance of emotions and conduct ICD Codes: F43.25 - Adjustment disorder with mixed disturbance of emotions and conduct Assessment & Plan Estimated LOS: days patient continues somewhat feisty and irritable though compliant medications. We'll recheck x-rays of her right shoulder. Medicine check her lower extremities there is some significant edema noted Justification for Cont. Inpt. At this time patient decompensate if placed in a lower level of care Discharge Planning Placement somewhat problematic somewhat contingent upon medicine services assessments Request HC Surrog/Guard Advoc?: Yes Sonny Cabrera MD May 31, 2017 12:24
[2017-05-31 12:42] LABS: AUTOMATED NEUTROPHIL # 5.8 TH/MM3 (1.8-7.7); BASOPHIL # 0.1 TH/MM3 (0-0.2); BASOPHIL % 1.2 % (0.0-2.0); EOSINOPHIL # 0.2 TH/MM3 (0-0.4); EOSINOPHIL % 2.5 % (0.0-4.0); HEMATOCRIT 38.6 % (35.0-46.0); HEMOGLOBIN 12.6 GM/DL (11.6-15.3); LYMPH % 14.4 % (9.0-44.0); LYMPHOCYTE # 1.1 TH/MM3 (1.0-4.8); MEAN CELL VOLUME 86.3 FL (80.0-100.0); MEAN CORPUSCULAR HEMOGLOBIN 28.2 PG (27.0-34.0); MEAN CORPUSCULAR HGB CONC 32.7 % (32.0-36.0); MEAN PLATELET VOLUME 7.7 FL (7.0-11.0); MONOCYTE # 0.7 TH/MM3 (0-0.9); NEUT % 72.9 % (16.0-70.0); PLATELET COUNT 377 TH/MM3 (150-450); RED BLOOD COUNT 4.48 MIL/MM3 (4.00-5.30); RED CELL DISTRIBUTION WIDTH 15.5 % (11.6-17.2)
--- NOTE | 2017-05-31 13:28 | RADRPT ---
EXAM DATE/TIME: 05/31/2017 12:36 [facility] COMPARISON: HUMERUS RIGHT (MIN 2VWS), April 19, 2017, 8:08. CT ABDOMEN & PELVIS W CONTRAST, May 18, 2017 , 6:11. SHOULDER RIGHT LTD (2VWS), April 19, 2017, 10:57. INDICATIONS : Post right humerus repair. MEDICAL HISTORY : Cardiovascular disease. Hypertension Hiatal hernia. Diabetes. Coronary artery disease. SURGICAL HISTORY : Appendectomy. ENCOUNTER: Subsequent ACUITY: 1 month PAIN SCORE: 5/10 LOCATION: Right proximal humerus FINDINGS: Limited 2 views of the right shoulder. Regional callus formation. Side plate and osseous screws secur e the previously identified displaced fracture of the surgical neck. Anatomic alignment is difficult to assess due to the limited projections provided. There is some widening of the acromiohumeral inter juaquin with a humeral head positioned low on the glenoid fossa. I do not see evidence of dislocation, ho wever. Air and soft tissue density in the right base corresponds to a very large hiatal hernia on jerad or CT. CONCLUSION: 1. Limited examination of the right shoulder with regional callus formation as well as a side plate a nd osseous screws securing a displaced fracture of the proximal humeral neck identified previously. 2. Again, with the limited 2 views provided, alignment is difficult to assess. 3. Humeral head is low lying in the glenoid fossa without mansi dislocation. 4. Large hiatal hernia Santos Borrero MD on May 31, 2017 at 13:21 Board Certified Radiologist. This report was verified electronically.
--- NOTE | 2017-05-31 14:57 | HHI.PR ---
Subjective Remarks Written by Kimberly Aburto, acting as scribe for Dr. Hernandez on 05/31/17 at 14: 51. Follow up on patient with UTI, cellulitis BLE. Patient seen and examined. Patient tells me she is being discharged to rehab today. She states she is doing well. She has no complaints. Discussed with nursing staff, patient is not being discharged today. She refused afternoon dose of antibiotics. C/O right shoulder pain s/p fall. No other acute issues noted. Objective Vitals Vital Signs Date Time Temp Pulse Resp B/P (MAP) Pulse Ox O2 Delivery O2 Flow Rate FiO2 05/31/17 05:56 98.0 87 16 136/64 (88) 93 05/30/17 17:40 97.5 68 16 138/64 (88) I/O 05/30/17 05/30/17 05/30/17 05/31/17 05/31/17 05/31/17 07:00 15:00 23:00 07:00 15:00 23:00 Intake Total 600 ml 600 ml 120 ml 720 ml Balance 600 ml 600 ml 120 ml 720 ml Intake Oral 600 ml 600 ml 120 ml 720 ml # Voids 2 1 1 Result Diagram: 05/31/17 0738 05/31/17 0738 Imaging Last Impressions Shoulder X-Ray 05/31/17 0000 Signed Impressions: Service Date/Time: Wednesday, May 31, 2017 12:36 - CONCLUSION: 1. Limited examination of the right shoulder with regional callus formation as well as a side plate and osseous screws securing a displaced fracture of the proximal humeral neck identified previously. 2. Again, with the limited 2 views provided , alignment is difficult to assess. 3. Humeral head is low lying in the glenoid fossa without mansi dislocation. 4. Large hiatal hernia Santos Borrero MD Objective Remarks GENERAL: Awake and alert. INAD. Sitting in dayroom. SKIN: Warm and dry. HEAD: Atraumatic. Normocephalic. EYES: Pupils equal and round. No scleral icterus. No injection or drainage. Extraocular muscles intact. ENT: No nasal bleeding or discharge. Mucous membranes pink and moist. Tongue is midline NECK: Trachea midline. No JVD. Supple CARDIOVASCULAR: Regular rate and rhythm. S1-S2 no S3 or S4 RESPIRATORY: No accessory muscle use. Clear to auscultation. Breath sounds equal bilaterally. GASTROINTESTINAL: Abdomen soft, non-tender, nondistended. Hepatic and splenic margins not palpable. MUSCULOSKELETAL: Extremities without clubbing, cyanosis, +4 bilateral lower extremity edema chronic no obvious deformities, appears unchanged. CHRONIC LYMPHEDEMA NEUROLOGICAL: Awake and alert. No obvious cranial nerve deficits. Motor grossly within normal limits.4 out of 5 muscle strength in the arms and legs. Normal speech. PSYCHIATRIC: INAppropriate mood and affect; insight and judgment ABnormal. Medications and IVs Current Medications Medications (Trade) Dose Ordered Sig/Elsy Route Start Time Stop Time Status Last Admin (Tylenol) 650 mg Q4H PRN PO 05/26/17 11:15 (Milk Of Magnesia Liq) 30 ml DAILY PRN PO 05/26/17 11:15 (Mag-Al Plus Susp Liq) 30 ml Q6H PRN PO 05/26/17 11:15 05/31/17 03:12 (Ecotrin Ec) 81 mg DAILY PO 05/27/17 09:00 05/31/17 09:26 (Tenormin) 50 mg DAILY PO 05/27/17 09:00 05/31/17 09:26 (Lipitor) 10 mg DAILY PO 05/27/17 09:00 05/31/17 09:28 (Cleocin) 300 mg Q6H PO 05/26/17 15:00 06/03/17 17:59 05/31/17 09:26 (Glucophage) 500 mg DAILY PO 05/27/17 09:00 05/31/17 09:28 (Xarelto) 20 mg DAILY PO 05/27/17 09:00 05/31/17 09:28 (Cipro) 750 mg Q12HR PO 05/26/17 15:00 05/31/17 20:59 05/31/17 09:28 (Prinivil) 10 mg DAILY PO 05/26/17 15:00 05/31/17 09:27 (Ativan) 0.5 mg Q12H PRN PO 05/26/17 17:15 (Ativan Inj) 0.5 mg Q12H PRN IM 05/26/17 17:15 (Benadryl) 25 mg HS PRN PO 05/27/17 02:30 05/29/17 20:48 (D50w (Vial) Inj) 50 ml UNSCH PRN IV PUSH 05/27/17 10:30 (Glucagon Inj) 1 mg UNSCH PRN OTHER 05/27/17 10:30 (NovoLOG SUPPLEMENTAL SCALE) 1 ACHS SLIDING SCALE SQ 05/27/17 12:00 05/31/17 08:00 (Lasix) 40 mg DAILY PO 05/28/17 17:45 06/02/17 17:44 05/31/17 09:00 (KCl) 20 meq DAILY PO 05/28/17 17:45 06/02/17 17:44 05/31/17 09:28 (Vitamin D3) 5,000 units DAILY PO 05/31/17 09:00 06/30/17 08:59 05/31/17 09:00 A/P Problem List: (1) Hypertension ICD Code: I10 - Hypertension Status: Chronic (2) Fx humeral neck ICD Code: S42.213A - Unspecified displaced fracture of surgical neck of unspecified humerus, initial encounter for closed fracture Status: Resolved (3) Diabetes mellitus, type II ICD Code: E11.9 - Type 2 diabetes mellitus without complications Status: Chronic (4) Hypothyroid ICD Code: E03.9 - Hypothyroidism, unspecified Status: Chronic Assessment and Plan This is an 87-year-old female with past medical history of diabetes, CAD, GERD, hypothyroidism, recurrent urinary tract infection brought to the hospital under [place] act by DCF will be found as ceases and then In her home. Unable to take care of herself. She is now admitted to inpatient psychiatry unit for further evaluation. Consulted for medical management. Psychosis - Management by psychiatry team Urinary tract infection, acute - UA growing Pseudomonas, sensitive to Cipro - Continue Cipro for 10 days Cellulitis bilateral lower extremity - Previously on Vanco and then switch over to clindamycin. - Continue with clindamycin use DM 2, chronic, controlled - Continue metformin 500 mg twice a day - Insulin sliding scale. Monitor Accu-Cheks. - Hemoglobin A1c 6.5 - BS controlled at present Pulmonary embolism, acute - Recently diagnosed with PE placed on Xarelto - Continue Xarelto HTN, uncontrolled CAD, HLD CHF, unspecified type, not in exacerbation Bilateral lower extremities edema - Continue atenolol 50 mg daily, atorvastatin 10 mg daily, lisinopril 10 mg daily - Monitor BP trend - Lasix 40mg daily x 5 days, KCL daily - Monitor BMP DVT prophylaxis continue with Xarelto DW RN AND PATIENT AM LABS WHILE DIURESING The exam, history, and the medical decision-making described in the above note were completed with the assistance of the mid-level provider. I reviewed and agree with the findings presented. I attest that I had a [id number] encounter with the patient on the same day, and personally performed and documented my assessment and findings in the medical record. Kimberly Aburto May 31, 2017 14:57 Jose Hernandez DO May 31, 2017 15:22
--- NOTE | 2017-05-31 15:00 | PD.TTN ---
Patient Problems 1. Discharge planning 2. Medication compliance 3. Knowledge deficit 4. Lack of coping skills Progress Toward Goals Provider Present: Dr. Garry Cabrera Provider Input: Dr. Cabrera's treatment team met to discuss treatment plan, medication and discharge plans. Patient is medication compliant. Patient is being schueduled to have her arm xrayed. Nurse(s) Input: Patient 's nurse Catina reports patient is compliant with medications, needs assistance with all her ALD'S, and has a UTI Psychiatric Counselors Present: Diandra Nelson [facility] Psych Therapist Input: Patient seen today. Patient presents childlike, anxious, dishelved, iritable, cooperative guarded, affect labile. Patient's speech is clear, organized, pressured. Patient is eating ok, but her sleep is restless. Patient required medication last night. Patient denies suicidal and homicidal ideation. Patient does not present internally stimulated or with and delusional content. Patient is alert to person and place but has poor insight into her situation. Group Spec/RT/OT/DICKINSON Present: TEENA Fisher Group Spec/RT/OT/DICKINSON Input: Tami DICKINSON reports patient attends "food" groups with appropriate behaviors. Diandra Nelson [facility] May 31, 2017 15:00
--- NOTE | 2017-05-31 15:00 | PD.TTN ---
Patient Problems 1. Discharge planning 2. Medication compliance 3. Knowledge deficit 4. Lack of coping skills Progress Toward Goals Provider Present: Dr. Garry Cabrera Provider Input: Dr. Cabrera's treatment team met to discuss treatment plan, medication and discharge plans. Patient is medication compliant. Patient is being schueduled to have her arm xrayed. Nurse(s) Input: Patient 's nurse Catina reports patient is compliant with medications, needs assistance with all her ALD'S, and has a UTI Psychiatric Counselors Present: Diandra Nelson [facility] Psych Therapist Input: Patient seen today. Patient presents childlike, anxious, dishelved, iritable, cooperative guarded, affect labile. Patient's speech is clear, organized, pressured. Patient is eating ok, but her sleep is restless. Patient required medication last night. Patient denies suicidal and homicidal ideation. Patient does not present internally stimulated or with and delusional content. Patient is alert to person and place but has poor insight into her situation. Group Spec/RT/OT/DICKINSON Present: TEENA Fisher Group Spec/RT/OT/DICKINSON Input: Tami DICKINSON reports patient attends "food" groups with appropriate behaviors. Diandra Nelson [facility] May 31, 2017 15:00
--- NOTE | 2017-05-31 15:00 | PD.TTN ---
Patient Problems 1. Discharge planning 2. Medication compliance 3. Knowledge deficit 4. Lack of coping skills Progress Toward Goals Provider Present: Dr. Garry Cabrera Provider Input: Dr. Cabrera's treatment team met to discuss treatment plan, medication and discharge plans. Patient is medication compliant. Patient is being schueduled to have her arm xrayed. Nurse(s) Input: Patient 's nurse Catina reports patient is compliant with medications, needs assistance with all her ALD'S, and has a UTI Psychiatric Counselors Present: Diandra Nelson [facility] Psych Therapist Input: Patient seen today. Patient presents childlike, anxious, dishelved, iritable, cooperative guarded, affect labile. Patient's speech is clear, organized, pressured. Patient is eating ok, but her sleep is restless. Patient required medication last night. Patient denies suicidal and homicidal ideation. Patient does not present internally stimulated or with and delusional content. Patient is alert to person and place but has poor insight into her situation. Group Spec/RT/OT/DICKINSON Present: TEENA Fisher Group Spec/RT/OT/DICKINSON Input: Tami DICKINSON reports patient attends "food" groups with appropriate behaviors. Diandra Nelson [facility] May 31, 2017 15:00
[2017-05-31 18:40] VITALS: BP 133/63; PULSE 70; RESP 16; TEMP 98.2
[2017-05-31] MEDS: CIPROFLOXACIN 500 MG TAB PO SCH (20:56)
[2017-06-01] MEDS: diphenhydrAMINE HCL 25 MG CAP PO PRN ×2 (00:44→22:03)
[2017-06-01] MEDS ORDERED: diphenhydrAMINE HCL 25 MG CAP PO ONE (01:45)
[2017-06-01] MEDS: CLINDAMYCIN 150 MG CAP PO SCH ×4 (02:01→21:23)
[2017-06-01 06:49] VITALS: BP 149/79; PULSE 90; RESP 19; TEMP 97.8; O2SAT 93
[2017-06-01] MEDS: INSULIN ASPART SUPPLEMENTAL SCALE SQ SCH ×4 (07:30→21:25)
[2017-06-01] MEDS: ATENOLOL 50 MG TAB PO SCH (08:47)
[2017-06-01] MEDS: ASPIRIN EC 81 MG TABEC PO SCH (08:49)
[2017-06-01] MEDS: FUROSEMIDE 40 MG TAB PO SCH (08:51)
[2017-06-01] MEDS: RIVAROXABAN 20 MG TAB PO SCH (08:51)
[2017-06-01] MEDS: LISINOPRIL 10 MG TAB PO SCH (08:52)
[2017-06-01] MEDS: ATORVASTATIN 10 MG TAB PO SCH (08:55)
[2017-06-01] MEDS: metFORMIN HCL 500 MG TAB PO SCH (09:00)
[2017-06-01] MEDS: POTASSIUM CHLORIDE 20 MEQ CONTROLLED RELEASE TAB PO SCH (09:00)
[2017-06-01] MEDS: CHOLECALCIFEROL (VIT D3) 5000 UNIT CAP PO SCH (09:00)
[2017-06-01] MEDS: CIPROFLOXACIN 500 MG TAB PO SCH ×2 (09:00→21:00)
[2017-06-01 11:12] LABS: AUTOMATED NEUTROPHIL # 5.7 TH/MM3 (1.8-7.7); BASOPHIL # 0.1 TH/MM3 (0-0.2); BASOPHIL % 1.3 % (0.0-2.0); EOSINOPHIL # 0.2 TH/MM3 (0-0.4); EOSINOPHIL % 2.5 % (0.0-4.0); HEMATOCRIT 36.8 % (35.0-46.0); HEMOGLOBIN 12.1 GM/DL (11.6-15.3); LYMPHOCYTE # 0.8 TH/MM3 (1.0-4.8); MEAN CELL VOLUME 85.8 FL (80.0-100.0); MEAN CORPUSCULAR HEMOGLOBIN 28.3 PG (27.0-34.0); MEAN PLATELET VOLUME 7.8 FL (7.0-11.0); MONO % 9.7 % (0.0-8.0); MONOCYTE # 0.7 TH/MM3 (0-0.9); NEUT % 75.5 % (16.0-70.0); PLATELET COUNT 392 TH/MM3 (150-450); RED CELL DISTRIBUTION WIDTH 15.6 % (11.6-17.2); WHITE BLOOD COUNT 7.5 TH/MM3 (4.0-11.0)
[2017-06-01 11:35] LABS: ALBUMIN 2.9 GM/DL (3.4-5.0); BICARBONATE 27.8 MEQ/L (21.0-32.0); BLOOD UREA NITROGEN 18 MG/DL (7-18); CALCIUM 8.9 MG/DL (8.5-10.1); CHLORIDE 99 MEQ/L (98-107); CREATININE 0.79 MG/DL (0.50-1.00); GLOMERULAR FILTRATION RATE 69 ML/MIN (>89); GLUCOSE,RANDOM 241 MG/DL (74-106); MAGNESIUM 2.2 MG/DL (1.5-2.5); SODIUM (NA) 134 MEQ/L (136-145)
[2017-06-01 11:36] LABS: ALT (GPT) 19 U/L (10-53); AST (GOT) 14 U/L (15-37); PHOSPHORUS 3.9 MG/DL (2.5-4.9)
[2017-06-01 11:38] LABS: ALKALINE PHOSPHATASE 173 U/L (45-117); TOTAL BILIRUBIN ADULT 0.5 MG/DL (0.2-1.0); TOTAL PROTEIN 6.4 GM/DL (6.4-8.2)
--- NOTE | 2017-06-01 13:41 | PD.TTN ---
Patient Problems 1. Discharge planning 2. Medication compliance 3. Knowledge deficit 4. Lack of coping skills Progress Toward Goals Provider Present: Dr. Garry Cabrera Provider Input: Dr. Cabrera's treatment team met to discuss treatment plan, medication and discharge plans. Patient is medication compliant. Patient is being schueduled to have her arm xrayed. 06/01/17 Patient refused her medication. Patient is uncooperative in her care. Nurse(s) Input: Patient 's nurse Catina reports patient is compliant with medications, needs assistance with all her ALD'S, and has a UTI 06/01/17 Patient refused her medication. Patient is uncooperative, agitated, obsinate. Psychiatric Counselors Present: HAKEEM Solis Psych Therapist Input: Patient seen today. Patient presents childlike, anxious, dishelved, iritable, cooperative guarded, affect labile. Patient's speech is clear, organized, pressured. Patient is eating ok, but her sleep is restless. Patient required medication last night. Patient denies suicidal and homicidal ideation. Patient does not present internally stimulated or with and delusional content. Patient is alert to person and place but has poor insight into her situation. 06/01/17 Patient seen in the dayroom. Patient presented agitated, anxious, exit seeking, affect blunted. Patient refused her medication this morning. Patient denies suicidal and homicidal ideations. Patient does not present internally stimulated. Patient is alert to person, place, but has poor insight into her situation. Patient made poor eye contact. Patient's speech is clear, pressured and organized. Group Spec/RT/OT/DICKINSON Present: TEENA Fisher Group Spec/RT/OT/DICKINSON Input: Tami DICKINSON reports patient attends "food" groups with appropriate behaviors. 06/01/17 Patient does not participate in groups Diandra Nelson Jun 01, 2017 13:41
--- NOTE | 2017-06-01 14:36 | HHI.PR ---
Subjective Remarks Follow up on patient with UTI, cellulitis BLE. Patient seen and examined. Patient tells me she is being discharged to rehab today. She states she is doing well. She has no complaints. Discussed with nursing staff, patient is not being discharged today. She refused afternoon dose of antibiotics. C/O right shoulder pain s/p fall. No other acute issues noted. 06-01 PSYCHIATRY OK TO TRANSFER TO SNF AT ANYTIME REFUSING HER ANTIBIOTICS Objective Vitals Vital Signs Date Time Temp Pulse Resp B/P (MAP) Pulse Ox O2 Delivery O2 Flow Rate FiO2 06/01/17 06:49 97.8 90 19 149/79 (102) 93 05/31/17 18:40 98.2 70 16 133/63 (86) I/O 05/31/17 05/31/17 05/31/17 06/01/17 06/01/17 06/01/17 07:00 15:00 23:00 07:00 15:00 23:00 Intake Total 120 ml 720 ml 1680 ml 240 ml 360 ml Balance 120 ml 720 ml 1680 ml 240 ml 360 ml Intake Oral 120 ml 720 ml 1680 ml 240 ml 360 ml # Voids 1 3 2 # Bowel Movements 2 Result Diagram: 06/01/17 1018 06/01/17 1018 Other Results Laboratory Tests Test 05/31/17 07:38 06/01/17 10:18 White Blood Count 8.0 TH/MM3 7.5 TH/MM3 Red Blood Count 4.48 MIL/MM3 4.30 MIL/MM3 Hemoglobin 12.6 GM/DL 12.1 GM/DL Hematocrit 38.6 % 36.8 % Mean Corpuscular Volume 86.3 FL 85.8 FL Mean Corpuscular Hemoglobin 28.2 PG 28.3 PG Mean Corpuscular Hemoglobin Concent 32.7 % 33.0 % Red Cell Distribution Width 15.5 % 15.6 % Platelet Count 377 TH/MM3 392 TH/MM3 Mean Platelet Volume 7.7 FL 7.8 FL Neutrophils (%) (Auto) 72.9 % 75.5 % Lymphocytes (%) (Auto) 14.4 % 11.0 % Monocytes (%) (Auto) 9.0 % 9.7 % Eosinophils (%) (Auto) 2.5 % 2.5 % Basophils (%) (Auto) 1.2 % 1.3 % Neutrophils # (Auto) 5.8 TH/MM3 5.7 TH/MM3 Lymphocytes # (Auto) 1.1 TH/MM3 0.8 TH/MM3 Monocytes # (Auto) 0.7 TH/MM3 0.7 TH/MM3 Eosinophils # (Auto) 0.2 TH/MM3 0.2 TH/MM3 Basophils # (Auto) 0.1 TH/MM3 0.1 TH/MM3 CBC Comment DIFF FINAL DIFF FINAL Differential Comment Blood Urea Nitrogen 19 MG/DL 18 MG/DL Creatinine 0.75 MG/DL 0.79 MG/DL Random Glucose 152 MG/DL 241 MG/DL Total Protein 6.1 GM/DL 6.4 GM/DL Albumin 2.8 GM/DL 2.9 GM/DL Calcium Level 9.2 MG/DL 8.9 MG/DL Phosphorus Level 3.8 MG/DL 3.9 MG/DL Magnesium Level 2.0 MG/DL 2.2 MG/DL Alkaline Phosphatase 168 U/L 173 U/L Aspartate Amino Transf (AST/SGOT) 20 U/L 14 U/L Alanine Aminotransferase (ALT/SGPT) 17 U/L 19 U/L Total Bilirubin 0.6 MG/DL 0.5 MG/DL Sodium Level 134 MEQ/L 134 MEQ/L Potassium Level 4.4 MEQ/L 4.6 MEQ/L Chloride Level 98 MEQ/L 99 MEQ/L Carbon Dioxide Level 27.2 MEQ/L 27.8 MEQ/L Anion Gap 9 MEQ/L 7 MEQ/L Estimat Glomerular Filtration Rate 73 ML/MIN 69 ML/MIN Imaging Last Impressions Shoulder X-Ray 05/31/17 0000 Signed Impressions: Service Date/Time: Wednesday, May 31, 2017 12:36 - CONCLUSION: 1. Limited examination of the right shoulder with regional callus formation as well as a side plate and osseous screws securing a displaced fracture of the proximal humeral neck identified previously. 2. Again, with the limited 2 views provided , alignment is difficult to assess. 3. Humeral head is low lying in the glenoid fossa without mansi dislocation. 4. Large hiatal hernia Santos Borrero MD Objective Remarks GENERAL: Awake and alert. INAD. Sitting in dayroom. SKIN: Warm and dry. HEAD: Atraumatic. Normocephalic. EYES: Pupils equal and round. No scleral icterus. No injection or drainage. Extraocular muscles intact. ENT: No nasal bleeding or discharge. Mucous membranes pink and moist. Tongue is midline NECK: Trachea midline. No JVD. Supple CARDIOVASCULAR: Regular rate and rhythm. S1-S2 no S3 or S4 RESPIRATORY: No accessory muscle use. Clear to auscultation. Breath sounds equal bilaterally. GASTROINTESTINAL: Abdomen soft, non-tender, nondistended. Hepatic and splenic margins not palpable. MUSCULOSKELETAL: Extremities without clubbing, cyanosis, +4 bilateral lower extremity edema chronic no obvious deformities, appears unchanged. CHRONIC LYMPHEDEMA NEUROLOGICAL: Awake and alert. No obvious cranial nerve deficits. Motor grossly within normal limits.4 out of 5 muscle strength in the arms and legs. Normal speech. PSYCHIATRIC: INAppropriate mood and affect; insight and judgment ABnormal. Medications and IVs Current Medications Lisinopril (Prinivil) 10 mg ONCE ONCE PO Last administered on 05/25/17 20:44 ; Start 05/25/17 at 20:30; Stop 05/25/17 at 20:33; Status DC Atenolol (Tenormin) 50 mg ONCE ONCE PO Last administered on 05/25/17 20:44; Start 05/25/17 at 20:30; Stop 05/25/17 at 20:33; Status DC Lorazepam (Ativan) 1 mg Q6H PRN PO MODERATE TO SEVERE ANXIETY; Start 05/26/17 at 11:15; Stop 05/26/17 at 15:16; Status DC Lorazepam (Ativan Inj) 1 mg Q6H PRN IM MODERATE TO SEVERE ANXIETY; Start 05/26 at 11:15; Stop 05/26/17 at 15:16; Status DC Acetaminophen (Tylenol) 650 mg Q4H PRN PO Pain 1-5 or Temp >101F; Start at 11:15 Magnesium Hydroxide (Milk Of Magnesia Liq) 30 ml DAILY PRN PO CONSTIPATION; Start 05/26/17 at 11:15 Al Hydrox/Mg Hydrox/Simethicone (Mag-Al Plus Susp Liq) 30 ml Q6H PRN PO DYSPEPSIA Last administered on 05/31/17 03:12; Start 05/26/17 at 11:15 Aspirin (Ecotrin Ec) 81 mg DAILY PO Last administered on 06/01/17 08:49; Start 05/27/17 at 09:00 Atenolol (Tenormin) 50 mg DAILY PO Last administered on 06/01/17 08:47; Start 05/27/17 at 09:00 Atorvastatin Calcium (Lipitor) 10 mg DAILY PO Last administered on 06/01/17 08:55; Start 05/27/17 at 09:00 Ciprofloxacin (Cipro) 750 mg Q12HR PO ; Start 05/26/17 at 21:00; Status Cancel Clindamycin HCl (Cleocin) 300 mg Q6H PO Last administered on 05/31/17 20:55; Start 05/26/17 at 15:00; Stop 06/03/17 at 17:59 Lisinopril (Prinivil) 10 mg DAILY PO ; Start 05/27/17 at 09:00; Stop 05/27/17 at 09:00; Status DC Metformin HCl (Glucophage) 500 mg DAILY PO Last administered on 05/31/17 09: 28; Start 05/27/17 at 09:00 Rivaroxaban (Xarelto) 20 mg DAILY PO Last administered on 06/01/17 08:51; Start 05/27/17 at 09:00 Clindamycin HCl (Cleocin) 300 mg Q6HR PO ; Start 05/26/17 at 15:00; Stop 05/26 at 15:38; Status DC Ciprofloxacin (Cipro) 750 mg Q12HR PO Last administered on 05/31/17 09:28; Start 05/26/17 at 15:00; Stop 05/31/17 at 15:26; Status DC Lisinopril (Prinivil) 10 mg DAILY PO Last administered on 06/01/17 08:52; Start 05/26/17 at 15:00 Dextrose (D50w (Vial) Inj) 50 ml UNSCH PRN IV PUSH HYPOGLYCEMIA-SEE COMMENTS; Start 05/26/17 at 15:00; Stop 05/27/17 at 10:51; Status DC Glucagon (Glucagon Inj) 1 mg UNSCH PRN OTHER HYPOGLYCEMIA-SEE COMMENTS; Start 05/26/17 at 15:00; Stop 05/27/17 at 10:51; Status DC Insulin Aspart (NovoLOG SUPPLEMENTAL SCALE) 1 ACHS SLIDING SCALE SQ Last administered on 05/27/17 08:00; Start 05/26/17 at 17:00; Stop 05/27/17 at 10 :51; Status DC Lorazepam (Ativan) 0.5 mg Q12H PRN PO MODERATE TO SEVERE ANXIETY; Start at 17:15 Lorazepam (Ativan Inj) 0.5 mg Q12H PRN IM MODERATE TO SEVERE ANXIETY; Start at 17:15 Diphenhydramine HCl (Benadryl) 25 mg HS PRN PO INSOMNIA Last administered on 00:44; Start 05/27/17 at 02:30 Dextrose (D50w (Vial) Inj) 50 ml UNSCH PRN IV PUSH HYPOGLYCEMIA-SEE COMMENTS; Start 05/27/17 at 10:30 Glucagon (Glucagon Inj) 1 mg UNSCH PRN OTHER HYPOGLYCEMIA-SEE COMMENTS; Start 05/27/17 at 10:30 Insulin Aspart (NovoLOG SUPPLEMENTAL SCALE) 1 ACHS SLIDING SCALE SQ Last administered on 06/01/17 11:39; Start 05/27/17 at 12:00 Furosemide (Lasix) 40 mg DAILY PO Last administered on 06/01/17 08:51; Start 05/28/17 at 17:45; Stop 06/02/17 at 17:44 Potassium Chloride (KCl) 20 meq DAILY PO Last administered on 05/31/17 09:28 ; Start 05/28/17 at 17:45; Stop 06/02/17 at 17:44 Ergocalciferol (Drisdol) 50,000 units Q7D PO ; Start 05/28/17 at 18:00; Stop 05/31/17 at 08:43; Status DC Cholecalciferol (Vitamin D3) 5,000 units DAILY PO Last administered on 09:00; Start 05/31/17 at 09:00; Stop 06/30/17 at 08:59 Ciprofloxacin (Cipro) 500 mg Q12HR PO ; Start 05/31/17 at 21:00 Diphenhydramine HCl (Benadryl) 25 mg ONCE ONCE PO ; Start 06/01/17 at 01:45; Stop 06/01/17 at 01:46; Status DC A/P Problem List: (1) Hypertension ICD Code: I10 - Hypertension Status: Chronic (2) Fx humeral neck ICD Code: S42.213A - Unspecified displaced fracture of surgical neck of unspecified humerus, initial encounter for closed fracture Status: Resolved (3) Diabetes mellitus, type II ICD Code: E11.9 - Type 2 diabetes mellitus without complications Status: Chronic (4) Hypothyroid ICD Code: E03.9 - Hypothyroidism, unspecified Status: Chronic Assessment and Plan This is an 87-year-old female with past medical history of diabetes, CAD, GERD, hypothyroidism, recurrent urinary tract infection brought to the hospital under Mccain act by DCF will be found as ceases and then In her home. Unable to take care of herself. She is now admitted to inpatient psychiatry unit for further evaluation. Consulted for medical management. Psychosis - Management by psychiatry team Urinary tract infection, acute - UA growing Pseudomonas, sensitive to Cipro - Continue Cipro for 10 days Cellulitis bilateral lower extremity - Previously on Vanco and then switch over to clindamycin. - Continue with clindamycin use DM 2, chronic, controlled - Continue metformin 500 mg twice a day - Insulin sliding scale. Monitor Accu-Cheks. - Hemoglobin A1c 6.5 - BS controlled at present Pulmonary embolism, acute - Recently diagnosed with PE placed on Xarelto - Continue Xarelto HTN, uncontrolled CAD, HLD CHF, unspecified type, not in exacerbation Bilateral lower extremities edema LYMPHEDEMA - Continue atenolol 50 mg daily, atorvastatin 10 mg daily, lisinopril 10 mg daily - Monitor BP trend - Lasix 40mg daily x 5 days, KCL daily - Monitor BMP DVT prophylaxis continue with Xarelto NEYDA RN AND PATIENT AM LABS QOD WHILE DIURESING Discharge Planning MONITOR LABS WHILE DIURESING Jose Hernandez DO Jun 01, 2017 14:36
--- NOTE | 2017-06-01 15:39 | HHI.PYPN ---
Subjective Chief Complaint: confusion irritability inability to care for self aggressive behaviors Remarks Patient seen in day room with medical student giuliana, she is alert fairly well oriented, continues quite feisty and irritable mostly with behavioral problems. Internal medicine here continues to assess her also x-rays of the shoulder reviewed showing the fracture is healing. Counselors continue to work an appropriate placement for this lady Review of Systems Except as stated in HPI: all other systems reviewed are Neg Mental Status Examination Appearance: Appropriate Consciousness: Alert Orientation: Person, Place, Date/Time Motor Activity: Abnormal gait Speech: Unremarkable Language: Adequate Fund of Knowledge: Adequate Attention and Concentration: Adequate Memory: Impaired Mood: Irritable Affect: Anxious Thought Process & Associations: Intact Thought Content: Appropriate Hallucination Type: None Delusion Type: None Suicidal Ideation: No Suicidal Plan: No Suicidal Intention: No Homicidal Ideation: No Homicidal Plan: No Homicidal Intention: No Insight: Poor Judgment: Impulsive Results Labs Test 06/01/17 10:18 White Blood Count 7.5 TH/MM3 Red Blood Count 4.30 MIL/MM3 Hemoglobin 12.1 GM/DL Hematocrit 36.8 % Mean Corpuscular Volume 85.8 FL Mean Corpuscular Hemoglobin 28.3 PG Mean Corpuscular Hemoglobin Concent 33.0 % Red Cell Distribution Width 15.6 % Platelet Count 392 TH/MM3 Mean Platelet Volume 7.8 FL Neutrophils (%) (Auto) 75.5 % Lymphocytes (%) (Auto) 11.0 % Monocytes (%) (Auto) 9.7 % Eosinophils (%) (Auto) 2.5 % Basophils (%) (Auto) 1.3 % Neutrophils # (Auto) 5.7 TH/MM3 Lymphocytes # (Auto) 0.8 TH/MM3 Monocytes # (Auto) 0.7 TH/MM3 Eosinophils # (Auto) 0.2 TH/MM3 Basophils # (Auto) 0.1 TH/MM3 CBC Comment DIFF FINAL Differential Comment Blood Urea Nitrogen 18 MG/DL Creatinine 0.79 MG/DL Random Glucose 241 MG/DL Total Protein 6.4 GM/DL Albumin 2.9 GM/DL Calcium Level 8.9 MG/DL Phosphorus Level 3.9 MG/DL Magnesium Level 2.2 MG/DL Alkaline Phosphatase 173 U/L Aspartate Amino Transf (AST/SGOT) 14 U/L Alanine Aminotransferase (ALT/SGPT) 19 U/L Total Bilirubin 0.5 MG/DL Sodium Level 134 MEQ/L Potassium Level 4.6 MEQ/L Chloride Level 99 MEQ/L Carbon Dioxide Level 27.8 MEQ/L Anion Gap 7 MEQ/L Estimat Glomerular Filtration Rate 69 ML/MIN Vitals/IOs Vital Signs Date Time Temp Pulse Resp B/P (MAP) Pulse Ox O2 Delivery O2 Flow Rate FiO2 06/01/17 06:49 97.8 90 19 149/79 (102) 93 Intake and Output 06/01/17 06/01/17 06/02/17 08:00 16:00 00:00 Intake Total 480 ml 120 ml Balance 480 ml 120 ml Assessment & Plan Problem List: (1) Adjustment disorder with mixed disturbance of emotions and conduct ICD Codes: F43.25 - Adjustment disorder with mixed disturbance of emotions and conduct Assessment & Plan Estimated LOS: days patient continues somewhat feisty and irritable little other significant behavioral problems. She is alert and fairly well oriented. Patient remains somewhat initial exploring possibility of rehabilitation Justification for Cont. Inpt. This point patient will decompensate of placed a lower level of care Discharge Planning Counselors working on possible placement in a rehabilitation facility Request HC Surrog/Guard Advoc?: Yes Sonny Cabrera MD Jun 01, 2017 15:39
[2017-06-01 18:00] VITALS: BP 141/62; PULSE 72; RESP 18; TEMP 98.6; O2SAT 97
[2017-06-02] MEDS: CLINDAMYCIN 150 MG CAP PO SCH ×4 (03:00→20:23)
[2017-06-02 06:47] VITALS: BP 113/66; PULSE 74; RESP 16; TEMP 97.7; O2SAT 96
[2017-06-02] MEDS: INSULIN ASPART SUPPLEMENTAL SCALE SQ SCH ×4 (07:23→20:23)
[2017-06-02] MEDS: RIVAROXABAN 20 MG TAB PO SCH (09:00)
[2017-06-02] MEDS: CIPROFLOXACIN 500 MG TAB PO SCH ×2 (09:00→20:22)
[2017-06-02] MEDS: ATENOLOL 50 MG TAB PO SCH (09:00)
[2017-06-02] MEDS: CHOLECALCIFEROL (VIT D3) 5000 UNIT CAP PO SCH (09:10)
[2017-06-02] MEDS: ASPIRIN EC 81 MG TABEC PO SCH (09:11)
[2017-06-02] MEDS: LISINOPRIL 10 MG TAB PO SCH (09:11)
[2017-06-02] MEDS: ATORVASTATIN 10 MG TAB PO SCH (09:12)
[2017-06-02] MEDS: FUROSEMIDE 40 MG TAB PO SCH (09:12)
[2017-06-02] MEDS: POTASSIUM CHLORIDE 20 MEQ CONTROLLED RELEASE TAB PO SCH (09:12)
[2017-06-02] MEDS: metFORMIN HCL 500 MG TAB PO SCH (09:13)
--- NOTE | 2017-06-02 12:33 | HHI.PYPN ---
Subjective Chief Complaint: confusion irritability inability to care for self aggressive behaviors Remarks Patient seen in day room with nurse Jessica, patient alert oriented continue somewhat feisty. Patient compliant medications, no significant behavioral problems. But does have awareness of her need to go to a rehabilitation from this admission. This time refill patient does have capacity to sign voluntary will lift Mccain act allow her sign voluntary. Review of Systems Except as stated in HPI: all other systems reviewed are Neg Mental Status Examination Appearance: Appropriate Consciousness: Alert Orientation: Person, Place, Date/Time Motor Activity: Abnormal gait Speech: Unremarkable Language: Adequate Fund of Knowledge: Adequate Attention and Concentration: Adequate Memory: Impaired Mood: Irritable Affect: Anxious Thought Process & Associations: Intact Thought Content: Appropriate Hallucination Type: None Delusion Type: None Suicidal Ideation: No Suicidal Plan: No Suicidal Intention: No Homicidal Ideation: No Homicidal Plan: No Homicidal Intention: No Insight: Poor Judgment: Impulsive Results Vitals/IOs Vital Signs Date Time Temp Pulse Resp B/P (MAP) Pulse Ox O2 Delivery O2 Flow Rate FiO2 06/02/17 06:47 97.7 74 16 113/66 (82) 96 Intake and Output 06/02/17 06/02/17 06/03/17 08:00 16:00 00:00 Intake Total 120 ml 240 ml Balance 120 ml 240 ml Assessment & Plan Problem List: (1) Adjustment disorder with mixed disturbance of emotions and conduct ICD Codes: F43.25 - Adjustment disorder with mixed disturbance of emotions and conduct Assessment & Plan Estimated LOS: days patient continues somewhat feisty and irritable but no behavioral problems, continue to work with placement issues Justification for Cont. Inpt. At this time patient will decompensate of not placing an appropriate level of care Discharge Planning Continue to work with placement issues looking towards a rehabilitation facility Request HC Surrog/Guard Advoc?: Yes Sonny Cabrera MD Jun 02, 2017 12:33
--- NOTE | 2017-06-02 15:48 | HHI.PR ---
Subjective Remarks Follow up on patient with UTI, cellulitis BLE. Patient seen and examined. Patient tells me she is being discharged to rehab today. She states she is doing well. She has no complaints. Discussed with nursing staff, patient is not being discharged today. She refused afternoon dose of antibiotics. C/O right shoulder pain s/p fall. No other acute issues noted. 06-01 DW PSYCHIATRY OK TO TRANSFER TO SNF AT ANYTIME REFUSING HER ANTIBIOTICS 06-02 took her pills today Objective Vitals Vital Signs Date Time Temp Pulse Resp B/P (MAP) Pulse Ox O2 Delivery O2 Flow Rate FiO2 06/02/17 06:47 97.7 74 16 113/66 (82) 96 06/01/17 18:00 98.6 72 18 141/62 (88) 97 I/O 06/01/17 06/01/17 06/01/17 06/02/17 06/02/17 06/02/17 07:00 15:00 23:00 07:00 15:00 23:00 Intake Total 240 ml 600 ml 480 ml 0 ml 360 ml Balance 240 ml 600 ml 480 ml 0 ml 360 ml Intake Oral 240 ml 600 ml 480 ml 0 ml 360 ml # Voids 2 1 1 1 # Bowel Movements 1 Result Diagram: 06/01/17 1018 06/01/17 1018 Other Results Laboratory Tests Test 05/31/17 07:38 06/01/17 10:18 White Blood Count 8.0 TH/MM3 7.5 TH/MM3 Red Blood Count 4.48 MIL/MM3 4.30 MIL/MM3 Hemoglobin 12.6 GM/DL 12.1 GM/DL Hematocrit 38.6 % 36.8 % Mean Corpuscular Volume 86.3 FL 85.8 FL Mean Corpuscular Hemoglobin 28.2 PG 28.3 PG Mean Corpuscular Hemoglobin Concent 32.7 % 33.0 % Red Cell Distribution Width 15.5 % 15.6 % Platelet Count 377 TH/MM3 392 TH/MM3 Mean Platelet Volume 7.7 FL 7.8 FL Neutrophils (%) (Auto) 72.9 % 75.5 % Lymphocytes (%) (Auto) 14.4 % 11.0 % Monocytes (%) (Auto) 9.0 % 9.7 % Eosinophils (%) (Auto) 2.5 % 2.5 % Basophils (%) (Auto) 1.2 % 1.3 % Neutrophils # (Auto) 5.8 TH/MM3 5.7 TH/MM3 Lymphocytes # (Auto) 1.1 TH/MM3 0.8 TH/MM3 Monocytes # (Auto) 0.7 TH/MM3 0.7 TH/MM3 Eosinophils # (Auto) 0.2 TH/MM3 0.2 TH/MM3 Basophils # (Auto) 0.1 TH/MM3 0.1 TH/MM3 CBC Comment DIFF FINAL DIFF FINAL Differential Comment Blood Urea Nitrogen 19 MG/DL 18 MG/DL Creatinine 0.75 MG/DL 0.79 MG/DL Random Glucose 152 MG/DL 241 MG/DL Total Protein 6.1 GM/DL 6.4 GM/DL Albumin 2.8 GM/DL 2.9 GM/DL Calcium Level 9.2 MG/DL 8.9 MG/DL Phosphorus Level 3.8 MG/DL 3.9 MG/DL Magnesium Level 2.0 MG/DL 2.2 MG/DL Alkaline Phosphatase 168 U/L 173 U/L Aspartate Amino Transf (AST/SGOT) 20 U/L 14 U/L Alanine Aminotransferase (ALT/SGPT) 17 U/L 19 U/L Total Bilirubin 0.6 MG/DL 0.5 MG/DL Sodium Level 134 MEQ/L 134 MEQ/L Potassium Level 4.4 MEQ/L 4.6 MEQ/L Chloride Level 98 MEQ/L 99 MEQ/L Carbon Dioxide Level 27.2 MEQ/L 27.8 MEQ/L Anion Gap 9 MEQ/L 7 MEQ/L Estimat Glomerular Filtration Rate 73 ML/MIN 69 ML/MIN Imaging Last Impressions Shoulder X-Ray 05/31/17 0000 Signed Impressions: Service Date/Time: Wednesday, May 31, 2017 12:36 - CONCLUSION: 1. Limited examination of the right shoulder with regional callus formation as well as a side plate and osseous screws securing a displaced fracture of the proximal humeral neck identified previously. 2. Again, with the limited 2 views provided , alignment is difficult to assess. 3. Humeral head is low lying in the glenoid fossa without mansi dislocation. 4. Large hiatal hernia Santos Borrero MD Objective Remarks GENERAL: Awake and alert. INAD. Sitting in dayroom. SKIN: Warm and dry. HEAD: Atraumatic. Normocephalic. EYES: Pupils equal and round. No scleral icterus. No injection or drainage. Extraocular muscles intact. ENT: No nasal bleeding or discharge. Mucous membranes pink and moist. Tongue is midline NECK: Trachea midline. No JVD. Supple CARDIOVASCULAR: Regular rate and rhythm. S1-S2 no S3 or S4 RESPIRATORY: No accessory muscle use. Clear to auscultation. Breath sounds equal bilaterally. GASTROINTESTINAL: Abdomen soft, non-tender, nondistended. Hepatic and splenic margins not palpable. MUSCULOSKELETAL: Extremities without clubbing, cyanosis, +4 bilateral lower extremity edema chronic no obvious deformities, appears unchanged. CHRONIC LYMPHEDEMA NEUROLOGICAL: Awake and alert. No obvious cranial nerve deficits. Motor grossly within normal limits.4 out of 5 muscle strength in the arms and legs. Normal speech. PSYCHIATRIC: INAppropriate mood and affect; insight and judgment ABnormal. Procedures none Medications and IVs Current Medications Lisinopril (Prinivil) 10 mg ONCE ONCE PO Last administered on 05/25/17 20:44 ; Start 05/25/17 at 20:30; Stop 05/25/17 at 20:33; Status DC Atenolol (Tenormin) 50 mg ONCE ONCE PO Last administered on 05/25/17 20:44; Start 05/25/17 at 20:30; Stop 05/25/17 at 20:33; Status DC Lorazepam (Ativan) 1 mg Q6H PRN PO MODERATE TO SEVERE ANXIETY; Start 05/26/17 at 11:15; Stop 05/26/17 at 15:16; Status DC Lorazepam (Ativan Inj) 1 mg Q6H PRN IM MODERATE TO SEVERE ANXIETY; Start 05/26 at 11:15; Stop 05/26/17 at 15:16; Status DC Acetaminophen (Tylenol) 650 mg Q4H PRN PO Pain 1-5 or Temp >101F; Start at 11:15 Magnesium Hydroxide (Milk Of Magnesia Liq) 30 ml DAILY PRN PO CONSTIPATION; Start 05/26/17 at 11:15 Al Hydrox/Mg Hydrox/Simethicone (Mag-Al Plus Susp Liq) 30 ml Q6H PRN PO DYSPEPSIA Last administered on 05/31/17 03:12; Start 05/26/17 at 11:15 Aspirin (Ecotrin Ec) 81 mg DAILY PO Last administered on 06/02/17 09:11; Start 05/27/17 at 09:00 Atenolol (Tenormin) 50 mg DAILY PO Last administered on 06/02/17 09:00; Start 05/27/17 at 09:00 Atorvastatin Calcium (Lipitor) 10 mg DAILY PO Last administered on 06/02/17 09:12; Start 05/27/17 at 09:00 Ciprofloxacin (Cipro) 750 mg Q12HR PO ; Start 05/26/17 at 21:00; Status Cancel Clindamycin HCl (Cleocin) 300 mg Q6H PO Last administered on 06/02/17 14:38; Start 05/26/17 at 15:00; Stop 06/03/17 at 17:59 Lisinopril (Prinivil) 10 mg DAILY PO ; Start 05/27/17 at 09:00; Stop 05/27/17 at 09:00; Status DC Metformin HCl (Glucophage) 500 mg DAILY PO Last administered on 06/02/17 09: 13; Start 05/27/17 at 09:00 Rivaroxaban (Xarelto) 20 mg DAILY PO Last administered on 06/02/17 09:00; Start 05/27/17 at 09:00 Clindamycin HCl (Cleocin) 300 mg Q6HR PO ; Start 05/26/17 at 15:00; Stop 05/26 at 15:38; Status DC Ciprofloxacin (Cipro) 750 mg Q12HR PO Last administered on 05/31/17 09:28; Start 05/26/17 at 15:00; Stop 05/31/17 at 15:26; Status DC Lisinopril (Prinivil) 10 mg DAILY PO Last administered on 06/02/17 09:11; Start 05/26/17 at 15:00 Dextrose (D50w (Vial) Inj) 50 ml UNSCH PRN IV PUSH HYPOGLYCEMIA-SEE COMMENTS; Start 05/26/17 at 15:00; Stop 05/27/17 at 10:51; Status DC Glucagon (Glucagon Inj) 1 mg UNSCH PRN OTHER HYPOGLYCEMIA-SEE COMMENTS; Start 05/26/17 at 15:00; Stop 05/27/17 at 10:51; Status DC Insulin Aspart (NovoLOG SUPPLEMENTAL SCALE) 1 ACHS SLIDING SCALE SQ Last administered on 05/27/17 08:00; Start 05/26/17 at 17:00; Stop 05/27/17 at 10 :51; Status DC Lorazepam (Ativan) 0.5 mg Q12H PRN PO MODERATE TO SEVERE ANXIETY; Start at 17:15 Lorazepam (Ativan Inj) 0.5 mg Q12H PRN IM MODERATE TO SEVERE ANXIETY; Start at 17:15 Diphenhydramine HCl (Benadryl) 25 mg HS PRN PO INSOMNIA Last administered on 00:44; Start 05/27/17 at 02:30 Dextrose (D50w (Vial) Inj) 50 ml UNSCH PRN IV PUSH HYPOGLYCEMIA-SEE COMMENTS; Start 05/27/17 at 10:30 Glucagon (Glucagon Inj) 1 mg UNSCH PRN OTHER HYPOGLYCEMIA-SEE COMMENTS; Start 05/27/17 at 10:30 Insulin Aspart (NovoLOG SUPPLEMENTAL SCALE) 1 ACHS SLIDING SCALE SQ Last administered on 06/02/17 12:00; Start 05/27/17 at 12:00 Furosemide (Lasix) 40 mg DAILY PO Last administered on 06/02/17 09:12; Start 05/28/17 at 17:45; Stop 06/02/17 at 17:44 Potassium Chloride (KCl) 20 meq DAILY PO Last administered on 06/02/17 09:12 ; Start 05/28/17 at 17:45; Stop 06/02/17 at 17:44 Ergocalciferol (Drisdol) 50,000 units Q7D PO ; Start 05/28/17 at 18:00; Stop 05/31/17 at 08:43; Status DC Cholecalciferol (Vitamin D3) 5,000 units DAILY PO Last administered on 09:10; Start 05/31/17 at 09:00; Stop 06/30/17 at 08:59 Ciprofloxacin (Cipro) 500 mg Q12HR PO Last administered on 06/02/17 09:00; Start 05/31/17 at 21:00 Diphenhydramine HCl (Benadryl) 25 mg ONCE ONCE PO ; Start 06/01/17 at 01:45; Stop 06/01/17 at 01:46; Status DC A/P Problem List: (1) Hypertension ICD Code: I10 - Hypertension Status: Chronic (2) Fx humeral neck ICD Code: S42.213A - Unspecified displaced fracture of surgical neck of unspecified humerus, initial encounter for closed fracture Status: Resolved (3) Diabetes mellitus, type II ICD Code: E11.9 - Type 2 diabetes mellitus without complications Status: Chronic (4) Hypothyroid ICD Code: E03.9 - Hypothyroidism, unspecified Status: Chronic Assessment and Plan This is an 87-year-old female with past medical history of diabetes, CAD, GERD, hypothyroidism, recurrent urinary tract infection brought to the hospital under [facility] act by DCF will be found as ceases and then In her home. Unable to take care of herself. She is now admitted to inpatient psychiatry unit for further evaluation. Consulted for medical management. Psychosis - Management by psychiatry team Urinary tract infection, acute - UA growing Pseudomonas, sensitive to Cipro - Continue Cipro for 10 days Cellulitis bilateral lower extremity - Previously on Vanco and then switch over to clindamycin. - Continue with clindamycin use DM 2, chronic, controlled - Continue metformin 500 mg twice a day - Insulin sliding scale. Monitor Accu-Cheks. - Hemoglobin A1c 6.5 - BS controlled at present Pulmonary embolism, acute - Recently diagnosed with PE placed on Xarelto - Continue Xarelto HTN, uncontrolled CAD, HLD CHF, unspecified type, not in exacerbation Bilateral lower extremities edema LYMPHEDEMA - Continue atenolol 50 mg daily, atorvastatin 10 mg daily, lisinopril 10 mg daily - Monitor BP trend - Lasix 40mg daily x 5 days, KCL daily - Monitor BMP DVT prophylaxis continue with Xarelto NEYDA RN AND PATIENT AM LABS QOD WHILE DIURESING Discharge Planning MONITOR LABS WHILE DIURESING Jose Hernandez DO Jun 02, 2017 15:48
[2017-06-02 17:55] VITALS: BP 145/65; PULSE 92; RESP 17; O2SAT 88
[2017-06-03] MEDS: CLINDAMYCIN 150 MG CAP PO SCH ×3 (02:43→15:02)
[2017-06-03] MEDS: ALUMINUM/MAGNESIUM/SIMETH 30 ML CUP PO PRN ×2 (03:01→15:08)
[2017-06-03 05:51] VITALS: BP 153/70; PULSE 97; RESP 15; TEMP 96.9; O2SAT 96
[2017-06-03] MEDS: INSULIN ASPART SUPPLEMENTAL SCALE SQ SCH ×4 (07:31→21:00)
[2017-06-03] MEDS: CHOLECALCIFEROL (VIT D3) 5000 UNIT CAP PO SCH (08:50)
[2017-06-03] MEDS: ASPIRIN EC 81 MG TABEC PO SCH (08:50)
[2017-06-03] MEDS: LISINOPRIL 10 MG TAB PO SCH (08:50)
[2017-06-03] MEDS: RIVAROXABAN 20 MG TAB PO SCH (08:51)
[2017-06-03] MEDS: ATENOLOL 50 MG TAB PO SCH (08:51)
[2017-06-03] MEDS: ATORVASTATIN 10 MG TAB PO SCH (08:51)
[2017-06-03] MEDS: metFORMIN HCL 500 MG TAB PO SCH (08:51)
[2017-06-03] MEDS: CIPROFLOXACIN 500 MG TAB PO SCH (08:51)
--- NOTE | 2017-06-03 12:41 | HHI.PYPN ---
Subjective Chief Complaint: confusion irritability inability to care for self aggressive behaviors Remarks Patient seen in day room with nurse Mattie, chart reviewed, patient compliant medication. She is alert and oriented, thin use feisty at times somewhat irritable and demanding. We did discuss placement issues. That her home appears to be uninhabitable at this time, that we do recommend placement in a rehabilitation facility. Patient showing mixed feelings with us related to the above options. She does denies suicidality voices or visions. For now continue treatment Review of Systems Except as stated in HPI: all other systems reviewed are Neg Mental Status Examination Appearance: Appropriate Consciousness: Alert Orientation: Person, Place, Date/Time Motor Activity: Abnormal gait Speech: Unremarkable Language: Adequate Fund of Knowledge: Adequate Attention and Concentration: Adequate Memory: Impaired Mood: Irritable Affect: Anxious Thought Process & Associations: Intact Thought Content: Appropriate Hallucination Type: None Delusion Type: None Suicidal Ideation: No Suicidal Plan: No Suicidal Intention: No Homicidal Ideation: No Homicidal Plan: No Homicidal Intention: No Insight: Poor Judgment: Impulsive Results Vitals/IOs Vital Signs Date Time Temp Pulse Resp B/P (MAP) Pulse Ox O2 Delivery O2 Flow Rate FiO2 06/03/17 05:51 96.9 97 15 153/70 (97) 96 Intake and Output 06/03/17 06/03/17 06/04/17 08:00 16:00 00:00 Intake Total 240 ml Balance 240 ml Assessment & Plan Problem List: (1) Adjustment disorder with mixed disturbance of emotions and conduct ICD Codes: F43.25 - Adjustment disorder with mixed disturbance of emotions and conduct Assessment & Plan Estimated LOS: days patient continues somewhat irritable and feisty and perhaps somewhat depressed events leading to this hospitalization. She is compliant with her medications. Placement might become problematic. For now continue treatment Justification for Cont. Inpt. At this time patient decompensate if placed on lower level of care Discharge Planning This time we are awaiting word from possible rehabilitation placement Request HC Surrog/Guard Advoc?: Yes Sonny Cabrera MD Jun 03, 2017 12:40
--- NOTE | 2017-06-03 13:30 | PD.WCN.NOT ---
Wound Consult Description: Consult placed for wound management of superficial intergluteal cleft wound per Deborah/SURENDRA Communicated with: KURTIS Ayala Recommendation: Apply Calazime BID and PRN for moisture related partial thickness skin loss to bilateral buttocks Additional Information: Patient seen in 2509 for wounds noted to bilateral inner buttocks. Wounds measure ~1cm x <1cm x <0.1cm and have jagged wound margins with 100% pink moist tissue noted throughout wound beds with no active drainage and no odor noted. Calazime skin protectant is recommended BID and PRN for moisture as patient is ambulatory with walker and is incontinent of urine. Soaked brief was removed during assessment. Ju Zamora [facility] Jun 03, 2017 13:30
--- NOTE | 2017-06-03 13:30 | PD.WCN.NOT ---
Wound Consult Description: Consult placed for wound management of superficial intergluteal cleft wound per Deborah/SURENDRA Communicated with: KURTIS Ayala Recommendation: Apply Calazime BID and PRN for moisture related partial thickness skin loss to bilateral buttocks Additional Information: Patient seen in 2509 for wounds noted to bilateral inner buttocks. Wounds measure ~1cm x <1cm x <0.1cm and have jagged wound margins with 100% pink moist tissue noted throughout wound beds with no active drainage and no odor noted. Calazime skin protectant is recommended BID and PRN for moisture as patient is ambulatory with walker and is incontinent of urine. Soaked brief was removed during assessment. Ju Zamora [facility] Jun 03, 2017 13:30
--- NOTE | 2017-06-03 13:30 | PD.WCN.NOT ---
Wound Consult Description: Consult placed for wound management of superficial intergluteal cleft wound per Deborah/SURENDRA Communicated with: KURTIS Ayala Recommendation: Apply Calazime BID and PRN for moisture related partial thickness skin loss to bilateral buttocks Additional Information: Patient seen in 2509 for wounds noted to bilateral inner buttocks. Wounds measure ~1cm x <1cm x <0.1cm and have jagged wound margins with 100% pink moist tissue noted throughout wound beds with no active drainage and no odor noted. Calazime skin protectant is recommended BID and PRN for moisture as patient is ambulatory with walker and is incontinent of urine. Soaked brief was removed during assessment. Ju Zamora [facility] Jun 03, 2017 13:30
[2017-06-03 14:25] LABS: AUTOMATED NEUTROPHIL # 5.9 TH/MM3 (1.8-7.7); BASOPHIL # 0.1 TH/MM3 (0-0.2); BASOPHIL % 1.1 % (0.0-2.0); EOSINOPHIL # 0.2 TH/MM3 (0-0.4); EOSINOPHIL % 2.2 % (0.0-4.0); HEMATOCRIT 39.1 % (35.0-46.0); HEMOGLOBIN 12.7 GM/DL (11.6-15.3); LYMPH % 10.9 % (9.0-44.0); LYMPHOCYTE # 0.8 TH/MM3 (1.0-4.8); MEAN CORPUSCULAR HGB CONC 32.5 % (32.0-36.0); MEAN PLATELET VOLUME 7.7 FL (7.0-11.0); MONOCYTE # 0.8 TH/MM3 (0-0.9); NEUT % 75.8 % (16.0-70.0); PLATELET COUNT 406 TH/MM3 (150-450); RED BLOOD COUNT 4.54 MIL/MM3 (4.00-5.30); RED CELL DISTRIBUTION WIDTH 15.6 % (11.6-17.2); WHITE BLOOD COUNT 7.8 TH/MM3 (4.0-11.0)
[2017-06-03 14:38] LABS: ALBUMIN 3.1 GM/DL (3.4-5.0); ALT (GPT) 19 U/L (10-53); AST (GOT) 18 U/L (15-37); BICARBONATE 30.8 MEQ/L (21.0-32.0); BLOOD UREA NITROGEN 20 MG/DL (7-18); CALCIUM 9.1 MG/DL (8.5-10.1); CHLORIDE 96 MEQ/L (98-107); CREATININE 0.94 MG/DL (0.50-1.00); GLOMERULAR FILTRATION RATE 56 ML/MIN (>89); GLUCOSE,RANDOM 66 MG/DL (74-106); MAGNESIUM 2.1 MG/DL (1.5-2.5); PHOSPHORUS 3.4 MG/DL (2.5-4.9); SODIUM (NA) 133 MEQ/L (136-145)
[2017-06-03 14:41] LABS: ALKALINE PHOSPHATASE 185 U/L (45-117); TOTAL BILIRUBIN ADULT 0.5 MG/DL (0.2-1.0); TOTAL PROTEIN 6.9 GM/DL (6.4-8.2)
--- NOTE | 2017-06-03 16:21 | HHI.PR ---
Subjective Remarks Pt finished using the common phone. No pain, states her legs are chronically swollen but hasn't been elevating them. No complaints except she wants to know when she will be discharged. Objective Vitals Vital Signs Date Time Temp Pulse Resp B/P (MAP) Pulse Ox O2 Delivery O2 Flow Rate FiO2 06/03/17 05:51 96.9 97 15 153/70 (97) 96 06/02/17 17:55 92 17 145/65 (91) 88 I/O 06/02/17 06/02/17 06/02/17 06/03/17 06/03/17 06/03/17 07:00 15:00 23:00 07:00 15:00 23:00 Intake Total 0 ml 360 ml 1260 ml 240 ml Balance 0 ml 360 ml 1260 ml 240 ml Intake Oral 0 ml 360 ml 1260 ml 240 ml # Voids 1 7 1 # Bowel Movements 1 Result Diagram: 06/03/17 1404 06/03/17 1404 Imaging Last Impressions Shoulder X-Ray 05/31/17 0000 Signed Impressions: Service Date/Time: Wednesday, May 31, 2017 12:36 - CONCLUSION: 1. Limited examination of the right shoulder with regional callus formation as well as a side plate and osseous screws securing a displaced fracture of the proximal humeral neck identified previously. 2. Again, with the limited 2 views provided , alignment is difficult to assess. 3. Humeral head is low lying in the glenoid fossa without mansi dislocation. 4. Large hiatal hernia Santos Borrero MD Objective Remarks GENERAL: Awake and alert. INAD. Sitting in dayroom near phone. EYES: Extraocular muscles intact. ENT: Mucous membranes pink and moist. NECK: Trachea midline. CARDIOVASCULAR: Regular rate and rhythm. RESPIRATORY: No accessory muscle use. Clear to auscultation. Breath sounds equal bilaterally. GASTROINTESTINAL: Abdomen soft, non-tender, nondistended MUSCULOSKELETAL: Extremities without +3 bilateral lower extremity edema chronic no obvious deformities, she has CHRONIC LYMPHEDEMA NEUROLOGICAL: Awake and alert. No obvious cranial nerve deficits. Motor grossly within normal limits except for limited ROM of the right shoulder (she had sx in it in Normal speech. PSYCHIATRIC: calm, anxious about her d/c planning Procedures none A/P Problem List: (1) Hypertension ICD Code: I10 - Hypertension Status: Chronic (2) Fx humeral neck ICD Code: S42.213A - Unspecified displaced fracture of surgical neck of unspecified humerus, initial encounter for closed fracture Status: Resolved (3) Diabetes mellitus, type II ICD Code: E11.9 - Type 2 diabetes mellitus without complications Status: Chronic (4) Hypothyroid ICD Code: E03.9 - Hypothyroidism, unspecified Status: Chronic Assessment and Plan This is an 87-year-old female with past medical history of diabetes, CAD, GERD, hypothyroidism, recurrent urinary tract infection brought to the hospital under [facility] act by DCF will be found as ceases and then In her home. Unable to take care of herself. She is now admitted to inpatient psychiatry unit for further evaluation. Consulted for medical management. Psychosis - Management by psychiatry team Urinary tract infection, acute - UA growing Pseudomonas, sensitive to Cipro - Per ID consult from previous admission she was supposed to be on 750mg po BID, currently on 500mg po BID. I have increased dose and pt should complete 10 days. Cellulitis bilateral lower extremity - Previously on Vanco and then switch over to clindamycin. - Continue with clindamycin use for a total of 7 days per ID recs from previous admission. DM 2, chronic, controlled - Continue metformin 500 mg twice a day - Insulin sliding scale. Monitor Accu-Cheks. - Hemoglobin A1c 6.5 - BS controlled at present Pulmonary embolism, acute - Recently diagnosed with PE placed on Xarelto - Continue Xarelto HTN, uncontrolled CAD, HLD CHF, unspecified type, not in exacerbation Bilateral lower extremities edema LYMPHEDEMA - Continue atenolol 50 mg daily, atorvastatin 10 mg daily, lisinopril 10 mg daily - Monitor BP trend - Lasix 40mg daily x 5 days, KCL daily - Monitor BMP in AM -Mild hyponatremia noted. monitor. DVT prophylaxis continue with Xarelto Discharge Planning per psychiatry team Pt is not very compliant w her meds. However medically she is stable. Monitor sodium levels Radha Giron MD Jun 03, 2017 16:21
[2017-06-03 18:34] VITALS: BP 151/95; PULSE 76; RESP 18; TEMP 97.6; O2SAT 96
[2017-06-03] MEDS: CIPROFLOXACIN 750 MG TAB PO SCH (22:23)
[2017-06-04 06:46] VITALS: BP 145/65; PULSE 84; RESP 15; TEMP 98.2; O2SAT 98
[2017-06-04] MEDS: INSULIN ASPART SUPPLEMENTAL SCALE SQ SCH ×4 (08:00→21:00)
[2017-06-04] MEDS: LISINOPRIL 10 MG TAB PO SCH (09:08)
[2017-06-04] MEDS: metFORMIN HCL 500 MG TAB PO SCH (09:08)
[2017-06-04] MEDS: CHOLECALCIFEROL (VIT D3) 5000 UNIT CAP PO SCH (09:08)
[2017-06-04] MEDS: ASPIRIN EC 81 MG TABEC PO SCH (09:08)
[2017-06-04] MEDS: CIPROFLOXACIN 750 MG TAB PO SCH ×2 (09:08→20:52)
[2017-06-04] MEDS: ATORVASTATIN 10 MG TAB PO SCH (09:09)
[2017-06-04] MEDS: ATENOLOL 50 MG TAB PO SCH (09:09)
[2017-06-04] MEDS: RIVAROXABAN 20 MG TAB PO SCH (09:09)
[2017-06-04 10:40] LABS: BICARBONATE 28.2 MEQ/L (21.0-32.0); CALCIUM 9.4 MG/DL (8.5-10.1); CREATININE 1.03 MG/DL (0.50-1.00)
--- NOTE | 2017-06-04 12:33 | HHI.PYPN ---
Subjective Chief Complaint: confusion irritability inability to care for self aggressive behaviors Remarks Patient seen in the day room with floor staff, chart reviewed, patient compliant medication. Patient remains calm, though somewhat feisty, continues to cope with issues related to appropriate placement Review of Systems Except as stated in HPI: all other systems reviewed are Neg Mental Status Examination Appearance: Appropriate Consciousness: Alert Orientation: Person, Place, Date/Time Motor Activity: Abnormal gait Speech: Unremarkable Language: Adequate Fund of Knowledge: Adequate Attention and Concentration: Adequate Memory: Impaired Mood: Irritable Affect: Anxious Thought Process & Associations: Intact Thought Content: Appropriate Hallucination Type: None Delusion Type: None Suicidal Ideation: No Suicidal Plan: No Suicidal Intention: No Homicidal Ideation: No Homicidal Plan: No Homicidal Intention: No Insight: Poor Judgment: Impulsive Results Labs Test 06/03/17 14:04 06/04/17 08:58 White Blood Count 7.8 TH/MM3 Red Blood Count 4.54 MIL/MM3 Hemoglobin 12.7 GM/DL Hematocrit 39.1 % Mean Corpuscular Volume 86.0 FL Mean Corpuscular Hemoglobin 28.0 PG Mean Corpuscular Hemoglobin Concent 32.5 % Red Cell Distribution Width 15.6 % Platelet Count 406 TH/MM3 Mean Platelet Volume 7.7 FL Neutrophils (%) (Auto) 75.8 % Lymphocytes (%) (Auto) 10.9 % Monocytes (%) (Auto) 10.0 % Eosinophils (%) (Auto) 2.2 % Basophils (%) (Auto) 1.1 % Neutrophils # (Auto) 5.9 TH/MM3 Lymphocytes # (Auto) 0.8 TH/MM3 Monocytes # (Auto) 0.8 TH/MM3 Eosinophils # (Auto) 0.2 TH/MM3 Basophils # (Auto) 0.1 TH/MM3 CBC Comment DIFF FINAL Differential Comment Blood Urea Nitrogen 20 MG/DL 20 MG/DL Creatinine 0.94 MG/DL 1.03 MG/DL Random Glucose 66 MG/DL 272 MG/DL Total Protein 6.9 GM/DL Albumin 3.1 GM/DL Calcium Level 9.1 MG/DL 9.4 MG/DL Phosphorus Level 3.4 MG/DL Magnesium Level 2.1 MG/DL Alkaline Phosphatase 185 U/L Aspartate Amino Transf (AST/SGOT) 18 U/L Alanine Aminotransferase (ALT/SGPT) 19 U/L Total Bilirubin 0.5 MG/DL Sodium Level 133 MEQ/L 133 MEQ/L Potassium Level 4.2 MEQ/L 4.4 MEQ/L Chloride Level 96 MEQ/L 96 MEQ/L Carbon Dioxide Level 30.8 MEQ/L 28.2 MEQ/L Anion Gap 6 MEQ/L 9 MEQ/L Estimat Glomerular Filtration Rate 56 ML/MIN 51 ML/MIN Vitals/IOs Vital Signs Date Time Temp Pulse Resp B/P (MAP) Pulse Ox O2 Delivery O2 Flow Rate FiO2 06/04/17 06:46 98.2 84 15 145/65 (91) 98 Intake and Output 06/04/17 06/04/17 06/05/17 08:00 16:00 00:00 Intake Total 240 ml 240 ml Balance 240 ml 240 ml Assessment & Plan Problem List: (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 She continues feisty at times somewhat resistant but overall cooperative Justification for Cont. Inpt. At this time patient will decompensate with placed in an inappropriate level of care Discharge Planning Continue to work with issues related to placement rehabilitation Request HC Surrog/Guard Advoc?: Yes Sonny Cabrera MD Jun 04, 2017 12:33
--- NOTE | 2017-06-04 12:34 | HHI.PR ---
Subjective Remarks NO NEW COMPLAINTS SITTING BY THE PHONE HAD GOTTEN UP AND WALKED TO THE PHONE PER STAFF- WITHOUT ANY ASSISTANCE Objective Vitals Vital Signs Date Time Temp Pulse Resp B/P (MAP) Pulse Ox O2 Delivery O2 Flow Rate FiO2 06/04/17 06:46 98.2 84 15 145/65 (91) 98 06/03/17 18:34 97.6 76 18 151/95 (113) 96 I/O 06/03/17 06/03/17 06/03/17 06/04/17 06/04/17 06/04/17 07:00 15:00 23:00 07:00 15:00 23:00 Intake Total 240 ml 870 ml 240 ml 240 ml Balance 240 ml 870 ml 240 ml 240 ml Intake Oral 240 ml 870 ml 240 ml 240 ml # Voids 1 2 Result Diagram: 06/03/17 1404 06/04/17 0858 Other Results Laboratory Tests Test 06/03/17 14:04 06/04/17 08:58 White Blood Count 7.8 TH/MM3 Red Blood Count 4.54 MIL/MM3 Hemoglobin 12.7 GM/DL Hematocrit 39.1 % Mean Corpuscular Volume 86.0 FL Mean Corpuscular Hemoglobin 28.0 PG Mean Corpuscular Hemoglobin Concent 32.5 % Red Cell Distribution Width 15.6 % Platelet Count 406 TH/MM3 Mean Platelet Volume 7.7 FL Neutrophils (%) (Auto) 75.8 % Lymphocytes (%) (Auto) 10.9 % Monocytes (%) (Auto) 10.0 % Eosinophils (%) (Auto) 2.2 % Basophils (%) (Auto) 1.1 % Neutrophils # (Auto) 5.9 TH/MM3 Lymphocytes # (Auto) 0.8 TH/MM3 Monocytes # (Auto) 0.8 TH/MM3 Eosinophils # (Auto) 0.2 TH/MM3 Basophils # (Auto) 0.1 TH/MM3 CBC Comment DIFF FINAL Differential Comment Blood Urea Nitrogen 20 MG/DL 20 MG/DL Creatinine 0.94 MG/DL 1.03 MG/DL Random Glucose 66 MG/DL 272 MG/DL Total Protein 6.9 GM/DL Albumin 3.1 GM/DL Calcium Level 9.1 MG/DL 9.4 MG/DL Phosphorus Level 3.4 MG/DL Magnesium Level 2.1 MG/DL Alkaline Phosphatase 185 U/L Aspartate Amino Transf (AST/SGOT) 18 U/L Alanine Aminotransferase (ALT/SGPT) 19 U/L Total Bilirubin 0.5 MG/DL Sodium Level 133 MEQ/L 133 MEQ/L Potassium Level 4.2 MEQ/L 4.4 MEQ/L Chloride Level 96 MEQ/L 96 MEQ/L Carbon Dioxide Level 30.8 MEQ/L 28.2 MEQ/L Anion Gap 6 MEQ/L 9 MEQ/L Estimat Glomerular Filtration Rate 56 ML/MIN 51 ML/MIN Imaging Last Impressions Shoulder X-Ray 05/31/17 0000 Signed Impressions: Service Date/Time: Wednesday, May 31, 2017 12:36 - CONCLUSION: 1. Limited examination of the right shoulder with regional callus formation as well as a side plate and osseous screws securing a displaced fracture of the proximal humeral neck identified previously. 2. Again, with the limited 2 views provided , alignment is difficult to assess. 3. Humeral head is low lying in the glenoid fossa without mansi dislocation. 4. Large hiatal hernia Santos Borrero MD Objective Remarks GENERAL: Awake and alert. INAD. Sitting in dayroom. SKIN: Warm and dry. HEAD: Atraumatic. Normocephalic. EYES: Pupils equal and round. No scleral icterus. No injection or drainage. Extraocular muscles intact. ENT: No nasal bleeding or discharge. Mucous membranes pink and moist. Tongue is midline NECK: Trachea midline. No JVD. Supple CARDIOVASCULAR: Regular rate and rhythm. S1-S2 no S3 or S4 RESPIRATORY: No accessory muscle use. Clear to auscultation. Breath sounds equal bilaterally. GASTROINTESTINAL: Abdomen soft, non-tender, nondistended. Hepatic and splenic margins not palpable. MUSCULOSKELETAL: Extremities without clubbing, cyanosis, +4 bilateral lower extremity edema chronic no obvious deformities, appears unchanged. CHRONIC LYMPHEDEMA NEUROLOGICAL: Awake and alert. No obvious cranial nerve deficits. Motor grossly within normal limits.4 out of 5 muscle strength in the arms and legs. Normal speech. PSYCHIATRIC: INAppropriate mood and affect; insight and judgment ABnormal. Procedures none Medications and IVs Current Medications Lisinopril (Prinivil) 10 mg ONCE ONCE PO Last administered on 05/25/17t 20:44 ; Start 05/25/17 at 20:30; Stop 05/25/17 at 20:33; Status DC Atenolol (Tenormin) 50 mg ONCE ONCE PO Last administered on 05/25/17 20:44; Start 05/25/17 at 20:30; Stop 05/25/17 at 20:33; Status DC Lorazepam (Ativan) 1 mg Q6H PRN PO MODERATE TO SEVERE ANXIETY; Start 05/26/17 at 11:15; Stop 05/26/17 at 15:16; Status DC Lorazepam (Ativan Inj) 1 mg Q6H PRN IM MODERATE TO SEVERE ANXIETY; Start 05/26 at 11:15; Stop 05/26/17 at 15:16; Status DC Acetaminophen (Tylenol) 650 mg Q4H PRN PO Pain 1-5 or Temp >101F; Start at 11:15 Magnesium Hydroxide (Milk Of Magnesia Liq) 30 ml DAILY PRN PO CONSTIPATION; Start 05/26/17 at 11:15 Al Hydrox/Mg Hydrox/Simethicone (Mag-Al Plus Susp Liq) 30 ml Q6H PRN PO DYSPEPSIA Last administered on 06/03/17 03:01; Start 05/26/17 at 11:15 Aspirin (Ecotrin Ec) 81 mg DAILY PO Last administered on 06/04/17 09:08; Start 05/27/17 at 09:00 Atenolol (Tenormin) 50 mg DAILY PO Last administered on 06/04/17 09:09; Start 05/27/17 at 09:00 Atorvastatin Calcium (Lipitor) 10 mg DAILY PO Last administered on 06/04/17 09:09; Start 05/27/17 at 09:00 Ciprofloxacin (Cipro) 750 mg Q12HR PO ; Start 05/26/17 at 21:00; Status Cancel Clindamycin HCl (Cleocin) 300 mg Q6H PO Last administered on 06/03/17 15:02; Start 05/26/17 at 15:00; Stop 06/03/17 at 17:59; Status DC Lisinopril (Prinivil) 10 mg DAILY PO ; Start 05/27/17 at 09:00; Stop 05/27/17 at 09:00; Status DC Metformin HCl (Glucophage) 500 mg DAILY PO Last administered on 06/04/17 09: 08; Start 05/27/17 at 09:00 Rivaroxaban (Xarelto) 20 mg DAILY PO Last administered on 06/04/17 09:09; Start 05/27/17 at 09:00 Clindamycin HCl (Cleocin) 300 mg Q6HR PO ; Start 05/26/17 at 15:00; Stop 05/26 at 15:38; Status DC Ciprofloxacin (Cipro) 750 mg Q12HR PO Last administered on 05/31/17 09:28; Start 05/26/17 at 15:00; Stop 05/31/17 at 15:26; Status DC Lisinopril (Prinivil) 10 mg DAILY PO Last administered on 06/04/17 09:08; Start 05/26/17 at 15:00 Dextrose (D50w (Vial) Inj) 50 ml UNSCH PRN IV PUSH HYPOGLYCEMIA-SEE COMMENTS; Start 05/26/17 at 15:00; Stop 05/27/17 at 10:51; Status DC Glucagon (Glucagon Inj) 1 mg UNSCH PRN OTHER HYPOGLYCEMIA-SEE COMMENTS; Start 05/26/17 at 15:00; Stop 05/27/17 at 10:51; Status DC Insulin Aspart (NovoLOG SUPPLEMENTAL SCALE) 1 ACHS SLIDING SCALE SQ Last administered on 05/27/17 08:00; Start 05/26/17 at 17:00; Stop 05/27/17 at 10 :51; Status DC Lorazepam (Ativan) 0.5 mg Q12H PRN PO MODERATE TO SEVERE ANXIETY; Start at 17:15 Lorazepam (Ativan Inj) 0.5 mg Q12H PRN IM MODERATE TO SEVERE ANXIETY; Start at 17:15 Diphenhydramine HCl (Benadryl) 25 mg HS PRN PO INSOMNIA Last administered on 00:44; Start 05/27/17 at 02:30 Dextrose (D50w (Vial) Inj) 50 ml UNSCH PRN IV PUSH HYPOGLYCEMIA-SEE COMMENTS; Start 05/27/17 at 10:30 Glucagon (Glucagon Inj) 1 mg UNSCH PRN OTHER HYPOGLYCEMIA-SEE COMMENTS; Start 05/27/17 at 10:30 Insulin Aspart (NovoLOG SUPPLEMENTAL SCALE) 1 ACHS SLIDING SCALE SQ Last administered on 06/04/17 12:09; Start 05/27/17 at 12:00 Furosemide (Lasix) 40 mg DAILY PO Last administered on 06/02/17 09:12; Start 05/28/17 at 17:45; Stop 06/02/17 at 17:44; Status DC Potassium Chloride (KCl) 20 meq DAILY PO Last administered on 06/02/17 09:12 ; Start 05/28/17 at 17:45; Stop 06/02/17 at 17:44; Status DC Ergocalciferol (Drisdol) 50,000 units Q7D PO ; Start 05/28/17 at 18:00; Stop 05/31/17 at 08:43; Status DC Cholecalciferol (Vitamin D3) 5,000 units DAILY PO Last administered on 09:08; Start 05/31/17 at 09:00; Stop 06/30/17 at 08:59 Ciprofloxacin (Cipro) 500 mg Q12HR PO Last administered on 06/03/17 08:51; Start 05/31/17 at 21:00; Stop 06/03/17 at 16:27; Status DC Diphenhydramine HCl (Benadryl) 25 mg ONCE ONCE PO ; Start 06/01/17 at 01:45; Stop 06/01/17 at 01:46; Status DC Ciprofloxacin (Cipro) 750 mg Q12HR PO Last administered on 06/04/17 09:08; Start 06/03/17 at 21:00 A/P Problem List: (1) Hypertension ICD Code: I10 - Hypertension Status: Chronic (2) Fx humeral neck ICD Code: S42.213A - Unspecified displaced fracture of surgical neck of unspecified humerus, initial encounter for closed fracture Status: Resolved (3) Diabetes mellitus, type II ICD Code: E11.9 - Type 2 diabetes mellitus without complications Status: Chronic (4) Hypothyroid ICD Code: E03.9 - Hypothyroidism, unspecified Status: Chronic Assessment and Plan This is an 87-year-old female with past medical history of diabetes, CAD, GERD, hypothyroidism, recurrent urinary tract infection brought to the hospital under [facility] act by DCF will be found as ceases and then In her home. Unable to take care of herself. She is now admitted to inpatient psychiatry unit for further evaluation. Consulted for medical management. Psychosis - Management by psychiatry team Urinary tract infection, acute - UA growing Pseudomonas, sensitive to Cipro 750MG PO BID - Continue Cipro for 10 days Cellulitis bilateral lower extremity - Previously on Vanco and then switch over to clindamycin. - Continue with clindamycin use DM 2, chronic, controlled - Continue metformin 500 mg twice a day - Insulin sliding scale. Monitor Accu-Cheks. - Hemoglobin A1c 6.5 - BS controlled at present Pulmonary embolism, acute - Recently diagnosed with PE placed on Xarelto - Continue Xarelto HTN, uncontrolled CAD, HLD CHF, unspecified type, not in exacerbation Bilateral lower extremities edema LYMPHEDEMA - Continue atenolol 50 mg daily, atorvastatin 10 mg daily, lisinopril 10 mg daily - Monitor BP trend - Lasix 40mg daily x 5 days, KCL daily - Monitor BMP DVT prophylaxis continue with Xarelto NEYDA RN AND PATIENT AM LABS QOD WHILE DIURESING WILL GET LABS TOMORROW - Discharge Planning MONITOR LABS WHILE DIURESING Jose Hernandez DO Jun 04, 2017 12:34
[2017-06-04 18:30] VITALS: BP 131/61; PULSE 76; RESP 16; TEMP 97.5; O2SAT 99
[2017-06-05 06:00] VITALS: BP 153/70; PULSE 84; RESP 18; TEMP 97.2; O2SAT 97
[2017-06-05] MEDS: INSULIN ASPART SUPPLEMENTAL SCALE SQ SCH ×4 (08:00→20:14)
[2017-06-05] MEDS: CIPROFLOXACIN 500 MG TAB PO SCH ×2 (08:32→20:13)
[2017-06-05] MEDS: metFORMIN HCL 500 MG TAB PO SCH (08:32)
[2017-06-05] MEDS: ATENOLOL 50 MG TAB PO SCH (08:33)
[2017-06-05] MEDS: RIVAROXABAN 20 MG TAB PO SCH (08:33)
[2017-06-05] MEDS: ASPIRIN EC 81 MG TABEC PO SCH (08:33)
[2017-06-05] MEDS: CHOLECALCIFEROL (VIT D3) 5000 UNIT CAP PO SCH (08:33)
[2017-06-05] MEDS: LISINOPRIL 10 MG TAB PO SCH (08:33)
[2017-06-05] MEDS: ATORVASTATIN 10 MG TAB PO SCH (08:34)
[2017-06-05 12:46] LABS: AUTOMATED NEUTROPHIL # 6.1 TH/MM3 (1.8-7.7); BASOPHIL # 0.1 TH/MM3 (0-0.2); BASOPHIL % 1.2 % (0.0-2.0); EOSINOPHIL # 0.2 TH/MM3 (0-0.4); EOSINOPHIL % 1.9 % (0.0-4.0); HEMATOCRIT 36.7 % (35.0-46.0); HEMOGLOBIN 12.3 GM/DL (11.6-15.3); LYMPH % 12.1 % (9.0-44.0); MEAN CELL VOLUME 85.6 FL (80.0-100.0); MEAN CORPUSCULAR HEMOGLOBIN 28.7 PG (27.0-34.0); MEAN CORPUSCULAR HGB CONC 33.6 % (32.0-36.0); MEAN PLATELET VOLUME 8.3 FL (7.0-11.0); MONO % 10.7 % (0.0-8.0); MONOCYTE # 0.9 TH/MM3 (0-0.9); NEUT % 74.1 % (16.0-70.0); PLATELET COUNT 316 TH/MM3 (150-450); RED BLOOD COUNT 4.29 MIL/MM3 (4.00-5.30); RED CELL DISTRIBUTION WIDTH 15.6 % (11.6-17.2); WHITE BLOOD COUNT 8.3 TH/MM3 (4.0-11.0)
[2017-06-05 12:50] LABS: ALBUMIN 2.8 GM/DL (3.4-5.0); ALT (GPT) 16 U/L (10-53); AST (GOT) 18 U/L (15-37); BICARBONATE 27.8 MEQ/L (21.0-32.0); BLOOD UREA NITROGEN 22 MG/DL (7-18); CHLORIDE 99 MEQ/L (98-107); CREATININE 0.93 MG/DL (0.50-1.00); GLOMERULAR FILTRATION RATE 57 ML/MIN (>89); GLUCOSE,RANDOM 181 MG/DL (74-106); PHOSPHORUS 3.6 MG/DL (2.5-4.9); SODIUM (NA) 133 MEQ/L (136-145)
[2017-06-05 12:52] LABS: ALKALINE PHOSPHATASE 168 U/L (45-117); TOTAL BILIRUBIN ADULT 0.4 MG/DL (0.2-1.0); TOTAL PROTEIN 6.5 GM/DL (6.4-8.2)
--- NOTE | 2017-06-05 13:38 | HHI.PYPN ---
Subjective Chief Complaint: confusion irritability inability to care for self aggressive behaviors Remarks Patient was seen and case discussed with nursing. Patient has profound bilateral lower leg edema and will be evaluated by the medical doctor today. Today per nursing patient has been irritable with me she is calm and pleasant. She is alert and oriented 3. Insight remains poor concerning her admission. Denies auditory visual hallucinations Mental Status Examination Appearance: Appropriate Consciousness: Alert Orientation: Person, Place, Date/Time Motor Activity: Abnormal gait Speech: Unremarkable Language: Adequate Fund of Knowledge: Adequate Attention and Concentration: Adequate Memory: Impaired Mood: Irritable Affect: Anxious Thought Process & Associations: Intact Thought Content: Appropriate Hallucination Type: None Delusion Type: None Suicidal Ideation: No Suicidal Plan: No Suicidal Intention: No Homicidal Ideation: No Homicidal Plan: No Homicidal Intention: No Insight: Poor Judgment: Impulsive Results Labs Test 06/05/17 11:51 White Blood Count 8.3 TH/MM3 Red Blood Count 4.29 MIL/MM3 Hemoglobin 12.3 GM/DL Hematocrit 36.7 % Mean Corpuscular Volume 85.6 FL Mean Corpuscular Hemoglobin 28.7 PG Mean Corpuscular Hemoglobin Concent 33.6 % Red Cell Distribution Width 15.6 % Platelet Count 316 TH/MM3 Mean Platelet Volume 8.3 FL Neutrophils (%) (Auto) 74.1 % Lymphocytes (%) (Auto) 12.1 % Monocytes (%) (Auto) 10.7 % Eosinophils (%) (Auto) 1.9 % Basophils (%) (Auto) 1.2 % Neutrophils # (Auto) 6.1 TH/MM3 Lymphocytes # (Auto) 1.0 TH/MM3 Monocytes # (Auto) 0.9 TH/MM3 Eosinophils # (Auto) 0.2 TH/MM3 Basophils # (Auto) 0.1 TH/MM3 CBC Comment DIFF FINAL Differential Comment Hematology Comments Blood Urea Nitrogen 22 MG/DL Creatinine 0.93 MG/DL Random Glucose 181 MG/DL Total Protein 6.5 GM/DL Albumin 2.8 GM/DL Calcium Level 9.0 MG/DL Phosphorus Level 3.6 MG/DL Magnesium Level 2.0 MG/DL Alkaline Phosphatase 168 U/L Aspartate Amino Transf (AST/SGOT) 18 U/L Alanine Aminotransferase (ALT/SGPT) 16 U/L Total Bilirubin 0.4 MG/DL Sodium Level 133 MEQ/L Potassium Level 4.5 MEQ/L Chloride Level 99 MEQ/L Carbon Dioxide Level 27.8 MEQ/L Anion Gap 6 MEQ/L Estimat Glomerular Filtration Rate 57 ML/MIN Vitals/IOs Vital Signs Date Time Temp Pulse Resp B/P (MAP) Pulse Ox O2 Delivery O2 Flow Rate FiO2 06/05/17 06:00 97.2 84 18 153/70 (97) 97 Intake and Output 06/05/17 06/05/17 06/06/17 08:00 16:00 00:00 Intake Total 720 ml 240 ml Balance 720 ml 240 ml Assessment & Plan Problem List: (1) Adjustment disorder with mixed disturbance of emotions and conduct ICD Codes: F43.25 - Adjustment disorder with mixed disturbance of emotions and conduct Assessment & Plan Consult by medical team today, consider transfer to medical/psychiatric unit Justification for Cont. Inpt. Patient would decompensate in a less restrictive setting Request HC Surrog/Guard Advoc?: Yes Micky Dejesus DO Jun 05, 2017 13:38
--- NOTE | 2017-06-05 15:20 | HHI.PR ---
Subjective Remarks Patient reports she is feeling OK. States she always has braydon lower extremity swelling. She denies leg pain. Objective Vitals Vital Signs Date Time Temp Pulse Resp B/P (MAP) Pulse Ox O2 Delivery O2 Flow Rate FiO2 06/05/17 06:00 97.2 84 18 153/70 (97) 97 06/04/17 18:30 97.5 76 16 131/61 (84) 99 I/O 06/04/17 06/04/17 06/04/17 06/05/17 06/05/17 06/05/17 07:00 15:00 23:00 07:00 15:00 23:00 Intake Total 240 ml 480 ml 720 ml 120 ml 840 ml Balance 240 ml 480 ml 720 ml 120 ml 840 ml Intake Oral 240 ml 480 ml 720 ml 120 ml 840 ml # Voids 2 1 # Bowel Movements 0 0 Result Diagram: 06/05/17 1151 06/05/17 1151 Objective Remarks GENERAL: Pleasant patient. Requesting to go home. SKIN: Bilateral LE with extensive venous stasis. No evidence of cellulitis CARDIOVASCULAR: Regular rate and rhythm. RESPIRATORY: No accessory muscle use. Clear to auscultation. Breath sounds equal bilaterally. MUSCULOSKELETAL: Braydon Lower extremities with extensive venous stasis and edema. Some excoriation involving the right LE. NEUROLOGICAL: Awake and alert. Normal speech. PSYCHIATRIC: Calm and pleasant. Procedures none A/P Problem List: (1) Hypertension ICD Code: I10 - Hypertension Status: Chronic (2) Fx humeral neck ICD Code: S42.213A - Unspecified displaced fracture of surgical neck of unspecified humerus, initial encounter for closed fracture Status: Resolved (3) Diabetes mellitus, type II ICD Code: E11.9 - Type 2 diabetes mellitus without complications Status: Chronic (4) Hypothyroid ICD Code: E03.9 - Hypothyroidism, unspecified Status: Chronic Assessment and Plan 87-year-old female with past medical history of diabetes, CAD, GERD, hypothyroidism, recurrent urinary tract infection brought to the hospital under [facility] act by DCF. Unable to take care of herself. She is now admitted to inpatient psychiatry unit for further evaluation. Hospitalist following for medical management. Psychosis - Management by psychiatry team Urinary tract infection, acute - UA growing Pseudomonas, sensitive to Cipro - Continue antibiotics to complete 10 days. Cellulitis bilateral lower extremity: Resolved. Previously received antibiotics for this. DM 2, chronic, controlled - Continue metformin 500 mg twice a day - Insulin sliding scale. Monitor Accu-Cheks. - Hemoglobin A1c 6.5 - BS controlled at present Pulmonary embolism, acute - Recently diagnosed with PE placed on Xarelto - Continue Xarelto Bilateral lower extremities edema Lymphedema, Chronic. -Advised patient to keep legs elevated. DVT prophylaxis continue with Xarelto Discharge Planning DC planning per Psychiatry Olivia Yousif MD Jun 05, 2017 15:20
[2017-06-05] MEDS: NYSTATIN 100,000 U/GM OINT 15 GM TUBE TOPICAL SCH (20:16)
[2017-06-05 20:57] VITALS: BP 134/61; PULSE 76; RESP 18; TEMP 97.6; O2SAT 98
[2017-06-06 06:12] VITALS: BP 123/56; PULSE 74; RESP 17; TEMP 98.8; O2SAT 96
[2017-06-06] MEDS: INSULIN ASPART SUPPLEMENTAL SCALE SQ SCH ×4 (08:00→21:00)
[2017-06-06] MEDS: CHOLECALCIFEROL (VIT D3) 5000 UNIT CAP PO SCH (08:32)
[2017-06-06] MEDS: RIVAROXABAN 20 MG TAB PO SCH (08:32)
[2017-06-06] MEDS: metFORMIN HCL 500 MG TAB PO SCH (08:32)
[2017-06-06] MEDS: ATORVASTATIN 10 MG TAB PO SCH (08:32)
[2017-06-06] MEDS: ATENOLOL 50 MG TAB PO SCH (08:32)
[2017-06-06] MEDS: LISINOPRIL 10 MG TAB PO SCH (08:33)
[2017-06-06] MEDS: CIPROFLOXACIN 500 MG TAB PO SCH ×2 (08:33→20:59)
[2017-06-06] MEDS: ASPIRIN EC 81 MG TABEC PO SCH (08:36)
[2017-06-06] MEDS: NYSTATIN 100,000 U/GM OINT 15 GM TUBE TOPICAL SCH ×2 (09:00→21:00)
--- NOTE | 2017-06-06 11:24 | HHI.PR ---
Subjective Remarks Patient reports the leg feels a little more stiff today. NEYDA RN. Some weeping. Objective Vitals Vital Signs Date Time Temp Pulse Resp B/P (MAP) Pulse Ox O2 Delivery O2 Flow Rate FiO2 06/06/17 06:12 98.8 74 17 123/56 (78) 96 06/05/17 20:57 97.6 76 18 134/61 (85) 98 I/O 06/05/17 06/05/17 06/05/17 06/06/17 06/06/17 06/06/17 07:00 15:00 23:00 07:00 15:00 23:00 Intake Total 120 ml 1680 ml 360 ml 480 ml 360 ml Balance 120 ml 1680 ml 360 ml 480 ml 360 ml Intake Oral 120 ml 1680 ml 360 ml 480 ml 360 ml # Voids 1 2 2 # Bowel Movements 0 1 0 Result Diagram: 06/05/17 1151 06/05/17 1151 Objective Remarks GENERAL: Pleasant patient. Requesting to go home. SKIN: Bilateral LE with extensive venous stasis. No evidence of cellulitis CARDIOVASCULAR: Regular rate and rhythm. RESPIRATORY: No accessory muscle use. Clear to auscultation. Breath sounds equal bilaterally. MUSCULOSKELETAL: Braydon Lower extremities with extensive venous stasis and edema. Some excoriation involving the right LE. NEUROLOGICAL: Awake and alert. Normal speech. PSYCHIATRIC: Calm and pleasant. Procedures none A/P Problem List: (1) Hypertension ICD Code: I10 - Hypertension Status: Chronic (2) Fx humeral neck ICD Code: S42.213A - Unspecified displaced fracture of surgical neck of unspecified humerus, initial encounter for closed fracture Status: Resolved (3) Diabetes mellitus, type II ICD Code: E11.9 - Type 2 diabetes mellitus without complications Status: Chronic (4) Hypothyroid ICD Code: E03.9 - Hypothyroidism, unspecified Status: Chronic Assessment and Plan 87-year-old female with past medical history of diabetes, CAD, GERD, hypothyroidism, recurrent urinary tract infection brought to the hospital under [facility] act by DCF. Unable to take care of herself. She is now admitted to inpatient psychiatry unit for further evaluation. Hospitalist following for medical management. Psychosis - Management by psychiatry team Urinary tract infection, acute - UA growing Pseudomonas, sensitive to Cipro - Continue antibiotics to complete 10 days. Cellulitis bilateral lower extremity: Resolved. Previously received antibiotics for this. DM 2, chronic, controlled - Continue metformin 500 mg twice a day - Insulin sliding scale. Monitor Accu-Cheks. - Hemoglobin A1c 6.5 - BS controlled at present Pulmonary embolism, acute - Recently diagnosed with PE placed on Xarelto - Continue Xarelto Bilateral lower extremities edema Lymphedema, Chronic. -Advised patient to keep legs elevated. - Give a dose of Bumex today. DVT prophylaxis continue with Xarelto Discharge Planning DC planning per Psychiatry Olivia Yousif MD Jun 06, 2017 11:23
[2017-06-06] MEDS ORDERED: BUMETANIDE 1 MG TAB PO ONE (11:30)
--- NOTE | 2017-06-06 11:33 | HHI.PYPN ---
Subjective Chief Complaint: confusion irritability inability to care for self aggressive behaviors Remarks Patient was seen and case discussed with nursing. Today patient is labile and irritable. Crying during the interview and later becomes insulting. She is perseverative on going home. She shows evidence of paranoia saying that we are torturing people here. Continues to be followed by the medical team. Mental Status Examination Appearance: Appropriate Consciousness: Alert Orientation: Person, Place, Date/Time Motor Activity: Abnormal gait Speech: Unremarkable Language: Adequate Fund of Knowledge: Adequate Attention and Concentration: Adequate Memory: Impaired Mood: Irritable Affect: Irritable, Labile Thought Process & Associations: Intact Thought Content: Appropriate Hallucination Type: None Delusion Type: None Suicidal Ideation: No Suicidal Plan: No Suicidal Intention: No Homicidal Ideation: No Homicidal Plan: No Homicidal Intention: No Insight: Poor Judgment: Impulsive Results Labs Test 06/05/17 11:51 White Blood Count 8.3 TH/MM3 Red Blood Count 4.29 MIL/MM3 Hemoglobin 12.3 GM/DL Hematocrit 36.7 % Mean Corpuscular Volume 85.6 FL Mean Corpuscular Hemoglobin 28.7 PG Mean Corpuscular Hemoglobin Concent 33.6 % Red Cell Distribution Width 15.6 % Platelet Count 316 TH/MM3 Mean Platelet Volume 8.3 FL Neutrophils (%) (Auto) 74.1 % Lymphocytes (%) (Auto) 12.1 % Monocytes (%) (Auto) 10.7 % Eosinophils (%) (Auto) 1.9 % Basophils (%) (Auto) 1.2 % Neutrophils # (Auto) 6.1 TH/MM3 Lymphocytes # (Auto) 1.0 TH/MM3 Monocytes # (Auto) 0.9 TH/MM3 Eosinophils # (Auto) 0.2 TH/MM3 Basophils # (Auto) 0.1 TH/MM3 CBC Comment DIFF FINAL Differential Comment Hematology Comments Blood Urea Nitrogen 22 MG/DL Creatinine 0.93 MG/DL Random Glucose 181 MG/DL Total Protein 6.5 GM/DL Albumin 2.8 GM/DL Calcium Level 9.0 MG/DL Phosphorus Level 3.6 MG/DL Magnesium Level 2.0 MG/DL Alkaline Phosphatase 168 U/L Aspartate Amino Transf (AST/SGOT) 18 U/L Alanine Aminotransferase (ALT/SGPT) 16 U/L Total Bilirubin 0.4 MG/DL Sodium Level 133 MEQ/L Potassium Level 4.5 MEQ/L Chloride Level 99 MEQ/L Carbon Dioxide Level 27.8 MEQ/L Anion Gap 6 MEQ/L Estimat Glomerular Filtration Rate 57 ML/MIN Vitals/IOs Vital Signs Date Time Temp Pulse Resp B/P (MAP) Pulse Ox O2 Delivery O2 Flow Rate FiO2 06/06/17 06:12 98.8 74 17 123/56 (78) 96 Intake and Output 06/06/17 06/06/17 06/07/17 08:00 16:00 00:00 Intake Total 0 ml 360 ml Balance 0 ml 360 ml Assessment & Plan Problem List: (1) Adjustment disorder with mixed disturbance of emotions and conduct ICD Codes: F43.25 - Adjustment disorder with mixed disturbance of emotions and conduct Assessment & Plan Continue current treatment plan Justification for Cont. Inpt. Patient would decompensate in a less restrictive setting Request HC Surrog/Guard Advoc?: Yes Micky Dejesus DO Jun 06, 2017 11:33
[2017-06-06 18:32] VITALS: BP 145/65; PULSE 73; RESP 18; TEMP 97.7; O2SAT 97
[2017-06-07 05:39] VITALS: BP 128/66; PULSE 76; RESP 18; TEMP 97.5
[2017-06-07] MEDS: INSULIN ASPART SUPPLEMENTAL SCALE SQ SCH ×4 (08:00→20:34)
[2017-06-07] MEDS: metFORMIN HCL 500 MG TAB PO SCH (09:07)
[2017-06-07] MEDS: CIPROFLOXACIN 500 MG TAB PO SCH ×2 (09:07→20:35)
[2017-06-07] MEDS: ATORVASTATIN 10 MG TAB PO SCH (09:07)
[2017-06-07] MEDS: CHOLECALCIFEROL (VIT D3) 5000 UNIT CAP PO SCH (09:07)
[2017-06-07] MEDS: ATENOLOL 50 MG TAB PO SCH (09:07)
[2017-06-07] MEDS: LISINOPRIL 10 MG TAB PO SCH (09:08)
[2017-06-07] MEDS: NYSTATIN 100,000 U/GM OINT 15 GM TUBE TOPICAL SCH ×2 (09:08→20:44)
[2017-06-07] MEDS: RIVAROXABAN 20 MG TAB PO SCH (09:12)
[2017-06-07] MEDS: ASPIRIN EC 81 MG TABEC PO SCH (10:00)
--- NOTE | 2017-06-07 10:39 | HHI.PYPN ---
Subjective Chief Complaint: confusion irritability inability to care for self aggressive behaviors Remarks Patient seen in day room with medical student Srinivas, chart review, patient compliant medication. Overall patient is been no behavioral problem she continues irritable demanding and intrusive. Focusing and discharge showing no ability to have patients with the process. She denies suicidality homicidality voices or visions. For now continue treatment however placement may become problematic due to her overall irritability and nastiness Review of Systems Except as stated in HPI: all other systems reviewed are Neg Mental Status Examination Appearance: Appropriate Consciousness: Alert Orientation: Person, Place, Date/Time Motor Activity: Abnormal gait Speech: Unremarkable Language: Adequate Fund of Knowledge: Adequate Attention and Concentration: Adequate Memory: Impaired Mood: Irritable Affect: Irritable, Labile Thought Process & Associations: Intact Thought Content: Appropriate Hallucination Type: None Delusion Type: None Suicidal Ideation: No Suicidal Plan: No Suicidal Intention: No Homicidal Ideation: No Homicidal Plan: No Homicidal Intention: No Insight: Poor Judgment: Impulsive Results Vitals/IOs Vital Signs Date Time Temp Pulse Resp B/P (MAP) Pulse Ox O2 Delivery O2 Flow Rate FiO2 06/07/17 05:39 97.5 76 18 128/66 (86) 06/06/17 18:32 97 Intake and Output 06/07/17 06/07/17 06/08/17 08:00 16:00 00:00 Intake Total 360 ml Balance 360 ml Assessment & Plan Problem List: (1) Adjustment disorder with mixed disturbance of emotions and conduct ICD Codes: F43.25 - Adjustment disorder with mixed disturbance of emotions and conduct Assessment & Plan Estimated LOS: days patient remains angry and irritable and nasty, no the significant behavioral problem Justification for Cont. Inpt. At this time patient will decompensate if not placed in an appropriate level of care Discharge Planning Continue to work with placement issues considering patient's past track record with placements Request HC Surrog/Guard Advoc?: Yes Sonny Cabrera MD Jun 07, 2017 10:39
--- NOTE | 2017-06-07 14:09 | PD.TTN ---
Patient Problems 1. Discharge planning 2. Medication compliance 3. Knowledge deficit 4. Lack of coping skills Progress Toward Goals Provider Present: Dr. Garry Cabrera Provider Input: Dr. Cabrera's treatment team met to discuss treatment plan, medication and discharge plans. Patient is medication compliant. Patient is being schueduled to have her arm xrayed. 06/01/17 Patient refused her medication. Patient is uncooperative in her care. 06/07/17 Per doctor patient still meets criteria and needs rehab for her shoulder. Nurse(s) Input: Patient 's nurse Catina reports patient is compliant with medications, needs assistance with all her ALD'S, and has a UTI 06/01/17 Patient refused her medication. Patient is uncooperative, agitated, obsinate. Psychiatric Counselors Present: Jazmyne Flynn LCSW, Diandra Nelson, [facility] Psych Therapist Input: Patient seen today. Patient presents childlike, anxious, dishelved, iritable, cooperative guarded, affect labile. Patient's speech is clear, organized, pressured. Patient is eating ok, but her sleep is restless. Patient required medication last night. Patient denies suicidal and homicidal ideation. Patient does not present internally stimulated or with and delusional content. Patient is alert to person and place but has poor insight into her situation. 06/01/17 Patient seen in the dayroom. Patient presented agitated, anxious, exit seeking, affect blunted. Patient refused her medication this morning. Patient denies suicidal and homicidal ideations. Patient does not present internally stimulated. Patient is alert to person, place, but has poor insight into her situation. Patient made poor eye contact. Patient's speech is clear, pressured and organized. 06/07/17 patient remains easily aggitated, new to this counselor today, but aware she is in need for rehab placement and referrals have been sent to SNF and she has [employer] and it is difficult to find placement, will look into option of safe discharge home with PT/HHC and wellfare check and DCF follow up in the home due to her history of hording Group Spec/RT/OT/DICKINSON Present: TEENA Fisher Spec/RT/OT/DICKINSON Input: Tami DICKINSON reports patient attends "food" groups with appropriate behaviors. 06/01/17 Patient does not participate in groups [id number] still not coming to groups Jazmyne Flynn LCSW Jun 07, 2017 14:09
--- NOTE | 2017-06-07 14:15 | HHI.PR ---
Subjective Remarks Patient reports she is feeling ok. Legs are feeling better and quantitative equity head today. Objective Vitals Vital Signs Date Time Temp Pulse Resp B/P (MAP) Pulse Ox O2 Delivery O2 Flow Rate FiO2 06/07/17 05:39 97.5 76 18 128/66 (86) 06/06/17 18:32 97.7 73 18 145/65 (91) 97 I/O 06/06/17 06/06/17 06/06/17 06/07/17 06/07/17 06/07/17 07:00 15:00 23:00 07:00 15:00 23:00 Intake Total 480 ml 720 ml 480 ml 0 ml 360 ml Balance 480 ml 720 ml 480 ml 0 ml 360 ml Intake Oral 480 ml 720 ml 480 ml 0 ml 360 ml # Voids 2 2 1 # Bowel Movements 0 0 1 Result Diagram: 06/05/17 1151 06/05/17 1151 Objective Remarks GENERAL: Pleasant patient. Requesting to go home. SKIN: Bilateral LE with extensive venous stasis. No evidence of cellulitis CARDIOVASCULAR: Regular rate and rhythm. RESPIRATORY: No accessory muscle use. Clear to auscultation. Breath sounds equal bilaterally. MUSCULOSKELETAL: Braydon Lower extremities with extensive venous stasis and edema. Some excoriation involving the right LE. NEUROLOGICAL: Awake and alert. Normal speech. PSYCHIATRIC: Calm and pleasant. Procedures none A/P Problem List: (1) Hypertension ICD Code: I10 - Hypertension Status: Chronic (2) Fx humeral neck ICD Code: S42.213A - Unspecified displaced fracture of surgical neck of unspecified humerus, initial encounter for closed fracture Status: Resolved (3) Diabetes mellitus, type II ICD Code: E11.9 - Type 2 diabetes mellitus without complications Status: Chronic (4) Hypothyroid ICD Code: E03.9 - Hypothyroidism, unspecified Status: Chronic Assessment and Plan 87-year-old female with past medical history of diabetes, CAD, GERD, hypothyroidism, recurrent urinary tract infection brought to the hospital under [facility] act by DCF. Unable to take care of herself. She is now admitted to inpatient psychiatry unit for further evaluation. Hospitalist following for medical management. Psychosis - Management by psychiatry team Urinary tract infection, acute - UA growing Pseudomonas, sensitive to Cipro - Continue antibiotics to complete 10 days. Cellulitis bilateral lower extremity: Resolved. Previously received antibiotics for this. DM 2, chronic, controlled - Continue metformin 500 mg twice a day - Insulin sliding scale. Monitor Accu-Cheks. - Hemoglobin A1c 6.5 - BS controlled at present Pulmonary embolism, acute - Recently diagnosed with PE placed on Xarelto - Continue Xarelto Bilateral lower extremities edema Lymphedema, Chronic. Stable -Advised patient to keep legs elevated. S/P 1 dose of Bumex on 06/06. Will continue to monitor and recommends intermittent diuretics. DVT prophylaxis continue with Xarelto Discharge Planning DC planning per Psychiatry Olivia Yousif MD Jun 07, 2017 14:15
[2017-06-07 18:00] VITALS: BP 126/61; PULSE 97; RESP 18; TEMP 97.8; O2SAT 97
[2017-06-07] MEDS: diphenhydrAMINE HCL 25 MG CAP PO PRN (22:13)
[2017-06-08 05:45] VITALS: BP 130/71; PULSE 74; RESP 16; TEMP 97.5; O2SAT 95
[2017-06-08] MEDS: INSULIN ASPART SUPPLEMENTAL SCALE SQ SCH ×4 (07:14→21:24)
[2017-06-08] MEDS: ATENOLOL 50 MG TAB PO SCH (08:10)
[2017-06-08] MEDS: RIVAROXABAN 20 MG TAB PO SCH (08:10)
[2017-06-08] MEDS: NYSTATIN 100,000 U/GM OINT 15 GM TUBE TOPICAL SCH ×2 (08:10→21:18)
[2017-06-08] MEDS: ATORVASTATIN 10 MG TAB PO SCH (08:10)
[2017-06-08] MEDS: CHOLECALCIFEROL (VIT D3) 5000 UNIT CAP PO SCH (08:10)
[2017-06-08] MEDS: LISINOPRIL 10 MG TAB PO SCH (08:10)
[2017-06-08] MEDS: CIPROFLOXACIN 500 MG TAB PO SCH (08:10)
[2017-06-08] MEDS: ASPIRIN EC 81 MG TABEC PO SCH (08:10)
[2017-06-08] MEDS: metFORMIN HCL 500 MG TAB PO SCH (08:10)
--- NOTE | 2017-06-08 12:54 | HHI.PR ---
Subjective Remarks No new issues, NEYDA RN. LE edema is unchanged. Objective Vitals Vital Signs Date Time Temp Pulse Resp B/P (MAP) Pulse Ox O2 Delivery O2 Flow Rate FiO2 06/08/17 05:45 97.5 74 16 130/71 (90) 95 06/07/17 18:00 97.8 97 18 126/61 (82) 97 I/O 06/07/17 06/07/17 06/07/17 06/08/17 06/08/17 06/08/17 07:00 15:00 23:00 07:00 15:00 23:00 Intake Total 0 ml 360 ml 360 ml 240 ml 460 ml Balance 0 ml 360 ml 360 ml 240 ml 460 ml Intake Oral 0 ml 360 ml 360 ml 240 ml 460 ml # Voids 1 2 3 # Bowel Movements 1 1 Result Diagram: 06/05/17 1151 06/05/17 1151 Objective Remarks GENERAL: No acute distress. SKIN: Bilateral LE with extensive venous stasis. No evidence of cellulitis CARDIOVASCULAR: Regular rate and rhythm. RESPIRATORY: No accessory muscle use. Clear to auscultation. Breath sounds equal bilaterally. MUSCULOSKELETAL: Braydon Lower extremities with extensive venous stasis and edema. Some excoriation involving the right LE. Procedures none A/P Problem List: (1) Hypertension ICD Code: I10 - Hypertension Status: Chronic (2) Fx humeral neck ICD Code: S42.213A - Unspecified displaced fracture of surgical neck of unspecified humerus, initial encounter for closed fracture Status: Resolved (3) Diabetes mellitus, type II ICD Code: E11.9 - Type 2 diabetes mellitus without complications Status: Chronic (4) Hypothyroid ICD Code: E03.9 - Hypothyroidism, unspecified Status: Chronic Assessment and Plan 87-year-old female with past medical history of diabetes, CAD, GERD, hypothyroidism, recurrent urinary tract infection brought to the hospital under M[place]ain act by DCF. Unable to take care of herself. She is now admitted to inpatient psychiatry unit for further evaluation. Hospitalist following for medical management. Psychosis - Management by psychiatry team Urinary tract infection, acute - UA growing Pseudomonas, sensitive to Cipro - Continue antibiotics for 3 more days to complete 10 days. Cellulitis bilateral lower extremity: Resolved. Previously received antibiotics for this. DM 2, chronic, controlled - Continue metformin 500 mg twice a day - Insulin sliding scale. Monitor Accu-Cheks. - Hemoglobin A1c 6.5 - BS controlled at present Pulmonary embolism, acute - Recently diagnosed with PE placed on Xarelto - Continue Xarelto Bilateral lower extremities edema Lymphedema, Chronic. Stable -Advised patient to keep legs elevated. S/P 1 dose of Bumex on 06/06. Will continue to monitor and recommends intermittent diuretics. DVT prophylaxis continue with Xarelto Discharge Planning DC planning per Psychiatry Olivia Yousif MD Jun 08, 2017 12:54
--- NOTE | 2017-06-08 14:34 | HHI.PYPN ---
Subjective Chief Complaint: confusion irritability inability to care for self aggressive behaviors Remarks Patient seen in her room with medical student Jose Rafael, chart review, patient continues somewhat irritable labile and tearful. Focusing on discharge. Staff states feels notice her irritability and somewhat of a manipulativeness. Compliant with his no underlying depression with this lady that is causing some of his behaviors. Will offer Paxil 10 mg daily with permission of health care surrogate/guardian advocate Review of Systems Except as stated in HPI: all other systems reviewed are Neg Mental Status Examination Appearance: Appropriate Consciousness: Alert Orientation: Person, Place, Date/Time Motor Activity: Abnormal gait Speech: Unremarkable Language: Adequate Fund of Knowledge: Adequate Attention and Concentration: Adequate Memory: Impaired Mood: Sad, Irritable Affect: Irritable, Labile Thought Process & Associations: Intact Thought Content: Appropriate Hallucination Type: None Delusion Type: None Suicidal Ideation: No Suicidal Plan: No Suicidal Intention: No Homicidal Ideation: No Homicidal Plan: No Homicidal Intention: No Insight: Poor Judgment: Impulsive Results Vitals/IOs Vital Signs Date Time Temp Pulse Resp B/P (MAP) Pulse Ox O2 Delivery O2 Flow Rate FiO2 06/08/17 05:45 97.5 74 16 130/71 (90) 95 Intake and Output 06/08/17 06/08/17 06/09/17 08:00 16:00 00:00 Intake Total 700 ml 120 ml Balance 700 ml 120 ml Assessment & Plan Problem List: (1) Adjustment disorder with mixed disturbance of emotions and conduct ICD Codes: F43.25 - Adjustment disorder with mixed disturbance of emotions and conduct Assessment & Plan Estimated LOS: days patient continues irritable focusing somewhat on discharge for she appears more did depressed today and tearful also. Will offer Paxil 10 mg daily Justification for Cont. Inpt. At this time patient decompensate if placed in a lower level of care Discharge Planning Placement they become somewhat problematic she was declined by her prior placement Request HC Surrog/Guard Advoc?: Yes Sonny Cabrera MD Jun 08, 2017 14:34
--- NOTE | 2017-06-08 16:08 | PD.WCN.NOT ---
Wound Consult Description: Consult placed for wound management of Leg edema Communicated with: KURTIS Martinez 4th [facility] psych unit Recommendation: Please cleanse L leg skin tears with normal saline and pat dry. Apply single layer Xeroform gauze just over wound bed to R anterior banuelos and cover with dry gauze. Cover diffuse weeping partial thickness skin loss to R medial leg with Optifoam basic non adhesive foam dressing and secured with rolled gauze , tape and Joce wrap from behind the toes to just below the knee. Please apply JOCE wrap to LLE and elevate BLE Additional Information: Patient seen on 4th floor medical psych unit around 1445 for wound management of leg edema. Patient is observed by machine sign writer sitting in chair with tray table with bilateral lower extremities in dependent position. Pitting edema noted bilaterally to lower extremities at 2+. BLE also present with hemosiderin staining.R leg is noted with skin tear that is draining and covered with transparent dressing that is peeling off. Removed transparent dressing reveal small skin tear measuring ~1cm x ~0.5cm x ~<0.1cm. Wound drainage is scant and sanguinous without odor.Periwound presents with peeling discolored skin Cleansed wound with normal saline and covered wound with single layer Xeroform dressing. Diffuse small weeping skin tears are noted to R medial lower leg in an area measuring ~8cm x ~8cm. Moderate serous drainage is weeping from skin tears without odor. Cleansed entire area of weeping skin tears with normal saline. Covered area with optifoam basic non adhesive dressing and secured with rolled gauze and tape.Findings indicate possible venous stasis etiology. Recommendations are noted above Jaida Thao CRN Jun 08, 2017 16:08
--- NOTE | 2017-06-08 16:08 | PD.WCN.NOT ---
Wound Consult Description: Consult placed for wound management of Leg edema Communicated with: KURTIS Martinez 4th [facility] psych unit Recommendation: Please cleanse L leg skin tears with normal saline and pat dry. Apply single layer Xeroform gauze just over wound bed to R anterior banuelos and cover with dry gauze. Cover diffuse weeping partial thickness skin loss to R medial leg with Optifoam basic non adhesive foam dressing and secured with rolled gauze , tape and Joce wrap from behind the toes to just below the knee. Please apply JOCE wrap to LLE and elevate BLE Additional Information: Patient seen on 4th floor medical psych unit around 1445 for wound management of leg edema. Patient is observed by policy writer sales sitting in chair with tray table with bilateral lower extremities in dependent position. Pitting edema noted bilaterally to lower extremities at 2+. BLE also present with hemosiderin staining.R leg is noted with skin tear that is draining and covered with transparent dressing that is peeling off. Removed transparent dressing reveal small skin tear measuring ~1cm x ~0.5cm x ~<0.1cm. Wound drainage is scant and sanguinous without odor.Periwound presents with peeling discolored skin Cleansed wound with normal saline and covered wound with single layer Xeroform dressing. Diffuse small weeping skin tears are noted to R medial lower leg in an area measuring ~8cm x ~8cm. Moderate serous drainage is weeping from skin tears without odor. Cleansed entire area of weeping skin tears with normal saline. Covered area with optifoam basic non adhesive dressing and secured with rolled gauze and tape.Findings indicate possible venous stasis etiology. Recommendations are noted above Jaida Thao CRN Jun 08, 2017 16:08
--- NOTE | 2017-06-08 16:08 | PD.WCN.NOT ---
Wound Consult Description: Consult placed for wound management of Leg edema Communicated with: KURTIS Martinez 4th [facility] psych unit Recommendation: Please cleanse L leg skin tears with normal saline and pat dry. Apply single layer Xeroform gauze just over wound bed to R anterior banuelos and cover with dry gauze. Cover diffuse weeping partial thickness skin loss to R medial leg with Optifoam basic non adhesive foam dressing and secured with rolled gauze , tape and Joce wrap from behind the toes to just below the knee. Please apply JOCE wrap to LLE and elevate BLE Additional Information: Patient seen on 4th floor medical psych unit around 1445 for wound management of leg edema. Patient is observed by physician underwriter sitting in chair with tray table with bilateral lower extremities in dependent position. Pitting edema noted bilaterally to lower extremities at 2+. BLE also present with hemosiderin staining.R leg is noted with skin tear that is draining and covered with transparent dressing that is peeling off. Removed transparent dressing reveal small skin tear measuring ~1cm x ~0.5cm x ~<0.1cm. Wound drainage is scant and sanguinous without odor.Periwound presents with peeling discolored skin Cleansed wound with normal saline and covered wound with single layer Xeroform dressing. Diffuse small weeping skin tears are noted to R medial lower leg in an area measuring ~8cm x ~8cm. Moderate serous drainage is weeping from skin tears without odor. Cleansed entire area of weeping skin tears with normal saline. Covered area with optifoam basic non adhesive dressing and secured with rolled gauze and tape.Findings indicate possible venous stasis etiology. Recommendations are noted above Jaida Thao CRN Jun 08, 2017 16:08
[2017-06-08 17:10] VITALS: BP 126/60; PULSE 69; RESP 16; TEMP 98.9; O2SAT 94
[2017-06-09 05:38] VITALS: BP 148/69; PULSE 95; RESP 17; TEMP 97.8; O2SAT 94
[2017-06-09] MEDS: INSULIN ASPART SUPPLEMENTAL SCALE SQ SCH ×4 (08:00→21:00)
[2017-06-09] MEDS: NYSTATIN 100,000 U/GM OINT 15 GM TUBE TOPICAL SCH ×2 (09:00→21:00)
[2017-06-09] MEDS: CIPROFLOXACIN 500 MG TAB PO SCH ×2 (09:00→21:00)
[2017-06-09] MEDS: CHOLECALCIFEROL (VIT D3) 5000 UNIT CAP PO SCH (09:08)
[2017-06-09] MEDS: metFORMIN HCL 500 MG TAB PO SCH (09:09)
[2017-06-09] MEDS: ASPIRIN EC 81 MG TABEC PO SCH (09:09)
[2017-06-09] MEDS: RIVAROXABAN 20 MG TAB PO SCH (09:09)
[2017-06-09] MEDS: ATENOLOL 50 MG TAB PO SCH (09:10)
[2017-06-09] MEDS: ATORVASTATIN 10 MG TAB PO SCH (09:10)
[2017-06-09] MEDS: LISINOPRIL 10 MG TAB PO SCH (09:11)
[2017-06-09] MEDS: PARoxetine HCL 20 MG TAB PO SCH (09:11)
--- NOTE | 2017-06-09 14:04 | HHI.PYPN ---
Subjective Chief Complaint: confusion irritability inability to care for self aggressive behaviors Remarks Patient seen sitting in chair in doorway to her room patient seen with RN. Chart reviewed. Patient compliant medication. Patient drowsy to alert, continues irritable and feisty. But no behavioral problems. Placement continues to be an issue Review of Systems Except as stated in HPI: all other systems reviewed are Neg Mental Status Examination Appearance: Appropriate Consciousness: Alert Orientation: Person, Place, Date/Time Motor Activity: Abnormal gait Speech: Unremarkable Language: Adequate Fund of Knowledge: Adequate Attention and Concentration: Adequate Memory: Impaired Mood: Sad, Irritable Affect: Irritable, Labile Thought Process & Associations: Intact Thought Content: Appropriate Hallucination Type: None Delusion Type: None Suicidal Ideation: No Suicidal Plan: No Suicidal Intention: No Homicidal Ideation: No Homicidal Plan: No Homicidal Intention: No Insight: Poor Judgment: Impulsive Results Vitals/IOs Vital Signs Date Time Temp Pulse Resp B/P (MAP) Pulse Ox O2 Delivery O2 Flow Rate FiO2 06/09/17 05:38 97.8 95 17 148/69 (95) 94 Intake and Output 06/09/17 06/09/17 06/10/17 08:00 16:00 00:00 Intake Total 240 ml 600 ml Balance 240 ml 600 ml Assessment & Plan Problem List: (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 Justification for Cont. Inpt. At this time patient will decompensate if not placed in an appropriate level of care Discharge Planning Discharge planners are working to find an appropriate placement for this lady Request HC Surrog/Guard Advoc?: Yes Sonny Cabrera MD Jun 09, 2017 14:04
--- NOTE | 2017-06-09 15:11 | HHI.PR ---
Subjective Remarks No new issues. NEYDA RN. Objective Vitals Vital Signs Date Time Temp Pulse Resp B/P (MAP) Pulse Ox O2 Delivery O2 Flow Rate FiO2 06/09/17 05:38 97.8 95 17 148/69 (95) 94 06/08/17 17:10 98.9 69 16 126/60 (82) 94 I/O 06/08/17 06/08/17 06/08/17 06/09/17 06/09/17 06/09/17 07:00 15:00 23:00 07:00 15:00 23:00 Intake Total 240 ml 580 ml 0 ml 240 ml 600 ml Balance 240 ml 580 ml 0 ml 240 ml 600 ml Intake Oral 240 ml 580 ml 0 ml 240 ml 600 ml # Voids 3 1 2 # Bowel Movements 1 1 Result Diagram: 06/05/17 1151 06/05/17 1151 Objective Remarks GENERAL: No acute distress. SKIN: Bilateral LE with extensive venous stasis. No evidence of cellulitis CARDIOVASCULAR: Regular rate and rhythm. RESPIRATORY: No accessory muscle use. Clear to auscultation. Breath sounds equal bilaterally. MUSCULOSKELETAL: Braydon Lower extremities with extensive venous stasis and edema. Some excoriation involving the right LE. Procedures none A/P Problem List: (1) Hypertension ICD Code: I10 - Hypertension Status: Chronic (2) Fx humeral neck ICD Code: S42.213A - Unspecified displaced fracture of surgical neck of unspecified humerus, initial encounter for closed fracture Status: Resolved (3) Diabetes mellitus, type II ICD Code: E11.9 - Type 2 diabetes mellitus without complications Status: Chronic (4) Hypothyroid ICD Code: E03.9 - Hypothyroidism, unspecified Status: Chronic Assessment and Plan 87-year-old female with past medical history of diabetes, CAD, GERD, hypothyroidism, recurrent urinary tract infection brought to the hospital under Mccain act by DCF. Unable to take care of herself. She is now admitted to inpatient psychiatry unit for further evaluation. Hospitalist following for medical management. Psychosis - Management by psychiatry team Urinary tract infection, acute - UA growing Pseudomonas, sensitive to Cipro - Continue antibiotics for 2 more days to complete 10 days. Cellulitis bilateral lower extremity: Resolved. Previously received antibiotics for this. DM 2, chronic. - Continue metformin 500 mg twice a day - Insulin sliding scale. Monitor Accu-Cheks. - Hemoglobin A1c 6.5 - BS controlled at present Pulmonary embolism, acute - Recently diagnosed with PE placed on Xarelto - Continue Xarelto Bilateral lower extremities edema Lymphedema, Chronic. Stable -Advised patient to keep legs elevated. S/P 1 dose of Bumex on 06/06. Will continue to monitor and recommends intermittent diuretics. 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 DVT prophylaxis continue with Xarelto Patient is medically stable. Will sign off. Please call or reconsult with questions. Discharge Planning DC planning per Psychiatry Placement issue. Olivia Yousif MD Jun 09, 2017 15:11
[2017-06-09 18:38] VITALS: BP 155/68; PULSE 73; RESP 18; TEMP 98; O2SAT 96
[2017-06-10 05:34] VITALS: BP 162/72; PULSE 82; RESP 16; TEMP 97.8; O2SAT 94
[2017-06-10] MEDS: INSULIN ASPART SUPPLEMENTAL SCALE SQ SCH ×4 (08:00→20:45)
[2017-06-10] MEDS: CHOLECALCIFEROL (VIT D3) 5000 UNIT CAP PO SCH (08:10)
[2017-06-10] MEDS: CIPROFLOXACIN 500 MG TAB PO SCH ×2 (08:10→20:43)
[2017-06-10] MEDS: ATORVASTATIN 10 MG TAB PO SCH (08:11)
[2017-06-10] MEDS: ATENOLOL 50 MG TAB PO SCH (08:11)
[2017-06-10] MEDS: ASPIRIN EC 81 MG TABEC PO SCH (08:11)
[2017-06-10] MEDS: LISINOPRIL 10 MG TAB PO SCH (08:12)
[2017-06-10] MEDS: metFORMIN HCL 500 MG TAB PO SCH (08:13)
[2017-06-10] MEDS: PARoxetine HCL 20 MG TAB PO SCH (08:13)
[2017-06-10] MEDS: NYSTATIN 100,000 U/GM OINT 15 GM TUBE TOPICAL SCH ×2 (09:00→20:43)
[2017-06-10] MEDS: RIVAROXABAN 20 MG TAB PO SCH (09:00)
--- NOTE | 2017-06-10 13:10 | HHI.PYPN ---
Subjective Chief Complaint: confusion irritability inability to care for self aggressive behaviors Remarks Patient seen in her room with nurse and medical student Srinivas, patient continues somewhat feisty and irritable but calmer today it appears the may be a placement coming available the next 1-2 days. Patient is not willing to go to an [facility]. Hopefully we'll know more information tomorrow. Patient is aware of this though appears somewhat skeptical about this, compliant medication Review of Systems Except as stated in HPI: all other systems reviewed are Neg Mental Status Examination Appearance: Appropriate Consciousness: Alert Orientation: Person, Place, Date/Time Motor Activity: Abnormal gait Speech: Unremarkable Language: Adequate Fund of Knowledge: Adequate Attention and Concentration: Adequate Memory: Impaired Mood: Sad, Irritable Affect: Irritable, Labile Thought Process & Associations: Intact Thought Content: Appropriate Hallucination Type: None Delusion Type: None Suicidal Ideation: No Suicidal Plan: No Suicidal Intention: No Homicidal Ideation: No Homicidal Plan: No Homicidal Intention: No Insight: Poor Judgment: Impulsive Results Vitals/IOs Vital Signs Date Time Temp Pulse Resp B/P (MAP) Pulse Ox O2 Delivery O2 Flow Rate FiO2 06/10/17 05:34 97.8 82 16 162/72 (102) 94 Intake and Output 06/10/17 06/10/17 06/11/17 08:00 16:00 00:00 Intake Total 240 ml 360 ml Balance 240 ml 360 ml Assessment & Plan Problem List: (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 There is still some anxiety and sadness related to issues with placement. Hopefully placements can be arranged the next 1-2 days Justification for Cont. Inpt. At this time patient will decompensate if not placed at an appropriate level of care Discharge Planning Awaiting word from possible RESIDENTIAL placement Request HC Surrog/Guard Advoc?: Yes Sonny Cabrera MD Jun 10, 2017 13:10
[2017-06-10 20:23] VITALS: BP 165/78; PULSE 73; RESP 16; TEMP 97.6; O2SAT 95
[2017-06-11 06:06] VITALS: BP 120/60; PULSE 82; RESP 16; TEMP 97.9; O2SAT 99
[2017-06-11] MEDS: INSULIN ASPART SUPPLEMENTAL SCALE SQ SCH ×2 (07:52→12:00)
[2017-06-11] MEDS: ATENOLOL 50 MG TAB PO SCH (08:47)
[2017-06-11] MEDS: RIVAROXABAN 20 MG TAB PO SCH (08:47)
[2017-06-11] MEDS: ASPIRIN EC 81 MG TABEC PO SCH (08:47)
[2017-06-11] MEDS: CIPROFLOXACIN 500 MG TAB PO SCH (08:47)
[2017-06-11] MEDS: metFORMIN HCL 500 MG TAB PO SCH (08:48)
[2017-06-11] MEDS: LISINOPRIL 10 MG TAB PO SCH (08:48)
[2017-06-11] MEDS: ATORVASTATIN 10 MG TAB PO SCH (08:48)
[2017-06-11] MEDS: CHOLECALCIFEROL (VIT D3) 5000 UNIT CAP PO SCH (08:48)
[2017-06-11] MEDS: PARoxetine HCL 20 MG TAB PO SCH (08:48)
[2017-06-11] MEDS: NYSTATIN 100,000 U/GM OINT 15 GM TUBE TOPICAL SCH (08:49)
[2017-06-11] MEDS ORDERED: CIPR-9 PO (10:12)
[2017-06-11] MEDS ORDERED: ASPI-99 PO (10:12)
[2017-06-11] MEDS ORDERED: NYST100084 TOPICAL (10:12)
[2017-06-11] MEDS ORDERED: PAXI10TA2 PO (10:12)
[2017-06-11] MEDS ORDERED: METF500 PO (10:12)
[2017-06-11] MEDS ORDERED: ATEN50TA PO (10:12)
[2017-06-11] MEDS ORDERED: CHOL5000 PO (10:12)
[2017-06-11] MEDS ORDERED: LISI10TA3 PO (10:12)
[2017-06-11] MEDS ORDERED: LIPI10TA PO (10:12)
[2017-06-11] MEDS ORDERED: XARE20TA PO (10:12)
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
== END 2017-06-11 16:25 | DRG 882 ==
LOC: NEPE 15:12 → NEDA 05-26 11:12 → H250 05-26 13:55 → H4EA 06-07 11:30
PROVIDERS: ADMIT Psychiatry & Neurology Psychiatry; ATTEND Psychiatry & Neurology Psychiatry
DX: F43.25 Adjustment disorder with mixed disturbance of emotions and conduct (principal); I26.99 Other pulmonary embolism without acute cor pulmonale; L03.115 Cellulitis of right lower limb; I11.0 Hypertensive heart disease with heart failure; I50.9 Heart failure, unspecified; E87.1 Hypo-osmolality and hyponatremia; L03.116 Cellulitis of left lower limb; N39.0 Urinary tract infection, site not specified; E11.9 Type 2 diabetes mellitus without complications; E03.9 Hypothyroidism, unspecified; E78.5 Hyperlipidemia, unspecified; I25.10 Atherosclerotic heart disease of native coronary artery without angina pectoris; I89.0 Lymphedema, not elsewhere classified; K21.9 Gastro-esophageal reflux disease without esophagitis; M40.209 Unspecified kyphosis, site unspecified; Z79.01 Long term (current) use of anticoagulants; Z79.84 Long term (current) use of oral hypoglycemic drugs; Z79.899 Other long term (current) drug therapy; H91.90 Unspecified hearing loss, unspecified ear; Z95.5 Presence of coronary angioplasty implant and graft; Z91.19 Patient's noncompliance with other medical treatment and regimen; F41.9 Anxiety disorder, unspecified; F22 Delusional disorders; M19.90 Unspecified osteoarthritis, unspecified site; I25.2 Old myocardial infarction
CPT/HCPCS: 73030; 80048; 80053; 80061; 82306; 82607; 82948; 83036; 83735; 84100; 84443; 85025; J1815; J2060

== ENCOUNTER → 2017-08-13 | Day surgery (SDC) | payer MEDICARE, OTHER ==
[~2017-08-13] VITALS: Ht 160 cm; Wt 73.0 kg
[~2017-08-13] MED LIST changes: +ACETAMINOPHEN/HYDROcodone 325 MG/7.5 MG TAB PO PRN; +ALBU0.08 NEB; +AMMO12LO TOPICAL; -ASPI-99 PO; +ASPI1TAB56 PO; +BUPIVACAINE/EPINEPHRINE 0.25% PF 30 ML VIAL ONE; +CHLORHEXIDINE GLUCONATE 2 % 1 PACK (2 CLOTHS) TOPICAL PRN; +CHLORHEXIDINE GLUCONATE 4% SOLN 120 ML BTL TOPICAL SCH; +CHOL5000 PO; -CIPR750T2 PO; -CLIN150 PO; +DEXAMETHASONE SOD PHOS 4 MG/ML VIAL IV ONE; +DO NOT ADM ANY ANTICOAGULANT DRUGS PRN; +GENTAMICIN SULFATE 80 MG/2 ML VIAL ONE; +HYDR-3288 PO; +LABETALOL HCL 100 MG/20 ML VIAL IV ONE; +LACTATED RINGER'S 1000 ML IV PRN; +LEXA10TA PO; +LIDOCAINE HCL 1% PF 5 ML SYRINGE OTHER ONE; +LISI-515 PO; -LISI10TA3 PO; +LORA0.5T PO; +MEMA1CAP2 PO; +METOPROLOL TARTRATE 25 MG TAB PO PRN; +MORPHINE SULFATE 2 MG/ML INJ IV PUSH PRN; +NYST100084 TOPICAL; +ONDANSETRON HCL 4 MG/2 ML VIAL IV ONE; +ONDANSETRON HCL 4 MG/2 ML VIAL IV PUSH PRN; +PHENYLEPH/NS 1000 MCG/10 ML SYR IV ONE; +POVIDONE IODINE 5% (ANTISEPSIS KIT) 4 APPLICATIONS EACH NARE PRN; +PROPOFOL 200 MG/20 ML AMP IV ONE; +ROCURONIUM INJ 50 MG/5 ML VIAL IV ONE; +SODIUM CHLORID 0.9% 500 ML IV PRN; +SODIUM CHLORIDE 0.9% FLUSH 10 ML FLUSH IV FLUSH PRN; +SODIUM CHLORIDE 0.9% FLUSH 10 ML FLUSH IV FLUSH SCH; +STRO3TAB PO; +SUGAMMADEX SODIUM 200 MG/2 ML VIAL IV PUSH ONE; +VANCOMYCIN 1000 MG/NS 250 ML (for <70 kg) IV SCH; +ceFAZolin 2 GM PREMIX 50 ML IV SCH; +ePHEDrine/NS 25 MG/5 ML SYRINGE IV ONE
--- NOTE | 2017-08-13 09:08 | PD.OP ---
cc: Andrey Rouse MD Operative Report Date of Surgery: Aug 13, 2017 Preoperative Diagnosis: Painful hardware right shoulder Postoperative Diagnosis: Procedure: Removal of deep hardware right proximal humerus Anesthesia: Gen. Surgeon: Andrey Rouse Explosives Detonator(s): JANN Basurto PA-C The surgical procedure was assisted by my physician clinic office assistant. My P.A. presence was necessary throughout this case for the manipulation and positioning of the surgical extremity. My P.A. was assisting me throughout the duration of this procedure. The skill set of a physician clinic office assistant was medically necessary to complete this procedure. During the surgical case the surgical services coordinator was working at the back table and the physician clinic office assistant was directly assisting me. Operation and Findings: Patient was seen and evaluated preoperatively. Patient was found to have a painful hardware in her right shoulder. She previously had a displaced proximal humerus fracture treated with open reduction internal fixation. Patient was noncompliant with activity restrictions postoperatively and subsequently had some collapse of the humeral head. Some of the screws of the plate then penetrated through the humeral head. The risks and benefits of surgical and nonsurgical options were discussed in detail and informed consent was obtained for surgery. Patient was brought to the operating room and placed on or table. IV sedation and GETA were administered by anesthesiologist. Antibiotics were given prior to incision. Operative arm and shoulder were prepped with alcohol followed by Hibiclens and draped usual sterile fashion. Timeout procedure was performed. Procedure began with a 5 inch incision over the anterior shoulder. Cephalic vein was identified. A deltopectoral approach was utilized. The hardware was now visualized. There was dense scar tissue around the hardware. Scar tissue was elevated to fully expose the plate. Soft tissue was retracted. Osteotomes were used to remove heterotopic bone that was growing around the plate. Each screw was identified. Screwdriver was used to remove all the screws. The plate was now elevated with an osteotome and removed. Fluoroscopy confirmed removal of all hardware. Wound was thoroughly irrigated. Fascia was closed with #1 Vicryl, subcutaneous tissues closed with 3-0 Vicryl, and skin was closed with iggy. Sterile dressings were applied. Patient was placed into a sling. Patient was awakened and transferred to recovery in stable condition. Needle and sponge counts were correct. Andrey Rouse MD Aug 13, 2017 09:08
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
[2017-08-13 10:40] VITALS: BP 123/52; PULSE 73; RESP 18; TEMP 97.8; O2SAT 97
== END | disposition home or self-care (01) ==
LOC: HSDC 05:34
PROVIDERS: ATTEND Orthopaedic Surgery Orthopaedic Trauma
DX: T84.84XA Pain due to internal orthopedic prosthetic devices, implants and grafts, initial encounter (principal); Y83.1 Surgical operation with implant of artificial internal device as the cause of abnormal reaction of the patient, or of later complication, without mention of misadventure at the time of the procedure; Z91.19 Patient's noncompliance with other medical treatment and regimen; I10 Essential (primary) hypertension; M85.80 Other specified disorders of bone density and structure, unspecified site; I25.2 Old myocardial infarction; E78.00 Pure hypercholesterolemia, unspecified
CPT/HCPCS: 01630; 20680; 73030; 76000; J1100; J1580; J2370; J2405; J3010; J3370; J7050; J7120

== ENCOUNTER 2017-10-01 11:37 | Inpatient (IN) | payer MEDICARE, OTHER ==
[~2017-10-01] VITALS: Ht 165.1 cm; Wt 70.9 kg
[~2017-10-01 11:37] MED LIST changes: -ACETAMINOPHEN/HYDROcodone 325 MG/7.5 MG TAB PO PRN; -BUPIVACAINE/EPINEPHRINE 0.25% PF 30 ML VIAL ONE; -CHLORHEXIDINE GLUCONATE 2 % 1 PACK (2 CLOTHS) TOPICAL PRN; -CHLORHEXIDINE GLUCONATE 4% SOLN 120 ML BTL TOPICAL SCH; -DEXAMETHASONE SOD PHOS 4 MG/ML VIAL IV ONE; -DO NOT ADM ANY ANTICOAGULANT DRUGS PRN; -GENTAMICIN SULFATE 80 MG/2 ML VIAL ONE; -LABETALOL HCL 100 MG/20 ML VIAL IV ONE; -LACTATED RINGER'S 1000 ML IV PRN; -LIDOCAINE HCL 1% PF 5 ML SYRINGE OTHER ONE; -METOPROLOL TARTRATE 25 MG TAB PO PRN; -MORPHINE SULFATE 2 MG/ML INJ IV PUSH PRN; -ONDANSETRON HCL 4 MG/2 ML VIAL IV ONE; -ONDANSETRON HCL 4 MG/2 ML VIAL IV PUSH PRN; -PHENYLEPH/NS 1000 MCG/10 ML SYR IV ONE; -POVIDONE IODINE 5% (ANTISEPSIS KIT) 4 APPLICATIONS EACH NARE PRN; -PROPOFOL 200 MG/20 ML AMP IV ONE; -ROCURONIUM INJ 50 MG/5 ML VIAL IV ONE; -SODIUM CHLORID 0.9% 500 ML IV PRN; -SODIUM CHLORIDE 0.9% FLUSH 10 ML FLUSH IV FLUSH PRN; -SODIUM CHLORIDE 0.9% FLUSH 10 ML FLUSH IV FLUSH SCH; -SUGAMMADEX SODIUM 200 MG/2 ML VIAL IV PUSH ONE; -VANCOMYCIN 1000 MG/NS 250 ML (for <70 kg) IV SCH; -ceFAZolin 2 GM PREMIX 50 ML IV SCH; -ePHEDrine/NS 25 MG/5 ML SYRINGE IV ONE
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
[2017-10-01 12:03] VITALS: BP 130/61; PULSE 68; RESP 16; TEMP 98.1; O2SAT 93
--- NOTE | 2017-10-01 12:54 | RADRPT ---
EXAM DATE/TIME: 10/01/2017 12:29 [facility] COMPARISON: CHEST SINGLE AP, May 18, 2017, 2:15. CT ABDOMEN & PELVIS W CONTRAST, May 18, 2017, 6:11. [facility] (2VWS), August 13, 2017, 8:50. INDICATIONS : Short of breath, weakness MEDICAL HISTORY : Myocardial infarction. Hypertension Diabetes mellitus type II. SURGICAL HISTORY : Coronary artery stent. ENCOUNTER: Initial ACUITY: 1 day PAIN SCORE: Non-responsive. LOCATION: Bilateral chest FINDINGS: The exam demonstrates a large hiatal hernia with stomach and also an apparent loop of transverse colo n up in the chest. There are compressive atelectatic changes at the left lung base. There is mild chr onic interstitial lung disease. The heart is normal in size. The visualized bony structures demonstrate old fracture of the right humerus. CONCLUSION: 1. Large hiatal hernia. There is both stomach and probable transverse colon herniated through the def ect. 2. Compressive atelectatic changes in the left lung base. The overall appearance of the chest is rela tively stable compared to previous dated 05/18/70 Mando Pan MD on October 01, 2017 at 12:51 Board Certified Radiologist. This report was verified electronically.
[2017-10-01 13:00] LABS: AUTOMATED NEUTROPHIL # 8.5 TH/MM3 (1.8-7.7); BASOPHIL # 0.1 TH/MM3 (0-0.2); BASOPHIL % 0.6 % (0.0-2.0); EOSINOPHIL # 0.3 TH/MM3 (0-0.4); EOSINOPHIL % 2.8 % (0.0-4.0); HEMATOCRIT 35.7 % (35.0-46.0); HEMOGLOBIN 11.4 GM/DL (11.6-15.3); LYMPH % 10.8 % (9.0-44.0); LYMPHOCYTE # 1.2 TH/MM3 (1.0-4.8); MEAN CELL VOLUME 79.1 FL (80.0-100.0); MEAN CORPUSCULAR HEMOGLOBIN 25.2 PG (27.0-34.0); MEAN CORPUSCULAR HGB CONC 31.8 % (32.0-36.0); MEAN PLATELET VOLUME 7.4 FL (7.0-11.0); MONOCYTE # 0.9 TH/MM3 (0-0.9); NEUT % 77.8 % (16.0-70.0); PLATELET COUNT 403 TH/MM3 (150-450); RED BLOOD COUNT 4.52 MIL/MM3 (4.00-5.30); RED CELL DISTRIBUTION WIDTH 16.5 % (11.6-17.2); WHITE BLOOD COUNT 10.9 TH/MM3 (4.0-11.0)
[2017-10-01 13:13] LABS: ALBUMIN 2.6 GM/DL (3.4-5.0); ALT (GPT) 9 U/L (10-53); AST (GOT) 13 U/L (15-37); BICARBONATE 31.5 MEQ/L (21.0-32.0); BLOOD UREA NITROGEN 24 MG/DL (7-18); CALCIUM 9.5 MG/DL (8.5-10.1); CHLORIDE 99 MEQ/L (98-107); CREATININE 1.23 MG/DL (0.50-1.00); GLOMERULAR FILTRATION RATE 41 ML/MIN (>89); GLUCOSE,RANDOM 226 MG/DL (74-106); SODIUM (NA) 136 MEQ/L (136-145)
[2017-10-01 13:23] LABS: ALKALINE PHOSPHATASE 115 U/L (45-117); TOTAL BILIRUBIN ADULT 0.3 MG/DL (0.2-1.0); TOTAL PROTEIN 6.9 GM/DL (6.4-8.2)
[2017-10-01] MEDS ORDERED: METR1TAB76 PO (13:25)
[2017-10-01] MEDS ORDERED: CLON1 PO (13:25)
[2017-10-01] MEDS ORDERED: SITA50 PO (13:25)
[2017-10-01] MEDS ORDERED: MILKSUS PO (13:25)
[2017-10-01] MEDS ORDERED: RISP1SOL PO (13:25)
[2017-10-01] MEDS ORDERED: FERR325T18 PO (13:25)
[2017-10-01] MEDS ORDERED: SODIUM CHLORID 0.9% 500 ML INJ 500 ML IV ONE (14:00)
[2017-10-01 14:02] VITALS: BP 123/60; PULSE 62; RESP 14; O2SAT 94
[2017-10-01 14:48] LABS: BACTERIA, URINE FEW /hpf; BILIRUBIN, URINE NEG (NEG); BLOOD, URINE MOD (NEG); GLUCOSE,URINE NEG (NEG); KETONE, URINE NEG (NEG); NITRITE,URINE POS (NEG); SQUAMOUS EPITHELIAL CELL URINE 1 /hpf (0-5); URINE COLOR YELLOW (YELLW/STRAW); URINE LEUKOCYTE ESTERASE LARGE (NEG); WHITE BLOOD CELL CLUMPS MANY
[2017-10-01] MEDS ORDERED: cefTRIAXone INJ 1,000 MG in SODIUM CHLORIDE 0.9% INJ 100 ML IV ONE (15:00)
--- NOTE | 2017-10-01 15:43 | PD ---
Physical Exam Narrative GENERAL: 87 y/o female in no apparent distress SKIN: Focused skin assessment warm/dry. HEAD: Atraumatic. Normocephalic. EYES: No scleral icterus. No injection or drainage. ENT: No nasal bleeding or discharge. Mucous membranes pink and moist. NECK: Trachea midline. No JVD. CARDIOVASCULAR: Regular rate and rhythm. RESPIRATORY: No accessory muscle use. NEUROLOGICAL: Awake. Moves all extremities. Normal speech. Data Data Last Documented VS Vital Signs Date Time Temp Pulse Resp B/P (MAP) Pulse Ox O2 Delivery O2 Flow Rate FiO2 10/01/17 14:02 62 14 123/60 (81) 94 Nasal Cannula 2.00 10/01/17 12:03 98.1 Orders Orders Complete Blood Count With Diff (10/01/17 11:51) Comprehensive Metabolic Panel (10/01/17 11:51) Thyroid Stimulating Hormone (10/01/17 11:51) Urinalysis - C+S If Indicated (10/01/17 11:51) Chest, Single Ap (10/01/17 ) Cath For Specimen (10/01/17 11:51) Sodium Chlorid 0.9% 500 Ml Inj (Ns 500 M (10/01/17 14:00) Urine Culture (10/01/17 14:15) Ceftriaxone Inj (Rocephin Inj) (10/01/17 15:00) Labs Laboratory Tests Test 10/01/17 12:15 10/01/17 14:15 White Blood Count 10.9 TH/MM3 Red Blood Count 4.52 MIL/MM3 Hemoglobin 11.4 GM/DL Hematocrit 35.7 % Mean Corpuscular Volume 79.1 FL Mean Corpuscular Hemoglobin 25.2 PG Mean Corpuscular Hemoglobin Concent 31.8 % Red Cell Distribution Width 16.5 % Platelet Count 403 TH/MM3 Mean Platelet Volume 7.4 FL Neutrophils (%) (Auto) 77.8 % Lymphocytes (%) (Auto) 10.8 % Monocytes (%) (Auto) 8.0 % Eosinophils (%) (Auto) 2.8 % Basophils (%) (Auto) 0.6 % Neutrophils # (Auto) 8.5 TH/MM3 Lymphocytes # (Auto) 1.2 TH/MM3 Monocytes # (Auto) 0.9 TH/MM3 Eosinophils # (Auto) 0.3 TH/MM3 Basophils # (Auto) 0.1 TH/MM3 CBC Comment DIFF FINAL Differential Comment Blood Urea Nitrogen 24 MG/DL Creatinine 1.23 MG/DL Random Glucose 226 MG/DL Total Protein 6.9 GM/DL Albumin 2.6 GM/DL Calcium Level 9.5 MG/DL Alkaline Phosphatase 115 U/L Aspartate Amino Transf (AST/SGOT) 13 U/L Alanine Aminotransferase (ALT/SGPT) 9 U/L Total Bilirubin 0.3 MG/DL Sodium Level 136 MEQ/L Potassium Level 4.9 MEQ/L Chloride Level 99 MEQ/L Carbon Dioxide Level 31.5 MEQ/L Anion Gap 6 MEQ/L Estimat Glomerular Filtration Rate 41 ML/MIN Thyroid Stimulating Hormone 3rd Gen 5.220 uIU/ML Urine Color YELLOW Urine Turbidity CLOUDY Urine pH 6.0 Urine Specific [place] 1.017 Urine Protein 100 mg/dL Urine Glucose (UA) NEG mg/dL Urine Ketones NEG mg/dL Urine Occult Blood MOD Urine Nitrite POS Urine Bilirubin NEG Urine Urobilinogen LESS THAN 2.0 MG/DL Urine Leukocyte Esterase LARGE Urine RBC 14 /hpf Urine WBC /hpf Urine WBC Clumps MANY Urine Squamous Epithelial Cells 1 /hpf Urine Bacteria FEW /hpf Microscopic Urinalysis Comment CULTURE INDICATED MDM Supervised Visit with JUAN A: Yes Interpretation(s) CBC & BMP Diagram 10/01/17 12:15 Total Protein 6.9, Albumin 2.6 L, Calcium Level 9.5, Alkaline Phosphatase 115, Aspartate Amino Transf (AST/SGOT) 13 L, Alanine Aminotransferase (ALT/SGPT) 9 L , Total Bilirubin 0.3 Last 24 hours Impressions Chest X-Ray 10/01/17 0000 Signed Impressions: Service Date/Time: Sunday, October 01, 2017 12:29 - CONCLUSION: 1. Large hiatal hernia. There is both stomach and probable transverse colon herniated through the defect. 2. Compressive atelectatic changes in the left lung base. The overall appearance of the chest is relatively stable compared to previous dated 05/18/70 Mando Pan MD Narrative Course I, Dr. veliz, have reviewed the advance practice practitioner's documentation and am in agreement, met with the patient face to face, made the diagnosis, and the medical decision making was done by me. *My assessment and Findings: 87-year-old female who presents under Mccain act for not taking her medications and found to have UTI and hypoxia here with large chronic hiatal hernia. Will provide with antibiotics and admit to the hospital for further care Diagnosis Primary Impression: Urinary tract infection Qualified Codes: N30.01 - Acute cystitis with hematuria Additional Impressions: Adjustment disorder with disturbance of conduct Hypoxia Debo Veliz MD Oct 01, 2017 15:43
[2017-10-01] MEDS ORDERED: SODIUM CHLORIDE 0.9% FLUSH 10 ML FLUSH IV FLUSH PRN (18:00)
[2017-10-01] MEDS ORDERED: NALOXONE HCL 0.4 MG/ML AMP IV PUSH PRN (18:00)
[2017-10-01] MEDS ORDERED: BISACODYL 10 MG SUPP RECTAL PRN (18:00)
[2017-10-01] MEDS ORDERED: ONDANSETRON HCL 4 MG/2 ML VIAL IVP PRN (18:00)
[2017-10-01] MEDS ORDERED: SENNOSIDES 8.6 MG TAB PO PRN (18:00)
[2017-10-01] MEDS ORDERED: MAGNESIUM HYDROXIDE SUSP 30 ML CUP PO PRN (18:00)
[2017-10-01] MEDS ORDERED: LACTULOSE SYRUP 20 GM/30 ML CUP PO PRN (18:00)
[2017-10-01 18:15] VITALS: BP 172/84; PULSE 60; RESP 14; O2SAT 96
[2017-10-01] MEDS: SODIUM CHLORIDE 0.9% FLUSH 10 ML FLUSH IV FLUSH SCH (20:15)
[2017-10-01] MEDS: SODIUM CHLOR 0.9% 1000 ML INJ 1,000 ML IV SCH (20:16)
[2017-10-01] MEDS: DOCUSATE SODIUM 50 MG/SENNA 8.6 MG TAB PO SCH (20:16)
[2017-10-01 20:30] VITALS: BP 149/65; PULSE 74; RESP 17; TEMP 97.9; O2SAT 96
[2017-10-01 23:27] VITALS: BP 120/59; PULSE 83; RESP 17; TEMP 97.1; O2SAT 98
[2017-10-02 04:19] VITALS: BP 122/60; PULSE 76; RESP 17; TEMP 96.9; O2SAT 96
[2017-10-02] MEDS: SODIUM CHLOR 0.9% 1000 ML INJ 1,000 ML IV SCH ×2 (06:33→15:00)
[2017-10-02 08:12] VITALS: BP 151/67; PULSE 84; RESP 16; TEMP 98.5; O2SAT 96
[2017-10-02] MEDS: SODIUM CHLORIDE 0.9% FLUSH 10 ML FLUSH IV FLUSH SCH ×2 (08:24→21:00)
[2017-10-02] MEDS: DOCUSATE SODIUM 50 MG/SENNA 8.6 MG TAB PO SCH ×2 (08:24→21:00)
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
[2017-10-02 08:33] LABS: AUTOMATED NEUTROPHIL # 12.5 TH/MM3 (1.8-7.7); BASOPHIL # 0.1 TH/MM3 (0-0.2); BASOPHIL % 0.6 % (0.0-2.0); EOSINOPHIL % 0.3 % (0.0-4.0); HEMATOCRIT 33.7 % (35.0-46.0); HEMOGLOBIN 10.9 GM/DL (11.6-15.3); LYMPH % 6.3 % (9.0-44.0); LYMPHOCYTE # 0.9 TH/MM3 (1.0-4.8); MEAN CELL VOLUME 78.4 FL (80.0-100.0); MEAN CORPUSCULAR HEMOGLOBIN 25.3 PG (27.0-34.0); MEAN CORPUSCULAR HGB CONC 32.2 % (32.0-36.0); MEAN PLATELET VOLUME 7.1 FL (7.0-11.0); MONO % 7.7 % (0.0-8.0); MONOCYTE # 1.1 TH/MM3 (0-0.9); NEUT % 85.1 % (16.0-70.0); PLATELET COUNT 346 TH/MM3 (150-450); RED CELL DISTRIBUTION WIDTH 16.8 % (11.6-17.2); WHITE BLOOD COUNT 14.6 TH/MM3 (4.0-11.0)
[2017-10-02 09:02] LABS: BICARBONATE 28.2 MEQ/L (21.0-32.0); CALCIUM 9.2 MG/DL (8.5-10.1); CREATININE 0.82 MG/DL (0.50-1.00)
[2017-10-02] MEDS ORDERED: RESP: ALBUTEROL 2.5 MG/3 ML NEB (PRN) NEB (10:45)
[2017-10-02] MEDS ORDERED: NON-FORMULARY DRUG (Memantine-Donepezil (Namzaric) 1 CAP) PO SCH (10:45)
[2017-10-02] MEDS ORDERED: metFORMIN HCL 500 MG TAB PO SCH (11:00)
[2017-10-02 11:24] VITALS: BP 127/61; PULSE 85; RESP 18; TEMP 98.1; O2SAT 97
[2017-10-02] MEDS: AZITHROMYCIN INJ 500 MG in SODIUM CHLOR 0.9% 250 ML INJ 250 ML IV SCH (11:49)
[2017-10-02] MEDS: ESCITALOPRAM OXALATE 10 MG TAB PO SCH (11:52)
[2017-10-02] MEDS: CHOLECALCIFEROL (VIT D3) 5000 UNIT CAP PO SCH (11:52)
[2017-10-02] MEDS: ATORVASTATIN 10 MG TAB PO SCH (11:52)
[2017-10-02] MEDS: RIVAROXABAN 20 MG TAB PO SCH (11:52)
[2017-10-02] MEDS: ASPIRIN EC 81 MG TABEC PO SCH (11:52)
[2017-10-02] MEDS: ATENOLOL 50 MG TAB PO SCH (11:52)
[2017-10-02] MEDS: FERROUS SULFATE 325 MG (65 MG ELEMENTAL IRON) TAB PO SCH ×2 (11:53→18:30)
[2017-10-02] MEDS: RESP: ALBUTEROL 2.5 MG/IPRATROPIUM 0.5 MG NEB (SCH) NEB ×2 (12:12→19:24)
[2017-10-02 12:16] VITALS: O2SAT 86; O2SAT 96
--- NOTE | 2017-10-02 12:35 | PD.PSY.CON ---
Provisional Diagnosis Admission Date Oct 01, 2017 at 16:19 [place] I. 1. Delirium due to a general medical condition Rule out component of underlying major neurocognitive disorder [place] II. Deferred History of Present Illness Service Psychiatry Consult Requested By Dr. Paige Reason for Consult Mccain Act Primary Care Physician Unknown HPI Ms. Tee is an 87 year-old female with a chart history of adjustment disorder who presents under a Mccain act from psychiatrist Dr. Payne alleging history of dementia and agitated behaviors at facility. Patient has been admitted to the CDU for management of multiple medical issues including UTI and hypoxia along with AMNA. Reviewing the electronic medical record, I note that the patient was admitted most recently to inpatient psychiatry under Dr. Cabrera in May of last year. Patient seen and examined with nurse. Chart reviewed. Case discussed with nursing staff. Nurse reports that the patient has struck out at her once but chiefly has been merely verbally aggressive. On my examination today, the patient is fairly uncooperative. She is able to give the month as September and recognizes her name but otherwise is disoriented. She is uncooperative with my efforts at formal mental status testing. When I try to inquire about psychiatric symptoms such as AVH, she says only "I want to get out of here." She does not verbalize any SI or HI. Psychiatric interview is quite limited as the patient is fairly uncooperative and I suspect encephalopathic. She does not verbalize any acute physical complaints. I did endeavor to obtain collateral information from the patient's sister Noman and brother Keaton at the numbers listed in the EMR. Both of these numbers kept ringing without an opportunity to leave a voicemail. Review of Systems ROS Limitations: Altered Mental Status, Poor Historian Other Limited ROS for reasons noted above. Past Family Social History Coded Allergies: meperidine (Verified Allergy, Mild, N/V, 10/01/17) propoxyphene (Verified Adverse Reaction, Mild, N/V, 10/01/17) Past Medical History See electronic medical record Active Scripts Hydrocodone-Acetaminophen ([place]) 7.5-325 mg Tab, 1 TAB PO Q4H Y for PAIN, #50 TAB 0 Refills Prov:Andrey Ochoa MD 08/13/17 Cholecalciferol (Vitamin D3) 5,000 Unit Cap, 5000 UNITS PO DAILY for health, # 30 CAP 0 Refills Prov:Sonny Cabrera MD 06/11/17 Rivaroxaban (Xarelto) 20 Mg Tab, 20 MG PO DAILY for Blood Clot Prevention for 30 Days, #30 TAB 0 Refills START MAY 19, 2017 Prov:Ruby PhilipMarleny THOMAS 04/29/[address] (Adult Aspirin EC Low Strength) 81 Mg Tabec, 81 MG PO DAILY for heart disease , #30 TAB Prov:Dani Philipana BrigidMarleny THOMAS 04/28/17 Atorvastatin (Lipitor) 10 Mg Tab, 10 MG PO DAILY for hyperlipidemia , #30 TAB Prov:TameraRuby BrigidMalreny THOMAS 04/28/17 Reported Medications Risperidone Liq (Risperidone Liq) 1 Mg/Ml Soln, 0.5 MG PO Q12HR, #60 ML 0 Refills 10/01/17 Magnesium Hydroxide Liq (Milk of Magnesia Liq) 400 Mg/5 Ml Susp, 30 ML PO DAILY Y for INDIGESTION OR UPSET STOMACH, #1 BOTTLE 0 Refills 10/01/17 Metronidazole (Metronidazole) 500 Mg Tab, 500 MG PO BID for Infection, TAB 0 Refills 10/01/17 Clonazepam (Klonopin) 1 Mg Tab, 1 MG PO BID, #60 TAB 0 Refills 10/01/17 Sitagliptin (Januvia) 50 Mg Tab, 50 MG PO DAILY for Blood Sugar Management, #30 TAB 0 Refills 10/01/17 Ferrous Sulfate (Ferrous Sulfate) 325 Mg (65 Mg Iron) Tablet, 325 MG PO TIDPC for Nutritional Supplement, #90 TAB 0 Refills 10/01/17 Atenolol (Atenolol) 50 Mg Tab, 50 MG PO DAILY for Blood Pressure Management, # 30 TAB 0 Refills 08/11/17 Lactic Acid (Ammonium Lactate) (Ammonium Lactate) 12% Lotn, 1 APPLIC TOPICAL BID , #225 ML 0 Refills 08/11/17 Albuterol Neb (Albuterol Neb) 2.5 Mg/3 Ml Neb, 2.5 MG NEB Q6HR Y for WHEEZING, # 60 NEBULE 0 Refills 08/11/17 Metformin (Metformin) 500 Mg Tab, 500 MG PO DAILY for Blood Sugar Management, # 30 TAB 0 Refills With a meal 08/11/17 Memantine-Donepezil (Namzaric) 28-10 Mg Cap, 1 CAP PO DAILY for Alzheimer Dementia, #30 CAP 0 Refills 08/11/17 Lorazepam (Lorazepam) 0.5 Mg Tab, 0.5 MG PO BID Y for ANXIETY, TAB 0 Refills 08/11/17 Lisinopril (Lisinopril) 20 Mg Tab, 20 MG PO DAILY@1600, #30 TAB 0 Refills 08/11/17 Escitalopram (Lexapro) 10 Mg Tab, 10 MG PO DAILY, #30 TAB 0 Refills 08/11/17 Discontinued Reported Medications Ivermectin (Stromectol) 3 Mg Tab, 3 TAB PO Wednesday08/11/17 Discontinued Scripts Nystatin Topical (Nystatin Topical) 100,000 unit/gm Oint, 1 APPLIC TOPICAL Q12HR for health, #1 TUBE 0 Refills Prov:oSnny Cabrera MD 06/11/17 Current Medications Medications (Trade) Dose Ordered Sig/Elsy Route Start Time Stop Time Status Last Admin Sodium Chloride 1,000 ml @ 100 mls/hr Q10H IV 10/01/17 19:00 10/02/17 06:33 (NS Flush) 2 ml UNSCH PRN IV FLUSH 10/01/17 18:00 (NS Flush) 2 ml BID IV FLUSH 10/01/17 21:00 10/01/17 20:15 (Zofran Inj) 4 mg Q6H PRN IVP 10/01/17 18:00 (Narcan Inj) 0.4 mg UNSCH PRN IV PUSH 10/01/17 18:00 (Alisson-Colace) 1 tab BID PO 10/01/17 21:00 (Milk Of Magnesia Liq) 30 ml Q12H PRN PO 10/01/17 18:00 (Senokot) 17.2 mg Q12H PRN PO 10/01/17 18:00 (Dulcolax Supp) 10 mg DAILY PRN RECTAL 10/01/17 18:00 (Lactulose Liq) 30 ml DAILY PRN PO 10/01/17 18:00 Ceftriaxone Sodium 1000 mg/ Sodium Chloride 100 ml @ 200 mls/hr Q24H IV 10/02/17 16:00 (Albuterol Neb) 2.5 mg Q6HR NEB PRN NEB 10/02/17 10:45 (Tenormin) 50 mg DAILY PO 10/02/17 11:00 10/02/17 11:52 (Lipitor) 10 mg DAILY PO 10/02/17 11:00 10/02/17 11:52 (Vitamin D3) 5,000 units DAILY PO 10/02/17 11:00 10/02/17 11:52 (KlonoPIN) 1 mg BID PO 10/02/17 21:00 (Lexapro) 10 mg DAILY PO 10/02/17 11:00 10/02/17 11:52 (Ferrous Sulfate) 325 mg TIDPC PO 10/02/17 13:30 10/02/17 11:53 (Prinivil) 20 mg DAILY@1600 PO 10/02/17 16:00 (Ativan) 0.5 mg BID PRN PO 10/02/17 10:45 (risperDAL LIQ) 0.5 mg Q12HR PO 10/02/17 21:00 (Xarelto) 20 mg DAILY PO 10/02/17 11:00 10/02/17 11:52 (Januvia) 50 mg DAILY PO 10/02/17 11:00 10/02/17 11:00 (Ecotrin Ec) 81 mg DAILY PO 10/02/17 11:00 10/02/17 11:52 (Duoneb Neb) 1 ampule Q6HR WHILE AWAKE NEB NEB 10/02/17 14:00 10/02/17 12:12 Azithromycin 500 mg/Sodium Chloride 250 ml @ 250 mls/hr Q24H IV 10/02/17 12:00 10/02/17 11:49 Patient Own Medication PT OWN MED: NAMZA... DAILY PO 10/03/17 09:00 Future Hold Physical Exam Physical exam completed by primary team. On my examination today, the patient appears to be in no acute physical distress. No motor abnormalities noted. Labs and vitals reviewed: Vital Signs Vital Signs Date Time Temp Pulse Resp B/P (MAP) Pulse Ox O2 Delivery O2 Flow Rate FiO2 10/02/17 12:16 86 Nasal Cannula 2.00 10/02/17 11:24 98.1 85 18 127/61 (83) I/O 10/02/17 10/02/17 10/03/17 08:00 16:00 00:00 Intake Total 1240 ml Balance 1240 ml Lab Results Item Value Date Time White Blood Count 14.6 TH/MM3 H 10/02/17 0810 Hemoglobin 10.9 GM/DL L 10/02/17 0810 Platelet Count 346 TH/MM3 10/02/17 0810 Sodium Level 139 MEQ/L 10/02/17 0810 Potassium Level 4.5 MEQ/L 10/02/17 0810 Chloride Level 104 MEQ/L 10/02/17 0810 Carbon Dioxide Level 28.2 MEQ/L 10/02/17 0810 Blood Urea Nitrogen 16 MG/DL 10/02/17 0810 Creatinine 0.82 MG/DL 10/02/17 0810 Estimat Glomerular Filtration Rate 66 ML/MIN L 10/02/17 0810 Aspartate Amino Transf (AST/SGOT) 13 U/L L 10/01/17 1215 Alanine Aminotransferase (ALT/SGPT) 9 U/L L 10/01/17 1215 Alkaline Phosphatase 115 U/L 10/01/17 1215 Thyroid Stimulating Hormone 3rd Gen 5.220 uIU/ML H 10/01/17 1215 UA concerning for UTI and urine culture is pending. Last Impressions Chest X-Ray 10/01/17 0000 Signed Impressions: Service Date/Time: Sunday, October 01, 2017 12:29 - CONCLUSION: 1. Large hiatal hernia. There is both stomach and probable transverse colon herniated through the defect. 2. Compressive atelectatic changes in the left lung base. The overall appearance of the chest is relatively stable compared to previous dated 05/18/70 Mando Pan MD Mental Status Examination Appearance: Disheveled Consciousness: Somnolent Orientation: Person, Date/Time (September) Motor Activity: Other (no motor abnormalities noted) Speech: Hesitant Language: Other Fund of Knowledge: Inadequate (limited sample) Attention and Concentration: Easily Distracted Memory: Impaired (limited sample but seems impaired) Mood: Other (dysphoric) Affect: Blunt Thought Process & Associations: Other (perseverative on discharge) Thought Content: Other (poverty of thought) Hallucination Type: None Delusion Type: None Suicidal Ideation: No (no SI voiced) Homicidal Ideation: No (no HI voiced) Insight: Poor Judgment: Poor Assessment & Plan Problem List: (1) Delirium due to multiple etiologies ICD Codes: F05 - Delirium due to known physiological condition Assessment & Plan 87-year-old female with psychiatric history as detailed above presently admitted to the CDU under a Mccain act. Multiple acute medical issues as noted above are likely contributing to an acute encephalopathy/delirium picture. Baseline mental status is unclear. Mccain act alleges history of dementia, although I see her diagnosis on the inpatient psychiatric unit was only adjustment disorder. For now I recommend the following: --Consider titrating Risperdal to 0.75mg BID to target acute agitation. Check EKG for QTc and hold antipsychotic if QTc>470ms or if there is significant arrhythmia. --Recommend continuing Lexapro as ordered --Consider tapering/discontinuing Klonopin, adding CIWA for any withdrawal when doing so. --In general, I would recommend limiting use of any benzodiazepines, anticholinergics, antihistamines or opiates as all can worsen mental status. --Frequent reorientation. Early mobilization as able. --Mccain Act remains in place pending reassessment. If presentation seems more consistent with dementia with behavioral disturbance once acute encephalopathy clears, inpatient psychiatric admission may be appropriate. Conversely, if acute agitation is entirely secondary to encephalopathy, then Mccain act might be able to be lifted. I will ask Dr. Hodges to follow up after the weekend, and I will be available tomorrow if there are acute issues. Case d/w Dr. Paige. Thank you very much for this consultation. Prabhu Goel MD Oct 02, 2017 12:35
[2017-10-02 15:05] VITALS: BP 133/63; PULSE 79; RESP 18; TEMP 98.6; O2SAT 95
[2017-10-02] MEDS: LISINOPRIL 20 MG TAB PO SCH (15:27)
[2017-10-02] MEDS: cefTRIAXone INJ 1,000 MG in SODIUM CHLORIDE 0.9% INJ 100 ML IV SCH (15:28)
[2017-10-02] MEDS: LORazepam 0.5 MG TAB PO PRN (21:23)
[2017-10-02] MEDS: clonazePAM 1 MG TAB PO SCH (22:46)
[2017-10-02 23:22] VITALS: BP 134/60; PULSE 79; RESP 18; TEMP 99.9; O2SAT 96
[2017-10-03] VITALS (7 sets, daily range): BP systolic 120–184; BP diastolic 59–96; PULSE 66–79; RESP 17–18; TEMP 96.3–99; O2SAT 95–97
[2017-10-03] MEDS: SODIUM CHLOR 0.9% 1000 ML INJ 1,000 ML IV SCH ×3 (02:49→22:17)
[2017-10-03] MEDS: RESP: ALBUTEROL 2.5 MG/IPRATROPIUM 0.5 MG NEB (SCH) NEB ×3 (07:49→19:40)
[2017-10-03] MEDS: SODIUM CHLORIDE 0.9% FLUSH 10 ML FLUSH IV FLUSH SCH ×2 (08:22→21:00)
[2017-10-03] MEDS: DOCUSATE SODIUM 50 MG/SENNA 8.6 MG TAB PO SCH ×2 (08:23→22:19)
[2017-10-03] MEDS: ATORVASTATIN 10 MG TAB PO SCH (08:23)
[2017-10-03] MEDS: ASPIRIN EC 81 MG TABEC PO SCH (08:23)
[2017-10-03] MEDS: ESCITALOPRAM OXALATE 10 MG TAB PO SCH (08:23)
[2017-10-03] MEDS: RIVAROXABAN 20 MG TAB PO SCH (08:23)
[2017-10-03] MEDS: CHOLECALCIFEROL (VIT D3) 5000 UNIT CAP PO SCH (08:23)
[2017-10-03] MEDS: clonazePAM 1 MG TAB PO SCH ×2 (08:23→22:19)
[2017-10-03] MEDS: ATENOLOL 50 MG TAB PO SCH (08:23)
[2017-10-03] MEDS: FERROUS SULFATE 325 MG (65 MG ELEMENTAL IRON) TAB PO SCH ×3 (08:24→17:59)
[2017-10-03] MEDS ORDERED: NAMZARIC PO SCH (09:00)
--- NOTE | 2017-10-03 10:48 | HHI.PR ---
Subjective Remarks Follow up for dementia with agitation, hypoxia, UTI, AMNA. The patient is drowsy this morning, but awakens to voice, follows commands. She does not participate in communication, but shakes her head "no" when asked if anything is bothering her. RN reports no acute events overnight however patient was slightly agitated this morning. She is taking her medications. O2 sat currently 95% on 2L NC. Objective Vitals Vital Signs Date Time Temp Pulse Resp B/P (MAP) Pulse Ox O2 Delivery O2 Flow Rate FiO2 10/03/17 09:32 96.3 79 17 184/75 (111) 95 10/03/17 07:49 96 Nasal Cannula 2.00 10/03/17 04:11 97.9 75 18 124/59 (80) 96 10/02/17 23:22 99.9 79 18 134/60 (84) 96 10/02/17 15:05 98.6 79 18 133/63 (86) 95 10/02/17 12:16 96 Nasal Cannula 2.00 10/02/17 11:24 98.1 85 18 127/61 (83) 97 I/O 10/02/17 10/02/17 10/02/17 10/03/17 10/03/17 10/03/17 07:00 15:00 23:00 07:00 15:00 23:00 Intake Total 1240 ml 250 ml 480 ml Balance 1240 ml 250 ml 480 ml Intake Oral 240 ml 480 ml IV Total 1000 ml 250 ml # Voids 2 3 # Bowel Movements 0 Result Diagram: 10/02/17 0810 10/02/17 0810 Imaging Last Impressions Chest X-Ray 10/01/17 0000 Signed Impressions: Service Date/Time: Sunday, October 01, 2017 12:29 - CONCLUSION: 1. Large hiatal hernia. There is both stomach and probable transverse colon herniated through the defect. 2. Compressive atelectatic changes in the left lung base. The overall appearance of the chest is relatively stable compared to previous dated 05/18/70 Mando Pan MD Objective Remarks GENERAL: Well-nourished, well-developed elderly female patient in NAD. Pleasantly confused. SKIN: Warm and dry. No rash. Right patella with ecchymosis. Bilateral upper extremities with ecchymosis in various stages of healing. HEENT: Normocephalic. Atraumatic.Pupils equal and round. Mucous membranes pink and moist. CARDIOVASCULAR: Regular rate and rhythm. No murmur appreciated. RESPIRATORY: No accessory muscle use. Breath sounds decreased at bilateral bases , otherwise clear to auscultation. Breath sounds equal bilaterally. GASTROINTESTINAL: Abdomen soft, non-tender, nondistended. Normoactive bowel sounds x4. MUSCULOSKELETAL: No obvious deformities. Extremities without clubbing, cyanosis , or edema. NEUROLOGICAL: Awake and alert. No obvious cranial nerve deficits. Motor grossly within normal limits. Moving all extremities spontaneously. Normal speech. PSYCHIATRIC: Appropriate mood and affect; insight and judgment limited. Medications and IVs Current Medications Medications (Trade) Dose Ordered Sig/Elsy Route Start Time Stop Time Status Last Admin Sodium Chloride 1,000 ml @ 100 mls/hr Q10H IV 10/01/17 19:00 10/03/17 02:49 (NS Flush) 2 ml UNSCH PRN IV FLUSH 10/01/17 18:00 (NS Flush) 2 ml BID IV FLUSH 10/01/17 21:00 10/03/17 08:22 (Zofran Inj) 4 mg Q6H PRN IVP 10/01/17 18:00 (Narcan Inj) 0.4 mg UNSCH PRN IV PUSH 10/01/17 18:00 (Alisson-Colace) 1 tab BID PO 10/01/17 21:00 10/03/17 08:23 (Milk Of Magnesia Liq) 30 ml Q12H PRN PO 10/01/17 18:00 (Senokot) 17.2 mg Q12H PRN PO 10/01/17 18:00 (Dulcolax Supp) 10 mg DAILY PRN RECTAL 10/01/17 18:00 (Lactulose Liq) 30 ml DAILY PRN PO 10/01/17 18:00 Ceftriaxone Sodium 1000 mg/ Sodium Chloride 100 ml @ 200 mls/hr Q24H IV 10/02/17 16:00 10/02/17 15:28 (Albuterol Neb) 2.5 mg Q6HR NEB PRN NEB 10/02/17 10:45 (Tenormin) 50 mg DAILY PO 10/02/17 11:00 10/03/17 08:23 (Lipitor) 10 mg DAILY PO 10/02/17 11:00 10/03/17 08:23 (Vitamin D3) 5,000 units DAILY PO 10/02/17 11:00 10/03/17 08:23 (KlonoPIN) 1 mg BID PO 10/02/17 21:00 10/03/17 08:23 (Lexapro) 10 mg DAILY PO 10/02/17 11:00 10/03/17 08:23 (Ferrous Sulfate) 325 mg TIDPC PO 10/02/17 13:30 10/03/17 08:24 (Prinivil) 20 mg DAILY@1600 PO 10/02/17 16:00 10/02/17 15:27 (Ativan) 0.5 mg BID PRN PO 10/02/17 10:45 10/02/17 21:23 (risperDAL LIQ) 0.5 mg Q12HR PO 10/02/17 21:00 10/03/17 08:24 (Xarelto) 20 mg DAILY PO 10/02/17 11:00 10/03/17 08:23 (Januvia) 50 mg DAILY PO 10/02/17 11:00 10/03/17 08:23 (Ecotrin Ec) 81 mg DAILY PO 10/02/17 11:00 10/03/17 08:23 (Duoneb Neb) 1 ampule Q6HR WHILE AWAKE NEB NEB 10/02/17 14:00 10/03/17 07:49 Azithromycin 500 mg/Sodium Chloride 250 ml @ 250 mls/hr Q24H IV 10/02/17 12:00 10/02/17 11:49 Patient Own Medication PT OWN MED: NAMZA... DAILY PO 10/03/17 09:00 Future Hold A/P Assessment and Plan 87-year-old female with history of dementia, arthritis, anxiety, CAD s/p cardiac stents x3, HTN, HLD, diabetes, hiatal hernia, chronic back/joint pain, hypothyroidism, sent from her facility under Mccain Act placed by psychiatrist. Dementia with Agitation: presented under Mccain Act for being uncooperative, not taking meds, verbally abusive, and hitting staff at facility. -Continue patient's lexapro, risperidone, klonopin, ativan prn -Consult psychiatry, patient may need inpatient psychiatry admission if still continues to be agitated after encephalopathy clears Acute Encephalopathy: suspect multifactorial secondary to UTI, hypoxia, pneumonia, in combination with advanced dementia. -treat UTI as below -monitor neuro checks -monitor for improvement UTI: UA with positive nitrites, large leuks, many WBCs. -Continue IV Rocephin for now -Monitor urine culture, preliminary with gram negative rods -1515hrs: urine culture with klebsiella pneumoniae, ESBL+, will add IV Zosyn , consult ID Hypoxia, suspect early Pneumonia vs Pulmonary Embolism: patient's O2 sat dropped to 88% while in the ER. CXR images reviewed, compressive atelectatic changes in left lung base, concern for pneumonia. However need to rule out recurrent PE, patient was diagnosed with bilateral PE in , reportedly on Xarelto however has been refusing meds at facility. -Continue patient's anticoagulation with Xarelto -Continue antibiotics with IV Rocephin and Azithro -Duonebs q6h elsy and albuterol nebs q6h prn -Continue O2 for now, attempt to wean -Incentive spirometry -Monitor for improvement -Check CT-PA to eval for PE AMNA: Cr 1.23 upon arrival. Suspect secondary to dehydration -Given IVF hydration -Avoid nephrotoxins -Monitor renal function -Repeat Cr 0.82, much improved Hypertension/Hyperlipidemia: chronic -continue patient's atenolol, lisinopril, lipitor -monitor BP and adjust meds as needed Diabetes: chronic -continue patient's januvia, hold metformin for now -Monitor Accu-checks and cover with SSI All other chronic medical conditions stable, continue home meds as appropriate. DVT Prophylaxis: on Xarelto Discharge Planning Discharge pending CT-PA and further clinical improvement. Not yet ready for discharge. Margo Ribeiro PA-C Oct 03, 2017 10:48
[2017-10-03] MEDS: AZITHROMYCIN INJ 500 MG in SODIUM CHLOR 0.9% 250 ML INJ 250 ML IV SCH (11:59)
[2017-10-03] MEDS ORDERED: IOHEXOL 350 MG/ML 10 ML VIAL (for RAD DIAG) IVCONTRAST ONE (14:12)
--- NOTE | 2017-10-03 14:16 | RADRPT ---
EXAM DATE/TIME: 10/02/2017 16:13 [place] COMPARISON: CT PULMONARY ANGIOGRAM, April 23, 2017, 22:02. INDICATIONS : Evaluate for embolism, UTI, Hypoxia. IV CONTRAST: 95 cc Omnipaque 350 (iohexol) IV RADIATION DOSE: 18.90 CTDIvol (mGy) MEDICAL HISTORY : Cardiovascular disease. Hypertension. Seizures.Diabetes,H Hernia SURGICAL HISTORY : Appendectomy. GI ostomy ENCOUNTER: Initial ACUITY: 2 days PAIN SCALE: Non-responsive LOCATION: chest TECHNIQUE: Volumetric scanning of the chest was performed using a pulmonary embolism protocol MIP images were re constructed. Using automated exposure control and adjustment of the mA and/or kV according to patien t size, radiation dose was kept as low as reasonably achievable to obtain optimal diagnostic quality images. DICOM format image data is available electronically for review and comparison. Follow-up recommendations for detected pulmonary nodules are based at a minimum on nodule size and pa tient risk factors according to Fleischner Society Guidelines. FINDINGS: PULMONARY ARTERIES: No filling defects are seen in the pulmonary arteries through the segmental level. LUNGS: There is a patchy infiltrate in the posterior left lower lung. There is a small infiltrate in the pos terior right lower lung. There is a very large hiatal hernia which was present on the prior study wit hout significant change. PLEURAE: Very small bilateral effusions. MEDIASTINUM: There is good visualization of the great vessels of the middle mediastinum. No evidence of mediastin al or hilar adenopathy/mass. MUSCULOSKELETAL: Primary degenerative changes. MISCELLANEOUS: Very large hiatal hernia containing the stomach as well as loops of bowel. This is unchanged compared to the prior examination. CONCLUSION: 1. No evidence of PE. 2. There are some patchy infiltrates in both lower lungs. 3. Small bilateral effusions. 4. Stable large hiatal hernia without significant change compared to the prior examination. Raghavendra Carrillo MD on October 03, 2017 at 14:11 Board Certified Radiologist. This report was verified electronically.
[2017-10-03] MEDS: LISINOPRIL 20 MG TAB PO SCH (16:00)
[2017-10-03] MEDS: cefTRIAXone INJ 1,000 MG in SODIUM CHLORIDE 0.9% INJ 100 ML IV SCH (16:00)
[2017-10-03] MEDS ORDERED: PIPERACIL-TAZO 4.5 GM PREMIX 100 ML IV SCH (18:00)
--- NOTE | 2017-10-03 20:06 | HHI.IDPN ---
Note Infectious Disease Note Patient seen and examined. Full consult dictated. Klebsiella pneumoniae ESBL UTI. Orders written for ertapenem. Vital Signs Date Time Temp Pulse Resp B/P (MAP) Pulse Ox O2 Delivery O2 Flow Rate FiO2 10/03/17 19:42 96 Nasal Cannula 2.00 10/03/17 16:38 97.6 69 18 131/61 (84) 97 10/03/17 12:42 99.0 66 18 128/60 (82) 97 10/03/17 09:32 96.3 79 17 184/75 (111) 95 10/03/17 07:49 96 Nasal Cannula 2.00 10/03/17 04:11 97.9 75 18 124/59 (80) 96 10/02/17 23:22 99.9 79 18 134/60 (84) 96 Keenan Celaya MD Oct 03, 2017 20:06
[2017-10-03] MEDS ORDERED: ASP: Documented ESBL, MDR A baumannii or P. aeruginosa PRN (20:15)
[2017-10-03] MEDS ORDERED: MISCELLANEOUS PHARMACY INFORMATION XX PRN ×2 (20:15)
--- NOTE | 2017-10-03 20:29 | MB ---
cc: SUSHMA HUMPHREY MD DATE OF CONSULTATION 10/03/2017 REQUESTING PHYSICIAN Genesis Ribeiro. REASON FOR CONSULTATION UTI ESBL positive. Pneumonia. HISTORY OF PRESENT ILLNESS This is an 87-year-old white female who presented to emergency department under Mccain ACT from the nursing facility. The patient reportedly has been uncooperative in care and refusing her medication. The notes also report that she has been agitated and verbally abusive. Part of her workup included urinalysis which showed many white blood cell clumps and large amount of leukocyte esterase and urine culture has Klebsiella pneumonia ESBL positive. The patient also had a chest x-ray which shows compressive atelectatic changes in the left lung base. Her white count increased to 14.6 from 10.9. She had one low temperature of 96.3 and also low grade elevated at 99.9 since 10/01. The patient currently upright in bed. She completely ignores my attempts to get her to wake up and talk to me. She has her eyes closed. She is currently receiving an inhalation respiratory treatment. She will not respond verbally nor does she open her eyes. PAST MEDICAL HISTORY 1. Dementia. 2. Anxiety disorder. 3. Hypertension. 4. Hyperlipidemia. 5. Coronary artery disease. 6. Hiatal hernia. 7. Hypothyroidism. 8. Borderline diabetes mellitus. 9. Appendectomy. 10. Cardiac stents x3. 11. Right shoulder surgery. 12. Cataract removal. ALLERGIES MEPERIDINE. DOXEPIN. MEDICATIONS 1. Piperacillin / tazobactam. 2. Ceftriaxone. 3. Azithromycin. 4. Klonopin. 5. Risperdal. 6. Prinivil. 7. Ferrous sulfate. 8. Tenormin. 9. Lipitor. 10. Vitamin D3. 11. Lexapro. 12. Xarelto. 13. Januvia. 14. Ecotrin. SOCIAL HISTORY No tobacco, alcohol or illicit drug use reported. FAMILY HISTORY Unable to obtain. REVIEW OF SYSTEMS Unable to obtain. The patient does not cooperate. PHYSICAL EXAMINATION GENERAL: This is an elderly female who is in no acute distress. She is very withdrawn. VITAL SIGNS: Temperature 97.6, BP 131/61, respirations 18, heart rate 69. HEENT: The head is atraumatic. I cannot evaluate her extraocular movements since she will not cooperate and is not opening her eyes. The buccal mucosa appears slightly dry. NECK: Supple without adenopathy. LUNGS: Decreased breath sounds bilateral. HEART: Regular rate and rhythm without audible murmurs, rubs or gallops. ABDOMEN: Decreased bowel sounds, soft, nontender. RECTAL: Not performed. EXTREMITIES: No clubbing, cyanosis or edema. Very dry skin of the extremities. Trace edema at the hands. SKIN: The skin has no diffuse rash. NEUROLOGIC: Unable to fully assess. PSYCHIATRIC: Unable to fully assess. LABORATORY DATA WBC 14.6, platelets 346, 85% neutrophils, hemoglobin 10.9. Creatinine 0.82, BUN 16, estimated GFR 66. IMPRESSION 1. Urinary tract infection due to Klebsiella pneumoniae ESBL positive. 2. Abnormal chest x-ray showing compressive atelectatic changes in the left lung. RECOMMENDATIONS 1. Discontinue piperacillin / tazobactam. 2. Discontinue ceftriaxone. 3. Discontinue azithromycin. 4. Begin ertapenem. 5. Monitor repeat urine culture in a few days to check for clearance of the bacteria. Thank you for this consultation. I will follow the patient's progress with you. Sushma Humphrey MD FD/WOODY /7:54 PM /8:08 PM
[2017-10-03] MEDS: ERTAPENEM INJ 1,000 MG in SODIUM CHLORIDE 0.9% INJ 100 ML IV SCH (22:18)
[2017-10-03] MEDS: LORazepam 0.5 MG TAB PO PRN (22:19)
[2017-10-04] VITALS (9 sets, daily range): BP systolic 132–189; BP diastolic 61–97; PULSE 70–87; RESP 16–18; TEMP 96.9–98.6; O2SAT 92–98
[2017-10-04 04:54] LABS: AUTOMATED NEUTROPHIL # 7.9 TH/MM3 (1.8-7.7); BASOPHIL # 0.1 TH/MM3 (0-0.2); BASOPHIL % 0.5 % (0.0-2.0); EOSINOPHIL # 0.2 TH/MM3 (0-0.4); EOSINOPHIL % 1.7 % (0.0-4.0); HEMATOCRIT 30.7 % (35.0-46.0); HEMOGLOBIN 9.9 GM/DL (11.6-15.3); LYMPH % 11.9 % (9.0-44.0); LYMPHOCYTE # 1.2 TH/MM3 (1.0-4.8); MEAN CELL VOLUME 78.8 FL (80.0-100.0); MEAN CORPUSCULAR HEMOGLOBIN 25.5 PG (27.0-34.0); MEAN CORPUSCULAR HGB CONC 32.4 % (32.0-36.0); MEAN PLATELET VOLUME 7.1 FL (7.0-11.0); MONO % 9.1 % (0.0-8.0); MONOCYTE # 0.9 TH/MM3 (0-0.9); NEUT % 76.8 % (16.0-70.0); PLATELET COUNT 309 TH/MM3 (150-450); RED CELL DISTRIBUTION WIDTH 16.6 % (11.6-17.2); WHITE BLOOD COUNT 10.3 TH/MM3 (4.0-11.0)
[2017-10-04 05:17] LABS: BICARBONATE 26.7 MEQ/L (21.0-32.0); CALCIUM 8.5 MG/DL (8.5-10.1); CREATININE 0.64 MG/DL (0.50-1.00)
[2017-10-04] MEDS: SODIUM CHLOR 0.9% 1000 ML INJ 1,000 ML IV SCH ×2 (06:17→16:25)
[2017-10-04] MEDS: RESP: ALBUTEROL 2.5 MG/IPRATROPIUM 0.5 MG NEB (SCH) NEB ×3 (09:13→19:27)
[2017-10-04] MEDS: ESCITALOPRAM OXALATE 10 MG TAB PO SCH (09:46)
[2017-10-04] MEDS: FERROUS SULFATE 325 MG (65 MG ELEMENTAL IRON) TAB PO SCH ×3 (09:46→18:09)
[2017-10-04] MEDS: ATENOLOL 50 MG TAB PO SCH (09:46)
[2017-10-04] MEDS: CHOLECALCIFEROL (VIT D3) 5000 UNIT CAP PO SCH (09:47)
[2017-10-04] MEDS: clonazePAM 1 MG TAB PO SCH ×2 (09:47→23:48)
[2017-10-04] MEDS: DOCUSATE SODIUM 50 MG/SENNA 8.6 MG TAB PO SCH ×2 (09:47→23:48)
[2017-10-04] MEDS: ASPIRIN EC 81 MG TABEC PO SCH (09:47)
[2017-10-04] MEDS: ATORVASTATIN 10 MG TAB PO SCH (09:49)
[2017-10-04] MEDS: RIVAROXABAN 20 MG TAB PO SCH (09:49)
[2017-10-04] MEDS: SODIUM CHLORIDE 0.9% FLUSH 10 ML FLUSH IV FLUSH SCH ×2 (09:50→21:00)
[2017-10-04] MEDS: LISINOPRIL 20 MG TAB PO SCH (16:25)
--- NOTE | 2017-10-04 18:27 | HHI.PR ---
Subjective Remarks patient is awake and feisty- "knock it out", earlier per staff- was aggressive and cussing but kept her eyes close during exam gets mad and agitated poor po intake Objective Vitals Vital Signs Date Time Temp Pulse Resp B/P (MAP) Pulse Ox O2 Delivery O2 Flow Rate FiO2 10/04/17 16:05 97.6 70 18 147/75 (99) 97 10/04/17 12:57 98.5 76 18 139/64 (89) 96 10/04/17 09:27 97.3 76 18 132/62 (85) 94 10/04/17 09:15 96 21 10/04/17 04:30 98.6 79 18 161/70 (100) 96 10/04/17 00:23 97.2 73 18 140/61 (87) 98 10/03/17 20:35 97.9 77 18 120/96 (104) 96 10/03/17 19:42 96 Nasal Cannula 2.00 I/O 10/03/17 10/03/17 10/03/17 10/04/17 10/04/17 10/04/17 07:00 15:00 23:00 07:00 15:00 23:00 Intake Total 480 ml 450 ml 500 ml Balance 480 ml 450 ml 500 ml Intake Oral 480 ml 500 ml IV Total 450 ml # Voids 3 3 3 Result Diagram: 10/04/17 0423 10/04/17 [address] Angiography 10/02/17 0000 Signed Impressions: Service Date/Time: Monday, October 02, 2017 16:13 - CONCLUSION: 1. No evidence of PE. 2. There are some patchy infiltrates in both lower lungs. 3. Small bilateral effusions. 4. Stable large hiatal hernia without significant change compared to the prior examination. Raghavendra Carrillo MD Chest X-Ray 10/01/17 0000 Signed Impressions: Service Date/Time: Sunday, October 01, 2017 12:29 - CONCLUSION: 1. Large hiatal hernia. There is both stomach and probable transverse colon herniated through the defect. 2. Compressive atelectatic changes in the left lung base. The overall appearance of the chest is relatively stable compared to previous dated 05/18/70 Mando Pan MD Objective Remarks awke but kept eyes close anicteric lungs- decreased breath sounds, no wheezes, no rales regular rhythm abdomen soft with external catheter- Purewick catheter in place- draining cloudy urine extremities no edema moves all extremities spontaneously to deep stimuli A/P Assessment and Plan 87-year-old female with history of dementia, arthritis, anxiety, CAD s/p cardiac stents x3, HTN, HLD, diabetes, hiatal hernia, chronic back/joint pain, hypothyroidism, sent from her facility under [employer] Act placed by psychiatrist. Dementia with features of Agitation: presented under [employer] Act for being uncooperative, not taking meds, verbally abusive, and hitting staff at facility. -Continue patient's lexapro, risperidone, klonopin, ativan prn - Psychiatry ff Acute Encephalopathy: suspect multifactorial secondary to UTI, hypoxia, pneumonia, in combination with advanced dementia. -treat UTI as below -monitor neuro checks -monitor for improvement speech therapy consult for cognitive and speech evaluation UTI- Klebsiella Pneumoniae ESBL: on Ertapenem ID ff Ff final cultures. Purewick catheter in place Hypoxia, suspect early Pneumonia - good sats at [facility] History of PE CTA negative for PE -Continue patient's anticoagulation with Xarelto -Duonebs q6h riya and albuterol nebs q6h prn -Continue O2 for now, -Incentive spirometry -Monitor for improvement avoid sedation AMNA: Cr 1.23 upon arrival. Suspect secondary to dehydration- improved creatinine continue gentle hydration MOnitor po intake. MOnitor BMP dietitian consult Hypertension/Hyperlipidemia: chronic -continue patient's atenolol, lisinopril, lipitor -monitor BP and adjust meds as needed Diabetes Mellitus , type 2 : poor po Hold januvia , hold metformin for now -Monitor Accu-checks and cover with SSI check hemoglobin A1C Elevated TSH- likely subclinical hypothyroidism recheck TSH if consistent elevated- check also baseline Ft4,Ft3 start synthroid 25 mcg po daily. All other chronic medical conditions stable, continue home meds as appropriate. consult PT/OPT, speech therapy, dietitian in am DVT Prophylaxis: on Xarelto Discharge Planning Discharge pending CT-PA and further clinical improvement. Not yet ready for discharge. Shalom Caal MD Oct 04, 2017 18:27
[2017-10-04] MEDS ORDERED: GLUCAGON 1 MG/ML VIAL OTHER PRN ×2 (19:15)
[2017-10-04] MEDS ORDERED: DEXTROSE 50% IN WATER 50 ML VIAL(D50) IV PUSH PRN ×3 (19:15)
[2017-10-04] MEDS ORDERED: GLUCAGON 1 MG/ML VIAL IM PRN (19:15)
[2017-10-04] MEDS: ERTAPENEM INJ 1,000 MG in SODIUM CHLORIDE 0.9% INJ 100 ML IV SCH (23:48)
[2017-10-05] VITALS (11 sets, daily range): BP systolic 127–198; BP diastolic 62–91; PULSE 70–105; RESP 17–20; TEMP 96.7–98.8; O2SAT 93–99
[2017-10-05 04:21] LABS: ALT (GPT) 10 U/L (10-53); AST (GOT) 16 U/L (15-37); BICARBONATE 24.7 MEQ/L (21.0-32.0); BLOOD UREA NITROGEN 8 MG/DL (7-18); CALCIUM 8.9 MG/DL (8.5-10.1); CHLORIDE 109 MEQ/L (98-107); CREATININE 0.62 MG/DL (0.50-1.00); GLOMERULAR FILTRATION RATE 91 ML/MIN (>89); GLUCOSE,RANDOM 147 MG/DL (74-106); SODIUM (NA) 141 MEQ/L (136-145)
[2017-10-05 04:30] LABS: ALKALINE PHOSPHATASE 104 U/L (45-117); FREE T3 1.54 PG/ML (2.18-3.98); FREE T4 1.04 NG/DL (0.76-1.46); TOTAL BILIRUBIN ADULT 0.2 MG/DL (0.2-1.0); TOTAL PROTEIN 6.2 GM/DL (6.4-8.2)
[2017-10-05] MEDS: RESP: ALBUTEROL 2.5 MG/IPRATROPIUM 0.5 MG NEB (SCH) NEB ×2 (07:27→13:25)
[2017-10-05] MEDS: INSULIN NovoLIN REGULAR SUPPLEMENTAL SCALE SQ SCH ×5 (08:00→21:00)
[2017-10-05] MEDS: SODIUM CHLOR 0.9% 1000 ML INJ 1,000 ML IV SCH ×2 (08:34→15:23)
[2017-10-05] MEDS: ATORVASTATIN 10 MG TAB PO SCH (09:00)
[2017-10-05] MEDS: CHOLECALCIFEROL (VIT D3) 5000 UNIT CAP PO SCH (09:00)
[2017-10-05] MEDS: RIVAROXABAN 20 MG TAB PO SCH (09:00)
[2017-10-05] MEDS: ATENOLOL 50 MG TAB PO SCH (09:00)
[2017-10-05] MEDS: SODIUM CHLORIDE 0.9% FLUSH 10 ML FLUSH IV FLUSH SCH ×2 (09:00→21:00)
[2017-10-05] MEDS: ASPIRIN EC 81 MG TABEC PO SCH (09:00)
[2017-10-05] MEDS: ESCITALOPRAM OXALATE 10 MG TAB PO SCH (09:00)
[2017-10-05] MEDS: FERROUS SULFATE 325 MG (65 MG ELEMENTAL IRON) TAB PO SCH ×2 (09:30→17:55)
--- NOTE | 2017-10-05 15:16 | RADRPT ---
EXAM DATE/TIME: 10/05/2017 14:07 [facility] COMPARISON: No previous studies available for comparison. INDICATIONS : NG placement MEDICAL HISTORY : Myocardial infarction. Hypertension Diabetes mellitus type II. SURGICAL HISTORY : Coronary artery stent. ENCOUNTER: Initial ACUITY: 1 day PAIN SCORE: 0/10 LOCATION: Abdomen FINDINGS: Examination of the abdomen demonstrates a normal bowel gas pattern. No free air is identified. No o rganomegaly is evident. Osseous structures are intact. Scoliosis and degenerative changes. Densities in the lower lobes greater on the left. Degenerative changes lumbar spine. Nasogastric tube with tip in the right bronchus and right lung. CONCLUSION: 1. Nasogastric tube placement with tip in the right bronchus/right lung. This should be withdrawn and repositioned. Saud George MD on October 05, 2017 at 15:14 Board Certified Radiologist. This report was verified electronically.
[2017-10-05 15:26] LABS: HEMOGLOBIN A1C 8.2 % (4.3-6.0)
--- NOTE | 2017-10-05 15:40 | HHI.PR ---
Subjective Remarks The patient is in bed she does not appear in acute distress, she is sleepy and not responding much to verbal stimuli. She keeps her eyes closed. She does not appear in pain at this time. NG tube in place. Objective Vitals Vital Signs Date Time Temp Pulse Resp B/P (MAP) Pulse Ox O2 Delivery O2 Flow Rate FiO2 10/05/17 14:46 98 10/05/17 14:46 98 3.00 10/05/17 10:48 97.7 70 18 127/65 (85) 94 10/05/17 09:45 96.7 71 20 133/62 (85) 98 10/05/17 07:29 99 Nasal Cannula 2.00 10/05/17 06:54 98.8 84 18 164/84 (110) 98 10/04/17 23:59 87 18 189/97 (127) 98 10/04/17 21:22 96.9 80 16 175/79 (111) 93 10/04/17 19:28 92 Nasal Cannula 3.00 10/04/17 16:05 97.6 70 18 147/75 (99) 97 I/O 10/04/17 10/04/17 10/04/17 10/05/17 10/05/17 10/05/17 07:00 15:00 23:00 07:00 15:00 23:00 Intake Total 500 ml Output Total 200 ml Balance 500 ml -200 ml Intake Oral 500 ml Output Urine Total 200 ml # Voids 3 1 Result Diagram: 10/04/17 0423 10/05/17 0325 Imaging Last Impressions Abdomen X-Ray 10/05/17 0000 Signed Impressions: Service Date/Time: Thursday, October 05, 2017 14:07 - CONCLUSION: 1. Nasogastric tube placement with tip in the right bronchus/right lung. This should be withdrawn and repositioned. Saud George MD CT Angiography 10/02/17 0000 Signed Impressions: Service Date/Time: Monday, October 02, 2017 16:13 - CONCLUSION: 1. No evidence of PE. 2. There are some patchy infiltrates in both lower lungs. 3. Small bilateral effusions. 4. Stable large hiatal hernia without significant change compared to the prior examination. Raghavendra Carrillo MD Chest X-Ray 10/01/17 0000 Signed Impressions: Service Date/Time: Sunday, October 01, 2017 12:29 - CONCLUSION: 1. Large hiatal hernia. There is both stomach and probable transverse colon herniated through the defect. 2. Compressive atelectatic changes in the left lung base. The overall appearance of the chest is relatively stable compared to previous dated 05/18/70 Mando Pan MD Objective Remarks GENERAL: Awake, sleepy , lethargic responding to vocal stimuli but keeps her eyes closed. CARDIOVASCULAR: Regular rate and rhythm. RESPIRATORY: No accessory muscle use. Decreased breath sounds. Clear to auscultation. Breath sounds equal bilaterally. GASTROINTESTINAL: Abdomen soft, non-tender, nondistended. Hepatic and splenic margins not palpable. MUSCULOSKELETAL: Extremities without clubbing, cyanosis, or edema. No obvious deformities. NEUROLOGICAL: moves all extremities spontaneously to deep stimuli : Purewick catheter in place A/P Assessment and Plan 87-year-old female with history of dementia, arthritis, anxiety, CAD s/p cardiac stents x3, HTN, HLD, diabetes, hiatal hernia, chronic back/joint pain, hypothyroidism, sent from her facility under [employer] Act placed by psychiatrist. Dementia with features of Agitation: presented under [employer] Act for being uncooperative, not taking meds, verbally abusive, and hitting staff at facility. -Continue patient's lexapro, risperidone, klonopin, ativan prn - Psychiatry ff Acute Encephalopathy: suspect multifactorial secondary to UTI, hypoxia, pneumonia, in combination with advanced dementia. -treat UTI as below -monitor neuro checks -monitor for improvement speech therapy consult for cognitive and speech evaluation UTI- Klebsiella Pneumoniae ESBL: on Ertapenem ID ff Ff final cultures. Purewick catheter in place Hypoxia, suspect early Pneumonia - good sats at [facility] History of PE CTA negative for PE -Continue patient's anticoagulation with Xarelto -Duonebs q6h riya and albuterol nebs q6h prn -Continue O2 for now, -Incentive spirometry -Monitor for improvement avoid sedation AMNA: Cr 1.23 upon arrival. Suspect secondary to dehydration- improved creatinine , continue to monitor continue gentle hydration MOnitor po intake. MOnitor BMP dietitian consult Hypertension/Hyperlipidemia: chronic -continue patient's atenolol, lisinopril, lipitor -monitor BP and adjust meds as needed Diabetes Mellitus , type 2 : poor po Hold januvia , hold metformin for now -Monitor Accu-checks and cover with SSI check hemoglobin A1C Elevated TSH- likely subclinical hypothyroidism recheck TSH if consistent elevated- check also baseline Ft4,Ft3 start synthroid 25 mcg po daily. Failed swallow evaluation: place NG tube for feedings and med administration. Bench Mover consulted for tube feedings Stat Glucerna goal 55 cc All other chronic medical conditions stable, continue home meds as appropriate. consult PT/OPT DVT Prophylaxis: on Xarelto Discharge Planning Discharge pending C further clinical improvement. Not yet ready for discharge. Discussed with the patient, nurse Sussy Kelley MD Oct 05, 2017 15:40
--- NOTE | 2017-10-05 15:58 | RADRPT ---
EXAM DATE/TIME: 10/05/2017 15:06 [facility] COMPARISON: ABDOMEN SINGLE VIEW, October 05, 2017, 14:07. INDICATIONS : Confirm nasogastric tube placement. MEDICAL HISTORY : Cardiovascular disease. Hypertension Diabetes mellitus type II. seizures, hernia SURGICAL HISTORY : Appendectomy. GI ostomy ENCOUNTER: Initial ACUITY: 4 - 6 days PAIN SCORE: Non-responsive. LOCATION: Bilateral abdomen FINDINGS: Examination of the abdomen demonstrates a normal bowel gas pattern. No free air is identified. No o rganomegaly is evident. Osseous structures are intact. The previously noted nasogastric tube is no l onger visualized. Coarse patchy opacity remains in both lung bases left greater than right. The costo phrenic angles appear blunted. CONCLUSION: The nasogastric tube is no longer visualized. Nasim Romero MD on October 05, 2017 at 15:57 Board Certified Radiologist. This report was verified electronically.
[2017-10-05] MEDS: LISINOPRIL 20 MG TAB PO SCH (16:00)
--- NOTE | 2017-10-05 18:15 | RADRPT ---
EXAM DATE/TIME: 10/05/2017 17:21 [facility] COMPARISON: ABDOMEN SINGLE VIEW, October 05, 2017, 15:06. INDICATIONS : Naso gastric tube placement. MEDICAL HISTORY : Myocardial infarction. Hypertension Diabetes mellitus type II. SURGICAL HISTORY : Carotid stent. ENCOUNTER: Subsequent ACUITY: 1 day PAIN SCORE: 0/10 LOCATION: abdomen FINDINGS: Examination of the abdomen demonstrates a normal bowel gas pattern. No free air is identified. No o rganomegaly is evident. Osseous structures are intact. There is prominent scoliosis to the right. Na sogastric tube is not identified. There is left lower lobe atelectasis versus pneumonia. CONCLUSION: 1. Nasogastric tube is not identified Prabhu Park MD on October 05, 2017 at 18:13 Board Certified Radiologist. This report was verified electronically.
[2017-10-05] MEDS: clonazePAM 1 MG TAB PO SCH (21:00)
[2017-10-05] MEDS: DOCUSATE SODIUM 50 MG/SENNA 8.6 MG TAB PO SCH (21:00)
--- NOTE | 2017-10-05 22:03 | RADRPT ---
EXAM DATE/TIME: 10/05/2017 21:28 [facility] COMPARISON: ABDOMEN SINGLE VIEW, October 05, 2017, 17:21. INDICATIONS : NG tube placement. MEDICAL HISTORY : None. SURGICAL HISTORY : None. ENCOUNTER: Subsequent ACUITY: 1 week PAIN SCORE: 0/10 LOCATION: Bilateral abdomen FINDINGS: A tube is identified over the upper thorax the windows overlie the tracheal air column and deviates t o the right. Pulmonary position cannot be excluded. No tubes identified overlying the stomach. There is patchy alveolar disease bilaterally compatible with edema or pneumonia. CONCLUSION: 1. Tube placement as above. This is not in the stomach. Prabhu Park MD on October 05, 2017 at 21:59 Board Certified Radiologist. This report was verified electronically.
[2017-10-05] MEDS: ERTAPENEM INJ 1,000 MG in SODIUM CHLORIDE 0.9% INJ 100 ML IV SCH (22:57)
[2017-10-06] VITALS (12 sets, daily range): BP systolic 156–204; BP diastolic 70–99; PULSE 93–106; RESP 17–20; TEMP 97.2–98.6; O2SAT 93–98
[2017-10-06] MEDS ORDERED: cloNIDine HCL 0.1 MG TAB PO ONE (01:00)
[2017-10-06] MEDS ORDERED: ENALAPRILAT 1.25 MG/ML VIAL IV PUSH ONE (01:45)
[2017-10-06] MEDS: RESP: ALBUTEROL 2.5 MG/IPRATROPIUM 0.5 MG NEB (SCH) NEB ×2 (07:40→13:28)
[2017-10-06] MEDS: INSULIN NovoLIN REGULAR SUPPLEMENTAL SCALE SQ SCH ×4 (08:00→21:00)
[2017-10-06] MEDS: clonazePAM 1 MG TAB PO SCH ×2 (09:00→21:00)
[2017-10-06] MEDS: CHOLECALCIFEROL (VIT D3) 5000 UNIT CAP PO SCH (09:00)
[2017-10-06] MEDS: ESCITALOPRAM OXALATE 10 MG TAB PO SCH (09:00)
[2017-10-06] MEDS: ATORVASTATIN 10 MG TAB PO SCH (09:00)
[2017-10-06] MEDS: ASPIRIN EC 81 MG TABEC PO SCH (09:00)
[2017-10-06] MEDS: SODIUM CHLORIDE 0.9% FLUSH 10 ML FLUSH IV FLUSH SCH ×2 (09:00→21:00)
[2017-10-06] MEDS: ATENOLOL 50 MG TAB PO SCH (09:00)
[2017-10-06] MEDS: RIVAROXABAN 20 MG TAB PO SCH (09:00)
[2017-10-06] MEDS: DOCUSATE SODIUM 50 MG/SENNA 8.6 MG TAB PO SCH ×2 (09:00→21:00)
[2017-10-06] MEDS: FERROUS SULFATE 325 MG (65 MG ELEMENTAL IRON) TAB PO SCH ×3 (09:30→18:00)
--- NOTE | 2017-10-06 12:28 | HHI.PR ---
Subjective Remarks Patient is agitated on and off. blood pressure elevated overnight we'll add Vasotec IV when necessary. Failed repeatedly swallow evaluation Objective Vitals Vital Signs Date Time Temp Pulse Resp B/P (MAP) Pulse Ox O2 Delivery O2 Flow Rate FiO2 10/06/17 08:00 97.8 98 18 158/85 (109) 94 10/06/17 08:00 94 10/06/17 07:44 96 Nasal Cannula 3.00 10/06/17 07:00 Nasal Cannula 3.00 10/06/17 04:00 156/70 (98) 10/06/17 04:00 98.6 95 20 93 10/06/17 04:00 3.00 10/06/17 03:43 94 10/06/17 03:00 159/82 (107) 10/06/17 00:00 3.00 10/05/17 23:57 105 10/05/17 22:50 3.00 10/05/17 22:50 98 Nasal Cannula 3.00 10/05/17 19:58 93 10/05/17 19:20 172/90 (117) 10/05/17 19:16 97.7 93 17 165/90 (115) 10/05/17 16:20 97.6 97 18 198/91 (126) 93 10/05/17 14:46 98 10/05/17 14:46 98 3.00 I/O 10/05/17 10/05/17 10/05/17 10/06/17 10/06/17 10/06/17 07:00 15:00 23:00 07:00 15:00 23:00 Intake Total 100 ml Balance 100 ml IV Total 100 ml # Voids 1 4 # Bowel Movements 6 Result Diagram: 10/04/17 0423 10/05/17 0325 Imaging Last Impressions Abdomen X-Ray 10/05/17 1442 Signed Impressions: Service Date/Time: Thursday, October 05, 2017 15:06 - CONCLUSION: The nasogastric tube is no longer visualized. Nasim Romero MD CT Angiography 10/02/17 0000 Signed Impressions: Service Date/Time: Monday, October 02, 2017 16:13 - CONCLUSION: 1. No evidence of PE. 2. There are some patchy infiltrates in both lower lungs. 3. Small bilateral effusions. 4. Stable large hiatal hernia without significant change compared to the prior examination. Raghavendra Carrillo MD Chest X-Ray 10/01/17 0000 Signed Impressions: Service Date/Time: Sunday, October 01, 2017 12:29 - CONCLUSION: 1. Large hiatal hernia. There is both stomach and probable transverse colon herniated through the defect. 2. Compressive atelectatic changes in the left lung base. The overall appearance of the chest is relatively stable compared to previous dated 05/18/70 Mando Pan MD Objective Remarks GENERAL: Awake, sleepy , lethargic responding to vocal stimuli but keeps her eyes closed. CARDIOVASCULAR: Regular rate and rhythm. RESPIRATORY: No accessory muscle use. Decreased breath sounds. Clear to auscultation. Breath sounds equal bilaterally. GASTROINTESTINAL: Abdomen soft, non-tender, nondistended. Hepatic and splenic margins not palpable. MUSCULOSKELETAL: Extremities without clubbing, cyanosis, or edema. No obvious deformities. NEUROLOGICAL: moves all extremities spontaneously to deep stimuli : Purewick catheter in place A/P Assessment and Plan 87-year-old female with history of dementia, arthritis, anxiety, CAD s/p cardiac stents x3, HTN, HLD, diabetes, hiatal hernia, chronic back/joint pain, hypothyroidism, sent from her facility under [employer] Act placed by psychiatrist. Dementia with features of Agitation: presented under [employer] Act for being uncooperative, not taking meds, verbally abusive, and hitting staff at facility. -Continue patient's lexapro, risperidone, klonopin, ativan prn - Psychiatry ff Acute Encephalopathy: suspect multifactorial secondary to UTI, hypoxia, pneumonia, in combination with advanced dementia. -treat UTI as below -monitor neuro checks -monitor for improvement speech therapy consult for cognitive and speech evaluation UTI- Klebsiella Pneumoniae ESBL: on Ertapenem ID ff Ff final cultures. Purewick catheter in place Hypoxia, suspect early Pneumonia - good sats at 2 [facility] History of PE CTA negative for PE -Continue patient's anticoagulation with Xarelto -Duonebs q6h riya and albuterol nebs q6h prn -Continue O2 for now, -Incentive spirometry -Monitor for improvement avoid sedation AMNA: Cr 1.23 upon arrival. Suspect secondary to dehydration- improved creatinine , continue to monitor continue gentle hydration MOnitor po intake. MOnitor BMP dietitian consult Hypertension/Hyperlipidemia: chronic -continue patient's atenolol, lisinopril, lipitor -monitor BP and adjust meds as needed Diabetes Mellitus , type 2 : poor po Hold januvia , hold metformin for now -Monitor Accu-checks and cover with SSI check hemoglobin A1C Elevated TSH- likely subclinical hypothyroidism recheck TSH if consistent elevated- check also baseline Ft4,Ft3 start synthroid 25 mcg po daily. Failed swallow evaluation: NG tube for feedings All other chronic medical conditions stable, continue home meds as appropriate. consult PT/OPT DVT Prophylaxis: on Xarelto Discharge Planning Discharge pending C further clinical improvement. Not yet ready for discharge. Discussed with the patient, nurse Sussy Kelley MD Oct 06, 2017 12:28
--- NOTE | 2017-10-06 12:30 | PD.CONS ---
HPI History of Present Illness This is a 87 year old lady with dementia, large hiatal hernia containing organs , who was garnica acted from her facility for aggressive behavior towards other residents and refusing her meds. She has failed 2 swallow evals, per PT ESCORT severe oropharyngeal dysphagia and high risk of aspiration. GI has been consulted for PEG tube placement. She had CT abd 05/2017 that showed a massive hiatal and left posterior diaphragmatic hernia containing entire stomach, transverse colon, and splenic flexure, mult small bowel loops. hx obtained from EMR, pt noncontributory. (Trina Call) PFSH Past Medical History dementia arthritis anxiety CAD s/p cardiac stents x3 HTN HLD borderline diabetes hiatal hernia chronic back/joint pain hypothyroidism Past Surgical History Cardiac catheterizations with stents Appendectomy Right shoulder surgery Cataract removal Dental implants (Trina Call) Coded Allergies: meperidine (Verified Allergy, Mild, N/V, 10/01/17) propoxyphene (Verified Adverse Reaction, Mild, N/V, 10/01/17) Family History Brother and mother with heart disease Social History Denies any tobacco, alcohol, or illicit drug use. (Trina Call) Review of Systems noncontributory (Trina Call) GI Exam Vitals I&O Vital Signs Date Time Temp Pulse Resp B/P (MAP) Pulse Ox O2 Delivery O2 Flow Rate FiO2 10/06/17 08:00 97.8 98 18 158/85 (109) 94 10/06/17 08:00 94 10/06/17 07:44 96 Nasal Cannula 3.00 10/06/17 07:00 Nasal Cannula 3.00 10/06/17 04:00 156/70 (98) 10/06/17 04:00 98.6 95 20 93 10/06/17 04:00 3.00 10/06/17 03:43 94 10/06/17 03:00 159/82 (107) 10/06/17 00:00 3.00 10/05/17 23:57 105 10/05/17 22:50 3.00 10/05/17 22:50 98 Nasal Cannula 3.00 10/05/17 19:58 93 10/05/17 19:20 172/90 (117) 10/05/17 19:16 97.7 93 17 165/90 (115) 10/05/17 16:20 97.6 97 18 198/91 (126) 93 10/05/17 14:46 98 10/05/17 14:46 98 3.00 I/O 10/05/17 10/05/17 10/05/17 10/06/17 10/06/17 10/06/17 07:00 15:00 23:00 07:00 15:00 23:00 Intake Total 100 ml Balance 100 ml IV Total 100 ml # Voids 1 4 # Bowel Movements 6 Imaging Last Impressions Abdomen X-Ray 10/05/17 1442 Signed Impressions: Service Date/Time: Thursday, October 05, 2017 15:06 - CONCLUSION: The nasogastric tube is no longer visualized. Nasim Romero MD CT Angiography 10/02/17 0000 Signed Impressions: Service Date/Time: Monday, October 02, 2017 16:13 - CONCLUSION: 1. No evidence of PE. 2. There are some patchy infiltrates in both lower lungs. 3. Small bilateral effusions. 4. Stable large hiatal hernia without significant change compared to the prior examination. Raghavendra Carrillo MD Chest X-Ray 10/01/17 0000 Signed Impressions: Service Date/Time: Sunday, October 01, 2017 12:29 - CONCLUSION: 1. Large hiatal hernia. There is both stomach and probable transverse colon herniated through the defect. 2. Compressive atelectatic changes in the left lung base. The overall appearance of the chest is relatively stable compared to previous dated 05/18/70 Mando Pan MD Laboratory Date/Time Source Procedure Growth Status 10/01/17 14:15 Urine Clean Catch Urine Culture - Final Klebsiella Pneumoniae Esbl Pos Complete Physical Examination HEENT: normocephalic; atraumatic; no jaundice. CHEST: Cta CARDIAC: RRR ABDOMEN: Soft, nondistended, nontender; no hepatosplenomegaly; bowel sounds are present in all four quadrants. EXTREMITIES: No clubbing, cyanosis, or edema. SKIN: Normal; no rash; no jaundice. PUBLIC HEALTH DIRECTOR: lethargic, confused, unintelligible speech (Trina Call) Assessment and Plan Plan ASSESSMENT - dysphagia - failed 2 swallow evals, per PT ESCORT severe oropharyngeal dysphagia and high risk aspiration, made NPO. she has hx of massive hiatal hernia containing multiple organs per CT 05/2017 , this would be contraindication to GI placing PEG. NGT tube not placed d/t difficulty. palliative care consult pending. PLAN - IR consult to see if they can place tube - if not IR poss GS can place feeding tube - await palliative care eval - supportive care - GI will sign off. please reconsult if needed pt seen by myself and Dr Lobo and this note is on his behalf (Trina Call) Plan Patient was seen and examined, agree with above-noted, it would be very difficult with such large hernia and multiple organs and at to place a PEG tube endoscopically with high risk so a better approach is interventional radiology or general surgery, further plan per IR if they feel that they can place the PEG tube otherwise surgery would be needed, alternatively if palliative care involvement. The patient is a candidate for that. (Akua Lobo MD) Trina Call Oct 06, 2017 12:30 Akua Lobo MD Oct 06, 2017 17:51
[2017-10-06] MEDS: ENALAPRILAT 2.5 MG/2 ML VIAL IV PUSH PRN ×2 (13:08→16:27)
--- NOTE | 2017-10-06 13:14 | RADRPT ---
EXAM DATE/TIME: 10/06/2017 00:00 [facility] COMPARISON : No previous studies available for comparison. INDICATIONS : Dysphagia We were asked to perform percutaneous gastrostomy on this patient. Unfortunately, the patient has an intrathoracic stomach and is not a candidate for percutaneous G-tub e placement. Surgical consultation for consideration of jejunostomy placement would be suggested if clinically ind icated. Sonny Evans MD on October 06, 2017 at 13:12 Board Certified Radiologist. This report was verified electronically.
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
[2017-10-06] MEDS: LISINOPRIL 20 MG TAB PO SCH (16:00)
--- NOTE | 2017-10-06 16:17 | MB ---
cc: Merrill Zhang MD DATE OF CONSULT: PERSON REQUESTING CONSULTATION: Radha Giron MD REASON FOR CONSULTATION: Enteric feeding tube evaluation. HISTORY OF PRESENT ILLNESS: Patient is an 87-year-old female who was admitted to [facility] on 10/01/2017 with dementia and Mccain Act. Patient was a poor historian but was oriented to self. The patient was placed on a Mccain Act due to being uncooperative with her own care and abusing medications. Patient is also loud and agitated and verbally abusive and hitting people at her facility. During evaluation, the patient was found to have a high risk of aspiration and failed multiple swallow evaluations. The patient has no family members locally and does not have an advance directive. She was recommended to undergo feeding tube placement; however, the patient has a history of a large hiatal hernia, making a PEG tube contraindicated. The patient, again, is unable to provide history. History is provided from the chart. REVIEW OF SYSTEMS: Twelve-point review of systems conducted from the chart, as the patient is unable to answer this questioning due to her dementia and altered mental status. PAST MEDICAL HISTORY: Dementia, arthritis, anxiety, coronary artery disease status post stent placement, hypertension, hyperlipidemia, hiatal hernia, chronic back pain, hypothyroidism. PAST SURGICAL HISTORY: Appendectomy, shoulder surgery. MEDICATIONS: [place], Xarelto, aspirin, Lipitor, risperidone, Flagyl, Klonopin, Januvia, iron, atenolol, metformin, Namzaric, lorazepam, lisinopril, Lexapro. ALLERGIES: MEPERIDINE AND PROPOXYPHENE. SOCIAL HISTORY: Patient lives in [facility]. Does not use tobacco, alcohol or illicit drugs. FAMILY HISTORY: Per the chart, heart disease in the family. PHYSICAL EXAMINATION: VITAL SIGNS: Blood pressure 190/96, heart rate 98, temperature 97.2 degrees. Patient is a chronically ill-appearing female in the inpatient facility at [facility]. The patient arouses to voice and touch and converses, although does not answer questions readily. Appears mildly somnolent. HEAD: Normocephalic, atraumatic. Pupils round and reactive to light. Sclerae are anicteric. Oral cavity is clear. Airway is patent. Breath sounds present bilaterally and nonlabored breathing pattern. NECK: Supple, no JVD. ABDOMEN: Soft, nondistended, no organomegaly, no ascites, no hernias. Normal bowel sounds. EXTREMITIES: Trace edema. NEUROLOGIC: Patient is currently not communicating and appears somnolent, possibly due to recent medication administration. No focal deficits are perceived, although patient, again, is not cooperating with the exam. LABORATORY VALUES: Anemia with hemoglobin last at 9.9. Platelets are 309. Hemoglobin A1c is 8.2 and albumin is 2.0. Urinalysis is positive for leukocyte esterase and protein. IMAGING: X-ray of the abdomen shows a hiatal hernia containing transverse colon and small bowel. ASSESSMENT AND PLAN: Patient is an 87-year-old female with dementia with acute psychotic episode, requiring Mccain Act, inpatient admission. The patient has failed swallow eval and is not a candidate for PEG tube placement for continued nutritional support. Reviewed the patient's records and imaging, and the patient does likely have a large hiatal hernia, which is chronic. These very large complex hiatal hernias and attempt to repair these in a patient that is frail and with such a poor performance status as this patient is a high-risk surgery and I would not recommend this. However, this will be required to place a PEG tube as the stomach will need to be fully back into the abdominal cavity prior to placing a gastrostomy tube. For this reason, I do not recommend surgical gastrostomy tube placement. The only minimally invasive feeding tube that could be placed surgically would be a laparoscopic jejunostomy tube; however, this would require the patient to be on tube feeds trickle type through a pump 24 hours, which would likely require the patient to be under close monitoring and/or likely restrained while she is being fed for 24 hours. This does not seem to be a very ethical situation; therefore, I did discuss with Dr. Kelley considering palliative care consult and treatment goals for this patient prior to placing any feeding tube. Thank you very much for this consultation. We will follow along with the patient and place a feeding tube if this is required for this patient's care. MD FAIZAN Stewart/COLTEN , 03:45 PM , 04:15 PM
--- NOTE | 2017-10-06 20:01 | RADRPT ---
EXAM DATE/TIME: 10/06/2017 19:08 [place] COMPARISON: CT BRAIN W/O CONTRAST, April 19, 2017, 9:02. INDICATIONS : Altered mental status. RADIATION DOSE: 44.28 CTDIvol (mGy) MEDICAL HISTORY : Hypertension. Seizures. Cardiovascular disease Diabetes. SURGICAL HISTORY : None. ENCOUNTER: Initial ACUITY: 1 day PAIN SCALE: Non-responsive LOCATION: cranial TECHNIQUE: Multiple contiguous axial images were obtained of the head. Using automated exposure control and adj ustment of the mA and/or kV according to patient size, radiation dose was kept as low as reasonably a chievable to obtain optimal diagnostic quality images. DICOM format image data is available electro nically for review and comparison. FINDINGS: CEREBRUM: Cerebral atrophy is stable. Periventricular and subcortical white matter small vessel ischemic change s are also stable. No evidence of midline shift, mass lesion, hemorrhage or acute infarction. No ext ra-axial fluid collections are seen. POSTERIOR FOSSA: The cerebellum and brainstem are intact. The 4th ventricle is midline. The cerebellopontine angle i s unremarkable. EXTRACRANIAL: The visualized portion of the orbits is intact. Mucosal thickening is noted throughout the ethmoid ai r cells bilaterally and minimal mucosal thickening is noted within the right maxillary sinus. SKULL: The calvaria is intact. No evidence of skull fracture. CONCLUSION: 1. Stable cerebral atrophy. 2. Stable periventricular and subcortical white matter small vessel ischemic changes. 3. No acute infarct, acute hemorrhage, mass effect or extra axial fluid collections. Ki Page MD on October 06, 2017 at 19:57 Board Certified Radiologist. This report was verified electronically.
[2017-10-06] MEDS: SODIUM CHLOR 0.9% 1000 ML INJ 1,000 ML IV SCH (21:53)
[2017-10-06] MEDS: ERTAPENEM INJ 1,000 MG in SODIUM CHLORIDE 0.9% INJ 100 ML IV SCH (21:55)
[2017-10-07] VITALS: BP 181/101; PULSE 83; PULSE 84; RESP 20; TEMP 97.6; O2SAT 98
[2017-10-07 04:00] VITALS: PULSE 81
[2017-10-07 04:48] VITALS: BP 162/80
[2017-10-07] MEDS: ENALAPRILAT 2.5 MG/2 ML VIAL IV PUSH PRN ×3 (04:50→14:48)
[2017-10-07 08:00] VITALS: BP 177/101; PULSE 90; RESP 18; TEMP 97.4; O2SAT 96
[2017-10-07] MEDS: INSULIN NovoLIN REGULAR SUPPLEMENTAL SCALE SQ SCH ×2 (08:00→12:00)
[2017-10-07 08:05] VITALS: PULSE 83
[2017-10-07] MEDS: clonazePAM 1 MG TAB PO SCH (09:00)
[2017-10-07] MEDS: CHOLECALCIFEROL (VIT D3) 5000 UNIT CAP PO SCH (09:00)
[2017-10-07] MEDS: RIVAROXABAN 20 MG TAB PO SCH (09:00)
[2017-10-07] MEDS: ATENOLOL 50 MG TAB PO SCH (09:00)
[2017-10-07] MEDS: ASPIRIN EC 81 MG TABEC PO SCH (09:00)
[2017-10-07] MEDS: ESCITALOPRAM OXALATE 10 MG TAB PO SCH (09:00)
[2017-10-07] MEDS: ATORVASTATIN 10 MG TAB PO SCH (09:00)
[2017-10-07] MEDS: SODIUM CHLORIDE 0.9% FLUSH 10 ML FLUSH IV FLUSH SCH (09:00)
[2017-10-07] MEDS: DOCUSATE SODIUM 50 MG/SENNA 8.6 MG TAB PO SCH (09:00)
[2017-10-07] MEDS: FERROUS SULFATE 325 MG (65 MG ELEMENTAL IRON) TAB PO SCH ×2 (09:30→13:30)
[2017-10-07 12:00] VITALS: BP 193/101; PULSE 90; RESP 18; TEMP 97.5; O2SAT 94
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
--- NOTE | 2017-10-07 14:15 | HHI.HCPN ---
Reason for visit a. To assist with evaluation and management of symptoms including: Dyspnea, agitation, combativeness b. To assist medical decision maker(s) with: better understanding of current medical conditions; weighing benefits/burdens of medical treatment options; making medical treatment decisions. . Subjective/Interval History INTERVAL NOTE: Patient remains dysphagic, quite lethargic, weak She is afebrile. Hospice has evaluated the patient and there is a plan to move her to a care center today. . Advance Directives Living Will: Never completed Health Care Surrogate: Never completed Durable Power of Records Custodian: Never completed Advance Directive Specifics Significant change in goals: Transitioning to hospice care center today . Objective Vital Signs Date Time Temp Pulse Resp B/P (MAP) Pulse Ox O2 Delivery O2 Flow Rate FiO2 10/07/17 08:05 83 10/07/17 08:00 97.4 90 18 177/101 (126) 96 10/07/17 04:48 162/80 (107) 10/07/17 04:00 81 10/07/17 00:00 97.6 84 20 181/101 (127) 98 Manual Cuff/Auscultation 10/07/17 00:00 83 10/07/17 00:00 Nasal Cannula 3.00 10/06/17 22:02 178/72 (107) 10/06/17 20:56 97 Nasal Cannula 3.00 10/06/17 20:01 96 10/06/17 20:00 Nasal Cannula 3.00 10/06/17 19:18 97.8 93 17 192/92 (125) 98 180/90 (120) 10/06/17 16:05 97.5 103 17 204/99 (134) 172/90 (117) 10/06/17 16:00 97 Intake & Output 10/07/17 10/07/17 07:00 19:00 Intake Total 0 ml Balance 0 ml Intake Oral 0 ml # Voids 1 # Bowel Movements 0 Physical Exam CONSTITUTIONAL/GENERAL: This is an elderly, thin, weak patient, lying in the bed in four-point restraints, eyes closed but intermittent moaning and mumbling. TUBES/LINES/DRAINS: 2 peripheral IVs, four-point restraints, nasal oxygen NECK: Trachea midline. Supple, nontender. No palpable thyroid enlargement or nodularity. CARDIOVASCULAR: Regular rate and rhythm without murmurs, gallops, or rubs. No JVD. Peripheral pulses symmetric. RESPIRATORY/CHEST: Symmetric, unlabored respirations. Diminished breath sounds , scattered rales GASTROINTESTINAL: Abdomen soft, non-tender, nondistended. No hepato-splenomegaly , or palpable masses. No guarding. Bowel sounds present. MUSCULOSKELETAL: Extremities without clubbing, cyanosis, or edema. No joint tenderness or effusion noted. No calf tenderness. No mottling or clubbing. NEUROLOGICAL: Lethargic, moves all 4 extremities, mumbles, does not follow simple commands PSYCHIATRIC: Still somewhat restless . Diagnostic Tests Laboratory Laboratory Tests Test 10/04/17 19:45 10/05/17 03:25 Random Glucose 183 MG/DL (74-106) 147 MG/DL (74-106) Blood Urea Nitrogen 8 MG/DL (7-18) Creatinine 0.62 MG/DL (0.50-1.00) Total Protein 6.2 GM/DL (6.4-8.2) Albumin 2.0 GM/DL (3.4-5.0) Calcium Level 8.9 MG/DL (8.5-10.1) Alkaline Phosphatase 104 U/L (45-117) Aspartate Amino Transf (AST/SGOT) 16 U/L (15-37) Alanine Aminotransferase (ALT/SGPT) 10 U/L (10-53) Total Bilirubin 0.2 MG/DL (0.2-1.0) Sodium Level 141 MEQ/L (136-145) Potassium Level 3.9 MEQ/L (3.5-5.1) Chloride Level 109 MEQ/L (98-107) Carbon Dioxide Level 24.7 MEQ/L (21.0-32.0) Anion Gap 7 MEQ/L (5-15) Estimat Glomerular Filtration Rate 91 ML/MIN (>89) Hemoglobin A1c 8.2 % (4.3-6.0) Free Thyroxine 1.04 NG/DL (0.76-1.46) Free Triiodothyronine (T3) pg/dL 1.54 PG/ML (2.18-3.98) Thyroid Stimulating Hormone 3rd Gen 5.270 uIU/ML (0.358-3.740) Result Diagram: 10/04/17 0423 10/05/17 0325 Imaging Last Impressions Head CT 10/06/17 0000 Signed Impressions: Service Date/Time: Friday, October 06, 2017 19:08 - CONCLUSION: 1. Stable cerebral atrophy. 2. Stable periventricular and subcortical white matter small vessel ischemic changes. 3. No acute infarct, acute hemorrhage, mass effect or extra axial fluid collections. Ki Page MD Abdomen X-Ray 10/05/17 1442 Signed Impressions: Service Date/Time: Thursday, October 05, 2017 15:06 - CONCLUSION: The nasogastric tube is no longer visualized. Nasim Romero MD CT Angiography 10/02/17 0000 Signed Impressions: Service Date/Time: Monday, October 02, 2017 16:13 - CONCLUSION: 1. No evidence of PE. 2. There are some patchy infiltrates in both lower lungs. 3. Small bilateral effusions. 4. Stable large hiatal hernia without significant change compared to the prior examination. Raghavendra Carrillo MD Chest X-Ray 10/01/17 0000 Signed Impressions: Service Date/Time: Sunday, October 01, 2017 12:29 - CONCLUSION: 1. Large hiatal hernia. There is both stomach and probable transverse colon herniated through the defect. 2. Compressive atelectatic changes in the left lung base. The overall appearance of the chest is relatively stable compared to previous dated 05/18/70 Mando Pan MD Assessment and Plan Disease Oriented Problem List: (1) Sepsis, UTI, pneumonia (2) Encephalopathy, likely related to underlying dementia and concomitant infections (3) Hypoxia (4) Failure to thrive (5) Mccain Act on admission (6) CAD, SD (7) History of recurrent UTI (8) Hearing loss (9) Diabetes (10) Anxiety (11) Hypertension (12) Kyphosis (13) GERD (14) Hyperlipidemia Symptom Scale: (1) Dyspnea 0-10 Scale: Unable to quantify (2) Agitation, combativeness 0-10 Scale: Unable to quantify (Mccain Act on admission) Pertinent Non-Medical Issues Psychosocial: Long-term [facility] resident Spiritual: Muslim background Legal: The patient lacks capacity for decision-making, and it seems quite unlikely that she would regain that capacity. The records indicate she is and has no children, and thus her sister Noman and her brother Keaton would be her proxy decision makers. Ethical issues impacting care: None . Important Contacts Brother: Keaton Paytas cell phone [phone] Sister: Noman Rios [phone] . Prognosis This patient's prognosis is quite poor. She has been declining over the past year, has had multiple hospitalizations, is increasingly confused and debilitated, and now has developed severe dysphagia with pneumonia (likely aspiration). She is appropriate for hospice services if family's goals become comfort oriented. . Code Status: No Code Plan * DO NOT RESUSCITATE, per patient's brother 10/06/17 * DECISION-MAKING: The patient lacks capacity for decision-making, and it seems quite unlikely that she would regain that capacity. The patient's brother Keaton has been functioning as a decision-maker for her in recent months and years, and he continues to assume that role now. * GOALS: Transition to comfort care today, moving to hospice care center * SYMPTOMS: The patient has ongoing agitation and is in four-point restraints. She would certainly benefit from lorazepam or Haldol; hospice will assist. * Palliative Care will continue to follow the patient during this hospitalization. . Time Spent Total Floor Time (mins): 27 Face to Face Time (mins): 11 >50% Counseling/Coord of Care: Yes (d/w Dr. Kelley) Attestation To help prompt me to consider important information that might be impacting today's encounter and assessment, information from prior notes written by myself or my colleagues may have been "brought forward" into today's note. My signature on this note, however, is an attestation that I personally performed the exam, history, and/or decision-making noted today, and, unless otherwise indicated, the interactions with patient, family, and staff as well as the review of records all occurred today. I also attest that the listed assessment and stated plan reflect my best clinical judgment today based on the combination of historical information, prior notes, and today's exam/ interactions. When time spent is documented, it refers only to time spent today by the signer, or if indicated, combined time spent today by collaborating physician/nurse practitioner. Sharifa Tello MD Oct 07, 2017 14:15
--- NOTE | 2017-10-07 15:08 | PQ ---
Physician Query Response Document PATIENT: ALICIA COLINDRES : 1930 ADMIT DATE: 10/01/2017 4:19 PM DISCH DATE: RESPONDING PROVIDER #: [email or web address] QUERY TEXT: Pneumonia Specificity Aspiration Pneumonia in the setting of advanced dementia and severe oral and severe pharyngeal phase dysphagia treated with IV Azactam and consult for PEG placement Other explanation of clinical findings. Unable to determine (no explanation for clinical findings). The patient's Clinical Indicators include: The medical record reflects the following clinical findings, treatment, and risk factors. * Clinical Indicators CXR: compressive atelectatic changes. Swallow evaluation. * Risk Factors severe oral and pharyngeal phase dysphagia w/ high risk of aspiration, advanced ayesha ia * Treatment IV Azactam, nebulizers, aspiration precautions, consult for PEG tube placement Please clarify and document your clinical opinion in the progress notes and discharge summary includi ng the definitive and/or presumptive diagnosis (suspected or probable), related to the above clinical findings. Please include clinical findings supporting your diagnosis. Thank you, Karina Easley CDS: Karina Easley Contact Number: CDS/RN ext. [phone] Query created by: Karina Easley on 10/06/2017 3:26 PM RESPONSE TEXT: Likely aspiration pneumonia as patient with high risk Electronically signed by: Sussy Kelley MD 10/07/2017 3:04 PM
== END 2017-10-07 16:38 | disposition hospice, inpatient (51) | DRG 177 ==
LOC: NEPC 11:37 → NEDA 16:19 → NEPFCDU 18:39 → N04A 10-05 15:57
PROVIDERS: ADMIT Hospitalist; ATTEND Hospitalist
DX: J69.0 Pneumonitis due to inhalation of food and vomit (principal); G93.40 Encephalopathy, unspecified; N17.9 Acute kidney failure, unspecified; I11.0 Hypertensive heart disease with heart failure; I50.9 Heart failure, unspecified; F03.91 Unspecified dementia, unspecified severity, with behavioral disturbance; E11.9 Type 2 diabetes mellitus without complications; B96.1 Klebsiella pneumoniae [K. pneumoniae] as the cause of diseases classified elsewhere; N39.0 Urinary tract infection, site not specified; Z79.84 Long term (current) use of oral hypoglycemic drugs; Z16.12 Extended spectrum beta lactamase (ESBL) resistance; R13.12 Dysphagia, oropharyngeal phase; K44.9 Diaphragmatic hernia without obstruction or gangrene; E86.0 Dehydration; E03.9 Hypothyroidism, unspecified; E78.5 Hyperlipidemia, unspecified; I25.10 Atherosclerotic heart disease of native coronary artery without angina pectoris; Z95.5 Presence of coronary angioplasty implant and graft; Z86.711 Personal history of pulmonary embolism; Z79.02 Long term (current) use of antithrombotics/antiplatelets; Z79.82 Long term (current) use of aspirin; S42.211D Unspecified displaced fracture of surgical neck of right humerus, subsequent encounter for fracture with routine healing; W22.8XXD Striking against or struck by other objects, subsequent encounter; R09.02 Hypoxemia; R32 Unspecified urinary incontinence; Z51.5 Encounter for palliative care; Z66 Do not resuscitate; H91.90 Unspecified hearing loss, unspecified ear; Z78.1 Physical restraint status
CPT/HCPCS: 70450; 71045; 71275; 74018; 76937; 80048; 80053; 81001; 82947; 82948; 83036; 84439; 84443; 84481; 85025; 87077; 87086; 87186; 94150; 94640; 94664; 96361; 96365; J0456; J0696; J1335; J2543; J7030; J7040; J7050; P9612; Q9967